=== PATIENT | female | born 1970 | race Caucasian/White ===

== ENCOUNTER 2020-08-08 07:13 | Outpatient (REF) | payer OTHER, SELFPAY ==
[2020-08-08 07:50] LABS: MANUAL DIFF FLAG NO
[2020-08-08 07:59] LABS: Basophils Absolute Auto 0.1 X10*3/uL (0.0-0.2); Basophils Percent Auto 0.7 % (0-2); Eosinophils Absolute Auto 0.2 X10*3/uL (0.0-0.4); Eosinophils Percent Auto 3.3 % (0-4); Hematocrit 45.4 % (37-47); Hemoglobin 14.9 g/dl (12.0-16.0); Imm Gran Abs Auto 0.03 X10*3/uL (0.00-0.03); Imm Gran Pct Auto 0.4 % (0.0-0.4); Lymphocytes Absolute Auto 2.4 X10*3/uL (1.2-4.9); Lymphocytes Percent Auto 35.4 % (20-40); Mean Corpuscular HGB Conc 32.8 g/dl (31.0-35.0); Mean Corpuscular Hemoglobin 28.9 pg (27.0-33.0); Mean Platelet Volume 9.2 fL (9.4-12.3); Monocytes Absolute Auto 0.6 X10*3/uL (0.1-1.2); Monocytes Percent Auto 8.3 % (2-11); Neutrophils Absolute Auto 3.6 X10*3/uL (2.0-8.3); Neutrophils Percent Auto 51.9 % (45-73); Platelet Count 314 X10*3/uL (160-400); Red Blood Count 5.16 X10*6/uL (4.20-5.50); Red Cell Distribution Width 17.2 % (11.0-16.0); White Blood Count 6.9 X10*3/uL (4.8-10.8)
[2020-08-08 08:26] LABS: Glucose Fasting 104 mg/dL (60-99); Iron 81 mcg/dL (30-160); Percent Iron Saturation 25 % (15-50); Total Iron Binding Capacity 322 mcg/dL (228-428); Unsaturated Iron Binding 241 ug/dL
[2020-08-08 08:41] LABS: Ferritin 42 ng/mL (10-250); Free T4 (Free Thyroxine) 1.03 ng/dL (0.71-1.85)
== END 2020-08-08 07:14 | disposition home or self-care (01) ==
LOC: HO.LAB 07:13
PROVIDERS: PCP Internal Medicine; Visit Provider Internal Medicine
DX: E03.9 Hypothyroidism, unspecified (principal); D50.9 Iron deficiency anemia, unspecified
CPT/HCPCS: 36415; 82728; 82947; 83540; 84439; 84443; 85025

== ENCOUNTER 2020-09-21 11:13 | Outpatient (REF) | payer OTHER, SELFPAY ==
--- NOTE | 2020-09-21 11:17 | MM_ITS ---
EXAMINATION: MM SCREENING DIGITAL BREAST TOMOSYNTHESIS, BILATERAL CLINICAL INFORMATION: Screening. Asymptomatic. The lifetime risk of breast cancer based on the Tyrer-Cuzick Model is 2%. COMPARISON: Mammography: 09/16/2019, 06/19/2018 TECHNIQUE: Digital breast tomosynthesis is performed in both the craniocaudal and mediolateral oblique views along with computer-aided detection (CAD). Synthesized 2D images are generated from the tomosynthesis. FINDINGS: There are scattered areas of fibroglandular density (ACR BI-RADS breast composition Category b). There are no significant masses, abnormal calcifications, or other abnormalities. No significant changes from prior exam. MM/MM tomosynthesis screening BI IMPRESSION: No mammographic evidence of malignancy. ASSESSMENT: BI-RADS 1: Negative RECOMMENDATION: Routine annual mammography screening. This patient's information was entered into a reminder system with a target due date for their next mammogram.
== END 2020-09-21 11:14 | disposition home or self-care (01) ==
LOC: HO.MAMMO 11:13
PROVIDERS: PCP Internal Medicine; Visit Provider Internal Medicine
DX: Z12.31 Encounter for screening mammogram for malignant neoplasm of breast (principal)
CPT/HCPCS: 77063; 77067

== ENCOUNTER 2020-10-21 08:49 | Outpatient (REF) | payer OTHER, SELFPAY | END 2020-10-21 08:50 | disposition home or self-care (01) | LOC: HO.LAB 08:49 | PROVIDERS: PCP Internal Medicine; Visit Provider Internal Medicine | DX: Z20.828 Contact with and (suspected) exposure to other viral communicable diseases (principal) | CPT/HCPCS: C9803; U0003 ==

== ENCOUNTER 2020-10-29 10:53 | Day surgery (SDC) | payer OTHER, SELFPAY ==
--- NOTE | 2020-10-27 13:57 | P.CONAN_ITS ---
Documented by User: Jael Henriquez 10/27/20 14:02 HPI - Anesthesia Eval Consult details Narrative: 50yo F for Colonoscopy PMFSH Past Medical History Medical History Acquired hypothyroidism ADHD Anemia Asthma Atypical ductal hyperplasia of right breast Bipolar 1 disorder, depressed GERD (gastroesophageal reflux disease) History of frequent headaches History of MRSA infection History of panic attacks Hypertension Hypothyroid Von Willebrand disease Family History Family History Father HTN (hypertension) Hyperlipidemia Mother HTN (hypertension) Maternal Aunt Breast cancer Surgical History Surgical History History of bilateral carpal tunnel release History of section History of eye surgery History of partial thyroidectomy History of total abdominal hysterectomy Hx of cystoscopy Hx of esophagogastroduodenoscopy Hx of rotator cuff surgery S/P laparoscopic surgery Vesicovaginal fistula Social History Social History Alcohol intake: never Smoking Status: Former smoker Smoking Quit Date: 2015 Use of substances other than those prescribed or required for medical reasons: No Advance Directives: No Advance Directives Information Provided: Yes Meds Allergies Allergy/AdvReac Type Severity Reaction Status Date / Time ziprasidone [From GEODON] Allergy Severe HIVES,SWELL Verified 10/29/20 11:17 ING alosetron [From LOTRONEX] Allergy Intermediate RASH Verified 10/29/20 11:17 Sulfa (Sulfonamide Allergy Intermediate RASH Verified 10/29/20 11:17 Antibiotics) [SULFA (SULFONAMIDE ANTIBIOTICS)] cephalexin [Keflex] Allergy Unknown rash Verified 10/29/20 11:17 oxycodone [OXYCODONE] AdvReac Severe HALLUCINATIONS, Verified 10/29/20 11:17 hallucination, hallucinations meperidine [Demerol] AdvReac Unknown nausea and Verified 10/29/20 11:17 vomiting morphine AdvReac Unknown nausea and Verified 10/29/20 11:17 vomiting Home Medications Medication Instructions Recorded Confirmed Type albuterol sulfate 90 mcg/actuation 2 puff PO Q4H PRN 08/13/20 10/22/20 History aerosol inhaler cariprazine 6 mg capsule 6 mg PO DAILY 08/13/20 10/22/20 History dextroamphetamine-amphetamine 15 1 tab PO BID 08/13/20 10/22/20 History mg tablet dicyclomine 10 mg capsule 0 mg PO 08/13/20 08/13/20 History ferrous fumarate 324 mg (106 mg 324 mg PO DAILY 08/13/20 10/22/20 History iron) tablet flu vac [id number] 36mos up(PF) ml IM 08/13/20 08/13/20 History fluticasone furoate 200 ea INHALATION 08/13/20 08/13/20 History mcg-vilanterol 25 mcg/dose inhalation powder levothyroxine 75 mcg tablet 75 mcg PO QAM 08/13/20 10/22/20 History lorazepam 2 mg tablet 2 mg PO BID PRN 08/13/20 10/22/20 History pantoprazole 40 mg tablet,delayed 40 mg PO BID 08/13/20 10/22/20 History release trazodone 100 mg tablet 100 mg PO BEDTIME 08/13/20 10/22/20 History Exam Exam Date and Time: October 27, 2020 1357 Pertinent Lab Results Pertinent Lab Results: Laboratory Tests 08/08/20 07:30 WBC 6.9 Hgb 14.9 Hct 45.4 Plt Count 314 Assessment and Plan Assessment Anesthesia Assessment: Chart Reviewed Documented by User: Robert Garcia 10/29/20 12:31 [facility] Past Medical History Medical History Acquired hypothyroidism ADHD Anemia Asthma Atypical ductal hyperplasia of right breast Bipolar 1 disorder, depressed GERD (gastroesophageal reflux disease) History of frequent headaches History of MRSA infection History of panic attacks Hypertension Hypothyroid Von Willebrand disease Family History Family History Father HTN (hypertension) Hyperlipidemia Mother HTN (hypertension) Maternal Aunt Breast cancer Surgical History Surgical History History of bilateral carpal tunnel release History of section History of eye surgery History of partial thyroidectomy History of total abdominal hysterectomy Hx of cystoscopy Hx of esophagogastroduodenoscopy Hx of rotator cuff surgery S/P laparoscopic surgery Vesicovaginal fistula Social History Social History Alcohol intake: never Smoking Status: Former smoker Smoking Quit Date: 2015 Use of substances other than those prescribed or required for medical reasons: No Advance Directives: No Advance Directives Information Provided: Yes Meds Allergies Allergy/AdvReac Type Severity Reaction Status Date / Time ziprasidone [From GEODON] Allergy Severe HIVES,SWELL Verified 10/29/20 11:17 ING alosetron [From LOTRONEX] Allergy Intermediate RASH Verified 10/29/20 11:17 Sulfa (Sulfonamide Allergy Intermediate RASH Verified 10/29/20 11:17 Antibiotics) [SULFA (SULFONAMIDE ANTIBIOTICS)] cephalexin [Keflex] Allergy Unknown rash Verified 10/29/20 11:17 oxycodone [OXYCODONE] AdvReac Severe HALLUCINATIONS, Verified 10/29/20 11:17 hallucination, hallucinations meperidine [Demerol] AdvReac Unknown nausea and Verified 10/29/20 11:17 vomiting morphine AdvReac Unknown nausea and Verified 10/29/20 11:17 vomiting Home Medications Medication Instructions Recorded Confirmed Type albuterol sulfate 90 mcg/actuation 2 puff PO Q4H PRN 08/13/20 10/22/20 History aerosol inhaler cariprazine 6 mg capsule 6 mg PO DAILY 08/13/20 10/22/20 History dextroamphetamine-amphetamine 15 1 tab PO BID 08/13/20 10/22/20 History mg tablet dicyclomine 10 mg capsule 0 mg PO 08/13/20 08/13/20 History ferrous fumarate 324 mg (106 mg 324 mg PO DAILY 08/13/20 10/22/20 History iron) tablet flu vac [id number] 36mos up(PF) ml IM 08/13/20 08/13/20 History fluticasone furoate 200 ea INHALATION 08/13/20 08/13/20 History mcg-vilanterol 25 mcg/dose inhalation powder levothyroxine 75 mcg tablet 75 mcg PO QAM 08/13/20 10/22/20 History lorazepam 2 mg tablet 2 mg PO BID PRN 08/13/20 10/22/20 History pantoprazole 40 mg tablet,delayed 40 mg PO BID 08/13/20 10/22/20 History release trazodone 100 mg tablet 100 mg PO BEDTIME 08/13/20 10/22/20 History Exam Airway Mallampati Class: III TM Dist: >3cm Neck ROM: Full Loose/Missing/Broken Teeth: No Heart: [id number] Lungs: cta b/l Assessment and Plan Assessment Anesthesia Assessment: Anesthesia Plan Discussed and Chart Reviewed Final Anesthetic Review NPO: Yes ASA Class: II Final Preanesthetic Review: No Changes in Pt Med Stat, Meds/Allgs Chart Reviewed, Consent Obtained/Reviewed and Anes Risks/Benef Reviewed Patient Risk: Low Procedure Risk: Low Assessment/Block/Sedation in SS: Assess/Block/Sedation-SS Anesthetic Plan Anesthetic Plan: MAC: Disposition: Standard PACU
[2020-10-29 11:25] VITALS: BP 156/91; PULSE 94; RESP 18; TEMP 35.9; O2SAT 99; BMI 53.1
[2020-10-29] MEDS: Lactated Ringers 1,000 ML 100 ML IVCONT (11:47)
--- NOTE | 2020-10-29 12:33 | P.HPSUR_ITS ---
Pre-Procedural Eval Section B Chief Complaint: Screening Relevant Family History (Specify if Yes): No Relevant Social History: None Present Medications: see Short Stay Collaborative assessment Medical History: Significant History (Acquired hypothyroidism ADHD Anemia Asthma Atypical ductal hyperplasia of right breast Bipolar 1 disorder, depressed GERD (gastroesophageal reflux disease) History of frequent headaches History of MRSA infection History of panic attacks Hypertension Hypothyroid Von Willebrand disease) History of Previous Operations: Relevant previous surgery/procedure and date(s) (History of bilateral carpal tunnel release History of section History of eye surgery History of partial thyroidectomy History of total abdominal hysterectomy Hx of cystoscopy Hx of esophagogastroduodenoscopy Hx of rotator c uff surgery S/P laparoscopic surgery Vesicovaginal fistula) Allergies: Allergies Allergy/AdvReac Type Severity Reaction Status Date / Time ziprasidone [From GEODON] Allergy Severe HIVES,SWELL Verified 10/29/20 11:17 ING alosetron [From LOTRONEX] Allergy Intermediate RASH Verified 10/29/20 11:17 Sulfa (Sulfonamide Allergy Intermediate RASH Verified 10/29/20 11:17 Antibiotics) [SULFA (SULFONAMIDE ANTIBIOTICS)] cephalexin [Keflex] Allergy Unknown rash Verified 10/29/20 11:17 oxycodone [OXYCODONE] AdvReac Severe HALLUCINATIONS, Verified 10/29/20 11:17 hallucination, hallucinations meperidine [Demerol] AdvReac Unknown nausea and Verified 10/29/20 11:17 vomiting morphine AdvReac Unknown nausea and Verified 10/29/20 11:17 vomiting Review of Systems Sugical H&P ROS: Negative: Constitution, Cardiovascular, Respiratory, Neurological, Psychiatric, Hem-Onc, Allergic/Immunologic, Gastrointestinal, Genitourinary, Musculoskeletal, Integumentary, Endocrine and Eyes/Ears/Nose/Throat Exam Surgical H&P Exam: Normal: HEENT, Normal: Heart, Normal: Lungs, Normal: Extremities, Normal: Abdomen, Normal: Skin and Normal: Neurological Plan Diagnosis/Plan: Unchanged I have reviewed the history and physical and performed a pertinent physical examination on my patient. No changes have occurred unless specified.
--- NOTE | 2020-10-29 12:34 | PM.OP ---
Brief Operative Note Date of Service: 10/29/20 Pre-op diagnosis: colon screen Post-op diagnosis: same Procedure: Operative Information Procedure Description: Colonoscopy COLONOSCOPY Instrument: Olympus variable stiffness adult scope 190L Colonoscopy Monitoring: Vital signs and clinical assessment, continuous EKG monitoring, Pulse oximetry, Carbon Dioxide monitoring and blood pressure monitoring were done throughout the procedure. Colon withdrawal time was 10 minutes. Procedure: The patient was placed in the left lateral decubitis position and pre-procedure medications were administered. After a digital rectal examination of the ano-rectum, the video colonoscope was inserted into the rectum and advanced through the colon to the cecum/TI. The colonoscope was slowly withdrawn in a retrograde panoramic fashion and the colon mucosa was carefully examined including a retroflexed view of the rectum. Findings and interventions are described below. Procedure Difficulty:easy Findings: Terminal Ileum-normal Cecum:normal Ascending Colon: normal Transverse Colon -normal Descending Colon:normal Sigmoid Colon: small scattered diverticula, 8-20 mm sessile polyp removed with cold snare Rectum: Retroflexion with small internal hemorrhoids, grade I Anorectum - normal Colon preparation: [place] Bowel Preparation Scale Right colon; 3 Transverse colon: 3 Left colon; 3 (0 = Unprepared colon segment with mucosa not seen due to solid stool that cannot be cleared. 1 = Portion of mucosa of the colon segment seen, but other areas of the colon segment not well seen due to staining, residual stool and/or opaque liquid. 2 = Minor amount of residual staining, small fragments of stool and/or opaque liquid, but mucosa of colon segment seen well. 3 = Entire mucosa of colon segment seen well with no residual staining, small fragments of stool or opaque liquid) Impression and Post Procedure Diagnosis: polyps internal hemorrhoids diverticular disease Plan: High fiber diet leaflet Avoid straining at stool, epsom salts and sitz bath, anusol supps or cream Repeat Colonoscopy in 5-7 years if adenomatous polyp, 10 years if hyperplastic or earlier if clinically indicated Above findings were reviewed with the patient and relevant handouts were provided if indicated. Surgeon: Radha Ramachandran MD Anesthesia: MAC Estimated blood loss (mL): 0 Condition: stable Disposition: PACU
[2020-10-29 13:20] VITALS: BP 144/85; PULSE 84; RESP 18; TEMP 36.7; O2SAT 99
[2020-10-29 13:35] VITALS: BP 146/80; PULSE 81; RESP 20; TEMP 36.6; O2SAT 98
--- NOTE | 2020-10-29 13:55 | HO.POSTANES ---
Post Anesthesia Evaluation Post Anesthesia Evaluation Vital Signs: Vital Signs Temp Pulse Resp BP Pulse Ox 10/29/20 13:35 97.8 F 81 20 146/80 H 98 10/29/20 13:20 98.1 F 84 18 144/85 H 99 10/29/20 11:25 96.6 F L 94 18 156/91 H 99 Anesthesia: Monitored Mental Status: Awake Pain Control: Satisfactory Nausea/Vomiting: None Hydration: Adequate Anesthesia-Related Issues: No Anes. Related Issues
== END 2020-10-29 14:00 | disposition home or self-care (01) ==
PROVIDERS: PCP Internal Medicine; Visit Provider Internal Medicine Gastroenterology
PROC: 0DJD8ZZ Inspection of Lower Intestinal Tract, Via Natural or Artificial Opening Endoscopic (ICD-10-PCS; CPT 45378; principal; 2020-10-29 12:40)
DX: Z12.11 Encounter for screening for malignant neoplasm of colon (principal); K63.5 Polyp of colon; K57.30 Diverticulosis of large intestine without perforation or abscess without bleeding; K64.0 First degree hemorrhoids; K58.0 Irritable bowel syndrome with diarrhea; K21.9 Gastro-esophageal reflux disease without esophagitis; I10 Essential (primary) hypertension; J45.909 Unspecified asthma, uncomplicated; D64.9 Anemia, unspecified; D68.0 Von Willebrand disease; F31.9 Bipolar disorder, unspecified; E89.0 Postprocedural hypothyroidism; Z86.14 Personal history of Methicillin resistant Staphylococcus aureus infection; Z79.899 Other long term (current) drug therapy; Z79.51 Long term (current) use of inhaled steroids; Z88.2 Allergy status to sulfonamides; Z88.8 Allergy status to other drugs, medicaments and biological substances
CPT/HCPCS: 45385; 88305

== ENCOUNTER 2020-11-17 12:26 | Outpatient (REF) | payer OTHER, SELFPAY ==
--- NOTE | 2020-11-17 12:29 | US_ITS ---
EXAMINATION: US SOFT TISSUE NONVASCULAR CLINICAL INFORMATION: Palpable lump superomedial thigh lateral to the left labia COMPARISON: None TECHNIQUE: Limited soft tissue imaging of left lower pelvis was performed FINDINGS: Imaging through the clinical palpable lump as per the patient. There is no visible mass, lymph node, or fluid collection. The soft tissues are normal. US/US extremity nonvascular IMPRESSION: Unremarkable ultrasound soft tissue imaging of lower pelvis.
== END 2020-11-17 12:27 | disposition home or self-care (01) ==
LOC: HO.HMGCX 12:26
PROVIDERS: PCP Internal Medicine; Visit Provider Nurse Practitioner Family
DX: M79.89 Other specified soft tissue disorders (principal)
CPT/HCPCS: 76882

== ENCOUNTER → 2020-11-26 11:23 | Outpatient (BNVA) | payer OTHER, SELFPAY | PROVIDERS: PCP Internal Medicine; Visit Provider Nurse Practitioner | DX: Z13.89 Encounter for screening for other disorder (principal) | CPT/HCPCS: Q3014 ==

== ENCOUNTER → 2020-12-04 14:19 | Outpatient (BNVA) | payer OTHER, SELFPAY | PROVIDERS: PCP Internal Medicine; Visit Provider Nurse Practitioner | DX: Z76.89 Persons encountering health services in other specified circumstances (principal) | CPT/HCPCS: Q3014 ==

== ENCOUNTER 2020-12-17 10:09 | Outpatient (REF) | payer OTHER, SELFPAY ==
--- NOTE | ~2020-12-17 | FL_ITS ---
EXAMINATION: FL BARIUM SWALLOW CLINICAL INFORMATION: Dysphagia. Irritable bowel syndrome with diarrhea. COMPARISON: None TECHNIQUE: Barium swallow examination is performed using fluoroscopic evaluation in addition to multiple fluoroscopic spot views. The patient is imaged both upright and prone and using both thick and thin sulfate along with effervescent granules. Fluoroscopy time: 1.4 minutes DAP: 28.3 Gycm2 Images: 48 FINDINGS: Normal esophageal motility and distention. There is a smooth impression on the posterior aspect of the cervical esophagus, probably related to a cricopharyngeal impression. No mass or mucosal lesions are seen. Patient swallowed a barium tablet with normal passage to the stomach. Small sliding hiatal hernia. No reflux is seen. FL/FL barium swallow IMPRESSION: 1. Small sliding hiatal hernia. 2. Smooth impression on the posterior aspect of the esophagus in the cervical region, probably related to a cricopharyngeal impression.
== END 2020-12-17 10:10 | disposition home or self-care (01) ==
LOC: HO.XRAY 10:09
PROVIDERS: PCP Internal Medicine; Visit Provider Nurse Practitioner
DX: K58.0 Irritable bowel syndrome with diarrhea (principal)
CPT/HCPCS: 74220

== ENCOUNTER → 2020-12-24 10:28 | Outpatient (BNVA) | payer OTHER, SELFPAY | PROVIDERS: PCP Internal Medicine; Visit Provider Nurse Practitioner | DX: Z13.89 Encounter for screening for other disorder (principal) | CPT/HCPCS: Q3014 ==

== ENCOUNTER 2020-12-28 14:17 | Outpatient (REF) | payer OTHER, SELFPAY ==
--- NOTE | ~2020-12-28 | FL_ITS ---
EXAMINATION: XR BARIUM SWALLOW CLINICAL INFORMATION: Dysphagia. COMPARISON: None TECHNIQUE: Routine modified barium swallow was performed in the presence of speech therapist with various consistencies of food. FINDINGS: On oral administration of thin, thick and solid food and in-between consistencies by the speech therapist, there is normal propagation of bolus from the oral cavity through the pharynx into esophagus without obstruction or narrowing. No laryngeal penetration or aspiration seen. FLUOROSCOPY TIME: 1.1 minute DOSE AREA PRODUCT: 1.916 uGy-m2 (microgray-meter squared) FL/FL barium swallow modified IMPRESSION: Unremarkable modified barium swallow exam. Please correlate with speech therapy report.
--- NOTE | 2020-12-28 16:00 | MHC.SL.IMP ---
Name: Arcelia Pickering Date of : 1970 Age: 50 Date of Registration: 12/28/20 Date of Plan of Treatment: 12/28/20 Onset of Symptoms/Illness: 10/30/20 Date Treatment Started: 12/28/20 Admitting Diagnosis: Modified Barium Swallow Study Fluoroscopic Evaluation of Swallowing Function CPT Code 27735 Evaluation Year: 2020 Reason for Study: Patient reports globus sensation. Referring Physician: Disha Jameson NP Evaluating Clinician: Fatmata Rhoades M.A. CCC-RECRUITING AND SELECTION CONSULTANT Study Number: 1 Patient Name: Arcelia Pickering Status: Outpatient, Ambulatory Age: 50 Gender: Female MEDICAL HISTORY: Year of Onset or Diagnosis: 2020 Comorbidities: Acquired hypothyroidism ADHD Anemia Asthma Atypical ductal hyperplasia right breast Bipolar 1 depressed GERD Frequent headaches MRSA infection Panic attacks Hypertension Perineal mass Van Willebrand disease Current Surgical History: Bilateral carpal tunnel release Eye surgery Partial thyroidectomy Total abdominal hysterectomy Colonoscopy Cystoscopy Esophagogastroduodenoscopy Rotator cuff surgery Laparosopic surgery Vesicovaginal fistula Current (pre-evaluation) Intake/Diet: Route: PO Diet Grade: Regular Liquid Consistencies: Thin Pre-Study Functional Oral Intake Scale (FOIS): 7- Total oral intake with no restrictions Pain: None reported at time of study Primary Speech & Language Diagnosis: R13.12 Oropharyngeal Phase Dysphagia Pre-evaluation Dietary Consistencies: Regular Pre-evaluation Liquid Consistency: Thin Pre-evaluation Medication Administration: Whole with Liquid SUBJECTIVE: Patient is a 50 year old woman who reports sudden onset of dysphagia a few months ago. She also reports changes in her voice, stating, ?my voice cuts out.? Patient reports a sensitive gag reflex which prevents her from swallowing at times. She even reports gagging when brushing her teeth. Patient reports that food ?feels stuck? and that she drinks water to get it down. Patient denies pain when swallowing. Patient had barium swallow study on 12/17/20 which showed, ?small sliding hiatal hernia; smooth impression on the posterior aspect of the esophagus in the cervical region, probably related to a cricopharyngeal impression.? Oral Motor Exam Facial Symmetry: Symmetrical Mouth Occlusion: Normal Oral-Facial Teeth Characteristics: Intact/Normal Oral-Facial Lip Pucker Description: Normal Oral-Facial Smile (Lips) Description: Normal Oral-Facial Puff Cheeks Description: Normal Tongue Size: Normal Tongue Excursion Description: Normal Tongue Range of Movement Description: Normal Tongue Speed of Movement Description: Normal Tongue Strength of Movement (against opposing pressure): Normal Tongue Movement Characteristics: Normal/Absent Is patient able to manage secretions?: Yes Is patient able to produce volitional cough?: Yes Food and Liquid Trials: Oral Impairment: Lip Closure: Did not test Oral Impairment: Tongue Control During Bolus Hold: 1=Escape to lateral buccal cavity/floor of mouth (FOM) Oral Impairment: Bolus Preparation/Mastication: 0=Timely and efficient chewing and mashing Oral Impairment: Bolus Transport/Lingual Motion: 2=Slowed tongue motion Oral Impairment: Oral Residue: 0=Complete oral clearance Oral Impairment:Initiation of Pharyngeal Swallow: 1=Bolus head in valleculae Pharyngeal Impairment: Soft Palate Elevation: 0=No bolus between soft palate (SP)/pharyngeal wall (PW) Pharyngeal Impairment: Larngeal Elevation: 1=Partial thyroid cartilage/arytenoids to epiglottic petiole movement Pharyngeal Impairment: Anterior Hyoid Excursion: 1=Partial anterior movement Pharyngeal Impairment: Epiglottic Movement: 0=Complete inversion Pharyngeal Impairment: Laryngeal Vestibular Closure:: 0=Complete: no air/contrast in laryngeal vestibule Pharyngeal Impairment: Pharyngeal Stripping Wave: 0=Present: complete Pharyngeal Impairment: Pharyngeal Contraction: Did not test Pharyngeal Impairment: Pharyngoesophageal Segment Openin=Complete distension and complete duration: no obstruction of flow Pharyngeal Impairment: Tongue Base (TB) Retraction: 1=Trace column of contrast/air between TB and posterior PW Pharyngeal Impairment: Pharyngeal Residue: 1=Trace residue within or on pharyngeal structures Pharyngeal Impairment: Espohogeal Clearance Upright Position: Did not test Impressions and Recommendations Clinicial Observations: OBJECTIVE: Time-out: performed at 02:45 Evaluation Start: 02:30; Stop: 02:40 Patient Positioning: Standing Viewing Planes: LATERAL ONLY Contrast: MBSImP? Standardized Protocol using commercially prepared, standardized Barium viscosities, including: Varibar? THIN LIQUID (40% w/v, <15 cps) , 1/2 Shortbread Cookie (1 x1 x.25 ) MBSImP ID: [id number] MBSImP Results: Lip closure for intraoral bolus containment could not be assessed due to logistical reasons not related to physiologic impairment. Tongue control during bolus hold allowed bolus escape to the lateral buccal cavity/floor of mouth. Bolus preparation and mastication resulted in timely and efficient chewing and mashing. Bolus transport/lingual motion was with slowed tongue motion. Oral residue was not observed. There was complete oral clearance. Initiation of the pharyngeal swallow occurred when the bolus head was in the valleculae. Soft palate elevation resulted in no bolus between the soft palate and the pharyngeal wall. Laryngeal elevation was decreased, with partial superior movement of the thyroid cartilage/partial approximation of the arytenoids to the epiglottic petiole. Anterior hyoid excursion demonstrated partial anterior movement. Epiglottic movement resulted in complete inversion. Laryngeal vestibular closure was complete, as indicated by no air or contrast within the laryngeal vestibule at the height of the swallow. Pharyngeal stripping wave was present and complete. Pharyngeal contraction could not be determined due to logistical reasons not related to physiologic impairment. Pharyngoesophageal segment opening was completely distended for complete duration with no obstruction of bolus flow. Tongue base retraction allowed a trace column of contrast or air between the retracted tongue base and the posterior pharyngeal wall. Pharyngeal residue was a trace within or on pharyngeal structures. Esophageal clearance in the upright position could not be assessed due to logistical reasons not related to physiologic impairment. Oral Impairment Score: 4 (absence of score, component 1) Pharyngeal Impairment Score: 2 (absence of score, component 13) Esophageal Impairment Score: --- (absence of score, component 17) Laryngeal Penetration and Aspiration: Neither penetration nor aspiration was observed in today's study with Cookie, Thin. ASSESSMENT: Clinician Assessment: This exam was conducted by speech-language pathologist and radiologist with patient standing for lateral view only. Patient trialed the following liquid and solid consistencies: -5 mL thin liquid barium -cup sip with bolus hold thin liquid barium -consecutive sip thin liquid barium -applesauce mixed with barium paste (pureed solid) -chicken salad mixed with barium paste (ground solid) -Carlota Doone cookie coated in barium paste No aspiration or penetration evident during this exam. Patient displayed piecemeal deglutition pattern, at times requiring 2 swallows to clear bolus from oral cavity when eating harder solids. Good oral and pharyngeal clearance. Complete distention with no evidence of obstruction through PES. Oral and pharyngeal phases deemed within functional limits. Liquid Intake Recommendation: Thin Liquid Intake Strategies: Unrestricted Dietary Recommendations: Regular Medication Administration: Whole with Liquid Compensatory Strategies Recommended: Sitting Upright (90 deg) Small Bites and Sips Alternate Liquids/Solids Rate of Ingestion Change Supervision during eating and or drinking: None Needed Recommendation for Speech Therapy: NA:Typical Evaluation PLAN: Intake Recommendations: Route: PO Diet Grade: Regular Liquid Consistencies: Thin Post-Study Functional Oral Intake Scale (FOIS): 7- Total oral intake with no restrictions Patient is recommended a referral to ENT due to reported issues gag reflex and changes in voice, consult with speech pathologist for voice evaluation, and ongoing care with line builder. Suggested Referrals: The patient might benefit from a referral to: -Gastroenterology Indication for Referral: ongoing care -Speech Pathology Indication for Referral: voice evaluation -ENT Indication for Referral: sensitive gag reflex and changes to voice Therapy Recommendations: Therapy will be discontinued Prognosis for Improvement: The prognosis for the patient to meet nutritional needs by mouth is excellent based on degree of impairment. Clinician - Supplemental, Miscellaneous Communication: It is important to note MBSS objective studies are snapshots in time and Patient function might vary with factors such as time of day or concomitant medical conditions. For this reason, the final treatment plan for this patient should rest with their medical care team. Additional recommendations should be considered with the totality of the Patient in mind. Thank for the opportunity to participate in the care of this patient. If you have any questions about the content of this report, please contact the [facility] at [facility]. Education: Education regarding findings from today's study and plans for therapy were provided to Patient only through Verbal Instruction. Understanding was expressed by the Patient only. Lumite Injector Clinican/Clinical Fellow: No Supervisory Statement: N/A Speech Language Pathologist: Fatmata Rhoades M.A., CCC-RECRUITING AND SELECTION CONSULTANT
== END 2020-12-28 14:18 | disposition home or self-care (01) ==
LOC: HO.XRAY 14:17
PROVIDERS: Visit Provider Nurse Practitioner
DX: R13.12 Dysphagia, oropharyngeal phase (principal)
CPT/HCPCS: 74230; 92611

== ENCOUNTER → 2021-01-12 08:57 | Outpatient (BNVA) | payer OTHER, SELFPAY | PROVIDERS: PCP Internal Medicine; Visit Provider Nurse Practitioner | DX: Z13.89 Encounter for screening for other disorder (principal) | CPT/HCPCS: Q3014 ==

== ENCOUNTER → 2021-01-28 08:35 | Outpatient (BNVA) | payer OTHER, SELFPAY | PROVIDERS: PCP Internal Medicine; Visit Provider Nurse Practitioner | DX: Z12.11 Encounter for screening for malignant neoplasm of colon (principal); K58.0 Irritable bowel syndrome with diarrhea; R13.12 Dysphagia, oropharyngeal phase; K21.9 Gastro-esophageal reflux disease without esophagitis; R10.13 Epigastric pain | CPT/HCPCS: Q3014 ==

== ENCOUNTER 2021-02-01 09:25 | Outpatient (REF) | payer OTHER, SELFPAY | END 2021-02-01 09:26 | disposition home or self-care (01) | LOC: HO.LNP 09:25 | PROVIDERS: Visit Provider Nurse Practitioner | DX: R10.13 Epigastric pain (principal); K21.9 Gastro-esophageal reflux disease without esophagitis | CPT/HCPCS: 87338 ==

== ENCOUNTER 2021-02-01 10:10 | Outpatient (REF) | payer OTHER, SELFPAY ==
[2021-02-01 11:29] LABS: Alanine Aminotransferase 29 U/L (0-31); Albumin Level 4.2 g/dL (3.5-5.0); Alkaline Phosphatase 70 U/L (39-117); Amylase 58 U/L (28-100); Aspartate Amino Transferase 21 U/L (5-31); Bilirubin Direct 0.2 mg/dL (0.0-0.5); Bilirubin Total 0.4 mg/dL (0.0-1.0); Lipase 20 U/L (8-78); Total Protein 7.2 g/dL (6.5-8.0)
[2021-02-02 13:12] LABS: Transglutaminase Ab IgG 1 U/mL; Transglutaminase IgA 1 U/mL
[2021-02-02 13:57] LABS: Gliadin Deamidated IgA Ab 4 Units; Gliadin Deamidated IgG Ab 1 Units
== END 2021-02-01 10:11 | disposition home or self-care (01) ==
LOC: HO.LAB 10:10
PROVIDERS: PCP Internal Medicine; Visit Provider Nurse Practitioner
DX: R10.13 Epigastric pain (principal); K21.9 Gastro-esophageal reflux disease without esophagitis
CPT/HCPCS: 36415; 80076; 82150; 83516; 83690

== ENCOUNTER → 2021-02-18 10:34 | Outpatient (BNVA) | payer OTHER, SELFPAY | PROVIDERS: PCP Internal Medicine; Visit Provider Nurse Practitioner | DX: Z13.89 Encounter for screening for other disorder (principal) | CPT/HCPCS: Q3014 ==

== ENCOUNTER → 2021-08-23 09:21 | Outpatient (BNVA) | payer OTHER, SELFPAY | PROVIDERS: PCP Internal Medicine; Visit Provider Nurse Practitioner | DX: Z13.89 Encounter for screening for other disorder (principal) | CPT/HCPCS: Q3014 ==

== ENCOUNTER 2021-09-04 09:10 | Outpatient (REF) | payer OTHER, SELFPAY ==
[2021-09-04 11:24] LABS: MANUAL DIFF FLAG NO
[2021-09-04 11:31] LABS: Basophils Absolute Auto 0.1 X10*3/uL (0.0-0.2); Basophils Percent Auto 1.1 % (0-2); Eosinophils Absolute Auto 0.3 X10*3/uL (0.0-0.4); Eosinophils Percent Auto 4.9 % (0-4); Hematocrit 43.5 % (37.0-47.0); Hemoglobin 14.3 g/dl (12.0-16.0); Imm Gran Abs Auto 0.02 X10*3/uL (0.00-0.03); Imm Gran Pct Auto 0.3 % (0.0-0.4); Lymphocytes Absolute Auto 2.5 X10*3/uL (1.2-4.9); Lymphocytes Percent Auto 39.2 % (20-40); Mean Corpuscular HGB Conc 32.9 g/dl (31.0-35.0); Mean Corpuscular Hemoglobin 29.7 pg (27.0-33.0); Mean Corpuscular Volume 90.4 fL (80.0-98.0); Mean Platelet Volume 9.7 fL (9.4-12.3); Monocytes Absolute Auto 0.5 X10*3/uL (0.1-1.2); Monocytes Percent Auto 7.7 % (2-11); Neutrophils Absolute Auto 2.9 x10*3/uL (2.0-8.3); Neutrophils Percent Auto 46.8 % (45-73); Platelet Count 329 X10*3/uL (160-400); Red Blood Count 4.81 X10*6/uL (4.20-5.50); Red Cell Distribution Width 13.2 % (11.0-16.0); White Blood Count 6.3 X10*3/uL (4.8-10.8)
[2021-09-04 11:44] LABS: Alanine Aminotransferase 38 U/L (0-31); Anion Gap 16 (12-20); Aspartate Amino Transferase 27 U/L (5-31); Blood Urea Nitrogen 17 mg/dL (9-16); Calcium 9.4 mg/dL (8.4-10.2); Carbon Dioxide 26 mmol/L (22-29); Chloride 106 mmol/L (96-108); Cholesterol 205 mg/dL; Estimated Glomerular Filt Rate 47; Glucose Fasting 101 mg/dL (60-99); HDL Cholesterol 40 mg/dL; LDL Cholesterol Calculated 120 mg/dl; Potassium 4.6 mmol/L (3.3-5.1); Sodium 143 mmol/L (135-145); Triglycerides 229 mg/dL
[2021-09-04 12:11] LABS: Free T4 (Free Thyroxine) 0.97 ng/dL (0.71-1.85); Thyroid Stimulating Hormone 2.62 uIU/mL (0.32-4.0)
== END 2021-09-04 09:11 | disposition home or self-care (01) ==
LOC: HO.HMGCLDS 09:10
PROVIDERS: PCP Internal Medicine; Visit Provider Internal Medicine
DX: Z00.01 Encounter for general adult medical examination with abnormal findings (principal); E03.9 Hypothyroidism, unspecified; I10 Essential (primary) hypertension; K21.9 Gastro-esophageal reflux disease without esophagitis; Z78.0 Asymptomatic menopausal state; Z86.2 Personal history of diseases of the blood and blood-forming organs and certain disorders involving the immune mechanism
CPT/HCPCS: 36415; 80048; 80061; 82306; 84439; 84443; 84450; 84460; 85025

== ENCOUNTER 2021-11-16 11:17 | Outpatient (REF) | payer OTHER, SELFPAY ==
--- NOTE | ~2021-11-16 | MM_ITS ---
EXAMINATION: MM SCREENING DIGITAL BREAST TOMOSYNTHESIS, BILATERAL CLINICAL INFORMATION: Screening. Asymptomatic. The lifetime risk of breast cancer based on the Tyrer-Cuzick Model is 8%. COMPARISON: Mammography: 09/21/2020, 09/16/2019, 06/19/2018 TECHNIQUE: Digital breast tomosynthesis is performed in both the craniocaudal and mediolateral oblique views along with computer-aided detection (CAD). Synthesized 2D images are generated from the tomosynthesis. FINDINGS: There are scattered areas of fibroglandular density (ACR BI-RADS breast composition Category b). There are no significant masses, abnormal calcifications, or other abnormalities. Parenchymal pattern is similar to prior studies. There is no developing density or architectural abnormality. The axilla and skin contours are unremarkable. No significant changes. MM/MM tomosynthesis screening BI IMPRESSION: No mammographic evidence of malignancy. ASSESSMENT: BI-RADS 1: Negative RECOMMENDATION: Routine annual mammography screening. This patient's information was entered into a reminder system with a target due date for their next mammogram.
== END 2021-11-16 11:18 | disposition home or self-care (01) ==
LOC: HO.MAMMO 11:17
PROVIDERS: Visit Provider Internal Medicine
DX: Z12.31 Encounter for screening mammogram for malignant neoplasm of breast (principal)
CPT/HCPCS: 77063; 77067

== ENCOUNTER 2021-11-22 13:02 | Outpatient (REF) | payer OTHER, SELFPAY ==
--- NOTE | ~2021-11-22 | XR_ITS ---
EXAMINATION: XR WRIST, RIGHT CLINICAL INFORMATION: Pain COMPARISON: None TECHNIQUE: PA, lateral, and oblique views of the right wrist. FINDINGS: The bones and soft tissues are normal. No fracture. Alignment is anatomic with normal joint spaces. No erosions or abnormal soft tissue calcifications. XR/XR wrist RT min 3V IMPRESSION: Normal right wrist.
== END 2021-11-22 13:03 | disposition home or self-care (01) ==
LOC: HO.HMGCX 13:02
PROVIDERS: Visit Provider Physician Assistant
DX: M25.531 Pain in right wrist (principal)
CPT/HCPCS: 73110

== ENCOUNTER 2021-11-30 10:50 | Outpatient (REF) | payer OTHER, SELFPAY ==
[2021-11-30 14:27] LABS: Alanine Aminotransferase 61 U/L (0-31); Anion Gap 14 (12-20); Aspartate Amino Transferase 64 U/L (5-31); Blood Urea Nitrogen 14 mg/dL (9-16); Calcium 9.9 mg/dL (8.4-10.2); Carbon Dioxide 28 mmol/L (22-29); Chloride 103 mmol/L (96-108); Cholesterol 236 mg/dL; Estimated Glomerular Filt Rate 39; Glucose Fasting 99 mg/dL (60-99); HDL Cholesterol 46 mg/dL; LDL Cholesterol Calculated 152 mg/dl; Potassium 4.2 mmol/L (3.3-5.1); Sodium 141 mmol/L (135-145); Triglycerides 192 mg/dL
[2021-11-30 14:41] LABS: Thyroid Stimulating Hormone 3.06 uIU/mL (0.32-4.0); Vitamin D 25-OH Total 50.6 ng/mL (>30)
== END 2021-11-30 10:51 | disposition home or self-care (01) ==
LOC: HO.HMGCLDS 10:50
PROVIDERS: Visit Provider Internal Medicine
DX: E03.9 Hypothyroidism, unspecified (principal); I10 Essential (primary) hypertension; R73.01 Impaired fasting glucose
CPT/HCPCS: 36415; 80048; 80061; 82306; 84439; 84443; 84450; 84460

== ENCOUNTER 2022-01-17 11:30 | Outpatient (RCR) | payer OTHER, SELFPAY ==
--- NOTE | 2021-12-20 12:08 | MHC.OT.OEV ---
[address] [phone] F: [phone] Occupational Therapy Evaluation Diagnosis: Right De Quervain's Tendinopathy Date of Onset: 11/23/21 Attending Provider: Michelle Espinoza PA-C Prescribed Treatment: Eval and Treat History of Current Condition: 51 yo right hand dominant female presents w/ persistent right radial wrist pain over the past few weeks. She was seen in urgent care, given resting wrist orthosis and referred to OT for further management. Significant Medical History: Hx of blood clotting disorder, cortisone shots for carpal tunnel. Precautions/Contraindications: Patient Goals: Relieve the pain Hand Dominance: Right QuickDASH Score: 53 Prior Level of Function and Occupation Self Care, Employment, Leisure: Unemployed, no specific hobbies, enjoys singing in the choir Spends majority of her day texting a friend Living Situation, Family and/or Social Support: Lives with fiance in a two-family home. Current Level of Function and Occupation Self Care, Employment, Leisure: Difficulty w/ cooking, cleaning, imani-care and dressing Sleep: Some difficulty w/ sleep Pain Assessment Pain Score: 9 Pain Scale Used: Pain Location and Description: At rest 8-9/10 pain Tingling over thumb Aggravating Factors: Gripping, pulling up pants, opening containers Alleviating Factors: Trialed heat/ice and voltarin, not specifically helpful Skin and Soft Tissue Assessment Skin and Soft Tissue: Swelling Nerve assessment Ulnar Nerve: WNL Median Nerve: WNL Radial Nerve: WNL Sensory Assessment Comments: Pt reports tingling over dorsal radial sensory nerve distribution Edema Assessment Upper Extremity: Right Impaired Comments: Edema in wrist and thenar eminence Dexterity Assessment Dexterity: WNL Special Tests Comments: (+) Finklestein's AROM(PROM) Strength Cervical Cervical Flexion: Cervical Extension: Cervical Lateral Flexion: Cervical Rotation: Comments: WFL Shoulder Flexion: Extension: Abduction: Internal Rotation: External Rotation: Comments: WFL Flexion: Extension: Abduction: Internal Rotation: External Rotation: Comments: Elbow Flexion: Extension: Pronation: Supination: Comments: WFL Flexion: Extension: Pronation: Supination: Comments: Wrist Flexion: Extension: Ulnar Deviation: Radial Deviation: Comments: WFL Flexion: Extension: Ulnar Deviation: Radial Deviation: Comments: Thumb Thumb CMC Flexion: Thumb MCP Flexion: Thumb IP Flexion: Radial Abduction: Palmar Abduction: Keiser (Kapandji 0-10): Comments: WFL, pain w/ end range thumb opp and add Digits Index MCP: PIP: DIP: Long MCP: PIP: DIP: Ring MCP: PIP: DIP: Small MCP: PIP: DIP: Comments: WFL Gross Grasp: R 45lb L 100lb Lateral Pinch: Two-Point Pinch: Three-Jaw Hosea: Comments: Submaximal w/ increase in pain in right Patient Education Primary Language: Maori Game Operator Required: No Current Knowledge: Understands information with skills for self-management Teaching Method: Demonstration Handouts Verbal Education Needs Identified on Evaluation: ADL's Disease Information Equipment Use Exercise Pain Safety How did patient/family demonstrate learning? Patient demonstrates Patient verbalizes Barriers to Learning: None Readiness for Learning: Accepting Who was educated? Patient Comments: Pt ed on joint protection for De Quervain's tendintitis Pt ed on dexamethasone use Plan of Care Assessment: 51 yo right hand dominant presents w/ right radial wrist pain, referred from urgent care. On assessment, s/s consistent w/ De Quervain's tendinitis with mild edema over first dorsal compartment, pain w/ radial deviation and decreased gross grasp. She will benefit from cont'd therapy services for continued management w/ splinting, joint protection, activity modification and progression of strengthening. STG Duration: 2 weeks Short Term Goals: Ind w/ use of ice/heat modalities appropriately Resting pain <3/10 in radial wrist Good follow through w/ joint protection and activity modification LTG Duration: 4 weeks Nursing Home Goals: Right gross grasp >65lb Pain free radial wrist at rest <3/10 right radial wrist pain w/ moderate home activities (cooking, laundry, etc) Frequency and Duration: The patient will be seen 2x/wk for 4 weeks Treatment Plan: Therapeutic Exercise Therapeutic Activity Home Exercise Program Splinting Patient Education Edema Control ADL Training Iontophoresis Paraffin Fluidotherapy MHP Joint Mobilization Soft Tissue Mobilization Kinesiotaping Thumb spica orthosis Electronically Signed By: Caridad Sanchez OT/s Reviewed/agree with student documentation: Yes Therapist: Dulce Maria Canada OTR/L CHT Please sign and return to therapist, Thank you for your referral.
--- NOTE | 2022-01-17 12:10 | MHC.OT.DC ---
[address] [phone] F: [phone] Occupational Therapy Discharge Note Provider: Michelle Espinoza PA-C Diagnosis: Right De Quervain's Tendinopathy Date of Evaluation: 12/20/21 Date of Discharge: 01/17/22 Treatments to Date: 8 Discharge Status: Achieved Goals Improved Function Independent with HEP Discharge Summary: Arcelia was referred to outpatient OT for pain in right wrist, s/s consistent with De Quervains tendinopathy. She is doing well with her HEP and has begun to progress to adding weight to exercises. She is well informed on adaptive techniques and self management, however, still tends to use maladaptive movements in her daily routine. She reports being pain free when able to rest, but 6-7/10 pain with light activity. Electronically Signed By: Caridad Sanchez, OT/s Reviewed/agree with student documentation: Yes Therapist: Dulce Maria Canada OTR/L CHT Please Sign and return to therapist, thank you for your referral.
== END 2022-01-17 12:11 | disposition home or self-care (01) ==
LOC: HO.OT 11:30
PROVIDERS: PCP Internal Medicine; Visit Provider Physician Assistant
DX: M25.531 Pain in right wrist (principal)
CPT/HCPCS: 29125; 97033; 97110; 97165; 97760

== ENCOUNTER → 2022-02-22 10:49 | Outpatient (BNVA) | payer OTHER, SELFPAY | PROVIDERS: PCP Internal Medicine; Referring Provider Internal Medicine; Visit Provider Nurse Practitioner | DX: K21.9 Gastro-esophageal reflux disease without esophagitis (principal); K58.0 Irritable bowel syndrome with diarrhea; K59.00 Constipation, unspecified | CPT/HCPCS: 99212 ==

== ENCOUNTER 2022-03-15 10:39 | Outpatient (REF) | payer OTHER, SELFPAY ==
[2022-03-15 11:40] LABS: Alanine Aminotransferase 43 U/L (0-31); Albumin Level 4.2 g/dL (3.5-5.0); Alkaline Phosphatase 66 U/L (39-117); Anion Gap 12 (12-20); Aspartate Amino Transferase 33 U/L (5-31); Bilirubin Total 0.3 mg/dL (0.0-1.0); Blood Urea Nitrogen 13 mg/dL (9-16); Calcium 9.9 mg/dL (8.4-10.2); Carbon Dioxide 28 mmol/L (22-29); Chloride 104 mmol/L (96-108); Cholesterol 240 mg/dL; Estimated Glomerular Filt Rate 45; Glucose Fasting 103 mg/dL (60-99); HDL Cholesterol 40 mg/dL; Potassium 4.4 mmol/L (3.3-5.1); Sodium 140 mmol/L (135-145); Total Protein 7.3 g/dL (6.5-8.0); Triglycerides 402 mg/dL
[2022-03-15 12:04] LABS: Free T4 (Free Thyroxine) 0.97 ng/dL (0.71-1.85); Thyroid Stimulating Hormone 2.88 uIU/mL (0.32-4.0)
== END 2022-03-15 10:40 | disposition home or self-care (01) ==
LOC: HO.HMGCLDS 10:39
PROVIDERS: Visit Provider Internal Medicine
DX: E03.9 Hypothyroidism, unspecified (principal); E66.01 Morbid (severe) obesity due to excess calories; F90.9 Attention-deficit hyperactivity disorder, unspecified type; R73.01 Impaired fasting glucose; R94.4 Abnormal results of kidney function studies
CPT/HCPCS: 36415; 80053; 80061; 84439; 84443

== ENCOUNTER 2022-03-28 08:35 | Outpatient (REF) | payer OTHER, SELFPAY ==
[2022-03-28 11:48] LABS: Cholesterol 238 mg/dL; HDL Cholesterol 40 mg/dL; LDL Cholesterol Calculated 131 mg/dl; Triglycerides 338 mg/dL
[2022-03-29 07:55] LABS: LDL Cholesterol Direct 157 mg/dL (<100)
== END 2022-03-28 08:36 | disposition home or self-care (01) ==
LOC: HO.HMGCLDS 08:35
PROVIDERS: Absent Provider Psychiatry & Neurology Psychiatry; PCP Internal Medicine; Visit Provider Internal Medicine
DX: E78.2 Mixed hyperlipidemia (principal)
CPT/HCPCS: 36415; 80061; 83721

== ENCOUNTER → 2022-08-31 09:41 | Outpatient (BNVA) | payer OTHER, SELFPAY | PROVIDERS: PCP Internal Medicine; Visit Provider Nurse Practitioner | DX: K58.0 Irritable bowel syndrome with diarrhea (principal); K21.9 Gastro-esophageal reflux disease without esophagitis; K59.04 Chronic idiopathic constipation | CPT/HCPCS: 99212 ==

== ENCOUNTER 2022-09-09 13:43 | Outpatient (REF) | payer OTHER, SELFPAY ==
[2022-09-09 17:07] LABS: Estimated Average Glucose 111 mg/dL; Hemoglobin A1c % 5.5 %
[2022-09-09 18:02] LABS: Alanine Aminotransferase 36 U/L (0-31); Albumin Level 4.5 g/dL (3.5-5.0); Alkaline Phosphatase 57 U/L (39-117); Anion Gap 15 (12-20); Aspartate Amino Transferase 32 U/L (5-31); Bilirubin Total 0.4 mg/dL (0.0-1.0); Blood Urea Nitrogen 10 mg/dL (9-16); Calcium 9.8 mg/dL (8.4-10.2); Carbon Dioxide 31 mmol/L (22-29); Chloride 100 mmol/L (96-108); Cholesterol 239 mg/dL; Estimated Glomerular Filt Rate 44; Free T4 (Free Thyroxine) 1.05 ng/dL (0.71-1.85); Glucose Fasting 96 mg/dL (60-99); HDL Cholesterol 45 mg/dL; LDL Cholesterol Calculated 134 mg/dl; Potassium 3.7 mmol/L (3.3-5.1); Sodium 142 mmol/L (135-145); Thyroid Stimulating Hormone 1.98 uIU/mL (0.32-4.0); Total Protein 7.5 g/dL (6.5-8.0); Triglycerides 302 mg/dL; Vitamin D 25-OH Total 59.2 ng/mL (>30)
== END 2022-09-09 13:44 | disposition home or self-care (01) ==
LOC: HO.HMGCLDS 13:43
PROVIDERS: PCP Internal Medicine; Visit Provider Internal Medicine
DX: E03.9 Hypothyroidism, unspecified (principal); E66.01 Morbid (severe) obesity due to excess calories; E78.2 Mixed hyperlipidemia; J45.20 Mild intermittent asthma, uncomplicated; R73.01 Impaired fasting glucose; R94.4 Abnormal results of kidney function studies
CPT/HCPCS: 36415; 80053; 80061; 82306; 83036; 84439; 84443

== ENCOUNTER 2022-09-29 16:16 | Outpatient (REF) | payer OTHER, SELFPAY ==
--- NOTE | ~2022-09-29 | MR_ITS ---
EXAMINATION: MR LUMBAR SPINE WITHOUT CONTRAST CLINICAL INFORMATION: Radiculopathy, lumbar region. COMPARISON: Lumbar spine MRI 03/12/2010. TECHNIQUE: MRI of the lumbar spine was obtained using routine sequences without contrast. FINDINGS: The lumbar vertebral bodies maintain normal heights and alignment. The disc heights are preserved. No bone marrow edema is seen. The distal spinal cord appears normal. The conus medullaris terminates normally at the L1 level. The extraspinal soft tissues are unremarkable. SPINAL LEVELS: L1-L2: No posterior disc abnormality. No spinal canal or neural foraminal stenosis. L2-L3: No posterior disc abnormality. No spinal canal or neural foraminal stenosis. L3-L4: No posterior disc abnormality. Mild facet arthropathy. No spinal canal or neural foraminal stenosis. L4-L5: Mild disc bulging with moderate facet arthropathy ligamentum flavum infolding. No spinal canal stenosis. Mild encroachment on the right neural foramen. L5-S1: No posterior disc abnormality. Moderate left facet arthropathy. No spinal canal or neural foraminal stenosis. MR/MR lumbar spine wo con IMPRESSION: No significant narrowing of the spinal canal or neural foramina. No definite nerve root compression is seen. No
== END 2022-09-29 16:17 | disposition home or self-care (01) ==
LOC: HO.MRI 16:16
PROVIDERS: Visit Provider Internal Medicine
DX: M54.16 Radiculopathy, lumbar region (principal)
CPT/HCPCS: 72148

== ENCOUNTER → 2022-11-02 14:44 | Outpatient (BNVA) | payer OTHER, SELFPAY | PROVIDERS: PCP Internal Medicine; Visit Provider Nurse Practitioner | DX: K58.0 Irritable bowel syndrome with diarrhea (principal); K21.9 Gastro-esophageal reflux disease without esophagitis | CPT/HCPCS: 99212 ==

== ENCOUNTER 2022-11-09 09:50 | Outpatient (REF) | payer OTHER, SELFPAY ==
--- NOTE | ~2022-11-09 | XR_ITS ---
EXAMINATION: XR KNEE, RIGHT CLINICAL INFORMATION: Right knee pain COMPARISON: Bilateral knees 07/02/2007 TECHNIQUE: Three views of the right knee. FINDINGS: Degenerative changes are seen with mild narrowing of the medial compartment no joint effusion is seen. On the lateral radiograph, there is a calcific 6 mm density seen which may have been present in 2006 overlying the femoral condyle but was significantly smaller at 3 mm in size. This could represent an intra-articular free osseous body. No fractures are seen. No chondrocalcinosis. XR/XR knee RT 3V IMPRESSION: Mild degenerative changes medial compartment with question of intra-articular free osseous body as described above. No acute finding.
== END 2022-11-09 09:51 | disposition home or self-care (01) ==
LOC: HO.HMGCX 09:50
PROVIDERS: PCP Internal Medicine; Visit Provider Internal Medicine
DX: M25.561 Pain in right knee (principal); M25.461 Effusion, right knee
CPT/HCPCS: 73562

== ENCOUNTER → 2022-11-14 09:48 | Outpatient (BNVA) | payer OTHER, SELFPAY | PROVIDERS: PCP Internal Medicine; Visit Provider Nurse Practitioner Family | DX: M17.11 Unilateral primary osteoarthritis, right knee (principal); M47.816 Spondylosis without myelopathy or radiculopathy, lumbar region; M51.36 Other intervertebral disc degeneration, lumbar region; M62.830 Muscle spasm of back | CPT/HCPCS: 99202 ==

== ENCOUNTER 2022-12-19 09:59 | Outpatient (REF) | payer OTHER, SELFPAY ==
--- NOTE | ~2022-12-19 | MM_ITS ---
EXAMINATION: MM SCREENING DIGITAL BREAST TOMOSYNTHESIS, BILATERAL CLINICAL INFORMATION: Screening. Asymptomatic. The lifetime risk of breast cancer based on the Tyrer-Cuzick Model is 10.5%. COMPARISON: Mammography: November 16, 2021 and studies dating back to February 10, 2016 TECHNIQUE: Digital breast tomosynthesis is performed in both the craniocaudal and mediolateral oblique views along with computer-aided detection (CAD). Synthesized 2D images are generated from the tomosynthesis. FINDINGS: The breasts are almost entirely fatty (ACR BI-RADS breast composition Category a). There are no significant masses, abnormal calcifications, or other abnormalities. MM/MM tomosynthesis screening BI IMPRESSION: No significant changes ASSESSMENT: BI-RADS 1: Negative RECOMMENDATION: Routine annual mammography screening. This patient's information was entered into a reminder system with a target due date for their next mammogram.
== END 2022-12-19 10:00 | disposition home or self-care (01) ==
LOC: HO.MAMMO 09:59
PROVIDERS: PCP Internal Medicine; Visit Provider Internal Medicine
DX: Z12.31 Encounter for screening mammogram for malignant neoplasm of breast (principal)
CPT/HCPCS: 77063; 77067

== ENCOUNTER 2023-02-03 07:44 | Outpatient (REF) | payer OTHER, SELFPAY ==
[2023-02-03 11:54] LABS: Alanine Aminotransferase 50 U/L (0-31); Albumin Level 4.3 g/dL (3.5-5.0); Alkaline Phosphatase 55 U/L (39-117); Anion Gap 13 (12-20); Aspartate Amino Transferase 40 U/L (5-31); Bilirubin Total 0.7 mg/dL (0.0-1.0); Blood Urea Nitrogen 12 mg/dL (9-16); Calcium 9.5 mg/dL (8.4-10.2); Carbon Dioxide 30 mmol/L (22-29); Chloride 103 mmol/L (96-108); Cholesterol 224 mg/dL; Estimated Glomerular Filt Rate 35; Ferritin 84 ng/mL (10-250); Free T4 (Free Thyroxine) 1.14 ng/dL (0.71-1.85); Glucose Fasting 101 mg/dL (60-99); HDL Cholesterol 49 mg/dL; LDL Cholesterol Calculated 136 mg/dl; Potassium 3.9 mmol/L (3.3-5.1); Sodium 142 mmol/L (135-145); Thyroid Stimulating Hormone 1.41 uIU/mL (0.32-4.0); Total Protein 6.9 g/dL (6.5-8.0); Triglycerides 198 mg/dL; Vitamin D 25-OH Total 73.8 ng/mL (>30)
== END 2023-02-03 07:45 | disposition home or self-care (01) ==
LOC: HO.10HDL 07:44
PROVIDERS: Visit Provider Internal Medicine
DX: E78.2 Mixed hyperlipidemia (principal); R94.4 Abnormal results of kidney function studies; R73.01 Impaired fasting glucose; I10 Essential (primary) hypertension; J45.20 Mild intermittent asthma, uncomplicated; F90.9 Attention-deficit hyperactivity disorder, unspecified type; D68.09 Other von Willebrand disease; E66.01 Morbid (severe) obesity due to excess calories; K21.9 Gastro-esophageal reflux disease without esophagitis; E03.9 Hypothyroidism, unspecified
CPT/HCPCS: 36415; 80053; 80061; 82306; 82728; 84439; 84443

== ENCOUNTER 2023-02-14 10:00 | Outpatient (RCR) | payer OTHER, SELFPAY ==
--- NOTE | 2022-11-28 12:51 | MHC.PT.EP ---
[facility] [place] Office [place] Office [place] Office [address] Briseyda Ngo [address] [phone] F: [phone] F: [phone] F: [phone] F: [phone] Physical Therapy Plan of Care Date of Evaluation: Date of Surgery: Diagnosis: spondylosis without myelopathy or radiculopathy Assessment: Patient is a 52 y.o. female who is referred to PT by ELDON Coyle, with Dx of spondylosis without myelopathy or radiculopathy. PT diagnosis is consistent with chronic LBP from L4-L5 Mild disc bulge with mod facet arthropathy ligamentum flavum infolding and mild encroachment on the right neural foramen. L5-S1 with mod left facet arthropathy as seen on MRI. Unsure if ligamentum flavum is likely source for significant sensitivity centrally at L4/L5 area. Patient impairments include pain, localized hypersensitvity, limited AROM, weakness, antalgic gait. Patient current functional limitations are lying down, walking (more than 5 mins), standing (more than 10 mins to cook), sitting, using stairs. Patient will benefit from skilled PT to address aforementioned impairments and functional limitations to meet established goals. With focus on strategies for pain management. Fair prognosis due to chronicity of symptoms and severity of sensitivity in low back. Frequency and Duration: The patient will be seen 2x/week for 4 weeks Short Term Goals: 2 weeks Patient demonstrates consistency and independence with HEP to self manage symptoms. Patient demonstrates ability to utilize home TENS unit (she has one) independently for pain control and desensitization. Snf Goals: 4 weeks Patient presents with increased bilateral hip flexion strength 5/5 to perform reciprocal stair use with railing. Patient presents with increased lumbar spine side bending to 20 degrees bilaterally to improve standing endurance to 20 mins for cooking. Treatment Plan: Modalities to reduce pain, spasms and effusion. Manual therapy to restore motion and function. Therapeutic exercise to improve strength and flexibility. Neuromuscular re-education for posture and balance. Therapeutic activities to return to functional activities of daily living. Electronically signed by: Jaciel Whiting, PT, DPT Please sign and return to therapist. Thank you for your referral.
--- NOTE | 2023-02-14 11:44 | MHC.PT.DC ---
[facility] [place] Office [place] Office [place] Office [address] Briseyda Ngo [address] [facility] [phone] F: [phone] F: [phone] F: [phone] F: [phone] Physical Therapy Discharge Report Diagnosis: spondylosis without myelopathy or radiculopathy Date of Surgery: Date of Evaluation: 11/28/22 Date of Discharge: 02/14/23 Treatments to Date: 15 Cancellations to Date: No Shows to Date: Discharge Status: Improved Function Independent with HEP Discharge Summary: She presents with overall reduction in pain level compared to initial evaluation with increased AROM, increased hip strength and tolerates more positions. She does still present with glute and core strength, encouraged her to continue with HEP for penitentiary symptom management and to help reduce strain to her low back. Electronically signed by: Jaciel Whiting PT, DPT Please sign and return to therapist. Thank you for your referral.
== END 2023-02-14 11:44 | disposition home or self-care (01) ==
LOC: HO.PT 10:00
PROVIDERS: PCP Internal Medicine; Visit Provider Nurse Practitioner Family
DX: M51.36 Other intervertebral disc degeneration, lumbar region (principal); M47.816 Spondylosis without myelopathy or radiculopathy, lumbar region; M62.830 Muscle spasm of back
CPT/HCPCS: 97110; 97116; 97140; 97162; 97530

== ENCOUNTER → 2023-02-20 14:33 | Outpatient (BNVA) | payer OTHER, SELFPAY | PROVIDERS: PCP Internal Medicine; Visit Provider Nurse Practitioner Family | DX: M47.816 Spondylosis without myelopathy or radiculopathy, lumbar region (principal); M51.36 Other intervertebral disc degeneration, lumbar region; M53.3 Sacrococcygeal disorders, not elsewhere classified; M62.830 Muscle spasm of back; M54.16 Radiculopathy, lumbar region | CPT/HCPCS: 99212 ==

== ENCOUNTER 2023-02-21 08:16 | Outpatient (REF) | payer OTHER, SELFPAY ==
--- NOTE | ~2023-02-21 | XR_ITS ---
EXAMINATION: XR LUMBAR SPINE XR SI JOINT CLINICAL INDICATIONS: Sacrococcygeal disorders. TECHNIQUE: MR spine 3 views. SI joints 3 views. FINDINGS: Lumbar spine: There is normal lumbar lordosis. The vertebral heights, alignment and disc heights are normal. There is mild ventral spondylosis. No visible acute fracture, dislocation or subluxation. There is minimal ventral spondylosis. No lytic or sclerotic process seen. The paravertebral soft tissues are normal. SI joints: There is normal symmetry of bilateral SI joints without any bony erosive changes, sclerosis or lytic process. The pubic symphysis is normal. There are phleboliths throughout the lower pelvis. XR/XR sacroiliac joint min 3V IMPRESSION: 1. Mild ventral spondylosis lumbar spine. No visible acute fracture, dislocation or lytic process seen. 2. Unremarkable SI joints.
--- NOTE | ~2023-02-21 | XR_ITS ---
EXAMINATION: XR LUMBAR SPINE XR SI JOINT CLINICAL INDICATIONS: Sacrococcygeal disorders. TECHNIQUE: MR spine 3 views. SI joints 3 views. FINDINGS: Lumbar spine: There is normal lumbar lordosis. The vertebral heights, alignment and disc heights are normal. There is mild ventral spondylosis. No visible acute fracture, dislocation or subluxation. There is minimal ventral spondylosis. No lytic or sclerotic process seen. The paravertebral soft tissues are normal. SI joints: There is normal symmetry of bilateral SI joints without any bony erosive changes, sclerosis or lytic process. The pubic symphysis is normal. There are phleboliths throughout the lower pelvis. XR/XR lumbar spine 2-3V IMPRESSION: 1. Mild ventral spondylosis lumbar spine. No visible acute fracture, dislocation or lytic process seen. 2. Unremarkable SI joints.
== END 2023-02-21 08:17 | disposition home or self-care (01) ==
LOC: HO.HMGCX 08:16
PROVIDERS: PCP Internal Medicine; Visit Provider Nurse Practitioner Family
DX: M53.3 Sacrococcygeal disorders, not elsewhere classified (principal); M47.816 Spondylosis without myelopathy or radiculopathy, lumbar region; M51.36 Other intervertebral disc degeneration, lumbar region
CPT/HCPCS: 72100; 72202

== ENCOUNTER 2023-03-09 08:31 | Outpatient (REF) | payer OTHER, SELFPAY ==
[2023-03-09 10:51] LABS: Alanine Aminotransferase 51 U/L (0-31); Aspartate Amino Transferase 43 U/L (5-31)
== END 2023-03-09 08:32 | disposition home or self-care (01) ==
LOC: HO.10HDL 08:31
PROVIDERS: Visit Provider Internal Medicine
DX: E03.9 Hypothyroidism, unspecified (principal); E66.01 Morbid (severe) obesity due to excess calories; E78.2 Mixed hyperlipidemia; F90.9 Attention-deficit hyperactivity disorder, unspecified type; I10 Essential (primary) hypertension; J45.20 Mild intermittent asthma, uncomplicated; K21.9 Gastro-esophageal reflux disease without esophagitis; R73.01 Impaired fasting glucose; R94.4 Abnormal results of kidney function studies
CPT/HCPCS: 36415; 84450; 84460

== ENCOUNTER 2023-03-17 06:23 | Day surgery (SDC) | payer OTHER, SELFPAY ==
[2023-03-15 16:14] VITALS: BMI 43.3
--- NOTE | 2023-03-16 10:54 | HO.ANESPROP2 ---
Documented by User: Jael Henriquez NP 03/16/23 10:56 HPI - Anesthesia Eval Consult details Narrative: 52yo F for Right Diagnostic Sacroiliac Joint Steroid Injection PMFSH Active Problems Active Problems: All Active Problems (Updated 03/15/23 @ 10:48 by [place] Allison MD) Elevated liver enzymes (Acute) Sacroiliac joint pain (Acute) Muscle spasm of back (Acute) Lumbar spondylosis (Acute) Lumbar degenerative disc disease (Acute) Osteoarthritis of right knee (Acute) Right knee pain (Acute) Pain and swelling of right knee (Acute) Lumbar radiculopathy, chronic (Acute) Mixed dyslipidemia (Acute) Constipation (Acute) Decreased glomerular filtration rate (GFR) (Acute) Impaired fasting glucose (Acute) Hypertension (Acute) Mild intermittent asthma (Acute) ADHD (Acute) Von Willebrand disease (Acute) Morbid obesity (Acute) History of anemia (Acute) Irritable bowel syndrome with diarrhea (Acute) GERD (gastroesophageal reflux disease) (Acute) Atypical ductal hyperplasia of right breast (Acute) Acquired hypothyroidism (Acute) Past Medical History Medical History Acquired hypothyroidism ADHD Atypical ductal hyperplasia of right breast Bipolar 1 disorder, depressed Decreased glomerular filtration rate (GFR) Elevated liver enzymes GERD (gastroesophageal reflux disease) History of anemia History of MRSA infection Hypertension Hypothyroid Impaired fasting glucose Lumbar radiculopathy, chronic Mild intermittent asthma Mixed dyslipidemia Morbid obesity Pain and swelling of right knee Von Willebrand disease Family History Family History Father HTN (hypertension) Hyperlipidemia Mother HTN (hypertension) Alzheimers disease Mental health disorder Maternal Aunt Breast cancer Brother Substance use disorder Surgical History Surgical History History of bilateral carpal tunnel release History of section History of eye surgery History of partial thyroidectomy History of total abdominal hysterectomy Hx of colonoscopy Hx of cystoscopy Hx of esophagogastroduodenoscopy S/P laparoscopic surgery Vesicovaginal fistula Social History Social History (Updated 03/17/23 @ 07:46 by Lizzette Yeager MD) Housing: House Alcohol intake: current Alcohol intake frequency: 0-2 drinks per day Alcohol type: hard liquor Patient Tobacco Use Status: Former Tobacco user Quit Date: 6 yr ago Tobacco use type: Cigarette Years Smoked: 20 years e-Cigarette/Vaping Use: Never Used Current occupational status: unemployed Cognitive needs: No Hearing needs: No Vision needs: Yes Meds Allergies Allergy/AdvReac Type Severity Reaction Status Date / Time ziprasidone [From GEODON] Allergy Severe HIVES,SWELL Verified 03/17/23 06:32 ING alosetron [From LOTRONEX] Allergy Intermediate RASH Verified 03/17/23 06:32 Sulfa (Sulfonamide Allergy Intermediate RASH Verified 03/17/23 06:32 Antibiotics) [SULFA (SULFONAMIDE ANTIBIOTICS)] cephalexin [Keflex] Allergy Unknown rash Verified 03/17/23 06:32 oxycodone [OXYCODONE] AdvReac Severe HALLUCINATIONS, Verified 03/17/23 06:32 hallucination, hallucinations meperidine [Demerol] AdvReac Unknown nausea and Verified 03/17/23 06:32 vomiting morphine AdvReac Unknown nausea and Verified 03/17/23 06:32 vomiting Home Medications Medication Instructions Recorded Confirmed Last Taken Type cariprazine 6 mg capsule (Vraylar) 6 mg PO DAILY 08/13/20 03/17/23 Unknown History lorazepam 2 mg tablet (Ativan) 2 mg PO BID PRN Anxiety 08/13/20 03/17/23 Unknown History multivitamin (Multiple Vitamins 1 tab PO DAILY 12/24/20 03/17/23 Unknown History tablet) dextroamphetamine-amphetamine 15 30 mg PO .qafternoon 01/12/21 03/17/23 Unknown History mg tablet (Adderall) trazodone 50 mg tablet 50 mg PO BEDTIME PRN Insomnia 01/12/21 03/17/23 Unknown History glucosamine sulfate 500 mg tablet 500 mg PO DAILY 11/30/21 03/17/23 Unknown History (Glucosamine) chlorthalidone 25 mg tablet 12.5 mg PO DAILY 08/31/22 03/17/23 03/17/23 06:00 History cholecalciferol (vitamin D3) 25 25 mcg PO DAILY 08/31/22 03/17/23 Unknown History mcg (1,000 unit) capsule (Vitamin D3) dextroamphetamine-amphetamine ER 1 cap PO DAILY PRN focusing 08/31/22 03/17/23 03/17/23 06:00 History 30 mg 24hr capsule,extend release (Adderall XR) omega 0-uri-leb-fish oil 1,200 mg 1 cap PO DAILY 08/31/22 03/17/23 Unknown History (144 mg-216 mg) capsule (Fish Oil) albuterol sulfate 90 mcg/actuation 2 puff PO Q6H PRN wheezing 03/17/23 03/17/23 Unknown History aerosol inhaler (ProAir HFA) levothyroxine 75 mcg tablet 75 mcg PO QAM 03/17/23 03/17/23 Unknown History (Synthroid) lisinopril 10 mg tablet (Zestril) 10 mg PO DAILY 03/17/23 03/17/23 03/17/23 06:00 History pantoprazole 40 mg tablet,delayed 40 mg PO BID 03/17/23 03/17/23 Unknown History release (Protonix) Exam Exam Date and Time: March 16, 2023 1054 Height,Weight and Vital Signs: Height 5 ft 8 in Weight 129.274 kg Pertinent Lab Results Pertinent Lab Results: Laboratory Tests 09/04/21 02/03/23 09:33 07:49 WBC 6.3 Hgb 14.3 Hct 43.5 Plt Count 329 Sodium 142 Potassium 3.9 Chloride 103 Carbon Dioxide 30 H BUN 12 Creatinine 1.56 H Assessment and Plan Assessment Anesthesia Assessment: Chart Reviewed Documented by User: Lizzette Yeager MD 03/17/23 07:50 [facility] Active Problems Active Problems: All Active Problems (Updated 03/17/23 @ 07:15 by Lizzette Yeager MD) Elevated liver enzymes (Acute) Sacroiliac joint pain (Acute) Muscle spasm of back (Acute) Lumbar spondylosis (Acute) Lumbar degenerative disc disease (Acute) Osteoarthritis of right knee (Acute) Right knee pain (Acute) Pain and swelling of right knee (Acute) Lumbar radiculopathy, chronic (Acute) Mixed dyslipidemia (Acute) Constipation (Acute) Decreased glomerular filtration rate (GFR) (Acute) Impaired fasting glucose (Acute) Hypertension (Acute) Mild intermittent asthma (Acute) ADHD (Acute) Von Willebrand disease (Acute) Morbid obesity (Acute) History of anemia (Acute) Irritable bowel syndrome with diarrhea (Acute) GERD (gastroesophageal reflux disease) (Acute) Atypical ductal hyperplasia of right breast (Acute) Acquired hypothyroidism (Acute) Increased BMI 42.1 Denies CINDA Anxiety/Depression Past Medical History Medical History Acquired hypothyroidism ADHD Atypical ductal hyperplasia of right breast Bipolar 1 disorder, depressed Decreased glomerular filtration rate (GFR) Elevated liver enzymes GERD (gastroesophageal reflux disease) History of anemia History of MRSA infection Hypertension Hypothyroid Impaired fasting glucose Lumbar radiculopathy, chronic Mild intermittent asthma Mixed dyslipidemia Morbid obesity Pain and swelling of right knee Von Willebrand disease Family History Family History Father HTN (hypertension) Hyperlipidemia Mother HTN (hypertension) Alzheimers disease Mental health disorder Maternal Aunt Breast cancer Brother Substance use disorder Family history of problems with anesthesia: No Surgical History Surgical History History of bilateral carpal tunnel release History of section History of eye surgery History of partial thyroidectomy History of total abdominal hysterectomy Hx of colonoscopy Hx of cystoscopy Hx of esophagogastroduodenoscopy S/P laparoscopic surgery Vesicovaginal fistula History of Problems with Anesthesia: No Social History Social History (Updated 03/17/23 @ 07:46 by Lizzette Yeager MD) Housing: House Alcohol intake: current Alcohol intake frequency: 0-2 drinks per day Alcohol type: hard liquor Patient Tobacco Use Status: Former Tobacco user Quit Date: 6 yr ago Tobacco use type: Cigarette Years Smoked: 20 years e-Cigarette/Vaping Use: Never Used Current occupational status: unemployed Cognitive needs: No Hearing needs: No Vision needs: Yes Meds Allergies Allergy/AdvReac Type Severity Reaction Status Date / Time ziprasidone [From GEODON] Allergy Severe HIVES,SWELL Verified 03/17/23 06:32 ING alosetron [From LOTRONEX] Allergy Intermediate RASH Verified 03/17/23 06:32 Sulfa (Sulfonamide Allergy Intermediate RASH Verified 03/17/23 06:32 Antibiotics) [SULFA (SULFONAMIDE ANTIBIOTICS)] cephalexin [Keflex] Allergy Unknown rash Verified 03/17/23 06:32 oxycodone [OXYCODONE] AdvReac Severe HALLUCINATIONS, Verified 03/17/23 06:32 hallucination, hallucinations meperidine [Demerol] AdvReac Unknown nausea and Verified 03/17/23 06:32 vomiting morphine AdvReac Unknown nausea and Verified 03/17/23 06:32 vomiting Home Medications Medication Instructions Recorded Confirmed Last Taken Type cariprazine 6 mg capsule (Vraylar) 6 mg PO DAILY 08/13/20 03/17/23 Unknown History lorazepam 2 mg tablet (Ativan) 2 mg PO BID PRN Anxiety 08/13/20 03/17/23 Unknown History multivitamin (Multiple Vitamins 1 tab PO DAILY 12/24/20 03/17/23 Unknown History tablet) dextroamphetamine-amphetamine 15 30 mg PO .qafternoon 01/12/21 03/17/23 Unknown History mg tablet (Adderall) trazodone 50 mg tablet 50 mg PO BEDTIME PRN Insomnia 01/12/21 03/17/23 Unknown History glucosamine sulfate 500 mg tablet 500 mg PO DAILY 11/30/21 03/17/23 Unknown History (Glucosamine) chlorthalidone 25 mg tablet 12.5 mg PO DAILY 08/31/22 03/17/23 03/17/23 06:00 History cholecalciferol (vitamin D3) 25 25 mcg PO DAILY 08/31/22 03/17/23 Unknown History mcg (1,000 unit) capsule (Vitamin D3) dextroamphetamine-amphetamine ER 1 cap PO DAILY PRN focusing 08/31/22 03/17/23 03/17/23 06:00 History 30 mg 24hr capsule,extend release (Adderall XR) omega 1-hts-joq-fish oil 1,200 mg 1 cap PO DAILY 08/31/22 03/17/23 Unknown History (144 mg-216 mg) capsule (Fish Oil) albuterol sulfate 90 mcg/actuation 2 puff PO Q6H PRN wheezing 03/17/23 03/17/23 Unknown History aerosol inhaler (ProAir HFA) levothyroxine 75 mcg tablet 75 mcg PO QAM 03/17/23 03/17/23 Unknown History (Synthroid) lisinopril 10 mg tablet (Zestril) 10 mg PO DAILY 03/17/23 03/17/23 03/17/23 06:00 History pantoprazole 40 mg tablet,delayed 40 mg PO BID 03/17/23 03/17/23 Unknown History release (Protonix) Exam Height,Weight and Vital Signs: Height 5 ft 8 in Weight 129.274 kg Vital Signs Temp Pulse Resp BP Pulse Ox O2 Del Method 03/17/23 06:58 97.7 F 83 16 152/94 H 98 Room Air Airway Mallampati Class: III (Small mouth) TM Dist: >3cm Neck ROM: Full Loose/Missing/Broken Teeth: Yes (Missing tooth bottom right back. 4 capped teeth sides. Denies broken,loose teeth) Heart: RRR Lungs: CTAB Other: Stud right nostril. Patient states unable to remove. Aware possible dislodgement Assessment and Plan Assessment Anesthesia Assessment: Anesthesia Plan Discussed Final Anesthetic Review Family History of Problems with Anesthesia: No History of Problems with Anesthesia: No NPO: Yes ASA Class: III Final Preanesthetic Review: No Changes in Pt Med Stat, Meds/Allgs Chart Reviewed, Consent Obtained/Reviewed and Anes Risks/Benef Reviewed Patient Risk: Intermediate Procedure Risk: Low Assessment/Block/Sedation in SS: Assess/Block/Sedation-SS Anesthetic Plan Anesthetic Plan: MAC: Disposition: Standard PACU
--- NOTE | 2023-03-16 15:15 | MHC.SHP ---
Pre-Procedural Eval Section A Date of Service: 03/16/23 The patient is an INPATIENT: No Changes since office visit: Yes Patient answered all questions The History & Physical has been completed within 30 days and I have reviewed it.: No Section B Chief Complaint: Sacrococcygeal disorders, not elsewhere classified Details of Present Illness: as above Relevant Family History (Specify if Yes): No Relevant Social History: None Present Medications: None Medical History: No relevant PMH History of Previous Operations: No relevant previous surgery Allergies: Allergies Allergy/AdvReac Type Severity Reaction Status Date / Time ziprasidone [From GEODON] Allergy Severe HIVES,SWELL Verified 03/15/23 10:16 ING alosetron [From LOTRONEX] Allergy Intermediate RASH Verified 03/15/23 10:16 Sulfa (Sulfonamide Allergy Intermediate RASH Verified 03/15/23 10:16 Antibiotics) [SULFA (SULFONAMIDE ANTIBIOTICS)] cephalexin [Keflex] Allergy Unknown rash Verified 03/15/23 10:16 oxycodone [OXYCODONE] AdvReac Severe HALLUCINATIONS, Verified 03/15/23 10:16 hallucination, hallucinations meperidine [Demerol] AdvReac Unknown nausea and Verified 03/15/23 10:16 vomiting morphine AdvReac Unknown nausea and Verified 03/15/23 10:16 vomiting Review of Systems Sugical H&P ROS: Negative: Cardiovascular, Respiratory, Neurological, Psychiatric, Hem-Onc, Allergic/Immunologic, Gastrointestinal, Genitourinary, Integumentary, Endocrine and Eyes/Ears/Nose/Throat and Yes, Specify: Constitution (morbid obesity) and Musculoskeletal (lumbar spondylosis, sacroiliitis) Exam Surgical H&P Exam: Normal: HEENT, Normal: Heart, Normal: Lungs, Normal: Extremities, Normal: Skin and Normal: Neurological and Significant Findings: Abdomen (enlarged due to I/a and s/q fat) Plan Diagnosis/Plan: Unchanged I have reviewed the history and physical and performed a pertinent physical examination on my patient. No changes have occurred unless specified. Time Spent With Patient Time: Total time managing care of this patient today ____ minutes.
--- NOTE | ~2023-03-17 | FL_ITS ---
EXAMINATION: XR FLUOROSCOPY WITH IMAGES CLINICAL INFORMATION: SI joint injection COMPARISON: SI joints 02/21/2023 TECHNIQUE: Fluoroscopy Supervised By: Dr. Janes Choe. Fluoroscopy Time: 0.1 minutes. Cumulative Dose: 8.84 mGy. DAP: 2.41 Gycm2. Images: 1. FINDINGS: Spinal needle overlies the mid right SI joint. There is contrast in the periarticular soft tissues with probable early intra-articular contrast. FL/FL guidance in OR IMPRESSION: Fluoroscopy for pain management procedure.
[2023-03-17 06:37] VITALS: BMI 42.1
[2023-03-17 06:58] VITALS: BP 152/94; PULSE 83; RESP 16; TEMP 36.5; O2SAT 98
[2023-03-17] MEDS: 0.9 % Sodium Chloride 1,000 ML 100 ML IVCONT (07:02)
[2023-03-17 07:57] VITALS: BP 124/78; PULSE 82; RESP 16; TEMP 36.5; O2SAT 99
--- NOTE | 2023-03-17 07:57 | W.PM.OPN ---
Operative Note Operative Note Date of Service: 03/17/23 Narrative: Right diagnostic sacroiliac joint injection Informed consent was explained thoroughly to the patient. All questions about benefits and risks for the procedure were answered. Patient came to the operating room and was positioned prone on the operating table with the pillow under her pelvis. Time out was performed delineating name and of the patient, site and side of the procedure, nature of the procedure and potential patient?s risks. The lower back of the patient and upper buttocks was prepped with ChloraPrep prepped and draped with sterile utility drapes. C-arm was brought over the operating field and square picture of patient's pelvis was demonstrated on the screen. For the right joint tilting C-arm contralateral to the site of the joint the posterior joint silhouette was delineated on the screen. Skin projection of the joint was chosen as a target of the injection and it was injected slightly medial to the location of the joint with 25 gauge needle using local lidocaine 1% without epinephrine. After that 22 gauge 3 and 1/2 inch needle was driven to the joint silhouette in tunnel vision fashion. When needle entered the joint capsule injection of the contrast was performed demonstrating intra-articular spread of the contrast. After that 5 cc. of ropivacaine 0.5% was injected into the joint. Upon completion of the injections the needle was removed and sterile dressing was applied. Upon completion of the injection patient was taken outside of the operating room to the recovery room where recovered uneventfully.
--- NOTE | 2023-03-17 07:58 | PM.OP ---
Brief Operative Note Date of Service: 03/17/23 Pre-op diagnosis: sacroiliitis Post-op diagnosis: same Procedure: diagnostic SI joint injection Surgeon: Janes Choe MD Anesthesia: MAC Was an Internal Sales Engineer used for this Procedure?: No Estimated blood loss (mL): 0 Condition: stable Disposition: PACU
[2023-03-17 08:12] VITALS: BP 114/71; PULSE 78; RESP 20; TEMP 36.2; O2SAT 97
[2023-03-17 08:24] VITALS: BP 130/78; PULSE 75; RESP 20; TEMP 36.1; O2SAT 96
== END 2023-03-17 10:25 | disposition home or self-care (01) ==
PROVIDERS: PCP Internal Medicine; Visit Provider Anesthesiology
PROC: 3E0U33Z Introduction of Anti-inflammatory into Joints, Percutaneous Approach (ICD-10-PCS; CPT 27096; principal; 2023-03-17 07:30)
DX: M53.3 Sacrococcygeal disorders, not elsewhere classified (principal); M46.1 Sacroiliitis, not elsewhere classified; G89.29 Other chronic pain; M54.50 Low back pain, unspecified; E66.01 Morbid (severe) obesity due to excess calories; Z68.41 Body mass index [BMI] 40.0-44.9, adult; I10 Essential (primary) hypertension; D68.00 Von Willebrand disease, unspecified; E03.9 Hypothyroidism, unspecified; Z88.2 Allergy status to sulfonamides; Z88.8 Allergy status to other drugs, medicaments and biological substances
CPT/HCPCS: G0260; J2250; J2795; J3010; Q9967

== ENCOUNTER → 2023-03-23 09:03 | Outpatient (BNVA) | payer OTHER, SELFPAY | PROVIDERS: PCP Internal Medicine; Visit Provider Nurse Practitioner Family | DX: M47.816 Spondylosis without myelopathy or radiculopathy, lumbar region (principal); M51.36 Other intervertebral disc degeneration, lumbar region; M53.3 Sacrococcygeal disorders, not elsewhere classified; M62.830 Muscle spasm of back; M54.16 Radiculopathy, lumbar region | CPT/HCPCS: 99212 ==

== ENCOUNTER 2023-04-27 11:04 | Day surgery (SDC) | payer OTHER, SELFPAY ==
--- NOTE | ~2023-04-27 | FL_ITS ---
EXAMINATION: XR FLUOROSCOPY WITH IMAGES CLINICAL INFORMATION: Pain, nerve blocks COMPARISON: None available. TECHNIQUE: Fluoroscopy Supervised By: Dr. Janes Choe. Fluoroscopy Time: 0.6 minutes. Cumulative Dose: 12.5 mGy. DAP: 0.217 Gycm2. Images: 7. FINDINGS: Serial radiographs demonstrates needle placement contrast desiccation of facet joints at L3 to L5. FL/FL guidance in OR IMPRESSION: Fluoroscopy for pain management procedure.
--- NOTE | 2023-04-27 11:22 | MHC.SHP ---
Pre-Procedural Eval Section A Date of Service: 04/27/23 The patient is an INPATIENT: No Changes since office visit: Yes Patient answered all questions The History & Physical has been completed within 30 days and I have reviewed it.: No Section B Chief Complaint: Spondylosis without myelopathy or radiculopathy Details of Present Illness: as above Relevant Family History (Specify if Yes): No Relevant Social History: None Present Medications: see Short Stay Collaborative assessment Medical History: No relevant PMH History of Previous Operations: No relevant previous surgery Allergies: Allergies Allergy/AdvReac Type Severity Reaction Status Date / Time ziprasidone [From GEODON] Allergy Severe HIVES,SWELL Verified 03/17/23 06:32 ING alosetron [From LOTRONEX] Allergy Intermediate RASH Verified 03/17/23 06:32 Sulfa (Sulfonamide Allergy Intermediate RASH Verified 03/17/23 06:32 Antibiotics) [SULFA (SULFONAMIDE ANTIBIOTICS)] cephalexin [Keflex] Allergy Unknown rash Verified 03/17/23 06:32 oxycodone [OXYCODONE] AdvReac Severe HALLUCINATIONS, Verified 03/17/23 06:32 hallucination, hallucinations meperidine [Demerol] AdvReac Unknown nausea and Verified 03/17/23 06:32 vomiting morphine AdvReac Unknown nausea and Verified 03/17/23 06:32 vomiting Review of Systems Sugical H&P ROS: Negative: Cardiovascular, Respiratory, Neurological, Psychiatric, Hem-Onc, Allergic/Immunologic, Gastrointestinal, Genitourinary, Musculoskeletal, Integumentary, Endocrine and Eyes/Ears/Nose/Throat and Yes, Specify: Constitution (morbid obesity) Exam Surgical H&P Exam: Normal: HEENT, Normal: Heart, Normal: Lungs, Normal: Extremities, Normal: Skin and Normal: Neurological and Significant Findings: Abdomen (enlarged due to i/a & s/q fat) Plan Diagnosis/Plan: Unchanged I have reviewed the history and physical and performed a pertinent physical examination on my patient. No changes have occurred unless specified. Time Spent With Patient Time: Total time managing care of this patient today __5__ minutes.
[2023-04-27 11:31] VITALS: BMI 42.1
[2023-04-27 11:43] VITALS: BP 159/95; PULSE 90; RESP 18; TEMP 36.8; O2SAT 97
--- NOTE | 2023-04-27 12:02 | W.PM.OPN ---
Operative Note Operative Note Date of Service: 04/27/23 Narrative: Diagnostic medial branch block L3,L4 dorsal ramus L5 bilateral.? ? Informed consent was explained to the patient. All questions were explained and? answered.? The patient was taken inside the operating room where she was positioned prone on the operating table. Time-out was performed delineating correct site, side, the nature of the procedure, patient's allergy, . All operating room staff was participating in OR time-out procedure. ASA M-r were allied and the patient was sedated. ? ? The lower back was prepped with ChloraPrep and draped with sterile towels.? C-arm was brought over the operating field and sq picture of L4-, L5 vertebra and S1 AREA were delineated on the screen.? Point of interest were delineated as confluence of superior articular process of L4 and L5 vertebra bilaterally with corresponding transverse processes as well as confluence of the sacral alae bilaterally with superior articular process of S1.? The projection of the point of interest to the skin were injected with the small amount of local anesthetic lidocaine 2% 1-1.5 cc.? After that 22 gauge 5 inch spinal needle was driven sequentially to the points of interest in tunnel vision fashion. After needles gently contacted the bone at the point of interests the needle was injected with small amount of the contrast.? The injection of the contrast did not demonstrate any intravascular or intrathecal spread of the contrast.? After that injection of the? ropivacaine 0.5%-1cc was performed at each needle location.??after that the needles were removed and Bandaids were applied. ? Upon completion of the injections? needle was? removed and sterile Band-Aids were applied.? The patient tolerated procedure very well.
--- NOTE | 2023-04-27 12:07 | HO.ANESPROP2 ---
[facility] Active Problems Active Problems: All Active Problems (Updated 03/17/23 @ 06:33 by Cindy Campbell RN) GERD (gastroesophageal reflux disease) (Acute) Irritable bowel syndrome with diarrhea (Acute) Constipation (Acute) Right knee pain (Acute) Osteoarthritis of right knee (Acute) Lumbar degenerative disc disease (Acute) Lumbar spondylosis (Acute) Muscle spasm of back (Acute) Sacroiliac joint pain (Acute) Elevated liver enzymes (Acute) Pain and swelling of right knee (Acute) Lumbar radiculopathy, chronic (Acute) Mixed dyslipidemia (Acute) Decreased glomerular filtration rate (GFR) (Acute) Impaired fasting glucose (Acute) Hypertension (Acute) Mild intermittent asthma (Acute) ADHD (Acute) Von Willebrand disease (Acute) Morbid obesity (Acute) History of anemia (Acute) Atypical ductal hyperplasia of right breast (Acute) Acquired hypothyroidism (Acute) Past Medical History Medical History Acquired hypothyroidism ADHD Atypical ductal hyperplasia of right breast Bipolar 1 disorder, depressed Decreased glomerular filtration rate (GFR) Elevated liver enzymes GERD (gastroesophageal reflux disease) History of anemia History of MRSA infection Hypertension Hypothyroid Impaired fasting glucose Lumbar radiculopathy, chronic Mild intermittent asthma Mixed dyslipidemia Morbid obesity Pain and swelling of right knee Von Willebrand disease Family History Family History Father HTN (hypertension) Hyperlipidemia Mother HTN (hypertension) Alzheimers disease Mental health disorder Maternal Aunt Breast cancer Brother Substance use disorder Family history of problems with anesthesia: No Surgical History Surgical History History of bilateral carpal tunnel release History of section History of eye surgery History of partial thyroidectomy History of total abdominal hysterectomy Hx of colonoscopy Hx of cystoscopy Hx of esophagogastroduodenoscopy S/P laparoscopic surgery Vesicovaginal fistula History of Problems with Anesthesia: No Social History Social History Housing: House Alcohol intake: current Alcohol intake frequency: 0-2 drinks per day Alcohol type: hard liquor Patient Tobacco Use Status: Former Tobacco user Quit Date: 6 yr ago Tobacco use type: Cigarette Years Smoked: 20 years e-Cigarette/Vaping Use: Never Used Substance Use Frequency: Occasionally Are you DNR?: No Advance Directives: No Advance Directives Information Provided: Yes Nutrition Risks: No Nutritional Risk Current occupational status: unemployed Cognitive needs: No Hearing needs: No Vision needs: Yes Meds Allergies Allergy/AdvReac Type Severity Reaction Status Date / Time ziprasidone [From GEODON] Allergy Severe HIVES,SWELL Verified 04/27/23 11:45 ING alosetron [From LOTRONEX] Allergy Intermediate RASH Verified 04/27/23 11:45 Sulfa (Sulfonamide Allergy Intermediate RASH Verified 04/27/23 11:45 Antibiotics) [SULFA (SULFONAMIDE ANTIBIOTICS)] cephalexin [Keflex] Allergy Unknown rash Verified 04/27/23 11:45 oxycodone [OXYCODONE] AdvReac Severe HALLUCINATIONS, Verified 04/27/23 11:45 hallucination, hallucinations meperidine [Demerol] AdvReac Unknown nausea and Verified 04/27/23 11:45 vomiting morphine AdvReac Unknown nausea and Verified 04/27/23 11:45 vomiting Active Medications: Current Medications Lactated Ringer's (Lr) 1,000 mls @ 50 mls/hr IVCONT .Q20H DOMINIQUE Last Admin: 04/27/23 11:36 Dose: 50 mls/hr Home Medications Medication Instructions Recorded Confirmed Last Taken Type cariprazine 6 mg capsule (Vraylar) 6 mg PO DAILY 08/13/20 04/24/23 Unknown History lorazepam 2 mg tablet (Ativan) 2 mg PO BID PRN Anxiety 08/13/20 04/24/23 Unknown History multivitamin (Multiple Vitamins 1 tab PO DAILY 12/24/20 04/24/23 Unknown History tablet) dextroamphetamine-amphetamine 15 30 mg PO .qafternoon 01/12/21 04/24/23 Unknown History mg tablet (Adderall) trazodone 50 mg tablet 50 mg PO BEDTIME PRN Insomnia 01/12/21 04/24/23 Unknown History glucosamine sulfate 500 mg tablet 500 mg PO DAILY 11/30/21 04/24/23 Unknown History (Glucosamine) chlorthalidone 25 mg tablet 12.5 mg PO DAILY 08/31/22 04/24/23 03/17/23 06:00 History cholecalciferol (vitamin D3) 25 25 mcg PO DAILY 08/31/22 04/24/23 Unknown History mcg (1,000 unit) capsule (Vitamin D3) dextroamphetamine-amphetamine ER 1 cap PO DAILY PRN focusing 08/31/22 04/24/23 03/17/23 06:00 History 30 mg 24hr capsule,extend release (Adderall XR) omega 8-vei-ukm-fish oil 1,200 mg 1 cap PO DAILY 08/31/22 04/24/23 Unknown History (144 mg-216 mg) capsule (Fish Oil) albuterol sulfate 90 mcg/actuation 2 puff PO Q6H PRN wheezing 03/17/23 03/17/23 Unknown History aerosol inhaler (ProAir HFA) lisinopril 10 mg tablet (Zestril) 10 mg PO DAILY 03/17/23 04/24/23 03/17/23 06:00 History Exam Exam Date and Time: April 27, 2023 1207 Height,Weight and Vital Signs: Height 5 ft 8.75 in Weight 128.367 kg Last Vital Signs Temp 98.3 F 04/27/23 11:43 Pulse 90 04/27/23 11:43 Resp 18 04/27/23 11:43 BP 159/95 H 04/27/23 11:43 Pulse Ox 97 04/27/23 11:43 O2 Del Method Room Air 04/27/23 11:43 Airway Mallampati Class: II TM Dist: >3cm Neck ROM: Full Loose/Missing/Broken Teeth: No (rrr) Lungs: clear Assessment and Plan Final Anesthetic Review Family History of Problems with Anesthesia: No History of Problems with Anesthesia: No NPO: Yes ASA Class: III Final Preanesthetic Review: No Changes in Pt Med Stat, Meds/Allgs Chart Reviewed, Consent Obtained/Reviewed and Anes Risks/Benef Reviewed Patient Risk: Intermediate Procedure Risk: Low Anesthetic Plan Anesthetic Plan: MAC: Disposition: Standard PACU
[2023-04-27 12:50] VITALS: BP 103/80; PULSE 83; RESP 16; TEMP 36.6; O2SAT 96
--- NOTE | 2023-04-27 12:56 | PM.OP ---
Brief Operative Note Date of Service: 04/27/23 Pre-op diagnosis: spondylosis lumbar Post-op diagnosis: same Procedure: diagnostic MBB b/l L3- L4- DRL5 Surgeon: Janes Choe MD Anesthesia: MAC Was an Car Worker used for this Procedure?: No Estimated blood loss (mL): 0 Condition: stable Disposition: PACU
[2023-04-27 13:05] VITALS: BP 117/79; PULSE 87; RESP 16; TEMP 36.6; O2SAT 98
== END 2023-04-27 13:37 | disposition home or self-care (01) ==
PROVIDERS: PCP Internal Medicine; Visit Provider Anesthesiology
PROC: (CPT 64493; principal; 2023-04-27 12:20)
DX: M47.26 Other spondylosis with radiculopathy, lumbar region (principal); M51.36 Other intervertebral disc degeneration, lumbar region; M53.3 Sacrococcygeal disorders, not elsewhere classified; M62.830 Muscle spasm of back; I10 Essential (primary) hypertension; Z88.2 Allergy status to sulfonamides; Z88.8 Allergy status to other drugs, medicaments and biological substances; Z88.5 Allergy status to narcotic agent
CPT/HCPCS: 64493; 64494; J2795

== ENCOUNTER 2023-05-03 14:49 | Outpatient (AMB) | payer OTHER, SELFPAY ==
--- NOTE | 2023-05-03 14:59 | MHC.OFFVIS ---
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 Accompanied by: Self / Same As Patient Allergies ziprasidone [From GEODON] Allergy (Severe, Verified 05/03/23 15:02) HIVES,SWELLING alosetron [From LOTRONEX] Allergy (Intermediate, Verified 05/03/23 15:02) RASH Sulfa (Sulfonamide Antibiotics) [SULFA (SULFONAMIDE ANTIBIOTICS)] Allergy (Intermediate, Verified 05/03/23 15:02) RASH cephalexin [Keflex] Allergy (Unknown, Verified 05/03/23 15:02) rash oxycodone [OXYCODONE] Adverse Reaction (Severe, Verified 05/03/23 15:02) HALLUCINATIONS, hallucination, hallucinations meperidine [Demerol] Adverse Reaction (Unknown, Verified 05/03/23 15:02) nausea and vomiting morphine Adverse Reaction (Unknown, Verified 05/03/23 15:02) nausea and vomiting HPI 6 month follow up HPI Details Assessment & Plan (1) Irritable bowel syndrome with diarrhea: ?Code(s): K58.0 - Irritable bowel syndrome with diarrhea ?Plan: She now is doing well since stopping the imipramine and has no more tenesmus. She continues the dicyclomine and protonix and is happy. RETURN OFFICE VISIT IN 6 MONTHS (2) GERD (gastroesophageal reflux disease): ?Code(s): K21.9 - Gastro-esophageal reflux disease without esophagitis TODAY'S VISIT She continues to do well with her GI regimen, she still will have some GERD breakthrough, rosalba when bending but she know this is weight related. Overall however she is satisfied with her current GI regimen of imipramine, dicyclomine and pantoprazole. She is now having back injections and she hopes this will help her to exercise better and lose weight. This is still a work in progress. ROV 6 mos. [facility] Medical History Acquired hypothyroidism ADHD Atypical ductal hyperplasia of right breast Bipolar 1 disorder, depressed Decreased glomerular filtration rate (GFR) Elevated liver enzymes GERD (gastroesophageal reflux disease) History of anemia History of MRSA infection Hypertension Hypothyroid Impaired fasting glucose Lumbar radiculopathy, chronic Mild intermittent asthma Mixed dyslipidemia Morbid obesity Pain and swelling of right knee Von Willebrand disease Surgical History History of bilateral carpal tunnel release History of section History of eye surgery History of partial thyroidectomy History of total abdominal hysterectomy Hx of colonoscopy Hx of cystoscopy Hx of esophagogastroduodenoscopy S/P laparoscopic surgery Vesicovaginal fistula Family History Father HTN (hypertension) Hyperlipidemia Mother HTN (hypertension) Alzheimers disease Mental health disorder Maternal Aunt Breast cancer Brother Substance use disorder Social History Housing: House Alcohol intake: current Alcohol intake frequency: 0-2 drinks per day Alcohol type: hard liquor Patient Tobacco Use Status: Former Tobacco user Quit Date: 6 yr ago Tobacco use type: Cigarette Years Smoked: 20 years e-Cigarette/Vaping Use: Never Used Current occupational status: unemployed Cognitive needs: No Hearing needs: No Vision needs: Yes Review of Systems Const Denies fatigue, Denies fever(s), Denies night sweats, Denies poor appetite and Denies weight loss ENT Reports Normal hearing present, Denies dental pain, Denies dysphagia, Denies hearing loss, Denies mouth pain, Denies odynophagia, Denies throat swelling, Denies tongue swelling and Reports other (Dentition adequate) Card Reports no additional complaints Resp Reports no additional complaints GI Denies abdominal pain, Denies melena, Denies bloating, Denies hematochezia, Denies constipation, Reports GI cramping, Denies dysphagia, Denies excessive flatus, Denies early satiety, Reports heartburn, Denies diarrhea, Denies nausea, Denies odynophagia, Denies vomiting and Denies hematemesis Musc Reports back pain and Reports radiating pain into limb Skin/Breast Denies pruritus, Denies lesions, Denies rash and Denies jaundice Neuro Reports Normal hearing present and Denies Abnormal speech present Endo Denies fatigue Aller/Immun Denies throat swelling and Denies tongue swelling Physical Exam Vital Signs: Last Vital Signs Pulse 115 H 05/03/23 15:01 BP 150/92 H 05/03/23 15:01 BMI result Body Mass Index 42.1 Const General: cooperative, no acute distress, well developed and well groomed Nutritional Appearance: well nourished and obese Orientation/consciousness: oriented to person, oriented to place and oriented to time Limitations: No language barrier HEENT Head: Yes normocephalic and Yes atraumatic Eyes Alignment and Position: alignment abnormal bilateral esotropia Pupils: Equal, round and reactive pupils present Neck Neck: Yes normal visual inspection and Yes no lymphadenopathy Thyroid: Thyroid normal Resp Effort & Inspection: normal respiratory effort and able to speak in complete sentences Auscultation: clear to auscultation bilaterally Cardio Rate: regular rate Rhythm: regular rhythm Heart sounds: Normal, physiologic split S2 sound present Peripheral pulses: radial pulses present and posterior tibial pulses present GI Inspection: No distended, Yes Abdominal panniculus present and Yes obesity Palpation (GI): Soft to palpation, nontender, no guarding, not rigid and No hepatosplenomegaly present Percussion: Yes normal to percussion Auscultation: normal bowel sounds Rectal Exam - Female: deferred Skin General skin exam: no rashes or lesions noted, turgor normal, skin not dry, no jaundice, No spider nevi and no striae Rashes: no rashes Nails: normal Neuro General: oriented to person, oriented to place and oriented to time Cranial nerves: Yes Equal, round and reactive pupils present and Yes Normal hearing present Speech: No Abnormal speech present Extrem General: Yes normal to inspection, No clubbing, No cyanosis and No edema Psych Appearance: grossly normal and well kempt Mental Status: mental status grossly normal Speech and movement: Normal speech and movement present Affect: normal affect Attitude: cooperative Thought process: Normal thought process present and not confabulating Thought content: Normal thought content present Insight: Good insight present (Psych) Judgement: Good judgement present (Psych) Assessment & Plan Assessment & Plan (1) GERD (gastroesophageal reflux disease): Code(s): K21.9 - Gastro-esophageal reflux disease without esophagitis Plan: She continues to do well with her GI regimen, she still will have some GERD breakthrough, rosalba when bending but she know this is weight related. Overall however she is satisfied with her current GI regimen of imipramine, dicyclomine and pantoprazole. She is now having back injections and she hopes this will help her to exercise better and lose weight. This is still a work in progress. ROV 6 mos. (2) Irritable bowel syndrome with diarrhea: Code(s): K58.0 - Irritable bowel syndrome with diarrhea Medications: Refilled dicyclomine 40 mg (2 x 20 mg) PO QID 720 tabs 1RF K21.9 - Gastro-esophageal reflux disease without esophagitis, K58.0 - Irritable bowel syndrome with diarrhea, Z12.11 - Encounter for screening for malignant neoplasm of colon pantoprazole 40 mg PO BID 180 tabs 3RF Discontinued levothyroxine 75 mcg PO QAM 90 tabs 1RF lisinopril 10 mg PO DAILY 90 tabs 1RF albuterol sulfate 90 mcg/actuation 2 puffs PO Q6H PRN 8.5 grams 4RF wheezing pantoprazole 40 mg PO BID 180 tabs 2RF Coding Level of Care Code Est Pt Level 3 (03176) Diagnoses GERD (gastroesophageal reflux disease) K21.9 Irritable bowel syndrome with diarrhea K58.0
[2023-05-03 15:01] VITALS: BP 150/92; PULSE 115; BMI 42.1
== END 2023-05-03 15:24 | disposition home or self-care (01) ==
PROVIDERS: Visit Provider Nurse Practitioner
DX: K21.9 Gastro-esophageal reflux disease without esophagitis (principal); K58.0 Irritable bowel syndrome with diarrhea
CPT/HCPCS: 99213

== ENCOUNTER → 2023-05-03 14:49 | Outpatient (BNVA) | payer OTHER, SELFPAY | PROVIDERS: Visit Provider Nurse Practitioner | DX: K21.9 Gastro-esophageal reflux disease without esophagitis (principal); K58.0 Irritable bowel syndrome with diarrhea | CPT/HCPCS: 99212 ==

== ENCOUNTER 2023-05-05 10:17 | Outpatient (AMB) | payer OTHER, SELFPAY ==
--- NOTE | 2023-05-05 10:22 | A.OFFVIS_ITS ---
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 Accompanied by: Self / Same As Patient Allergies ziprasidone [From GEODON] Allergy (Severe, Verified 05/05/23 10:26) HIVES,SWELLING alosetron [From LOTRONEX] Allergy (Intermediate, Verified 05/05/23 10:26) RASH Sulfa (Sulfonamide Antibiotics) [SULFA (SULFONAMIDE ANTIBIOTICS)] Allergy (Intermediate, Verified 05/05/23 10:26) RASH cephalexin [Keflex] Allergy (Unknown, Verified 05/05/23 10:26) rash oxycodone [OXYCODONE] Adverse Reaction (Severe, Verified 05/05/23 10:26) HALLUCINATIONS, hallucination, hallucinations meperidine [Demerol] Adverse Reaction (Unknown, Verified 05/05/23 10:26) nausea and vomiting morphine Adverse Reaction (Unknown, Verified 05/05/23 10:26) nausea and vomiting HPI HPI Comments History of Present Illness Details Patient presents today to assess response to Diagnostic Bilateral L3-L4-DR L5 MBBs 04/27/[address] Choe. Patient reports 80% pain relief following the injection for 12 hours with significant improvement in her mobility, range of motion, functionality and sleep. She would like to proceed with therapeutic lumbar medial branch blocks as next steps to alleviate her pain generator coming from facet joints and have Sprint PNS trial or RFA as back up options. Denies any recent cough, cold, infection, fever or other significant changes in medical history since last office visit. Patient denies any bladder or bowel incontinence or saddle anesthesia. Past Procedures: 04/27/23: Diagnostic Bilateral L3-L4-DR L5 MBBs-80% pain relief for 12 hours 03/17/23: Right diagnostic sacroiliac joint injection-10% for 3-4 hours PRIOR: Patient presents today for follow-up regarding low back pain and response to physical therapy. Patient reports she did not make any gains regarding pain or function with physical therapy for total of 16 visits. She presents with localized tenderness in the projection of the right sacroiliac joint and increased pain with lumbar extension. Denies radiating pain to her lower extremities. We will proceed with obtaining x-ray imaging of those areas for consideration of diagnostic injections. Denies any recent cough, cold, infection, fever or other significant changes, abdominal or groin pain, weakness, numbness or tingling, bowel or bladder incontinence, saddle anesthesia. in medical history since last office visit. Patient rates her pain at 2/10 and states that's because I have not really done much today yet. Reports increasing low back pain with prolonged walking, standing or changing positions. PRIOR: Patient is a pleasant 52 years old female who presents today for an initial evaluation of chronic low back pain that has been getting progressively worse. Patient attributes her pain due to mechanical fall over 30 years ago. Denies previous back surgery or injections. Denies any recent trauma, injury or falls. Her back pain is axial with significant tenderness in the right lower back. Patient denies radiation of back pain into her lower extremities but reports right knee pain with localized tenderness in the medial aspect of the right knee. Pain is described as constant stabbing, lancinating, dull, sore, hurting, aching, heavy, spreading, radiating and piercing. Patient reports pain interferes with her daily activities, functioning, sleep, mood, and social interactions. Pain is increased in supine position, prolonged walking, bending or extending backwards. Previously tried heating pad, ice therapy, Tylenol and lidocaine which were ineffective. Cannot take NSAIDs due to Von Willebrand disease. Patient denies previous physical therapy, massage, TENS unit, chiropractic, acupuncture, or aqua therapy. Lumbar spine MRI on 09/29/22 showed mild disc bulging with moderate facet arthropathy ligamentum flavum infolding at L4-L5. Mild encroachment on the right neural foramen. Moderate left facet arthropathy at L5-S1. No significant spinal canal or neural foraminal stenosis. Patient denies any fever, weight loss, abdominal or groin pain, weakness, numbness or tingling, bowel or bladder incontinence or saddle anesthesia. [facility] Medical History Acquired hypothyroidism ADHD Atypical ductal hyperplasia of right breast Bipolar 1 disorder, depressed Decreased glomerular filtration rate (GFR) Elevated liver enzymes GERD (gastroesophageal reflux disease) History of anemia History of MRSA infection Hypertension Hypothyroid Impaired fasting glucose Lumbar radiculopathy, chronic Mild intermittent asthma Mixed dyslipidemia Morbid obesity Pain and swelling of right knee Von Willebrand disease Surgical History History of bilateral carpal tunnel release History of section History of eye surgery History of partial thyroidectomy History of total abdominal hysterectomy Hx of colonoscopy Hx of cystoscopy Hx of esophagogastroduodenoscopy S/P laparoscopic surgery Vesicovaginal fistula Family History Father HTN (hypertension) Hyperlipidemia Mother HTN (hypertension) Alzheimers disease Mental health disorder Maternal Aunt Breast cancer Brother Substance use disorder Social History Housing: House Alcohol intake: current Alcohol intake frequency: 0-2 drinks per day Alcohol type: hard liquor Patient Tobacco Use Status: Former Tobacco user Quit Date: 6 yr ago Tobacco use type: Cigarette Years Smoked: 20 years e-Cigarette/Vaping Use: Never Used Current occupational status: unemployed Cognitive needs: No Hearing needs: No Vision needs: Yes Review of Systems Const All systems reviewed & are unremarkable except as noted in HPI and below Physical Exam Vital Signs: Last Vital Signs Pulse 94 05/05/23 10:25 BP 168/94 H 05/05/23 10:25 Pulse Ox 98 05/05/23 10:25 Oxygen Delivery Method Room Air 05/05/23 10:25 BMI result Body Mass Index 42.0 On exam today: Appears afebrile. Alert and oriented. Mood and affect appropriate. Follows and participates in conversation appropriately. Respiratory effort is unlabored. No cough. Able to transition from sit to stand unassisted. Ambulates with bilaterally normal heel strike and toe off. Able to stand and walk on toes and heels. Back/Spine/Pelvis Other: Lumbar extension reproduces significant pain, mild pain with flexion forward and bending. Cervical Spine: cervical ROM normal and No Cervical spine tenderness Thoracic/Lumbar Spine: thoracic and lumbar spine normal to inspection, No Thoracic/lumbar spine scar(s), pain with thoraco-lumbar ROM, paraspinal muscle tenderness on the right greater than left, No thoracic spinal tenderness and lumbar spinal tenderness at L5 Pelvis: buttock tenderness on the right Sacroiliac joints: bilaterally tender to palpation Results Reviewed Results Reviewed: MR LUMBAR SPINE WITHOUT CONTRAST 09/29/22 CLINICAL INFORMATION: Radiculopathy, lumbar region. COMPARISON: Lumbar spine MRI 03/12/2010. FINDINGS: The lumbar vertebral bodies maintain normal heights and alignment. The disc heights are preserved. No bone marrow edema is seen. The distal spinal cord appears normal. The conus medullaris terminates normally at the L1 level. The extraspinal soft tissues are unremarkable. SPINAL LEVELS: L1-L2: No posterior disc abnormality. No spinal canal or neural foraminal stenosis. L2-L3: No posterior disc abnormality. No spinal canal or neural foraminal stenosis. L3-L4: No posterior disc abnormality. Mild facet arthropathy. No spinal canal or neural foraminal stenosis. L4-L5: Mild disc bulging with moderate facet arthropathy ligamentum flavum infolding. No spinal canal stenosis. Mild encroachment on the right neural foramen. L5-S1: No posterior disc abnormality. Moderate left facet arthropathy. No spinal canal or neural foraminal stenosis. IMPRESSION: No significant narrowing of the spinal canal or neural foramina. No definite nerve root compression is seen. XR LUMBAR SPINE XR SI JOINT 02/21/23 FINDINGS: Lumbar spine: There is normal lumbar lordosis. The vertebral heights, alignment and disc heights are normal. There is mild ventral spondylosis. No visible acute fracture, dislocation or subluxation. There is minimal ventral spondylosis. No lytic or sclerotic process seen. The paravertebral soft tissues are normal. SI joints: There is normal symmetry of bilateral SI joints without any bony erosive changes, sclerosis or lytic process. The pubic symphysis is normal. There are phleboliths throughout the lower pelvis. IMPRESSION: 1. Mild ventral spondylosis lumbar spine. No visible acute fracture, dislocation or lytic process seen. 2. Unremarkable SI joints. Assessment & Plan Assessment & Plan (1) Lumbar spondylosis: Code(s): M47.816 - Spondylosis without myelopathy or radiculopathy, lumbar region (2) Lumbar degenerative disc disease: Code(s): M51.36 - Other intervertebral disc degeneration, lumbar region (3) Sacroiliac joint pain: Code(s): M53.3 - Sacrococcygeal disorders, not elsewhere classified (4) Muscle spasm of back: Code(s): M62.830 - Muscle spasm of back (5) Lumbar radiculopathy, chronic: Code(s): M54.16 - Radiculopathy, lumbar region Plan Schedule Therapeutic Bilateral L3-L4-DR L5 MBBs with sedation and fluoroscopy. We also reviewed neuromodulation with Sprint PNS trial and lumbar medial branch RFA procedures. Informational pamphlet provided. All questions were answered and patient agreed with the treatment plan. Follow-up after injections and sooner as needed. Anticoagulation: Patient not on anticoagulant Justification for interventional therapy: ? Patient with average pain > 6/10 ? Patient has exhausted conservative therapy, NSAIDs, physical therapy ? Patient is continuing home exercise program and weight loss The risks, consequences, alternatives, and benefits of various treatment options were discussed with the patient in great detail, including conservative management, injections and procedures. Patient is informed of hyperglycemic effects of steroids. Medications: Discontinued levothyroxine 75 mcg PO QAM 90 tabs 1RF lisinopril 10 mg PO DAILY 90 tabs 1RF albuterol sulfate 90 mcg/actuation 2 puffs PO Q6H PRN 8.5 grams 4RF wheezing pantoprazole 40 mg PO BID 180 tabs 2RF Coding Level of Care Code Est Pt Level 4 (10572) Diagnoses Lumbar spondylosis M47.816 Lumbar degenerative disc disease M51.36 Sacroiliac joint pain M53.3 Muscle spasm of back M62.830 Lumbar radiculopathy, chronic M54.16
[2023-05-05 10:25] VITALS: BP 168/94; PULSE 94; O2SAT 98; BMI 42.0
== END 2023-05-05 10:47 | disposition home or self-care (01) ==
PROVIDERS: PCP Internal Medicine; Visit Provider Nurse Practitioner Family
DX: M47.816 Spondylosis without myelopathy or radiculopathy, lumbar region (principal); M51.36 Other intervertebral disc degeneration, lumbar region; M53.3 Sacrococcygeal disorders, not elsewhere classified; M62.830 Muscle spasm of back; M54.16 Radiculopathy, lumbar region
CPT/HCPCS: 99214

== ENCOUNTER → 2023-05-05 10:17 | Outpatient (BNVA) | payer OTHER, SELFPAY | PROVIDERS: PCP Internal Medicine; Visit Provider Nurse Practitioner Family | DX: M47.816 Spondylosis without myelopathy or radiculopathy, lumbar region (principal); M51.36 Other intervertebral disc degeneration, lumbar region; M53.3 Sacrococcygeal disorders, not elsewhere classified; M62.830 Muscle spasm of back; M54.16 Radiculopathy, lumbar region | CPT/HCPCS: 99212 ==

== ENCOUNTER 2023-05-24 07:58 | Outpatient (AMB) | payer OTHER, SELFPAY ==
[2023-05-24 08:09] VITALS: BP 112/72; PULSE 90; O2SAT 99; BMI 42.4
--- NOTE | 2023-05-24 08:09 | MHC.PC.OV ---
Vital Signs 05/24/23 08:09 Height 5 ft 8.75 in Weight 285 lb BMI 42.4 BP 112/72 Blood Pressure Location Rt brachial Position Sitting Pulse 90 Pulse Source Pulse Oximeter Pulse Oximetry (%) 99 Oxygen Delivery Method Room Air Intake Visit Reasons: Followup breast tenderness Intake Note: Pt is here today for her f/u Lt breast no improvement Allergies ziprasidone [From GEODON] Allergy (Severe, Verified 05/24/23 08:22) HIVES,SWELLING alosetron [From LOTRONEX] Allergy (Intermediate, Verified 05/24/23 08:22) RASH Sulfa (Sulfonamide Antibiotics) [SULFA (SULFONAMIDE ANTIBIOTICS)] Allergy (Intermediate, Verified 05/24/23 08:22) RASH cephalexin [Keflex] Allergy (Unknown, Verified 05/24/23 08:22) rash oxycodone [OXYCODONE] Adverse Reaction (Severe, Verified 05/24/23 08:22) HALLUCINATIONS, hallucination, hallucinations meperidine [Demerol] Adverse Reaction (Unknown, Verified 05/24/23 08:22) nausea and vomiting morphine Adverse Reaction (Unknown, Verified 05/24/23 08:22) nausea and vomiting Medication List - Last Reconciled 05/24/23 by [place] Allison MD albuterol sulfate 90 mcg/actuation (ProAir HFA) 2 puffs PO Q6H PRN blood pressure monitor As directed cariprazine (Vraylar) 6 mg PO DAILY chlorthalidone 12.5 mg PO DAILY cholecalciferol (vitamin D3) (Vitamin D3) 25 mcg PO DAILY dextroamphetamine-amphetamine 15 mg (Adderall) 30 mg PO .qafternoon dextroamphetamine-amphetamine 30 mg ER (Adderall XR) 1 cap PO DAILY PRN dicyclomine 40 mg (2 x 20 mg) PO QID fluticasone furoate-vilanterol 200-25 mcg/dose (Breo Ellipta) 1 inh inhalation DAILY glucosamine sulfate (Glucosamine) 500 mg PO DAILY hydrocortisone 2.5% (Proctozone-HC) 1 appl [place] BID PRN levothyroxine (Synthroid) 75 mcg PO QAM lisinopril (Zestril) 10 mg PO DAILY lorazepam (Ativan) 2 mg PO BID PRN methocarbamol 750 mg PO BID PRN 30 days multivitamin (Multiple Vitamins tablet) 1 tab PO DAILY omega 2-euj-usx-fish oil 1,200 (144-216) mg (Fish Oil) 1 cap PO DAILY pantoprazole 40 mg PO BID scopolamine base (Transderm-Scop) 1 patch transdermal Q3D PRN tramadol 50 mg PO DAILY PRN trazodone 50 mg PO BEDTIME PRN Tobacco use date assessed: 05/24/23 Dental Screening Dental Screen Date: 05/24/23 Did you have a dental visit in the last 12 months?: Yes Did you have a dental problem in the last 6 months where you did not have access to dental care?: Yes Was dental information given to patient?: Patient has dentist HPI Followup breast tenderness HPI Details 52-year-old lady here today complaining of sharp, pulling pains in left breast, mainly in the left axillary area radiating down lateral aspect of breast, has similar pains in the right side, and symptoms are worse when upright. She has also been complaining of upper back pain and stiffness and has been having recurrent itchy rash under both breasts, worse with the warm weather which has been temporarily treated with antifungal cream and powder. She has tried NSAIDs, wear a good supportive bra, and has been trying to lose weight. She had a screening mammogram done November 2022 which showed benign findings. [facility] Medical History (Updated 05/24/23 @ 08:32 by Albania Allison MD) Acquired hypothyroidism ADHD Atypical ductal hyperplasia of right breast Bipolar 1 disorder, depressed Breast pain in female Decreased glomerular filtration rate (GFR) Elevated liver enzymes GERD (gastroesophageal reflux disease) History of anemia History of MRSA infection Hypertension Hypothyroid Impaired fasting glucose Lumbar radiculopathy, chronic Mild intermittent asthma Mixed dyslipidemia Morbid obesity Pain and swelling of right knee Upper back strain Von Willebrand disease Surgical History History of bilateral carpal tunnel release History of section History of eye surgery History of partial thyroidectomy History of total abdominal hysterectomy Hx of colonoscopy Hx of cystoscopy Hx of esophagogastroduodenoscopy S/P laparoscopic surgery Vesicovaginal fistula Family History Father HTN (hypertension) Hyperlipidemia Mother HTN (hypertension) Alzheimers disease Mental health disorder Maternal Aunt Breast cancer Brother Substance use disorder Social History Housing: House Alcohol intake: current Alcohol intake frequency: 0-2 drinks per day Alcohol type: hard liquor Patient Tobacco Use Status: Former Tobacco user Quit Date: 6 yr ago Tobacco use type: Cigarette Years Smoked: 20 years e-Cigarette/Vaping Use: Never Used Current occupational status: unemployed Cognitive needs: No Hearing needs: No Vision needs: Yes Questionnaire Thrive Questionnaire Date Thrive assessed: 03/15/23 MINGO-7 AMB Questionnaire MINGO-7 Date MINGO - 7 assessed: 03/15/23 Source: Developed by Drs. Henri Oliver, Yanelis Liu, Everton Cevallos and colleagues, with an educational oscar from [email or web address]. Review of Systems Const All systems reviewed & are unremarkable except as noted in HPI and below Denies weight loss Denies nipple discharge Musc Reports as per HPI Skin/Breast Reports as per HPI, Denies breast swelling, Denies breast skin changes, Denies breast mass and Denies nipple discharge Physical exam (Primary Care) Vital Signs: Last Vital Signs Pulse 90 05/24/23 08:09 BP 112/72 05/24/23 08:09 Pulse Ox 99 05/24/23 08:09 Oxygen Delivery Method Room Air 05/24/23 08:09 BMI result Body Mass Index 42.4 BMI Assessment/Plan discussion: High BMI High, discussed plan: lifestyle, weight reduction, dietary and physical activity Tobacco/Smoking Status: Tobacco use Status Tobacco use date assessed 05/24/23 05/24/23 08:13 Patient Tobacco Use Status Former Tobacco user 05/24/23 08:13 Tobacco use type Cigarette 05/24/23 08:13 e-Cigarette/Vaping Use Never Used 05/24/23 08:13 Thrive Assessment: Date of Thrive Assessment Date Thrive assessed 03/15/23 05/24/23 08:13 Const Orientation/consciousness: patient oriented x3 HENMT Head: Yes normocephalic Mouth: Normal oral and palatal mucosa present, tongue normal, oropharynx normal and moist mucous membranes Neck Neck: Yes full ROM, Yes no lymphadenopathy and Yes supple Back/Spine/Pelvis Other: Tightness and slight tenderness on palpation over interscapular area and over trapezius muscles bilaterally Skin Other: Erythematous patch underneath both breasts Neuro General: patient oriented x3, gait normal, tone normal, moves all extremities, Normal light touch and pain sensation, no focal motor deficits and normal sensation to monofilament Assessment and Plan Assessment & Plan (1) Breast pain in female: Code(s): N64.4 - Mastodynia Plan: Mammogram done earlier this year showed normal findings, ultrasound of bilateral breasts ordered. Has large breasts, referred to Dr. Nikki Jack for evaluation for possible breast reduction surgery. Letter written (2) Upper back strain: Code(s): S29.012A - Strain of muscle and tendon of back wall of thorax, initial encounter Plan: Has tried NSAIDs, heat, alternating with ice which affords only temporary relief (3) Erythema intertrigo: Code(s): L30.4 - Erythema intertrigo Plan: Keep areas under both breasts clean and dry , may apply nystatin cream for prevention. Orders: Orders US breast LT complete Today N64.4 - Mastodynia US breast RT complete Today N64.4 - Mastodynia Referrals Breast Surgery Referral N64.4 - Mastodynia Medications: Discontinued levothyroxine 75 mcg PO QAM 90 tabs 1RF lisinopril 10 mg PO DAILY 90 tabs 1RF albuterol sulfate 90 mcg/actuation 2 puffs PO Q6H PRN 8.5 grams 4RF wheezing pantoprazole 40 mg PO BID 180 tabs 2RF Coding Level of Care Code Est Pt Level 3 (50645) Diagnoses Breast pain in female N64.4 Upper back strain S29.012A Erythema intertrigo L30.4
== END 2023-05-24 10:19 | disposition home or self-care (01) ==
PROVIDERS: PCP Internal Medicine; Visit Provider Internal Medicine
DX: N64.4 Mastodynia (principal); S29.012A Strain of muscle and tendon of back wall of thorax, initial encounter; L30.4 Erythema intertrigo
CPT/HCPCS: 99213

== ENCOUNTER 2023-06-09 09:55 | Day surgery (SDC) | payer OTHER, SELFPAY ==
[2023-06-07 09:50] VITALS: BMI 42.4
--- NOTE | 2023-06-08 09:20 | HO.ANESPROP2 ---
HPI - Anesthesia Eval Consult details Narrative: 53yo F for Bilateral Therapeutic L3-L4-Drl5 Medial Branch Blocks s/p MBB 04/2023 with MAC PMFSH Active Problems Active Problems: All Active Problems (Updated 05/24/23 @ 08:32 by Albania Allison MD) Upper back strain (Acute) Breast pain in female (Acute) GERD (gastroesophageal reflux disease) (Acute) Irritable bowel syndrome with diarrhea (Acute) Constipation (Acute) Right knee pain (Acute) Osteoarthritis of right knee (Acute) Lumbar degenerative disc disease (Acute) Lumbar spondylosis (Acute) Muscle spasm of back (Acute) Sacroiliac joint pain (Acute) Elevated liver enzymes (Acute) Pain and swelling of right knee (Acute) Lumbar radiculopathy, chronic (Acute) Mixed dyslipidemia (Acute) Decreased glomerular filtration rate (GFR) (Acute) Impaired fasting glucose (Acute) Hypertension (Acute) Mild intermittent asthma (Acute) ADHD (Acute) Von Willebrand disease (Acute) Morbid obesity (Acute) History of anemia (Acute) Atypical ductal hyperplasia of right breast (Acute) Acquired hypothyroidism (Acute) Past Medical History Medical History (Updated 05/24/23 @ 08:32 by Albania Allison MD) Acquired hypothyroidism ADHD Atypical ductal hyperplasia of right breast Bipolar 1 disorder, depressed Breast pain in female Decreased glomerular filtration rate (GFR) Elevated liver enzymes GERD (gastroesophageal reflux disease) History of anemia History of MRSA infection Hypertension Hypothyroid Impaired fasting glucose Lumbar radiculopathy, chronic Mild intermittent asthma Mixed dyslipidemia Morbid obesity Pain and swelling of right knee Upper back strain Von Willebrand disease Family History Family History Father HTN (hypertension) Hyperlipidemia Mother HTN (hypertension) Alzheimers disease Mental health disorder Maternal Aunt Breast cancer Brother Substance use disorder Family history of problems with anesthesia: No Surgical History Surgical History History of bilateral carpal tunnel release History of section History of eye surgery History of partial thyroidectomy History of total abdominal hysterectomy Hx of colonoscopy Hx of cystoscopy Hx of esophagogastroduodenoscopy S/P laparoscopic surgery Vesicovaginal fistula History of Problems with Anesthesia: No Social History Social History Housing: House Alcohol intake: current Alcohol intake frequency: 0-2 drinks per day Alcohol type: hard liquor Patient Tobacco Use Status: Former Tobacco user Quit Date: 6 yr ago Tobacco use type: Cigarette Years Smoked: 20 years e-Cigarette/Vaping Use: Never Used Current occupational status: unemployed Cognitive needs: No Hearing needs: No Vision needs: Yes Meds Allergies Allergy/AdvReac Type Severity Reaction Status Date / Time ziprasidone [From GEODON] Allergy Severe HIVES,SWELL Verified 05/24/23 08:22 ING alosetron [From LOTRONEX] Allergy Intermediate RASH Verified 05/24/23 08:22 Sulfa (Sulfonamide Allergy Intermediate RASH Verified 05/24/23 08:22 Antibiotics) [SULFA (SULFONAMIDE ANTIBIOTICS)] cephalexin [Keflex] Allergy Unknown rash Verified 05/24/23 08:22 oxycodone [OXYCODONE] AdvReac Severe HALLUCINATIONS, Verified 05/24/23 08:22 hallucination, hallucinations meperidine [Demerol] AdvReac Unknown nausea and Verified 05/24/23 08:22 vomiting morphine AdvReac Unknown nausea and Verified 05/24/23 08:22 vomiting Home Medications Medication Instructions Recorded Confirmed Last Taken Type cariprazine 6 mg capsule (Vraylar) 6 mg PO DAILY 08/13/20 05/24/23 Unknown History lorazepam 2 mg tablet (Ativan) 2 mg PO BID PRN Anxiety 08/13/20 05/24/23 Unknown History multivitamin (Multiple Vitamins 1 tab PO DAILY 12/24/20 05/24/23 Unknown History tablet) dextroamphetamine-amphetamine 15 30 mg PO .qafternoon 01/12/21 05/24/23 Unknown History mg tablet (Adderall) trazodone 50 mg tablet 50 mg PO BEDTIME PRN Insomnia 01/12/21 05/24/23 Unknown History glucosamine sulfate 500 mg tablet 500 mg PO DAILY 11/30/21 05/24/23 Unknown History (Glucosamine) chlorthalidone 25 mg tablet 12.5 mg PO DAILY 08/31/22 05/24/23 03/17/23 06:00 History cholecalciferol (vitamin D3) 25 25 mcg PO DAILY 08/31/22 05/24/23 Unknown History mcg (1,000 unit) capsule (Vitamin D3) dextroamphetamine-amphetamine ER 1 cap PO DAILY PRN focusing 08/31/22 05/24/23 03/17/23 06:00 History 30 mg 24hr capsule,extend release (Adderall XR) omega 1-dvj-emu-fish oil 1,200 mg 1 cap PO DAILY 08/31/22 05/24/23 Unknown History (144 mg-216 mg) capsule (Fish Oil) lisinopril 10 mg tablet (Zestril) 10 mg PO DAILY 03/17/23 05/24/23 03/17/23 06:00 History Exam Exam Date and Time: June 08, 2023 09 Height,Weight and Vital Signs: Height 5 ft 8.75 in Weight 129.274 kg Pertinent Lab Results Pertinent Lab Results: Laboratory Tests 02/03/23 07:49 Sodium 142 Potassium 3.9 Chloride 103 Carbon Dioxide 30 H BUN 12 Creatinine 1.56 H Assessment and Plan Assessment Anesthesia Assessment: Chart Reviewed Final Anesthetic Review Family History of Problems with Anesthesia: No History of Problems with Anesthesia: No
--- NOTE | ~2023-06-09 | FL_ITS ---
EXAMINATION: XR FLUOROSCOPY WITH IMAGES CLINICAL INFORMATION: Bilateral L3, L4, L5. COMPARISON: None available. TECHNIQUE: Fluoroscopy Supervised By: Dr. Janes Choe. Fluoroscopy Time: 0.5 minutes. Cumulative Dose: 35.1 mGy. DAP: 9.56 Gycm2. Images: 6. FINDINGS: Images demonstrate needle placement and contrast injection adjacent to the bilateral lateral L3-L4 and L5 vertebrae FL/FL guidance in OR IMPRESSION: Fluoroscopy guidance for pain management procedure
[2023-06-09 10:22] VITALS: BP 133/86; PULSE 76; RESP 16; TEMP 36.6; O2SAT 98
[2023-06-09] MEDS: Lactated Ringers 1,000 ML 100 ML IVCONT (10:22)
--- NOTE | 2023-06-09 11:18 | MHC.SHP ---
Pre-Procedural Eval Section A Date of Service: 06/09/23 Changes since office visit: Yes Patient answered all questions The History & Physical has been completed within 30 days and I have reviewed it.: No Section B Chief Complaint: Spondylosis without myelopathy or radiculopathy, l Details of Present Illness: as above Relevant Family History (Specify if Yes): No Relevant Social History: None Present Medications: None Medical History: No relevant PMH History of Previous Operations: No relevant previous surgery Allergies: Allergies Allergy/AdvReac Type Severity Reaction Status Date / Time ziprasidone [From GEODON] Allergy Severe HIVES,SWELL Verified 05/24/23 08:22 ING alosetron [From LOTRONEX] Allergy Intermediate RASH Verified 05/24/23 08:22 Sulfa (Sulfonamide Allergy Intermediate RASH Verified 05/24/23 08:22 Antibiotics) [SULFA (SULFONAMIDE ANTIBIOTICS)] cephalexin [Keflex] Allergy Unknown rash Verified 05/24/23 08:22 oxycodone [OXYCODONE] AdvReac Severe HALLUCINATIONS, Verified 05/24/23 08:22 hallucination, hallucinations meperidine [Demerol] AdvReac Unknown nausea and Verified 05/24/23 08:22 vomiting morphine AdvReac Unknown nausea and Verified 05/24/23 08:22 vomiting Review of Systems Sugical H&P ROS: Negative: Cardiovascular, Respiratory, Neurological, Psychiatric, Hem-Onc, Allergic/Immunologic, Gastrointestinal, Genitourinary, Musculoskeletal, Integumentary, Endocrine and Eyes/Ears/Nose/Throat and Yes, Specify: Constitution (morbid obesity) Exam Surgical H&P Exam: Normal: HEENT, Normal: Heart, Normal: Lungs, Normal: Extremities, Normal: Abdomen, Normal: Skin and Normal: Neurological Plan Diagnosis/Plan: Unchanged I have reviewed the history and physical and performed a pertinent physical examination on my patient. No changes have occurred unless specified. Time Spent With Patient Time: Total time managing care of this patient today ____ minutes.
--- NOTE | 2023-06-09 11:38 | HO.ANESPROP2 ---
[facility] [place] Active Problems Active Problems: All Active Problems (Updated 05/24/23 @ 08:32 by [place] Allison MD) Upper back strain (Acute) Breast pain in female (Acute) GERD (gastroesophageal reflux disease) (Acute) Irritable bowel syndrome with diarrhea (Acute) Constipation (Acute) Right knee pain (Acute) Osteoarthritis of right knee (Acute) Lumbar degenerative disc disease (Acute) Lumbar spondylosis (Acute) Muscle spasm of back (Acute) Sacroiliac joint pain (Acute) Elevated liver enzymes (Acute) Pain and swelling of right knee (Acute) Lumbar radiculopathy, chronic (Acute) Mixed dyslipidemia (Acute) Decreased glomerular filtration rate (GFR) (Acute) Impaired fasting glucose (Acute) Hypertension (Acute) Mild intermittent asthma (Acute) ADHD (Acute) Von Willebrand disease (Acute) Morbid obesity (Acute) History of anemia (Acute) Atypical ductal hyperplasia of right breast (Acute) Acquired hypothyroidism (Acute) Past Medical History Medical History Acquired hypothyroidism ADHD Atypical ductal hyperplasia of right breast Bipolar 1 disorder, depressed Breast pain in female Decreased glomerular filtration rate (GFR) Elevated liver enzymes GERD (gastroesophageal reflux disease) History of anemia History of MRSA infection Hypertension Hypothyroid Impaired fasting glucose Lumbar radiculopathy, chronic Mild intermittent asthma Mixed dyslipidemia Morbid obesity Pain and swelling of right knee Upper back strain Von Willebrand disease Family History Family History Father HTN (hypertension) Hyperlipidemia Mother HTN (hypertension) Alzheimers disease Mental health disorder Maternal Aunt Breast cancer Brother Substance use disorder Family history of problems with anesthesia: No Surgical History Surgical History History of bilateral carpal tunnel release History of section History of eye surgery History of partial thyroidectomy History of total abdominal hysterectomy Hx of colonoscopy Hx of cystoscopy Hx of esophagogastroduodenoscopy S/P laparoscopic surgery Vesicovaginal fistula History of Problems with Anesthesia: No Social History Social History Housing: House Alcohol intake: current Alcohol intake frequency: 0-2 drinks per day Alcohol type: hard liquor Patient Tobacco Use Status: Former Tobacco user Quit Date: 6 yr ago Tobacco use type: Cigarette Years Smoked: 20 years e-Cigarette/Vaping Use: Never Used Use of substances other than those prescribed or required for medical reasons: No Are you DNR?: No Advance Directives: No Advance Directives Information Provided: Yes Current occupational status: unemployed Cognitive needs: No Hearing needs: No Vision needs: Yes Meds Allergies Allergy/AdvReac Type Severity Reaction Status Date / Time ziprasidone [From GEODON] Allergy Severe HIVES,SWELL Verified 05/24/23 08:22 ING alosetron [From LOTRONEX] Allergy Intermediate RASH Verified 05/24/23 08:22 Sulfa (Sulfonamide Allergy Intermediate RASH Verified 05/24/23 08:22 Antibiotics) [SULFA (SULFONAMIDE ANTIBIOTICS)] cephalexin [Keflex] Allergy Unknown rash Verified 05/24/23 08:22 oxycodone [OXYCODONE] AdvReac Severe HALLUCINATIONS, Verified 05/24/23 08:22 hallucination, hallucinations meperidine [Demerol] AdvReac Unknown nausea and Verified 05/24/23 08:22 vomiting morphine AdvReac Unknown nausea and Verified 05/24/23 08:22 vomiting Active Medications: Current Medications Albuterol Sulfate (Albuterol Sulfate (0.083%) 2.5 Mg/3 Ml Vial.Neb) 2.5 mg INHALE ONCE PRN PRN Reason: Shortness of Breath/Wheezing Lactated Ringer's (Lr) 1,000 mls @ 100 mls/hr IVCONT .Q10H DOMINIQUE Last Admin: 06/09/23 10:22 Dose: 100 mls/hr Home Medications Medication Instructions Recorded Confirmed Last Taken Type cariprazine 6 mg capsule (Vraylar) 6 mg PO DAILY 08/13/20 05/24/23 Unknown History lorazepam 2 mg tablet (Ativan) 2 mg PO BID PRN Anxiety 08/13/20 05/24/23 Unknown History multivitamin (Multiple Vitamins 1 tab PO DAILY 12/24/20 05/24/23 Unknown History tablet) dextroamphetamine-amphetamine 15 30 mg PO .qafternoon 01/12/21 05/24/23 Unknown History mg tablet (Adderall) trazodone 50 mg tablet 50 mg PO BEDTIME PRN Insomnia 01/12/21 05/24/23 Unknown History glucosamine sulfate 500 mg tablet 500 mg PO DAILY 11/30/21 05/24/23 Unknown History (Glucosamine) chlorthalidone 25 mg tablet 12.5 mg PO DAILY 08/31/22 05/24/23 03/17/23 06:00 History cholecalciferol (vitamin D3) 25 25 mcg PO DAILY 08/31/22 05/24/23 Unknown History mcg (1,000 unit) capsule (Vitamin D3) dextroamphetamine-amphetamine ER 1 cap PO DAILY PRN focusing 08/31/22 05/24/23 03/17/23 06:00 History 30 mg 24hr capsule,extend release (Adderall XR) omega 2-kog-uxc-fish oil 1,200 mg 1 cap PO DAILY 08/31/22 05/24/23 Unknown History (144 mg-216 mg) capsule (Fish Oil) lisinopril 10 mg tablet (Zestril) 10 mg PO DAILY 03/17/23 05/24/23 03/17/23 06:00 History Exam Exam Date and Time: June 09, 2023 113 Height,Weight and Vital Signs: Height 5 ft 8.75 in Weight 129.274 kg Last Vital Signs Temp 97.8 F 06/09/23 10:22 Pulse 76 06/09/23 10:22 Resp 16 06/09/23 10:22 BP 133/86 06/09/23 10:22 Pulse Ox 98 06/09/23 10:22 O2 Del Method Room Air 06/09/23 10:22 Airway Mallampati Class: I TM Dist: >3cm Neck ROM: Full Heart: RRR Lungs: CTA Assessment and Plan Assessment Anesthesia Assessment: Anesthesia Plan Discussed Final Anesthetic Review Family History of Problems with Anesthesia: No History of Problems with Anesthesia: No ASA Class: III Final Preanesthetic Review: Meds/Allgs Chart Reviewed, Consent Obtained/Reviewed and Anes Risks/Benef Reviewed Patient Risk: Low Procedure Risk: Low Anesthetic Plan Disposition: Standard PACU
[2023-06-09 11:48] VITALS: BP 125/87; PULSE 81; RESP 16; TEMP 36.7; O2SAT 95
--- NOTE | 2023-06-09 11:50 | P.BOP_ITS ---
Brief Operative Note Date of Service: 06/09/23 Pre-op diagnosis: Spondylosis lumbar Post-op diagnosis: same Procedure: Bilateral therapeutic medial branch block L3-L4 dorsal ramus L5 Surgeon: Janes Choe MD Anesthesia: MAC Was an Land Acquisition Specialist used for this Procedure?: No Estimated blood loss (mL): 1 Condition: stable Disposition: PACU
--- NOTE | 2023-06-09 11:51 | P.OP_ITS ---
Operative Note Operative Note Date of Service: 06/09/23 Narrative: Therapeutic medial branch block L3,L4 dorsal ramus L5 bilateral.? ? Informed consent was explained to the patient. All questions were explained and? answered.? The patient was taken inside the operating room where she was positioned prone on the operating table. Time-out was performed delineating correct site, side, the nature of the procedure, patient's allergy, . All operating room staff was participating in OR time-out procedure. ASA M-r were allied and the patient was sedated. ? ? The lower back was prepped with ChloraPrep and draped with sterile towels.? C- arm was brought over the operating field and sq picture of L4-, L5 vertebra and S1 AREA were delineated on the screen.? Point of interest were delineated as confluence of superior articular process of L4 and L5 vertebra bilaterally with corresponding transverse processes as well as confluence of the sacral alae bilaterally with superior articular process of S1.? The projection of the point of interest to the skin were injected with the small amount of local anesthetic lidocaine 2% 1-1.5 cc.? After that 22 gauge 5 inch spinal needle was driven sequentially to the points of interest in tunnel vision fashion. After needles gently contacted the bone at the point of interests the needle was injected with small amount of the contrast.? The injection of the contrast did not demonstrate any intravascular or intrathecal spread of the contrast.? After that injection of the? ropivacaine 0.5%-1cc mixed with Kenalog was performed at each needle location. Total dose of Kenalog was 80 mg.??after that the needles were removed and Bandaids were applied. ? Upon completion of the injections? needle was? removed and sterile Band-Aids were applied.? The patient tolerated procedure very well.
[2023-06-09 12:03] VITALS: BP 125/65; PULSE 74; RESP 16; TEMP 36.7; O2SAT 95
--- NOTE | 2023-06-09 12:21 | HO.POSTANES ---
Post Anesthesia Evaluation Post Anesthesia Evaluation Date of Service: 06/09/23 Vital Signs: Vital Signs Temp Pulse Resp BP Pulse Ox O2 Del Method 06/09/23 12:03 98.1 F 74 16 125/65 95 Room Air 06/09/23 11:48 98.1 F 81 16 125/87 95 Room Air 06/09/23 10:22 97.8 F 76 16 133/86 98 Room Air Anesthesia: Monitored Mental Status: Awake Pain Control: Satisfactory Nausea/Vomiting: None Hydration: Adequate Anesthesia-Related Issues: No Anes. Related Issues
== END 2023-06-09 12:30 | disposition home or self-care (01) ==
PROVIDERS: PCP Internal Medicine; Visit Provider Anesthesiology
PROC: (CPT 64493; principal; 2023-06-09 11:30)
DX: M47.816 Spondylosis without myelopathy or radiculopathy, lumbar region (principal); G89.29 Other chronic pain; M51.36 Other intervertebral disc degeneration, lumbar region; M53.3 Sacrococcygeal disorders, not elsewhere classified; M62.830 Muscle spasm of back; M54.16 Radiculopathy, lumbar region; M25.561 Pain in right knee; Z91.81 History of falling; D68.00 Von Willebrand disease, unspecified; I10 Essential (primary) hypertension; J45.20 Mild intermittent asthma, uncomplicated; Z79.899 Other long term (current) drug therapy; Z88.2 Allergy status to sulfonamides; Z88.8 Allergy status to other drugs, medicaments and biological substances; Z88.5 Allergy status to narcotic agent; Z87.891 Personal history of nicotine dependence
CPT/HCPCS: 64493; 64494; J1100; J2250; J2795; J3010; J3301

== ENCOUNTER → 2023-06-09 09:55 | Outpatient (BNV) | payer OTHER, SELFPAY | PROVIDERS: PCP Internal Medicine; Visit Provider Anesthesiology | DX: M47.816 Spondylosis without myelopathy or radiculopathy, lumbar region (principal) | CPT/HCPCS: 64493; 64494 ==

== ENCOUNTER 2023-06-23 09:50 | Outpatient (REF) | payer OTHER, SELFPAY ==
--- NOTE | ~2023-06-23 | US_ITS ---
EXAMINATION: MM DIAGNOSTIC DIGITAL BREAST TOMOSYNTHESIS, BILATERAL US BREAST LIMITED, BILATERAL MAMMOGRAPHY: CLINICAL INFORMATION: 53-year-old female complaining of bilateral breast pain radiating from axilla to anterior and lateral breasts spanning approximately 10:00 to 2:00 axis on both sides. COMPARISON: Mammography: 12/19/2022, 11/16/2021, 09/21/2020, and dating back to 2017. TECHNIQUE: Digital breast tomosynthesis is performed in both the craniocaudal and mediolateral oblique views along with computer-aided detection (CAD). Synthesized 2D images are generated from the tomosynthesis. FINDINGS: There are scattered areas of fibroglandular density (ACR BI-RADS breast composition Category b). There are no suspicious masses, suspicious grouped calcifications, or areas of architectural distortion. The parenchymal pattern is stable from prior exams. No mammographic abnormalities bilaterally in the purported regions of breast pain. ULTRASOUND: CLINICAL INFORMATION: As above. COMPARISON: None relevant. TECHNIQUE: Targeted sonographic evaluation was performed using a high frequency linear transducer, specifically targeting the areas of breast pain as indicated by the patient on both sides.. Selected archived documentation. FINDINGS: RIGHT BREAST: There is a mixture of fatty and fibroglandular tissue. No suspicious mass is seen. There is no pathologic acoustic shadowing. There is no cystic abnormality. There is no axillary adenopathy or other abnormality.. LEFT BREAST: There is a mixture of fatty and fibroglandular tissue. No suspicious mass is seen. There is no pathologic acoustic shadowing. There is no cystic abnormality. There is no axillary adenopathy or other abnormality. US/US breast BI limited mamm only IMPRESSION: No mammographic or sonographic evidence of malignancy. No significant change from prior studies. No mammographic or sonographic correlate to the patient's complaint of breast pain within the bilateral axilla, and spanning the 10:00 to 2:00 axis on both sides. Recommend clinical management of the patient's complaints. Otherwise, unless indicated sooner, recommend resuming routine annual screening mammography. OVERALL ASSESSMENT: Mammography: BI-RADS 1 - Negative Ultrasound: BI-RADS 1 - Negative RECOMMENDATION: 1 year F/U This patient's information was entered into a reminder system with a target due date for their next mammogram.
== END 2023-06-23 09:51 | disposition home or self-care (01) ==
LOC: HO.MAMMO 09:50
PROVIDERS: PCP Internal Medicine; Visit Provider Internal Medicine
DX: N64.4 Mastodynia (principal)
CPT/HCPCS: 76642; 77062; 77066

== ENCOUNTER → 2023-06-23 10:30 | Outpatient (BNV) | payer OTHER, SELFPAY | PROVIDERS: PCP Internal Medicine; Visit Provider Radiology Diagnostic Radiology | DX: N64.4 Mastodynia (principal) | CPT/HCPCS: 76642; 77062; 77066 ==

== ENCOUNTER 2023-07-13 08:47 | Outpatient (AMB) | payer OTHER, SELFPAY ==
--- NOTE | 2023-07-13 08:50 | MHC.OFFVIS ---
Intake Vital Signs 07/13/23 08:56 Height 5 ft 8.75 in Weight 278 lb 2 oz BMI 41.4 BP 147/101 H Blood Pressure Location Rt brachial Position Sitting Pulse 70 Pulse Source Pulse Oximeter Pulse Oximetry (%) 98 Oxygen Delivery Method Room Air Intake Visit Reasons: s/p B/L Therapeutic L3-L4-DRL5 MBB 06/09/23/Lvm Intake Note: Pain today 12/02 Digital Product Specialist Required: No Allergies ziprasidone [From GEODON] Allergy (Severe, Verified 05/24/23 08:22) HIVES,SWELLING alosetron [From LOTRONEX] Allergy (Intermediate, Verified 05/24/23 08:22) RASH Sulfa (Sulfonamide Antibiotics) [SULFA (SULFONAMIDE ANTIBIOTICS)] Allergy (Intermediate, Verified 05/24/23 08:22) RASH cephalexin [Keflex] Allergy (Unknown, Verified 05/24/23 08:22) rash oxycodone [OXYCODONE] Adverse Reaction (Severe, Verified 05/24/23 08:22) HALLUCINATIONS, hallucination, hallucinations meperidine [Demerol] Adverse Reaction (Unknown, Verified 05/24/23 08:22) nausea and vomiting morphine Adverse Reaction (Unknown, Verified 05/24/23 08:22) nausea and vomiting HPI HPI Comments History of Present Illness Details Patient presents today to assess response to Therapeutic Bilateral L3-L4-DR L5 MBBs 06/09/[address] Choe. Patient reports 100% pain relief for first week after procedure and ongoing 80% pain relief with significant improvement in her mobility, range of motion, functionality and ADLs. Patient reports she continues to experience lower back pain during sleep with repositioning. She does have mild sacroiliac joint tenderness with Lev test reproducing low back pain bilaterally, but no hip or groin pain. Patient states recent therapeutic injections allowed her to spend quality time during recent vacation and tolerate long distances and climbing hills. She also notices improved standing without significant back pain during cooking her meals. Patient will consider Sprint PNS trial or RFA as next treatment options vs consider repeat bilateral SIJ injections when her pain returns. She had minimal response to right diagnostic SIJ injection in February. Denies any recent cough, cold, infection, fever or other significant changes in medical history since last office visit. Patient denies any bladder or bowel incontinence or saddle anesthesia. Past Procedures: 06/09/23: Therapeutic Bilateral L3-L4 DR L5 MBBs-80% ongoing pain relief 04/27/23: Diagnostic Bilateral L3-L4-DR L5 MBBs-80% pain relief for 12 hours 03/17/23: Right diagnostic sacroiliac joint injection-10% for 3-4 hours [facility] Medical History Upper back strain Breast pain in female Elevated liver enzymes Pain and swelling of right knee Lumbar radiculopathy, chronic Mixed dyslipidemia Decreased glomerular filtration rate (GFR) Impaired fasting glucose Mild intermittent asthma Morbid obesity History of anemia Von Willebrand disease History of MRSA infection Bipolar 1 disorder, depressed ADHD Hypothyroid Hypertension GERD (gastroesophageal reflux disease) Atypical ductal hyperplasia of right breast Acquired hypothyroidism Surgical History Hx of colonoscopy History of bilateral carpal tunnel release Hx of cystoscopy Hx of esophagogastroduodenoscopy Vesicovaginal fistula S/P laparoscopic surgery History of total abdominal hysterectomy History of section History of eye surgery History of partial thyroidectomy Family History Father HTN (hypertension) Hyperlipidemia Mother HTN (hypertension) Alzheimers disease Mental health disorder Maternal Aunt Breast cancer Brother Substance use disorder Social History Housing: House Alcohol intake: current Alcohol intake frequency: 0-2 drinks per day Alcohol type: hard liquor Patient Tobacco Use Status: Former Tobacco user Quit Date: 6 yr ago Tobacco use type: Cigarette Years Smoked: 20 years e-Cigarette/Vaping Use: Never Used Current occupational status: unemployed Cognitive needs: No Hearing needs: No Vision needs: Yes Review of Systems Const All systems reviewed & are unremarkable except as noted in HPI and below Physical Exam Vital Signs: Last Vital Signs Pulse 70 07/13/23 08:56 BP 147/101 H 07/13/23 08:56 Pulse Ox 98 07/13/23 08:56 Oxygen Delivery Method Room Air 07/13/23 08:56 BMI result Body Mass Index 41.4 On exam today: Appears afebrile. Alert and oriented. Mood and affect appropriate. Follows and participates in conversation appropriately. Respiratory effort is unlabored. No cough. Able to transition from sit to stand unassisted. Ambulates with bilaterally normal heel strike and toe off. Able to stand and walk on toes and heels. Back/Spine/Pelvis Cervical Spine: cervical ROM normal and No Cervical spine tenderness Thoracic/Lumbar Spine: thoracic and lumbar spine normal to inspection, No Thoracic/lumbar spine scar(s), Lasegue's sign negative, straight leg raise negative bilaterally, No thoracic spinal tenderness and lumbar spinal tenderness at L4 and at L5 Pelvis: buttock tenderness (upper buttocks) bilaterally Sacroiliac joints: bilaterally (+Lev test reproduces bilateral low back pain) tender to palpation Assessment & Plan Assessment & Plan (1) Lumbar degenerative disc disease: Code(s): M51.36 - Other intervertebral disc degeneration, lumbar region (2) Lumbar spondylosis: Code(s): M47.816 - Spondylosis without myelopathy or radiculopathy, lumbar region (3) Sacroiliac joint pain: Code(s): M53.3 - Sacrococcygeal disorders, not elsewhere classified Plan Patient is status post bilateral therapeutic lumbar medial branch blocks with ongoing 80% pain relief with improved function and ADLs. She does have mild SIJ related pain. Patient will consider Sprint PNS trial or RFA as next treatment options vs consider repeat bilateral SIJ injections when her pain returns. All questions and concerns have been answered and patient agreed with the plan. Follow up as needed. Coding Level of Care Code Est Pt Level 3 (84916) Diagnoses Lumbar degenerative disc disease M51.36 Lumbar spondylosis M47.816 Sacroiliac joint pain M53.3
[2023-07-13 08:56] VITALS: BP 147/101; PULSE 70; O2SAT 98; BMI 41.4
== END 2023-07-13 09:11 | disposition home or self-care (01) ==
PROVIDERS: PCP Internal Medicine; Visit Provider Nurse Practitioner Family
DX: M51.36 Other intervertebral disc degeneration, lumbar region (principal); M47.816 Spondylosis without myelopathy or radiculopathy, lumbar region; M53.3 Sacrococcygeal disorders, not elsewhere classified
CPT/HCPCS: 99213

== ENCOUNTER → 2023-07-13 08:47 | Outpatient (BNVA) | payer OTHER, SELFPAY | PROVIDERS: PCP Internal Medicine; Visit Provider Nurse Practitioner Family | DX: M51.36 Other intervertebral disc degeneration, lumbar region (principal); M47.816 Spondylosis without myelopathy or radiculopathy, lumbar region; M53.3 Sacrococcygeal disorders, not elsewhere classified; Z98.890 Other specified postprocedural states | CPT/HCPCS: 99212 ==

== ENCOUNTER 2023-08-21 09:59 | Outpatient (REF) | payer OTHER, SELFPAY ==
--- NOTE | ~2023-08-21 | XR_ITS ---
EXAMINATION: XR BILATERAL HIPS WITH AP PELVIS CLINICAL INFORMATION: Sacrococcygeal disorders COMPARISON: CT abdomen pelvis 03/18/2016 TECHNIQUE: AP view of the pelvis and single views of each hip were obtained. FINDINGS: No fracture. Some minor degenerative changes are seen with some supra-acetabular lateral sclerosis, unchanged from prior. Hip joint spaces are maintained. Alignment is anatomic. Sacroiliac joints and pubic symphysis are normal. No abnormal soft tissue calcifications. Phleboliths are noted in the pelvis. XR/XR hip BI w [id number] IMPRESSION: Minimal degenerative changes in the hips. No acute finding.
== END 2023-08-21 10:00 | disposition home or self-care (01) ==
LOC: HO.HMGCX 09:59
PROVIDERS: PCP Internal Medicine; Visit Provider Nurse Practitioner Family
DX: M53.3 Sacrococcygeal disorders, not elsewhere classified (principal); M25.551 Pain in right hip; M25.552 Pain in left hip
CPT/HCPCS: 73521

== ENCOUNTER 2023-09-06 08:17 | Outpatient (REF) | payer OTHER, SELFPAY ==
[2023-09-06 11:20] LABS: MANUAL DIFF FLAG NO
[2023-09-06 11:26] LABS: Appearance Urine Clear; Color Urine Yellow; Glucose Urine UA Negative (Negative); Leukocyte Esterase Urine Large (3+) (Negative); Nitrite Urine Negative (Negative); PH 6.5 (5.0-9.0); Specific Gravity - Urine 1.015 (1.005-1.025); UMIC TRIGGER UA YES; Urine Blood Negative (Negative); Urine Ketones Negative (Negative); Urine Protein Negative (Neg-Trace)
[2023-09-06 11:31] LABS: Bacteria Urine 2+ (None Seen); Hyaline Casts Urine 0-2 /LPF (0-2); RBC Urine 0-2 /HPF (0-2); WBC Urine 21-50 /HPF (0-5)
[2023-09-06 11:48] LABS: Alanine Aminotransferase 23 U/L (0-31); Albumin Level 4.1 g/dL (3.5-5.0); Alkaline Phosphatase 55 U/L (39-117); Aspartate Amino Transferase 24 U/L (5-31); Bilirubin Direct 0.2 mg/dL (0.0-0.5); Bilirubin Total 0.5 mg/dL (0.0-1.0); Cholesterol 227 mg/dL (<200); Glucose Fasting 106 mg/dL (60-99); HDL Cholesterol 48 mg/dL (>40); LDL Cholesterol Calculated 137 mg/dL (<100); Total Protein 7.3 g/dL (6.5-8.0); Triglycerides 211 mg/dL (<150)
[2023-09-06 11:55] LABS: Estimated Average Glucose 105 mg/dL; Hemoglobin A1c % 5.3 % (<6.0)
[2023-09-06 12:02] LABS: Free T4 (Free Thyroxine) 1.04 ng/dL (0.71-1.85); Thyroid Stimulating Hormone 1.88 uIU/mL (0.32-4.0)
[2023-09-06 12:06] LABS: Basophils Absolute Auto 0.1 X10*3/uL (0.0-0.2); Basophils Percent Auto 1.2 % (0-2); Eosinophils Absolute Auto 0.3 X10*3/uL (0.0-0.4); Eosinophils Percent Auto 4.4 % (0-4); Hematocrit 44.3 % (37.0-47.0); Hemoglobin 14.8 g/dl (12.0-16.0); Imm Gran Abs Auto 0.03 X10*3/uL (0.00-0.03); Imm Gran Pct Auto 0.5 % (0.0-0.4); Lymphocytes Absolute Auto 2.2 X10*3/uL (1.2-4.9); Lymphocytes Percent Auto 33.1 % (20-40); Mean Corpuscular HGB Conc 33.4 g/dl (31.0-35.0); Mean Corpuscular Hemoglobin 30.2 pg (27.0-33.0); Mean Corpuscular Volume 90.4 fL (80.0-98.0); Mean Platelet Volume 9.6 fL (9.4-12.3); Monocytes Absolute Auto 0.5 X10*3/uL (0.1-1.2); Neutrophils Absolute Auto 3.5 x10*3/uL (2.0-8.3); Neutrophils Percent Auto 53.8 % (45-73); Platelet Count 352 X10*3/uL (160-400); Red Cell Distribution Width 13.6 % (11.0-16.0); White Blood Count 6.6 X10*3/uL (4.8-10.8)
[2023-09-06 12:20] LABS: Anion Gap 13 (12-20); Blood Urea Nitrogen 12 mg/dL (9-16); Calcium 9.7 mg/dL (8.4-10.2); Carbon Dioxide 30 mmol/L (22-29); Chloride 103 mmol/L (96-108); Estimated Glomerular Filt Rate 45; Glucose Fasting 103 mg/dL (60-99); Magnesium 1.8 mg/dL (1.6-2.6); Phosphorus 2.1 mg/dL (2.7-4.5); Potassium 3.8 mmol/L (3.3-5.1); Sodium 142 mmol/L (135-145)
[2023-09-06 12:24] LABS: Creatinine Urine 153.12 mg/dL; Microalbum/Creatinine Ratio Ur 3.9 ug/mg cr (<30); Total Protein Urine Random < 7 mg/dL (<12)
[2023-09-06 12:37] LABS: Vitamin D 25-OH Total 68.7 ng/mL (>30)
[2023-09-08 15:13] LABS: Calcium (PTHI) 9.6 mg/dL (8.6-10.4); PTHI 32 pg/mL (16-77)
== END 2023-09-06 08:18 | disposition home or self-care (01) ==
LOC: HO.HMGCLDS 08:17
PROVIDERS: Absent Provider Internal Medicine; PCP Internal Medicine; Visit Provider Internal Medicine Nephrology
DX: E66.01 Morbid (severe) obesity due to excess calories (principal); J45.20 Mild intermittent asthma, uncomplicated; E78.2 Mixed hyperlipidemia; E03.9 Hypothyroidism, unspecified; R73.01 Impaired fasting glucose; N18.31 Chronic kidney disease, stage 3a; N25.0 Renal osteodystrophy; I12.9 Hypertensive chronic kidney disease with stage 1 through stage 4 chronic kidney disease, or unspecified chronic kidney disease; N18.9 Chronic kidney disease, unspecified; N18.30 Chronic kidney disease, stage 3 unspecified; D68.00 Von Willebrand disease, unspecified; F90.9 Attention-deficit hyperactivity disorder, unspecified type; R82.90 Unspecified abnormal findings in urine
CPT/HCPCS: 36415; 80048; 80061; 80076; 81001; 82043; 82306; 82570; 82947; 83036; 83735; 83970; 84100; 84156; 84439; 84443; 85025; 87086

== ENCOUNTER 2023-09-11 09:18 | Outpatient (AMB) | payer OTHER, SELFPAY ==
--- NOTE | 2023-09-11 10:10 | MHC.PC.OV ---
Vital Signs 09/11/23 10:11 Height 5 ft 8.75 in Weight 285 lb 6 oz BMI 42.4 BP 120/82 Blood Pressure Location Rt brachial Position Sitting Pulse 94 Pulse Source Pulse Oximeter Pulse Oximetry (%) 97 Oxygen Delivery Method Room Air Intake Visit Reasons: Annual PE~lipids, HTN, impaired fasting glucose Intake Note: pt is here for her Annual PE and lab results pt had covid booster 07/15 or 08/14 Allergies ziprasidone [From GEODON] Allergy (Severe, Verified 08/05/24 23:48) HIVES,SWELLING alosetron [From LOTRONEX] Allergy (Intermediate, Verified 08/05/24 23:48) RASH Sulfa (Sulfonamide Antibiotics) [SULFA (SULFONAMIDE ANTIBIOTICS)] Allergy (Intermediate, Verified 08/05/24 23:48) RASH cephalexin [Keflex] Allergy (Unknown, Verified 08/05/24 23:48) rash oxycodone [OXYCODONE] Adverse Reaction (Severe, Verified 08/05/24 23:48) HALLUCINATIONS, hallucination, hallucinations meperidine [Demerol] Adverse Reaction (Unknown, Verified 08/05/24 23:48) nausea and vomiting morphine Adverse Reaction (Unknown, Verified 08/05/24 23:48) nausea and vomiting Medication List - Last Reconciled 09/11/23 by [place]ia Allison MD albuterol sulfate 90 mcg/actuation (ProAir HFA) 2 puffs PO Q6H PRN blood pressure monitor As directed cariprazine (Vraylar) 6 mg PO DAILY chlorthalidone 12.5 mg PO DAILY cholecalciferol (vitamin D3) (Vitamin D3) 25 mcg PO DAILY dextroamphetamine-amphetamine 10 mg (Adderall) 30 mg PO .q pm dextroamphetamine-amphetamine 30 mg ER (Adderall XR) 1 cap PO DAILY PRN dicyclomine 40 mg (2 x 20 mg) PO QID fluticasone furoate-vilanterol 200-25 mcg/dose (Breo Ellipta) 1 inh inhalation DAILY heating pads As directed hydrocortisone 2.5% (Proctozone-HC) 1 appl [place] BID PRN levothyroxine (Synthroid) 75 mcg PO QAM lisinopril 10 mg PO DAILY lorazepam (Ativan) 2 mg PO BID PRN multivitamin (Multiple Vitamins tablet) 1 tab PO DAILY pantoprazole 40 mg PO BID [Pill cutter As directed] Shower Chair With backrest trazodone 50 mg PO BEDTIME PRN Tobacco use date assessed: 09/11/23 Dental Screening Dental Screen Date: 09/11/23 Did you have a dental visit in the last 12 months?: Yes Did you have a dental problem in the last 6 months where you did not have access to dental care?: No Was dental information given to patient?: Patient has dentist HPI Annual PE~lipids, HTN, impaired fasting glucose HPI Details 53-year-old lady with past medical history of hypertension, hyperlipidemia, bipolar 1 disorder, morbid obesity, IBS, osteoarthritis, mild intermittent asthma, ADHD, von Willebrand's disease, acquired hypothyroidism and prediabetes , here today for her physical exam. She is up-to-date with her screening mammogram done June 2023 with benign findings, and had her screening colonoscopy in [address] Ramachandran with removal of hyperplastic polyp. She sees [facility] for her routine pelvic exam. Had a total abdominal hysterectomy for abnormal uterine bleeding and developed postoperative complication of persistent cysto/vaginal fistula that required multiple surgical repairs. [facility] Medical History Sacroiliac joint pain Bilateral shoulder pain Lumbar radiculopathy, chronic Mixed dyslipidemia Decreased glomerular filtration rate (GFR) Impaired fasting glucose Mild intermittent asthma Morbid obesity Von Willebrand disease History of MRSA infection Bipolar 1 disorder, depressed ADHD Hypothyroid Hypertension GERD (gastroesophageal reflux disease) Atypical ductal hyperplasia of right breast Acquired hypothyroidism Surgical History Hx of colonoscopy History of bilateral carpal tunnel release Hx of cystoscopy Hx of esophagogastroduodenoscopy Vesicovaginal fistula S/P laparoscopic surgery History of total abdominal hysterectomy History of section History of eye surgery History of partial thyroidectomy Family History Father HTN (hypertension) Hyperlipidemia Mother HTN (hypertension) Alzheimers disease Mental health disorder Maternal Aunt Breast cancer Brother Substance use disorder Social History Housing: House Alcohol intake: current Alcohol intake frequency: 0-2 drinks per day Alcohol type: hard liquor Patient Tobacco Use Status: Former Tobacco user Tobacco use type: Cigarette Years Smoked: 20 years e-Cigarette/Vaping Use: Never Used service: No Current occupational status: unemployed Cognitive needs: No Hearing needs: No Vision needs: Yes Questionnaire PHQ-9 Over the last 2 weeks, how often have you been bothered by any of the following problems? 1. Little interest or pleasure in doing things: several days 2. Feeling down, depressed, or hopeless: nearly every day 3. Trouble falling or staying asleep, or sleeping too much: several days 4. Feeling tired or having little energy: several days 5. Poor appetite or overeating: several days 6. Feeling bad about yourself - or that you are a failure or have let yourself or your family down: several days 7. Trouble concentrating on things, such as reading the newspaper or watching television: several days 8. Moving or speaking so slowly that other people could have noticed. Or the opposite - being so fidgety or restless that you have been moving around a lot more than usual: several days 9. Thoughts that you would be better off or of hurting yourself in some way: not at all Total score: 10 Depression Screening Interpretation: Positive Depression Screening Follow-up: Existing condition and In treatment (Currently being followed at [facility]) Depression Screening Done: Yes 35503 - PHQ-9 Billing: Yes Source: Developed by Drs. Henri Oliver, Yanelis Liu, Everton Cevallos and colleagues, with an educational oscar from [employer]. Thrive Questionnaire Date Thrive assessed: 09/11/23 I am a: Patient What is your living situation today?: I have a steady place to live Within the past 12 months, did the food you bought not last and you didn't have the money to get more?: Never true Within the past 12 months, did you worry whether your food would run out before you got money to buy more?: Sometimes True Do you have trouble paying for medicines?: No Do you have trouble getting transportation to medical appointments?: No Do you have trouble paying your heating and electricity bill?: No Do you have trouble taking care of your child, family member or friend?: No Do you have trouble with day-to-day activities such as bathing, preparing meals, shopping, managing finances, etc.?: Yes Are you currently unemployed and looking for a job?: No Are you interested in more education?: No Please select the resources that you would like help with: None Currently or been in a relationship where the following occur: no concerns reported AUDIT C Alcohol Use Questionnaire (AUDIT-C) 1. How often do you have a drink containing alcohol?: 4 or more times a week 2. How many drinks containing alcohol do you have on a typical day when you are drinking?: 3 or 4 3. How often do you have six or more drinks on one occasion?: Less than monthly Total Score: 6 MINGO-7 AMB Questionnaire MINGO-7 Date MINGO - 7 assessed: 09/11/23 Feeling nervous, anxious, or on edge: 0 = Not at all Not being able to stop or control worryin = Several days Worrying too much about different things: 1 = Several days Trouble relaxin = Not at all Being so restless that it is hard to sit still: 1 = Several days Becoming easily annoyed or irritable: 1 = Several days Feeling afraid as if something awful might happen: 0 = Not at all Total MINGO-7 score (0-4 normal; 5-9 mild; 10-14 moderate; 15-21 severe): 4 Source: Developed by Drs. Henri Oliver, Yanelis Liu, Everton Cevallos and colleagues, with an educational oscar from [employer]. MINGO-7 Assessment Billing MINGO-7 Assessment Tool: MINGO-7 Assessment 38200 Review of Systems Const Reports no additional complaints Eyes Reports requires corrective lenses ENT Reports no additional complaints Card Denies chest pain, Denies irregular heart rhythm, Denies lightheadedness and Denies dyspnea Resp Denies chest congestion, Denies cough and Denies dyspnea GI Reports no additional complaints Reports no additional complaints Musc Reports no additional complaints Skin/Breast Reports system reviewed and no additional complaints, except as documented Neuro Reports no additional complaints Psych Reports no additional complaints Endo Reports no additional complaints Iraj/Lymph Reports no additional complaints and Reports easy bruising Aller/Immun Reports no additional complaints Physical exam (Primary Care) Vital Signs: Last Vital Signs Pulse 94 09/11/23 10:11 BP 120/82 09/11/23 10:11 Pulse Ox 97 09/11/23 10:11 Oxygen Delivery Method Room Air 09/11/23 10:11 BMI result Body Mass Index 42.4 Tobacco/Smoking Status: Tobacco use Status Tobacco use date assessed 09/11/23 09/11/23 10:17 Patient Tobacco Use Status Former Tobacco user 09/11/23 10:10 Tobacco use type Cigarette 09/11/23 10:10 e-Cigarette/Vaping Use Never Used 09/11/23 10:10 PHQ-9: PHQ-9 Score PHQ-9: Total score 10 09/11/23 10:55 Depression Screening Interpretation: Positive Depression Screening Follow-up: Existing condition and In treatment (Currently being followed at [facility]) Thrive Assessment: Date of Thrive Assessment Date Thrive assessed 09/11/23 09/11/23 10:24 Currently or been in a relationship where the following occur: no concerns reported Const General: comfortable, no acute distress and alert Nutritional Appearance: obese Orientation/consciousness: patient oriented x3 HENMT Head: Yes normocephalic Ears: external ears normal, TM's normal bilaterally and EAC's normal General nose exam: Normal external nose present Face and sinus: Yes face symmetric Mouth: Normal oral and palatal mucosa present, oropharynx normal and moist mucous membranes Eyes General: appearance normal, both eyes and all related structures Neck Other: Supple with no lymphadenopathy, full range of motion, thyroid gland nonpalpable Chest Breast/axilla palpation: normal palpation of the breasts Resp Auscultation: clear to auscultation bilaterally Cardio Rate: regular rate Rhythm: regular rhythm Heart sounds: S1 normal heart sound present and S2 normal heart sound present GI Palpation (GI): Soft to palpation, nontender, no guarding and no masses Auscultation: normal bowel sounds General: Yes no CVA tenderness and Yes deferred (Goes to [facility] for her pelvic exam) Back/Spine/Pelvis Back: no CVA tenderness and No back tenderness Skin General skin exam: no rashes or lesions noted Neuro General: patient oriented x3 Extrem General: Yes no joint enlargement, Yes no clubbing, cyanosis or edema and Yes no pedal edema Psych Appearance: grossly normal and well kempt Mental Status: mental status grossly normal Speech and movement: Normal speech and movement present Affect: normal affect Thought process: Normal thought process present Results Reviewed Results Reviewed: ENTERED: 09/06/[address] [facility] [address]: Albania Allison MD ORDERED: CBC Auto Diff Test Result Flag Reference Site WBC 6.6 4.8-10.8 X10*3/uL RBC 4.90 4.20-5.50 X10*6/uL HGB 14.8 12.0-16.0 g/dl HCT 44.3 37.0-47.0 % MCV 90.4 80.0-98.0 fL MCH 30.2 27.0-33.0 pg MCHC 33.4 31.0-35.0 g/dl RDW 13.6 11.0-16.0 % PLT 352 160-400 X10*3/uL M NTERED: 09/06/[address] [facility] [address]: Albania Allison MD ORDERED: Met Prof Fast, Phos, MG, Vitamin D 25-OH Test Result Flag Reference Site Sodium 142 135-145 mmol/L Potassium 3.8 3.3-5.1 mmol/L CL 103 96-108 mmol/L CO2 30 H 22-29 mmol/L Gap 13 12-20 BUN 12 9-16 mg/dL Creat 1.25 0.5-1.4 mg/dL EGFR 45 NOTE: For -[place] individuals, multiply the result by 1.210. Chronic Kidney Disease: Estimated GFR < 60 mL/min/1.73m2 Severe Kidney Disease: Estimated GFR < 15 mL/min/1.73m2 FBS 103 H 60-99 mg/dL A fasting glucose from 100-125 mg/dl is considered impaired (pre-diabetes). CA 9.7 8.4-10.2 mg/dL Phosphorus 2.1 L 2.7-4.5 mg/dL Magnesium 1.8 1.6-2.6 mg/dL Vit D 25-OH Tot 68.7 >30 ng/mL Health Based Reference Values* < 20 ng/mL Deficient 20-30 ng/mL Insufficient > 30 ng/mL Sufficient Laboratory Tests 03/09/23 09/06/23 08:34 08:32 Estimat Average Glucose 105 Hemoglobin A1c % 5.3 AST 43 H ALT 51 H Urine Creatinine 153.12 Urine Microalbumin 6.0 Microalb/Creat Ratio 3.9 Laboratory Tests 09/06/23 08:32 Calcium 9.7 Phosphorus 2.1 L Magnesium 1.8 Total Bilirubin 0.5 Direct Bilirubin 0.2 AST 24 ALT 23 Alkaline Phosphatase 55 Total Protein 7.3 Albumin 4.1 Triglycerides 211 H Cholesterol 227 H LDL Cholesterol, Calc 137 H HDL Cholesterol 48 25-OH Vitamin D Total 68.7 TSH 1.88 Free T4 1.04 PTH Intact 32 Calcium (PTH Intact) 9.6 Coding Level of Care Code Est Pt Prev Care 40-64y(01960) Diagnoses Annual visit for general adult medical examination with abnormal findings Z00.01 Acquired hypothyroidism E03.9 Morbid obesity E66.01 Von Willebrand disease D68.0 Attention deficit hyperactivity disorder (ADHD), predominantly inattentive type F90.0 Attention deficit-hyperactivity disorder type: predominantly inattentive Mild intermittent asthma without complication J45.20 Asthma complication type: uncomplicated Primary hypertension I10 Hypertension type: primary hypertension Impaired fasting glucose R73.01 Mixed dyslipidemia E78.2 Lumbar radiculopathy, chronic M54.16 Irritable bowel syndrome with diarrhea K58.0 GERD (gastroesophageal reflux disease) K21.9 Bipolar 1 disorder, depressed F31.9 Additional Codes MINGO-7 Assessment Billing - MINGO-7 Assessment Tool: MINGO-7 Assessment 42966 ([id number])
[2023-09-11 10:11] VITALS: BP 120/82; PULSE 94; O2SAT 97; BMI 42.4
== END 2023-09-11 10:51 | disposition home or self-care (01) ==
PROVIDERS: Visit Provider Internal Medicine
DX: Z00.00 Encounter for general adult medical examination without abnormal findings (principal); E66.01 Morbid (severe) obesity due to excess calories; D68.00 Von Willebrand disease, unspecified; Z68.41 Body mass index [BMI] 40.0-44.9, adult; F31.9 Bipolar disorder, unspecified; E03.9 Hypothyroidism, unspecified; F90.0 Attention-deficit hyperactivity disorder, predominantly inattentive type; J45.20 Mild intermittent asthma, uncomplicated; I10 Essential (primary) hypertension; R73.01 Impaired fasting glucose; E78.2 Mixed hyperlipidemia; M54.16 Radiculopathy, lumbar region; K58.0 Irritable bowel syndrome with diarrhea
CPT/HCPCS: 99499

== ENCOUNTER 2023-09-12 09:30 | Outpatient (AMB) | payer OTHER, SELFPAY ==
[2023-09-12 09:31] VITALS: BMI 42.4
--- NOTE | 2023-09-12 09:31 | MHC.OFFVIS ---
Intake Vital Signs 09/12/23 09:31 Height 5 ft 8.75 in Weight 285 lb BMI 42.4 Intake Visit Reasons: Xray Results / Injection Discussion Allergies ziprasidone [From GEODON] Allergy (Severe, Verified 09/12/23 09:31) HIVES,SWELLING alosetron [From LOTRONEX] Allergy (Intermediate, Verified 09/12/23 09:31) RASH Sulfa (Sulfonamide Antibiotics) [SULFA (SULFONAMIDE ANTIBIOTICS)] Allergy (Intermediate, Verified 09/12/23 09:31) RASH cephalexin [Keflex] Allergy (Unknown, Verified 09/12/23 09:31) rash oxycodone [OXYCODONE] Adverse Reaction (Severe, Verified 09/12/23 09:31) HALLUCINATIONS, hallucination, hallucinations meperidine [Demerol] Adverse Reaction (Unknown, Verified 09/12/23 09:31) nausea and vomiting morphine Adverse Reaction (Unknown, Verified 09/12/23 09:31) nausea and vomiting HPI HPI Comments History of Present Illness Details Patient presents today via telehealth encounter to review recent hip results and follow up for chronic low back pain. Hip xray showed minimal degenerative changes. Patient reports low back pain worse with movements, flexion backwards, prolonged activities or positions with increase muscle spasms and stiffness. She is interested to proceed with peripheral nerve stimulation with Sprint PNS device as next steps for sustained relief, starting with the right side and followed by left side. She had good response to diagnostic lumbar medial branch blocks providing her 80% pain relief for 12 hours and had less than 3 months of therapeutic effect with lumbar MBBs with steroids. Patient denies any fever, weight changes, abdominal or groin pain, bladder or bowel dysfunction or saddle anesthesia. PRIOR: Patient presents today to assess response to Therapeutic Bilateral L3-L4-DR L5 MBBs 06/09/[address] Choe. Patient reports 100% pain relief for first week after procedure and ongoing 80% pain relief with significant improvement in her mobility, range of motion, functionality and ADLs. Patient reports she continues to experience lower back pain during sleep with repositioning. She does have mild sacroiliac joint tenderness with Lev test reproducing low back pain bilaterally, but no hip or groin pain. Patient states recent therapeutic injections allowed her to spend quality time during recent vacation and tolerate long distances and climbing hills. She also notices improved standing without significant back pain during cooking her meals. Patient will consider Sprint PNS trial or RFA as next treatment options vs consider repeat bilateral SIJ injections when her pain returns. She had minimal response to right diagnostic SIJ injection in February. Denies any recent cough, cold, infection, fever or other significant changes in medical history since last office visit. Patient denies any bladder or bowel incontinence or saddle anesthesia. Past Procedures: 06/09/23: Therapeutic Bilateral L3-L4 DR L5 MBBs-80% ongoing pain relief 04/27/23: Diagnostic Bilateral L3-L4-DR L5 MBBs-80% pain relief for 12 hours 03/17/23: Right diagnostic sacroiliac joint injection-10% for 3-4 hours [facility] Medical History (Updated 09/11/23 @ 10:54 by Albania Allison MD) Lumbar radiculopathy, chronic Mixed dyslipidemia Decreased glomerular filtration rate (GFR) Impaired fasting glucose Mild intermittent asthma Morbid obesity Von Willebrand disease History of MRSA infection Bipolar 1 disorder, depressed ADHD Hypothyroid Hypertension GERD (gastroesophageal reflux disease) Atypical ductal hyperplasia of right breast Acquired hypothyroidism Surgical History Hx of colonoscopy History of bilateral carpal tunnel release Hx of cystoscopy Hx of esophagogastroduodenoscopy Vesicovaginal fistula S/P laparoscopic surgery History of total abdominal hysterectomy History of section History of eye surgery History of partial thyroidectomy Family History Father HTN (hypertension) Hyperlipidemia Mother HTN (hypertension) Alzheimers disease Mental health disorder Maternal Aunt Breast cancer Brother Substance use disorder Housing: House Alcohol intake: current Alcohol intake frequency: 0-2 drinks per day Alcohol type: hard liquor Patient Tobacco Use Status: Former Tobacco user Quit Date: 6 yr ago Tobacco use type: Cigarette Years Smoked: 20 years e-Cigarette/Vaping Use: Never Used Current occupational status: unemployed Cognitive needs: No Hearing needs: No Vision needs: Yes Review of Systems Const All systems reviewed & are unremarkable except as noted in HPI and below ENT Reports Normal hearing present Neuro Reports Normal hearing present and Denies confusion Psych Denies confusion Physical Exam Vital Signs: BMI result Body Mass Index 42.4 Const General: cooperative, alert and awake; No confusion Orientation/consciousness: patient oriented x3 and No confusion Resp Effort & Inspection: able to speak in complete sentences, no audible wheezes and no cough Neuro General: patient oriented x3 and No confusion Cranial nerves: Yes Normal hearing present Cognition (Neuro): normal cognition Psych Mental Status: mental status grossly normal Speech and movement: Clear speech present Affect: normal affect Attitude: cooperative Thought process: Normal thought process present Thought content: Normal thought content present and No Depressive thoughts present Insight: Good insight present (Psych) Judgement: Good judgement present (Psych) Results Reviewed Results Reviewed: MR LUMBAR SPINE WITHOUT CONTRAST 09/29/22 CLINICAL INFORMATION: Radiculopathy, lumbar region. COMPARISON: Lumbar spine MRI 03/12/2010. FINDINGS: The lumbar vertebral bodies maintain normal heights and alignment. The disc heights are preserved. No bone marrow edema is seen. The distal spinal cord appears normal. The conus medullaris terminates normally at the L1 level. The extraspinal soft tissues are unremarkable. SPINAL LEVELS: L1-L2: No posterior disc abnormality. No spinal canal or neural foraminal stenosis. L2-L3: No posterior disc abnormality. No spinal canal or neural foraminal stenosis. L3-L4: No posterior disc abnormality. Mild facet arthropathy. No spinal canal or neural foraminal stenosis. L4-L5: Mild disc bulging with moderate facet arthropathy ligamentum flavum infolding. No spinal canal stenosis. Mild encroachment on the right neural foramen. L5-S1: No posterior disc abnormality. Moderate left facet arthropathy. No spinal canal or neural foraminal stenosis. IMPRESSION: No significant narrowing of the spinal canal or neural foramina. No definite nerve root compression is seen. XR LUMBAR SPINE XR SI JOINT 02/21/23 FINDINGS: Lumbar spine: There is normal lumbar lordosis. The vertebral heights, alignment and disc heights are normal. There is mild ventral spondylosis. No visible acute fracture, dislocation or subluxation. There is minimal ventral spondylosis. No lytic or sclerotic process seen. The paravertebral soft tissues are normal. SI joints: There is normal symmetry of bilateral SI joints without any bony erosive changes, sclerosis or lytic process. The pubic symphysis is normal. There are phleboliths throughout the lower pelvis. IMPRESSION: 1. Mild ventral spondylosis lumbar spine. No visible acute fracture, dislocation or lytic process seen. 2. Unremarkable SI joints. XR BILATERAL HIPS WITH AP PELVIS 08/21/23 CLINICAL INFORMATION: Sacrococcygeal disorders COMPARISON: CT abdomen pelvis 03/18/2016 FINDINGS: No fracture. Some minor degenerative changes are seen with some supra-acetabular lateral sclerosis, unchanged from prior. Hip joint spaces are maintained. Alignment is anatomic. Sacroiliac joints and pubic symphysis are normal. No abnormal soft tissue calcifications. Phleboliths are noted in the pelvis. IMPRESSION: Minimal degenerative changes in the hips. No acute finding. Assessment & Plan Assessment & Plan (1) Lumbar spondylosis: Code(s): M47.816 - Spondylosis without myelopathy or radiculopathy, lumbar region (2) Lumbar degenerative disc disease: Code(s): M51.36 - Other intervertebral disc degeneration, lumbar region (3) Sacroiliac joint pain: Code(s): M53.3 - Sacrococcygeal disorders, not elsewhere classified Plan Schedule Bilateral L3 peripheral nerve stimulator trial with local OR and fluoroscopy, start with right side first, followed by the left. We also reviewed lumbar medial branch RFA procedures. All questions were answered and patient agreed with the treatment plan. Follow-up after procedure and sooner as needed. Anticoagulation: Patient not on anticoagulant Justification for interventional therapy: ? Patient with average pain > 6/10 ? Patient has exhausted conservative therapy, NSAIDs, physical therapy The risks, consequences, alternatives, and benefits of various treatment options were discussed with the patient in great detail, including conservative management, injections and procedures. I hereby testify that I spent 14 minutes in conversation with this patient as well as with planning and coordinating care for this patient and organizing this note. Telehealth Telehealth Location of provider rendering services: practice address Location of patient: address on file Patient Identification confirmed using: Name, : Yes Telehealth method: voice only Patient verbally consented to treatment: Yes Patient verbally consented to billing insurance company: Yes Patient informed of any privacy concerns related to visit: Yes Minutes spent on Phone/Video with Pt.: 14 Coding Level of Care Code Tele Est Pt Level 3 (57241) Diagnoses Lumbar spondylosis M47.816 Lumbar degenerative disc disease M51.36 Sacroiliac joint pain M53.3
== END 2023-09-12 09:42 | disposition home or self-care (01) ==
LOC: HO.PMC 09:30
PROVIDERS: PCP Internal Medicine; Visit Provider Nurse Practitioner Family
DX: M47.816 Spondylosis without myelopathy or radiculopathy, lumbar region (principal); M51.36 Other intervertebral disc degeneration, lumbar region; M53.3 Sacrococcygeal disorders, not elsewhere classified
CPT/HCPCS: 99442

== ENCOUNTER → 2023-09-12 09:30 | Outpatient (BNVA) | payer OTHER, SELFPAY | PROVIDERS: PCP Internal Medicine; Visit Provider Nurse Practitioner Family ==

== ENCOUNTER 2023-09-22 14:19 | Outpatient (AMB) | payer OTHER, SELFPAY ==
[2023-09-22 14:20] VITALS: BMI 42.2
--- NOTE | 2023-09-22 14:20 | A.OFFVIS_ITS ---
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 Accompanied by: Significant Other Allergies ziprasidone [From GEODON] Allergy (Severe, Verified 09/22/23 14:21) HIVES,SWELLING alosetron [From LOTRONEX] Allergy (Intermediate, Verified 09/22/23 14:21) RASH Sulfa (Sulfonamide Antibiotics) [SULFA (SULFONAMIDE ANTIBIOTICS)] Allergy (Intermediate, Verified 09/22/23 14:21) RASH cephalexin [Keflex] Allergy (Unknown, Verified 09/22/23 14:21) rash oxycodone [OXYCODONE] Adverse Reaction (Severe, Verified 09/22/23 14:21) HALLUCINATIONS, hallucination, hallucinations meperidine [Demerol] Adverse Reaction (Unknown, Verified 09/22/23 14:21) nausea and vomiting morphine Adverse Reaction (Unknown, Verified 09/22/23 14:21) nausea and vomiting HPI HPI Comments History of Present Illness Details Patient presents today via telehealth encounter to discuss lumbar medial branch Sprint PNS lead placement. Patient states she would like to review procedure once again. Her significant other is present during today's encounter to review procedure before it gets scheduled. Denies any recent cough, cold, infection, fever or other significant changes in medical history since last office visit. PRIOR: Patient presents today via telehealth encounter to review recent hip results and follow up for chronic low back pain. Hip xray showed minimal degenerative changes. Patient reports low back pain worse with movements, flexion backwards, prolonged activities or positions with increase muscle spasms and stiffness. She is interested to proceed with peripheral nerve stimulation with Sprint PNS device as next steps for sustained relief, starting with the right side and followed by left side. She had good response to diagnostic lumbar medial branch blocks providing her 80% pain relief for 12 hours and had less than 3 months of therapeutic effect with lumbar MBBs with steroids. Patient denies any fever, weight changes, abdominal or groin pain, bladder or bowel dysfunction or saddle anesthesia. PRIOR: Patient presents today to assess response to Therapeutic Bilateral L3-L4-DR L5 MBBs 06/09/[address] Choe. Patient reports 100% pain relief for first week after procedure and ongoing 80% pain relief with significant improvement in her mobility, range of motion, funct ionality and ADLs. Patient reports she continues to experience lower back pain during sleep with repositioning. She does have mild sacroiliac joint tenderness with Lev test reproducing low back pain bilaterally, but no hip or groin pain. Patient states recent therapeutic injections allowed her to spend quality time during recent vacation and tolerate long distances and climbing hills. She also notices improved standing without significant back pain during cooking her meals. Patient will consider Sprint PNS trial or RFA as next treatment options vs consider repeat bilateral SIJ injections when her pain returns. She had minimal response to right diagnostic SIJ injection in February. Denies any recent cough, cold, infection, fever or other significant changes in medical history since last office visit. Patient denies any bladder or bowel incontinence or saddle anesthesia. Past Procedures: 06/09/23: Therapeutic Bilateral L3-L4 DR L5 MBBs-80% ongoing pain relief 04/27/23: Diagnostic Bilateral L3-L4-DR L5 MBBs-80% pain relief for 12 hours 03/17/23: Right diagnostic sacroiliac joe int injection-10% for 3-4 hours [facility] Medical History Lumbar radiculopathy, chronic Mixed dyslipidemia Decreased glomerular filtration rate (GFR) Impaired fasting glucose Mild intermittent asthma Morbid obesity Von Willebrand disease History of MRSA infection Bipolar 1 disorder, depressed ADHD Hypothyroid Hypertension GERD (gastroesophageal reflux disease) Atypical ductal hyperplasia of right breast Acquired hypothyroidism Surgical History Hx of colonoscopy History of bilateral carpal tunnel release Hx of cystoscopy Hx of esophagogastroduodenoscopy Vesicovaginal fistula S/P laparoscopic surgery History of total abdominal hysterectomy History of section History of eye surgery History of partial thyroidectomy Family History Father HTN (hypertension) Hyperlipidemia Mother HTN (hypertension) Alzheimers disease Mental health disorder Maternal Aunt Breast cancer Brother Substance use disorder Social History Housing: House Alcohol intake: current Alcohol intake frequency: 0-2 drinks per day Alcohol type: hard liquor Patient Tobacco Use Status: Former Tobacco user Quit Date: 6 yr ago Tobacco use type: Cigarette Years Smoked: 20 years e-Cigarette/Vaping Use: Never Used Current occupational status: unemployed Cognitive needs: No Hearing needs: No Vision needs: Yes Review of Systems Const All systems reviewed & are unremarkable except as noted in HPI and below ENT Reports Normal hearing present Neuro Reports Normal hearing present and Denies confusion Psych Denies confusion Physical Exam Vital Signs: BMI result Body Mass Index 42.2 Const General: cooperative, alert and awake; No confusion Orientation/consciousness: patient oriented x3 and No confusion Resp Effort & Inspection: able to speak in complete sentences, no audible wheezes and no cough Neuro General: patient oriented x3 and No confusion Cranial nerves: Yes Normal hearing present Cognition (Neuro): normal cognition Psych Mental Status: mental status grossly normal Speech and movement: Clear speech present Affect: normal affect Attitude: cooperative Thought process: Normal thought process present Thought content: Normal thought content present and No Depressive thoughts present Insight: Good insight present (Psych) Judgement: Good judgement present (Psych) Results Reviewed Results Reviewed: MR LUMBAR SPINE WITHOUT CONTRAST 09/29/22 CLINICAL INFORMATION: Radiculopathy, lumbar region. COMPARISON: Lumbar spine MRI 03/12/2010. FINDINGS: The lumbar vertebral bodies maintain normal heights and alignment. The disc heights are preserved. No bone marrow edema is seen. The distal spinal cord appears normal. The conus medullaris terminates normally at the L1 level. The extraspinal soft tissues are unremarkable. SPINAL LEVELS: L1-L2: No posterior disc abnormality. No spinal canal or neural foraminal stenosis. L2-L3: No posterior disc abnormality. No spinal canal or neural foraminal stenosis. L3-L4: No posterior disc abnormality. Mild facet arthropathy. No spinal canal or neural foraminal stenosis. L4-L5: Mild disc bulging with moderate facet arthropathy ligamentum flavum infolding. No spinal canal stenosis. Mild encroachment on the right neural foramen. L5-S1: No posterior disc abnormality. Moderate left facet arthropathy. No spinal canal or neural foraminal stenosis. IMPRESSION: No significant narrowing of the spinal canal or neural foramina. No definite nerve root compression is seen. XR LUMBAR SPINE XR SI JOINT 02/21/23 FINDINGS: Lumbar spine: There is normal lumbar lordosis. The vertebral heights, alignment and disc heights are normal. There is mild ventral spondylosis. No visible acute fracture, dislocation or subluxation. There is minimal ventral spondylosis. No lytic or sclerotic process seen. The paravertebral soft tissues are normal. SI joints: There is normal symmetry of bilateral SI joints without any bony erosive changes, sclerosis or lytic process. The pubic symphysis is normal. There are phleboliths throughout the lower pelvis. IMPRESSION: 1. Mild ventral spondylosis lumbar spine. No visible acute fracture, dislocation or lytic process seen. 2. Unremarkable SI joints. XR BILATERAL HIPS WITH AP PELVIS 08/21/23 CLINICAL INFORMATION: Sacrococcygeal disorders COMPARISON: CT abdomen pelvis 03/18/2016 FINDINGS: No fracture. Some minor degenerative changes are seen with some supra-acetabular lateral sclerosis, unchanged from prior. Hip joint spaces are maintained. Alignment is anatomic. Sacroiliac joints and pubic symphysis are normal. No abnormal soft tissue calcifications. Phleboliths are noted in the pelvis. IMPRESSION: Minimal degenerative changes in the hips. No acute finding. Assessment & Plan Assessment & Plan (1) Lumbar spondylosis: Code(s): M47.816 - Spondylosis without myelopathy or radiculopathy, lumbar region (2) Lumbar degenerative disc disease: Code(s): M51.36 - Other intervertebral disc degeneration, lumbar region (3) Sacroiliac joint pain: Code(s): M53.3 - Sacrococcygeal disorders, not elsewhere classified (4) Lumbar radiculopathy, chronic: Code(s): M54.16 - Radiculopathy, lumbar region Plan Proceed with Bilateral L3 peripheral nerve stimulator trial with local OR and fluoroscopy, start with right side first, followed by the left. We also reviewed lumbar medial branch RFA procedures and reviewed previous hip xray with patient and her significant other. All questions were answered and patient agreed with the treatment plan. Follow-up after procedure and sooner as needed. Patient was also directed to Sprint PNS website [email or web address] for additional e ducation for Sprint device care and dressing changes. I hereby testify that I spent 13 minutes in conversation with this patient as well as with planning and coordinating care for this patient and organizing this note. Telehealth Telehealth Location of provider rendering services: practice address Location of patient: address on file Patient Identification confirmed using: Name, : Yes Telehealth method: voice only Patient verbally consented to treatment: Yes Patient verbally consented to billing insurance company: Yes Patient informed of any privacy concerns related to visit: Yes Minutes spent on Phone/Video with Pt.: 13 Coding Level of Care Code Tele Est Pt Level 3 (97223) Diagnoses Lumbar spondylosis M47.816 Lumbar degenerative disc disease M51.36 Sacroiliac joint pain M53.3 Lumbar radiculopathy, chronic M54.16
== END 2023-09-22 14:39 | disposition home or self-care (01) ==
LOC: HO.PMC 14:19
PROVIDERS: PCP Internal Medicine; Visit Provider Nurse Practitioner Family
DX: M47.816 Spondylosis without myelopathy or radiculopathy, lumbar region (principal); M51.36 Other intervertebral disc degeneration, lumbar region; M53.3 Sacrococcygeal disorders, not elsewhere classified; M54.16 Radiculopathy, lumbar region
CPT/HCPCS: 99442

== ENCOUNTER → 2023-09-22 14:19 | Outpatient (BNVA) | payer OTHER, SELFPAY | PROVIDERS: PCP Internal Medicine; Visit Provider Nurse Practitioner Family ==

== ENCOUNTER 2023-10-05 11:20 | Day surgery (SDC) | payer OTHER, SELFPAY ==
--- NOTE | ~2023-10-05 | FL_ITS ---
EXAMINATION: XR FLUOROSCOPY WITH IMAGES CLINICAL INFORMATION: L3 SPRINT PNS, right. COMPARISON: None available. TECHNIQUE: Fluoroscopy Supervised By: Dr. Janes Choe. Fluoroscopy Time: 0.1 minute. Cumulative Dose: 3.21 mGy. DAP: 0.0546 Gycm2. Images: 1. FINDINGS: Single image demonstrates a wire projecting over the right side of the lumbar spine FL/FL guidance in OR IMPRESSION: Fluoroscopy for pain management procedure.
[2023-10-05 12:51] VITALS: BP 139/82; PULSE 85; RESP 16; TEMP 36.4; O2SAT 99; BMI 43.2
--- NOTE | 2023-10-05 13:42 | P.HPSUR_ITS ---
Pre-Procedural Eval Section A Date of Service: 10/05/23 The patient is an INPATIENT: No Changes since office visit: Yes Patient answered all questions The History & Physical has been completed within 30 days and I have reviewed it.: No Section B Chief Complaint: Spondylosis without myelopathy or radiculopathy, Details of Present Illness: as above Relevant Family History (Specify if Yes): No Relevant Social History: None Present Medications: see Short Stay [facility] assessment Medical History: No relevant PMH History of Previous Operations: No relevant previous surgery Allergies: Allergies Allergy/AdvReac Type Severity Reaction Status Date / Time ziprasidone [From GEODON] Allergy Severe HIVES,SWELL Verified 10/05/23 12:53 ING alosetron [From LOTRONEX] Allergy Intermediate RASH Verified 10/05/23 12:53 Sulfa (Sulfonamide Allergy Intermediate RASH Verified 10/05/23 12:53 Antibiotics) [SULFA (SULFONAMIDE ANTIBIOTICS)] cephalexin [Keflex] Allergy Unknown rash Verified 10/05/23 12:53 oxycodone [OXYCODONE] AdvReac Severe HALLUCINATIONS, Verified 10/05/23 12:53 hallucination, hallucinations meperidine [Demerol] AdvReac Unknown nausea and Verified 10/05/23 12:53 vomiting morphine AdvReac Unknown nausea and Verified 10/05/23 12:53 vomiting Review of Systems Sugical H&P ROS: Negative: Cardiovascular, Respiratory, Neurological, Psychiatric, Hem-Onc, Allergic/Immunologic, Gastrointestinal, Genitourinary, Integumentary, Endocrine and Eyes/Ears/Nose/Throat and Yes, Specify: Constitution ( morbid obesity) and Musculoskeletal ( spondylosis lumbar) Exam Surgical H&P Exam: Normal: HEENT, Normal: Heart, Normal: Lungs, Normal: Extremities, Normal: Skin and Normal: Neurological and Significant Findings: Abdomen ( enlarged 2 to i/a and s/q fat) Plan Diagnosis/Plan: Unchanged I have reviewed the history and physical and performed a pertinent physical examination on my patient. No changes have occurred unless specified. Time Spent With Patient Time: Total time managing care of this patient today ____ minutes.
[2023-10-05 15:10] VITALS: BP 122/81; PULSE 87; RESP 18; TEMP 36.6; O2SAT 98
--- NOTE | 2023-10-05 15:14 | PM.OP ---
Brief Operative Note Date of Service: 10/05/23 Pre-op diagnosis: Spondylosis lumbar without myelopathy or radiculopathy Post-op diagnosis: same Procedure: right lumbar L4 sprint PNS Implants: nothing permanent Surgeon: Janes Choe MD Anesthesia: local Was an Health Associate used for this Procedure?: No Estimated blood loss (mL): 1 Condition: stable Disposition: PACU
--- NOTE | 2023-10-05 15:16 | P.OP_ITS ---
Operative Note Operative Note Date of Service: 10/05/23 Narrative: Sprint PNS L4 right side. After the risks, benefits and alternatives were discussed with the patient and informed consent was obtained, patient was placed in the prone position and padded to foster comfort. Time out was performed delineating correct site and side of the procedure , name and of the patient, patient participated in time out procedure. the lower back of the patient was prepped with ChloraPrep and draped with full body fenestrated drape. ?Sterily draped C-arm was brought over the operating field and clear picture of the lumbar spine was demonstrated on the screen. . Right L5 lamina was chosen as the target of the tip of the needle position. Projection of the [id number] was chosen as the start of the needle advancement. That point was chosen as the local anesthetic infiltration point. After identifying and marking the intended target, the skin around the planned entry point and the subcutaneous tissues were injected with local anesthetic forming skin wheal.. ?A percutaneous sleeve and stimulating probe lead introduction system were assembled, inserted and advanced through the skin wheal to the? point of interest under C-arm view in oblique vision fashion, the introducer needle was delivered to a location in proximity to the multifidus muscles at the right laminar of L4. Multiple stimulation parameters were used to deliver stimulation to the? nerve in concert with stimulating at multiple positions around the nerve. Nerve target acquisition was confirmed noting generation of? in the? corresponding to the nerve being stimulated. Various electrical parameter comb inations were tested, and the lead location was adjusted? until the patient indicated? overlapping the distribution of the patient?s typical region of pain. The stimulating probe was removed from the introducer and a percutaneous lead was guided through the needle and delivered to a location in similar proximity to the nerve. Final location was verified with electrical stimulation. The introducer needle was removed, and the exposed end of the percutaneous lead was attached to an external stimulator unit. Various electrical parameter combinations were again tested until the patient indicated paresthesia or muscle tension overlapping the distribution of the patient?s typical region of pain. After confirming that lead impedance was in the normal range, the external unit was detached, the needle was removed, and the lead was anchored at the skin. The lead was threaded into the connector block and electrical continuity and desired patient response was confirmed. The connector block was attached to the external stimulator unit. The site was covered with a sterile occlusive dressing and an? image was taken to document final placement. ?Upon completion of the procedure the patient was taken outside the OR where he recovered uneventfully she went home without immediate complications.
== END 2023-10-05 15:17 | disposition home or self-care (01) ==
PROVIDERS: PCP Internal Medicine; Visit Provider Anesthesiology
PROC: (CPT 64555; principal; 2023-10-05 13:40)
DX: M47.816 Spondylosis without myelopathy or radiculopathy, lumbar region (principal); M51.36 Other intervertebral disc degeneration, lumbar region; M54.16 Radiculopathy, lumbar region; M53.3 Sacrococcygeal disorders, not elsewhere classified; I10 Essential (primary) hypertension; E78.2 Mixed hyperlipidemia; J45.20 Mild intermittent asthma, uncomplicated; R73.01 Impaired fasting glucose; D68.00 Von Willebrand disease, unspecified; E03.9 Hypothyroidism, unspecified; R94.4 Abnormal results of kidney function studies; E66.01 Morbid (severe) obesity due to excess calories; Z68.41 Body mass index [BMI] 40.0-44.9, adult; Z88.1 Allergy status to other antibiotic agents; Z88.2 Allergy status to sulfonamides; Z88.8 Allergy status to other drugs, medicaments and biological substances; Z88.5 Allergy status to narcotic agent; Z87.891 Personal history of nicotine dependence
CPT/HCPCS: 64555; C1778; J2795

== ENCOUNTER → 2023-10-05 11:20 | Outpatient (BNV) | payer OTHER, SELFPAY | PROVIDERS: PCP Internal Medicine; Visit Provider Anesthesiology | DX: M47.816 Spondylosis without myelopathy or radiculopathy, lumbar region (principal) | CPT/HCPCS: 64555 ==

== ENCOUNTER 2023-10-12 10:07 | Outpatient (AMB) | payer OTHER, SELFPAY ==
--- NOTE | 2023-10-12 10:10 | A.OFFVIS_ITS ---
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 Accompanied by: Spouse Allergies ziprasidone [From GEODON] Allergy (Severe, Verified 10/12/23 10:17) HIVES,SWELLING alosetron [From LOTRONEX] Allergy (Intermediate, Verified 10/12/23 10:17) RASH Sulfa (Sulfonamide Antibiotics) [SULFA (SULFONAMIDE ANTIBIOTICS)] Allergy (Intermediate, Verified 10/12/23 10:17) RASH cephalexin [Keflex] Allergy (Unknown, Verified 10/12/23 10:17) rash oxycodone [OXYCODONE] Adverse Reaction (Severe, Verified 10/12/23 10:17) HALLUCINATIONS, hallucination, hallucinations meperidine [Demerol] Adverse Reaction (Unknown, Verified 10/12/23 10:17) nausea and vomiting morphine Adverse Reaction (Unknown, Verified 10/12/23 10:17) nausea and vomiting HPI HPI Comments History of Present Illness Details Patient presents today one week status post right L3 medial branch Sprint PNS on 10/05/[address] Choe. Patient reports about 50% ongoing pain relief in the right lower back since procedure with partial improvement in her daily functioning and sleep. Her current stimulation settings are at 65 with overstimulation noted to her right back and flank. We decreased stimulation to 60 today and patient will continue to monitor her pain levels. Dressing site was without any signs of infection, pathological discharge, or swelling except mild redness at the lead insertion site. Dressing change was done today in the clinic with instructions provided to patient and her spouse on Sprint device care and dressing changes. Patient is scheduled for left-sided Sprint lead placement next week on 10/19/23. Denies any recent cough, cold, infection, fever, bladder or bowel dysfunction or saddle anesthesia or other significant changes in medical history since last office visit. Past Procedures: 10/05/23: Right L3 medial branch Sprint- 50% pain relief at 65, decreased to 60 for overstimulation 06/09/23: Therapeutic Bilateral L3-L4 DR L5 MBBs-80% ongoing pain relief 04/27/23: Diagnostic Bilateral L3-L4-DR L5 MBBs-80% pain relief for 12 hours 03/17/23: Right diagnostic sacroiliac joe int injection-10% for 3-4 hours PFSH Medical History Lumbar radiculopathy, chronic Mixed dyslipidemia Decreased glomerular filtration rate (GFR) Impaired fasting glucose Mild intermittent asthma Morbid obesity Von Willebrand disease History of MRSA infection Bipolar 1 disorder, depressed ADHD Hypothyroid Hypertension GERD (gastroesophageal reflux disease) Atypical ductal hyperplasia of right breast Acquired hypothyroidism Surgical History Hx of colonoscopy History of bilateral carpal tunnel release Hx of cystoscopy Hx of esophagogastroduodenoscopy Vesicovaginal fistula S/P laparoscopic surgery History of total abdominal hysterectomy History of section History of eye surgery History of partial thyroidectomy Family History Father HTN (hypertension) Hyperlipidemia Mother HTN (hypertension) Alzheimers disease Mental health disorder Maternal Aunt Breast cancer Brother Substance use disorder Social History Housing: House Alcohol intake: current Alcohol intake frequency: 0-2 drinks per day Alcohol type: hard liquor Patient Tobacco Use Status: Former Tobacco user Quit Date: 6 yr ago Tobacco use type: Cigarette Years Smoked: 20 years e-Cigarette/Vaping Use: Never Used Current occupational status: unemployed Cognitive needs: No Hearing needs: No Vision needs: Yes Review of Systems Const All systems reviewed & are unremarkable except as noted in HPI and below Physical Exam Vital Signs: Last Vital Signs Pulse 82 10/12/23 10:15 BP 147/73 H 10/12/23 10:16 Pulse Ox 98 10/12/23 10:15 Oxygen Delivery Method Room Air 10/12/23 10:15 BMI result Body Mass Index 43.2 On exam today: Appears afebrile. Alert and oriented. Mood and affect appropriate. Follows and participates in conversation appropriately. Respiratory effort is unlabored. No cough. Able to transition from sit to stand unassisted. Ambulates with bilaterally normal heel strike and toe off. Able to stand and walk on toes and heels. Lead Insertion Site: Lead insertion sites look clean, dry, intact. Mild redness noted at the lead insertion site, no pathological discharge, no swelling and no erythema. Assessment & Plan Assessment & Plan (1) Lumbar degenerative disc disease: Code(s): M51.36 - Other intervertebral disc degeneration, lumbar region (2) Lumbar spondylosis: Code(s): M47.816 - Spondylosis without myelopathy or radiculopathy, lumbar region Plan Patient is one week status post right L3 medial branch Sprint PNS on 10/05/23 with ongoing 50% pain relief with improved daily functioning and sleep. Patient will continue to adjust her stimulation settings and monitor her pain levels. Dressing change was done in clinic today and family was educated on dressing changes and caring for the device. Patient is scheduled for left-sided Sprint PNS trial next week. All questions and concerns have been answered and patient agreed with the plan. Follow-up after left Sprint PNS trial and sooner as needed. Coding Level of Care Code Est Pt Level 3 (77690) Diagnoses Lumbar degenerative disc disease M51.36 Lumbar spondylosis M47.816
[2023-10-12 10:15] VITALS: BP 180/106; PULSE 82; O2SAT 98; BMI 43.2
[2023-10-12 10:16] VITALS: BP 147/73
== END 2023-10-12 10:44 | disposition home or self-care (01) ==
PROVIDERS: PCP Internal Medicine; Visit Provider Nurse Practitioner Family
DX: M51.36 Other intervertebral disc degeneration, lumbar region (principal); M47.816 Spondylosis without myelopathy or radiculopathy, lumbar region
CPT/HCPCS: 99024

== ENCOUNTER → 2023-10-12 10:07 | Outpatient (BNVA) | payer OTHER, SELFPAY | PROVIDERS: PCP Internal Medicine; Visit Provider Nurse Practitioner Family | DX: M51.36 Other intervertebral disc degeneration, lumbar region (principal); M47.816 Spondylosis without myelopathy or radiculopathy, lumbar region | CPT/HCPCS: 99212 ==

== ENCOUNTER 2023-10-19 11:21 | Day surgery (SDC) | payer OTHER, SELFPAY ==
--- NOTE | ~2023-10-19 | FL_ITS ---
EXAMINATION: XR FLUOROSCOPY WITH IMAGES CLINICAL INFORMATION: Left lumbar SPRINT PNS. COMPARISON: None available. TECHNIQUE: Fluoroscopy Supervised By: Dr. Janes Choe. Fluoroscopy Time: 0.1 minute. Cumulative Dose: 4.68 mGy. DAP: 1.27 Gycm2. Images: 1. FINDINGS: Image demonstrates probe projecting over the left side of a mid lumbar vertebral body FL/FL guidance in OR IMPRESSION: Fluoroscopy for pain management procedure.
[2023-10-19 11:32] VITALS: BMI 43.7
--- NOTE | 2023-10-19 12:00 | P.HPSUR_ITS ---
Pre-Procedural Eval Section A Date of Service: 10/19/23 The patient is an INPATIENT: No Changes since office visit: Yes Patient answered all questions The History & Physical has been completed within 30 days and I have reviewed it.: No Section B Chief Complaint: Spondylosis without myelopathy or radiculopathy, Details of Present Illness: as above Relevant Family History (Specify if Yes): No Relevant Social History: None Present Medications: see Short Stay [facility] assessment Medical History: No relevant PMH History of Previous Operations: No relevant previous surgery Allergies: Allergies Allergy/AdvReac Type Severity Reaction Status Date / Time ziprasidone [From GEODON] Allergy Severe HIVES,SWELL Verified 10/19/23 11:32 ING alosetron [From LOTRONEX] Allergy Intermediate RASH Verified 10/19/23 11:32 Sulfa (Sulfonamide Allergy Intermediate RASH Verified 10/19/23 11:32 Antibiotics) [SULFA (SULFONAMIDE ANTIBIOTICS)] cephalexin [Keflex] Allergy Unknown rash Verified 10/19/23 11:32 oxycodone [OXYCODONE] AdvReac Severe HALLUCINATIONS, Verified 10/19/23 11:32 hallucination, hallucinations meperidine [Demerol] AdvReac Unknown nausea and Verified 10/19/23 11:32 vomiting morphine AdvReac Unknown nausea and Verified 10/19/23 11:32 vomiting Review of Systems Sugical H&P ROS: Negative: Cardiovascular, Respiratory, Neurological, Psychiatric, Hem-Onc, Allergic/Immunologic, Gastrointestinal, Genitourinary, Integumentary, Endocrine and Eyes/Ears/Nose/Throat and Yes, Specify: Constitution ( morbid obesity) and Musculoskeletal ( spondylosis lumbar) Exam Surgical H&P Exam: Normal: HEENT, Normal: Heart, Normal: Lungs, Normal: Extremities, Normal: Skin and Normal: Neurological and Significant Findings: Abdomen ( enlarged 2 to i/a and s/q fat) Plan Diagnosis/Plan: Unchanged I have reviewed the history and physical and performed a pertinent physical examination on my patient. No changes have occurred unless specified. Time Spent With Patient Time: Total time managing care of this patient today ____ minutes.
--- NOTE | 2023-10-19 12:01 | P.OP_ITS ---
Operative Note Operative Note Date of Service: 10/19/23 Narrative: Sprint PNS L4 left side. After the risks, benefits and alternatives were discussed with the patient and informed consent was obtained, patient was placed in the prone position and padded to foster comfort. Time out was performed delineating correct site and side of the procedure , name and of the patient, patient participated in time out procedure. the lower back of the patient was prepped with ChloraPrep and draped with full body fenestrated drape. ?Sterily draped C-arm was brought over the operating field and clear picture of the lumbar spine was demonstrated on the screen. . Left L3 lamina was chosen as the target of the tip of the needle position. Projection of the L3 lamina was chosen as the start of the needle advancement. That point was chosen as the local anesthetic infiltration point. After identifying and marking the intended target, the skin around the planned entry point and the subcutaneous tissues were injected with local anesthetic forming skin wheal.. ?A percutaneous sleeve and stimulating probe lead introduction system were assembled, inserted and advanced through the skin wheal to the? point of interest under C-arm view in oblique vision fashion, the introducer needle was delivered to a location in proximity to the multifidus muscles at the left laminar of L4. Multiple stimulation parameters were used to deliver stimulation to the? nerve in concert with stimulating at multiple positions around the nerve. Nerve target acquisition was confirmed noting generation of? in the? corresponding to the nerve being stimulated. Various electrical parameter combin ations were tested, and the lead location was adjusted? until the patient indicated? overlapping the distribution of the patient?s typical region of pain. The stimulating probe was removed from the introducer and a percutaneous lead was guided through the needle and delivered to a location in similar proximity to the nerve. Final location was verified with electrical stimulation. The introducer needle was removed, and the exposed end of the percutaneous lead was attached to an external stimulator unit. Various electrical parameter combinations were again tested until the patient indicated paresthesia or muscle tension overlapping the distribution of the patient?s typical region of pain. After confirming that lead impedance was in the normal range, the external unit was detached, the needle was removed, and the lead was anchored at the skin. The lead was threaded into the connector block and electrical continuity and desired patient response was confirmed. The connector block was attached to the external stimulator unit. The site was covered with a sterile occlusive dressing and an? image was taken to document final placement. ?Upon completion of the procedure the patient was taken outside the OR where he recovered uneventfully she went home without immediate complications.
[2023-10-19 12:40] VITALS: PULSE 85; RESP 18; TEMP 36.3; O2SAT 97
--- NOTE | 2023-10-19 12:42 | P.BOP_ITS ---
Brief Operative Note Date of Service: 10/19/23 Pre-op diagnosis: Spondylosis lumbar without myelopathy or radiculopathy Post-op diagnosis: same Procedure: right lumbar L4 sprint PNS Implants: nothing permanent Surgeon: Janes Choe MD Anesthesia: local Was an Ditching Machine Engineer used for this Procedure?: No Estimated blood loss (mL): 1 Condition: stable Disposition: PACU
== END 2023-10-19 13:08 | disposition home or self-care (01) ==
PROVIDERS: PCP Internal Medicine; Visit Provider Anesthesiology
PROC: (CPT 64555; principal; 2023-10-19 12:30)
DX: M47.816 Spondylosis without myelopathy or radiculopathy, lumbar region (principal); M51.36 Other intervertebral disc degeneration, lumbar region; M53.3 Sacrococcygeal disorders, not elsewhere classified; M54.16 Radiculopathy, lumbar region; I10 Essential (primary) hypertension; J45.20 Mild intermittent asthma, uncomplicated; E78.2 Mixed hyperlipidemia; R73.01 Impaired fasting glucose; F31.9 Bipolar disorder, unspecified; E66.01 Morbid (severe) obesity due to excess calories; Z68.41 Body mass index [BMI] 40.0-44.9, adult; Z88.1 Allergy status to other antibiotic agents; Z88.5 Allergy status to narcotic agent; Z88.8 Allergy status to other drugs, medicaments and biological substances; Z87.891 Personal history of nicotine dependence
CPT/HCPCS: 64555; C1778; J2795

== ENCOUNTER → 2023-10-19 11:21 | Outpatient (BNV) | payer OTHER, SELFPAY | PROVIDERS: PCP Internal Medicine; Visit Provider Anesthesiology | DX: M47.816 Spondylosis without myelopathy or radiculopathy, lumbar region (principal) | CPT/HCPCS: 64555 ==

== ENCOUNTER 2023-10-26 10:35 | Outpatient (AMB) | payer OTHER, SELFPAY ==
--- NOTE | 2023-10-26 10:41 | MHC.OFFVIS ---
Intake Vital Signs 10/26/23 10:45 Height 5 ft 8.25 in Weight 287 lb 3 oz BMI 43.3 BP 131/89 Blood Pressure Location Rt brachial Position Sitting Pulse 95 Pulse Source Pulse Oximeter Pulse Oximetry (%) 98 Oxygen Delivery Method Room Air Intake Visit Reasons: L L3 SPRINT PNS 1 WK APPT 10/19/23/Confirmed Intake Note: Pain today 12/30 Design Maintenance Engineer Required: No Accompanied by: Self / Same As Patient Allergies ziprasidone [From GEODON] Allergy (Severe, Verified 10/26/23 10:46) HIVES,SWELLING alosetron [From LOTRONEX] Allergy (Intermediate, Verified 10/26/23 10:46) RASH Sulfa (Sulfonamide Antibiotics) [SULFA (SULFONAMIDE ANTIBIOTICS)] Allergy (Intermediate, Verified 10/26/23 10:46) RASH cephalexin [Keflex] Allergy (Unknown, Verified 10/26/23 10:46) rash oxycodone [OXYCODONE] Adverse Reaction (Severe, Verified 10/26/23 10:46) HALLUCINATIONS, hallucination, hallucinations meperidine [Demerol] Adverse Reaction (Unknown, Verified 10/26/23 10:46) nausea and vomiting morphine Adverse Reaction (Unknown, Verified 10/26/23 10:46) nausea and vomiting HPI HPI Comments History of Present Illness Details Patient presents today one week status post left L4 medial branch Sprint PNS on 10/19/[address] Choe. Patient reports about 70% ongoing pain relief in the right lower back since procedure with improvement in her daily functioning, mobility, range of motion and sleep. Her current stimulation settings are at 55 for both sides. She is content with outcome of both Sprint trials so far and will continue to monitor her pain levels and adjust settings as needed. Dressing site was without any signs of infection, pathological discharge, no redness, no erythema or bleeding. Dressing change was done today in the clinic. Patient reports her spouse will continue dressing changes for bilateral lower back Sprint sites at home. Denies any recent cough, cold, infection, fever, bladder or bowel dysfunction or saddle anesthesia or other significant changes in medical history since last office visit. Past Procedures: 10/19/23: Left L4 medial branch Sprint-70% pain relief 55 stimulation 10/05/23: Right L4 medial branch Sprint-50% pain relief at 65, decreased to 60 for overstimulation 06/09/23: Therapeutic Bilateral L3-L4 DR L5 MBBs-80% ongoing pain relief 04/27/23: Diagnostic Bilateral L3-L4-DR L5 MBBs-80% pain relief for 12 hours 03/17/23: Right diagnostic sacroiliac joint injection-10% for 3-4 hours [facility] Medical History Lumbar radiculopathy, chronic Mixed dyslipidemia Decreased glomerular filtration rate (GFR) Impaired fasting glucose Mild intermittent asthma Morbid obesity Von Willebrand disease History of MRSA infection Bipolar 1 disorder, depressed ADHD Hypothyroid Hypertension GERD (gastroesophageal reflux disease) Atypical ductal hyperplasia of right breast Acquired hypothyroidism Surgical History Hx of colonoscopy History of bilateral carpal tunnel release Hx of cystoscopy Hx of esophagogastroduodenoscopy Vesicovaginal fistula S/P laparoscopic surgery History of total abdominal hysterectomy History of section History of eye surgery History of partial thyroidectomy Family History Father HTN (hypertension) Hyperlipidemia Mother HTN (hypertension) Alzheimers disease Mental health disorder Maternal Aunt Breast cancer Brother Substance use disorder Social History Housing: House Alcohol intake: current Alcohol intake frequency: 0-2 drinks per day Alcohol type: hard liquor Patient Tobacco Use Status: Former Tobacco user Quit Date: 6 yr ago Tobacco use type: Cigarette Years Smoked: 20 years e-Cigarette/Vaping Use: Never Used Current occupational status: unemployed Cognitive needs: No Hearing needs: No Vision needs: Yes Review of Systems Const All systems reviewed & are unremarkable except as noted in HPI and below Physical Exam Vital Signs: Last Vital Signs Pulse 95 10/26/23 10:45 BP 131/89 10/26/23 10:45 Pulse Ox 98 10/26/23 10:45 Oxygen Delivery Method Room Air 10/26/23 10:45 BMI result Body Mass Index 43.3 On exam today: Appears afebrile. Alert and oriented. Mood and affect appropriate. Follows and participates in conversation appropriately. Respiratory effort is unlabored. No cough. Able to transition from sit to stand unassisted. Ambulates with bilaterally normal heel strike and toe off. Able to stand and walk on toes and heels. Lead Insertion Site: Lead insertion sites look clean, dry, intact. No pathological discharge, no swelling and no erythema. Both left and right Sprint devices are at 55 stimulation with positive paresthesias to low back. Assessment & Plan Assessment & Plan (1) Lumbar degenerative disc disease: Code(s): M51.36 - Other intervertebral disc degeneration, lumbar region (2) Lumbar spondylosis: Code(s): M47.816 - Spondylosis without myelopathy or radiculopathy, lumbar region Plan Patient is one week status post left L4 medial branch Sprint PNS placement and 3 weeks s/p right L4 medial branch Sprint PNS with ongoing 70% pain relief with improved daily functioning and sleep. Patient will continue to adjust her stimulation settings and monitor her pain levels. Dressing change was done in clinic today and will be continued by patient's family at home. All questions and concerns have been answered and patient agreed with the plan. Follow-up Sprint removal and sooner as needed. Coding Level of Care Code Est Pt Level 3 (02264) Diagnoses Lumbar degenerative disc disease M51.36 Lumbar spondylosis M47.816
[2023-10-26 10:45] VITALS: BP 131/89; PULSE 95; O2SAT 98; BMI 43.3
== END 2023-10-26 11:15 | disposition home or self-care (01) ==
PROVIDERS: PCP Internal Medicine; Visit Provider Nurse Practitioner Family
DX: M51.36 Other intervertebral disc degeneration, lumbar region (principal); M47.816 Spondylosis without myelopathy or radiculopathy, lumbar region
CPT/HCPCS: 99024

== ENCOUNTER → 2023-10-26 10:35 | Outpatient (BNVA) | payer OTHER, SELFPAY | PROVIDERS: PCP Internal Medicine; Visit Provider Nurse Practitioner Family | DX: M51.36 Other intervertebral disc degeneration, lumbar region (principal); M47.816 Spondylosis without myelopathy or radiculopathy, lumbar region | CPT/HCPCS: 99212 ==

== ENCOUNTER 2023-11-03 08:51 | Outpatient (AMB) | payer OTHER, SELFPAY ==
--- NOTE | 2023-11-03 09:00 | A.OFFVIS_ITS ---
Intake Vital Signs 11/03/23 09:04 Height 5 ft 8.25 in Weight 288 lb 12.889 oz BMI 43.6 BP 141/95 H Blood Pressure Location Rt radial Position Sitting Pulse 107 H Intake Visit Reasons: 6 month follow up Intake Note: Arcelia presents in office visit today in 6 months follow up. CC: Patient reports doing well today and denies having any new GI concerns. Ware Carrier Required: No Accompanied by: Self / Same As Patient Allergies ziprasidone [From GEODON] Allergy (Severe, Verified 11/03/23 09:07) HIVES,SWELLING alosetron [From LOTRONEX] Allergy (Intermediate, Verified 11/03/23 09:07) RASH Sulfa (Sulfonamide Antibiotics) [SULFA (SULFONAMIDE ANTIBIOTICS)] Allergy (Intermediate, Verified 11/03/23 09:07) RASH cephalexin [Keflex] Allergy (Unknown, Verified 11/03/23 09:07) rash oxycodone [OXYCODONE] Adverse Reaction (Severe, Verified 11/03/23 09:07) HALLUCINATIONS, hallucination, hallucinations meperidine [Demerol] Adverse Reaction (Unknown, Verified 11/03/23 09:07) nausea and vomiting morphine Adverse Reaction (Unknown, Verified 11/03/23 09:07) nausea and vomiting HPI 6 month follow up HPI Details Assessment & Plan (1) GERD (gastroesophageal reflux diseas e): Code(s): K21.9 - Gastro-esophageal reflux disease without esophagitis Plan: She continues to do well with her GI regimen, she still will have some GERD breakthrough, rosalba when bending but she know this is weight related. Overall however she is satisfied with her current GI regimen of imipramine, dicyclomine and pantoprazole. She is now having back injections and she hopes this will help her to exercise better and lose weight. This is still a work in progress. ROV 6 mos. (2) Irritable bowel syndrome with diarrh ea: Code(s): K58.0 - Irritable bowel syndrome with diarrhea Medications: Refilled dicyclomine 40 mg (2 x 20 mg) PO QID 720 tabs 1R F K21.9 - Gastro-eso phageal reflux dis ease without esoph agitis, K58.0 - Ir ritable bowel synd wallace with diarrhea , Z12.11 - Encount er for screening f or malignant neopl asm of colon pantoprazole 40 mg PO BID 180 tabs 3RF Discontinued levothyroxine 75 mcg PO QAM 90 tabs 1RF lisinopril 10 mg PO DAILY 90 tabs 1RF albuterol sulfate 90 mcg/actuation 2 puffs PO Q6H W[place] N 8.5 grams 4RF wh eezing pantoprazole 40 mg PO BID 180 tabs 2RF TODAY'S VISIT Her son moved to the [facility], and they are not seeing each other much so this was a dissappointment in her Xmas. She just had a spinal stim installed in her back. With this she has to avoid CIC, but she has suppositories at home. She is trying to cut down on sweets for weight loss, but when she cut them out completely she developed a PARSON. I am addicted to sweets! Her brother has the same problem. She is satisfied with her current GI regimen of imipramine, dicyclomine and pantoprazole. [facility] Medical History Lumbar radiculopathy, chronic Mixed dyslipidemia Decreased glomerular filtration rate (GFR) Impaired fasting glucose Mild intermittent asthma Morbid obesity Von Willebrand disease History of MRSA infection Bipolar 1 disorder, depressed ADHD Hypothyroid Hypertension GERD (gastroesophageal reflux disease) Atypical ductal hyperplasia of right breast Acquired hypothyroidism Surgical History Hx of colonoscopy History of bilateral carpal tunnel release Hx of cystoscopy Hx of esophagogastroduodenoscopy Vesicovaginal fistula S/P laparoscopic surgery History of total abdominal hysterectomy History of section History of eye surgery History of partial thyroidectomy Family History Father HTN (hypertension) Hyperlipidemia Mother HTN (hypertension) Alzheimers disease Mental health disorder Maternal Aunt Breast cancer Brother Substance use disorder Social History Housing: House Alcohol intake: current Alcohol intake frequency: 0-2 drinks per day Alcohol type: hard liquor Patient Tobacco Use Status: Former Tobacco user Quit Date: 6 yr ago Tobacco use type: Cigarette Years Smoked: 20 years e-Cigarette/Vaping Use: Never Used Current occupational status: unemployed Cognitive needs: No Hearing needs: No Vision needs: Yes Review of Systems Const Denies fatigue, Denies fever(s), Denies night sweats, Denies poor appetite and Denies weight loss Eyes Details: glasses Reports requires corrective lenses ENT Reports Normal hearing present, Denies dental pain, Denies dysphagia, Denies hearing loss, Denies mouth pain, Denies odynophagia, Denies throat swelling, Denies tongue swelling and Reports other (Dentition adequate) Card Reports no additional complaints Resp Reports no additional complaints GI Denies abdominal pain, Denies melena, Denies bloating, Denies hematochezia, Denies constipation, Reports GI cramping, Denies dysphagia, Denies excessive flatus, Denies early satiety, Reports heartburn, Denies diarrhea, Denies nausea, Denies odynophagia, Denies vomiting and Denies hematemesis Musc Reports back pain Skin/Breast Denies pruritus, Denies lesions, Denies rash and Denies jaundice Neuro Reports Normal hearing present and Denies Abnormal speech present Endo Denies fatigue Aller/Immun Denies throat swelling and Denies tongue swelling Physical Exam Vital Signs: Last Vital Signs Pulse 107 H 11/03/23 09:04 BP 141/95 H 11/03/23 09:04 BMI result Body Mass Index 43.6 Const General: cooperative, no acute distress, well developed and well groomed Nutritional Appearance: well nourished and obese Orientation/consciousness: oriented to person, oriented to place and oriented to time Limitations: No language barrier HEENT Head: Yes normocephalic and Yes atraumatic Eyes General: appearance normal, both eyes and all related structures Pupils: Equal, round and reactive pupils present Neck Neck: Yes normal visual inspection and Yes no lymphadenopathy Thyroid: Thyroid normal Resp Effort & Inspection: normal respiratory effort and able to speak in complete sentences Auscultation: clear to auscultation bilaterally Cardio Rate: regular rate Rhythm: regular rhythm Heart sounds: Normal, physiologic split S2 sound present Peripheral pulses: radial pulses present and posterior tibial pulses present GI Inspection: No distended, Yes Abdominal panniculus present and Yes obesity Palpation (GI): Soft to palpation, nontender, no guarding, not rigid and No hepatosplenomegaly present Percussion: Yes normal to percussion Auscultation: normal bowel sounds Rectal Exam - Female: deferred Skin General skin exam: no rashes or lesions noted, turgor normal, skin not dry, no jaundice, No spider nevi and no striae Rashes: no rashes Nails: normal Neuro General: oriented to person, oriented to place and oriented to time Cranial nerves: Yes Equal, round and reactive pupils present and Yes Normal hearing present Speech: No Abnormal speech present Extrem General: Yes normal to inspection, No clubbing, No cyanosis and No edema Psych Appearance: grossly normal and well kempt Mental Status: mental status grossly normal Speech and movement: Normal speech and movement present Affect: normal affect Attitude: cooperative Thought process: Normal thought process present and not confabulating Thought content: Normal thought content present Insight: Fair insight present (Psych) Judgement: Fair judgement present (Psych) Assessment & Plan Assessment & Plan (1) GERD (gastroesophageal reflux disease): Code(s): K21.9 - Gastro-esophageal reflux disease without esophagitis (2) Irritable bowel syndrome with diarrhea: Code(s): K58.0 - Irritable bowel syndrome with diarrhea Plan Her son moved to the [facility], and they are not seeing each other much so this was a dissappointment in her Xmas. She just had a spinal stim installed in her back. With this she has to avoid CIC, but she has suppositories at home. She is trying to cut down on sweets for weight loss, but when she cut them out completely she developed a PARSON. I am addicted to sweets! Her brother has the same problem. She is satisfied with her current GI regimen of imipramine, dicyclomine and pantoprazole Return office visit in 6 months Medications: Refilled dicyclomine 40 mg (2 x 20 mg) PO QID 720 tabs 1RF K21.9 - Gastro-esophageal reflux disease without esophagitis, K58.0 - Irritable bowel syndrome with diarrhea, Z12.11 - Encounter for screening for malignant neoplasm of colon pantoprazole 40 mg PO BID 180 tabs 3RF Coding Level of Care Code Est Pt Level 3 (64624) Diagnoses GERD (gastroesophageal reflux disease) K21.9 Irritable bowel syndrome with diarrhea K58.0
[2023-11-03 09:04] VITALS: BP 141/95; PULSE 107; BMI 43.6
== END 2023-11-03 09:22 | disposition home or self-care (01) ==
PROVIDERS: PCP Internal Medicine; Visit Provider Nurse Practitioner
DX: K21.9 Gastro-esophageal reflux disease without esophagitis (principal); K58.0 Irritable bowel syndrome with diarrhea
CPT/HCPCS: 99213

== ENCOUNTER → 2023-11-03 08:51 | Outpatient (BNVA) | payer OTHER, SELFPAY | PROVIDERS: PCP Internal Medicine; Visit Provider Nurse Practitioner | DX: K21.9 Gastro-esophageal reflux disease without esophagitis (principal); K58.0 Irritable bowel syndrome with diarrhea | CPT/HCPCS: 99212 ==

== ENCOUNTER 2023-12-04 15:20 | Outpatient (AMB) | payer OTHER, SELFPAY ==
--- NOTE | 2023-12-04 15:22 | MHC.OFFVIS ---
Intake Vital Signs 12/04/23 15:25 Height 5 ft 8.25 in Weight 288 lb BMI 43.5 BP 139/83 Blood Pressure Location Rt brachial Position Sitting Pulse 95 Pulse Source Pulse Oximeter Pulse Oximetry (%) 100 Oxygen Delivery Method Room Air Intake Visit Reasons: R L3 SPRINT REMOVAL 10/05/23 Allergies ziprasidone [From GEODON] Allergy (Severe, Verified 12/04/23 15:26) HIVES,SWELLING alosetron [From LOTRONEX] Allergy (Intermediate, Verified 12/04/23 15:26) RASH Sulfa (Sulfonamide Antibiotics) [SULFA (SULFONAMIDE ANTIBIOTICS)] Allergy (Intermediate, Verified 12/04/23 15:26) RASH cephalexin [Keflex] Allergy (Unknown, Verified 12/04/23 15:26) rash oxycodone [OXYCODONE] Adverse Reaction (Severe, Verified 12/04/23 15:26) HALLUCINATIONS, hallucination, hallucinations meperidine [Demerol] Adverse Reaction (Unknown, Verified 12/04/23 15:26) nausea and vomiting morphine Adverse Reaction (Unknown, Verified 12/04/23 15:26) nausea and vomiting HPI HPI Comments History of Present Illness Details Patient presents today right L4 medial branch Sprint PNS removal. Patient reports ongoing 90-100% ongoing pain relief in bilateral lower back since Sprint device placement with improvement in her daily functioning, mobility and sleep. Her current stimulation settings are at 57 for right and 75 for left side. She is content with outcome of both Sprint trials so far. Patient is looking forward to increase her daily walking and optimize her weight towards a healthier BMI. Dressing site was without any signs of infection, pathological discharge, no redness, no erythema or bleeding. Dressing change was done today in the clinic. Right Sprint PNS lead removed with the tip intact. Patient reports her spouse will continue dressing changes for left lower back Sprint sites at home for 2 more weeks. Denies any recent cough, cold, infection, fever, bladder or bowel dysfunction or saddle anesthesia or other significant changes in medical history since last office visit. Past Procedures: 10/19/23: Left L4 medial branch Sprint-100% pain relief 75 stimulation 10/05/23: Right L4 medial branch Sprint-90% pain relief at 57 stimulation, removed 12/04/23 06/09/23: Therapeutic Bilateral L3-L4 DR L5 MBBs-80% ongoing pain relief 04/27/23: Diagnostic Bilateral L3-L4-DR L5 MBBs-80% pain relief for 12 hours 03/17/23: Right diagnostic sacroiliac joint injection-10% for 3-4 hours [facility] Medical History Lumbar radiculopathy, chronic Mixed dyslipidemia Decreased glomerular filtration rate (GFR) Impaired fasting glucose Mild intermittent asthma Morbid obesity Von Willebrand disease History of MRSA infection Bipolar 1 disorder, depressed ADHD Hypothyroid Hypertension GERD (gastroesophageal reflux disease) Atypical ductal hyperplasia of right breast Acquired hypothyroidism Surgical History Hx of colonoscopy History of bilateral carpal tunnel release Hx of cystoscopy Hx of esophagogastroduodenoscopy Vesicovaginal fistula S/P laparoscopic surgery History of total abdominal hysterectomy History of section History of eye surgery History of partial thyroidectomy Family History Father HTN (hypertension) Hyperlipidemia Mother HTN (hypertension) Alzheimers disease Mental health disorder Maternal Aunt Breast cancer Brother Substance use disorder Social History Housing: House Alcohol intake: current Alcohol intake frequency: 0-2 drinks per day Alcohol type: hard liquor Patient Tobacco Use Status: Former Tobacco user Quit Date: 6 yr ago Tobacco use type: Cigarette Years Smoked: 20 years e-Cigarette/Vaping Use: Never Used Current occupational status: unemployed Cognitive needs: No Hearing needs: No Vision needs: Yes Review of Systems Const All systems reviewed & are unremarkable except as noted in HPI and below Physical Exam Vital Signs: Last Vital Signs Pulse 95 12/04/23 15:25 BP 139/83 12/04/23 15:25 Pulse Ox 100 12/04/23 15:25 Oxygen Delivery Method Room Air 12/04/23 15:25 BMI result Body Mass Index 43.5 On exam today: Appears afebrile. Alert and oriented. Mood and affect appropriate. Follows and participates in conversation appropriately. Respiratory effort is unlabored. No cough. Able to transition from sit to stand unassisted. Ambulates with bilaterally normal heel strike and toe off. Able to stand and walk on toes and heels. Lead Insertion Site: Lead insertion sites look clean, dry, intact. No pathological discharge, no swelling and no erythema. Right side lead pulled with tip intact. Left side dressing changed in clinic today. Positive paresthesia on the left low back at 75 stimulation. Right side setting set to 0 prior to removal. Results Reviewed Results Reviewed: MR LUMBAR SPINE WITHOUT CONTRAST 09/29/22 CLINICAL INFORMATION: Radiculopathy, lumbar region. COMPARISON: Lumbar spine MRI 03/12/2010. FINDINGS: The lumbar vertebral bodies maintain normal heights and alignment. The disc heights are preserved. No bone marrow edema is seen. The distal spinal cord appears normal. The conus medullaris terminates normally at the L1 level. The extraspinal soft tissues are unremarkable. SPINAL LEVELS: L1-L2: No posterior disc abnormality. No spinal canal or neural foraminal stenosis. L2-L3: No posterior disc abnormality. No spinal canal or neural foraminal stenosis. L3-L4: No posterior disc abnormality. Mild facet arthropathy. No spinal canal or neural foraminal stenosis. L4-L5: Mild disc bulging with moderate facet arthropathy ligamentum flavum infolding. No spinal canal stenosis. Mild encroachment on the right neural foramen. L5-S1: No posterior disc abnormality. Moderate left facet arthropathy. No spinal canal or neural foraminal stenosis. IMPRESSION: No significant narrowing of the spinal canal or neural foramina. No definite nerve root compression is seen. XR LUMBAR SPINE XR SI JOINT 02/21/23 FINDINGS: Lumbar spine: There is normal lumbar lordosis. The vertebral heights, alignment and disc heights are normal. There is mild ventral spondylosis. No visible acute fracture, dislocation or subluxation. There is minimal ventral spondylosis. No lytic or sclerotic process seen. The paravertebral soft tissues are normal. SI joints: There is normal symmetry of bilateral SI joints without any bony erosive changes, sclerosis or lytic process. The pubic symphysis is normal. There are phleboliths throughout the lower pelvis. IMPRESSION: 1. Mild ventral spondylosis lumbar spine. No visible acute fracture, dislocation or lytic process seen. 2. Unremarkable SI joints. XR BILATERAL HIPS WITH AP PELVIS 08/21/23 CLINICAL INFORMATION: Sacrococcygeal disorders COMPARISON: CT abdomen pelvis 03/18/2016 FINDINGS: No fracture. Some minor degenerative changes are seen with some supra-acetabular lateral sclerosis, unchanged from prior. Hip joint spaces are maintained. Alignment is anatomic. Sacroiliac joints and pubic symphysis are normal. No abnormal soft tissue calcifications. Phleboliths are noted in the pelvis. IMPRESSION: Minimal degenerative changes in the hips. No acute finding. Assessment & Plan Assessment & Plan (1) Lumbar degenerative disc disease: Code(s): M51.36 - Other intervertebral disc degeneration, lumbar region (2) Lumbar spondylosis: Code(s): M47.816 - Spondylosis without myelopathy or radiculopathy, lumbar region Plan Patient presented today for Right L4 Medial Branch Sprint PNS lead removal. She reports ongoing 90-100 % pain relief. Lead insertion site looks clean, dry, intact, no pathological discharge. Area was cleansed with Chloraprep. Lead pulled with tip intact. Dressing change was also done for the left side. Patient will return to the office in 2 weeks for left L4 Sprint removal. All questions and concerns have been answered and the patient agreed with the plan. Follow up as needed.? Coding Level of Care Code Est Pt Level 3 (42888) Diagnoses Lumbar degenerative disc disease M51.36 Lumbar spondylosis M47.816
[2023-12-04 15:25] VITALS: BP 139/83; PULSE 95; O2SAT 100; BMI 43.5
== END 2023-12-04 15:51 | disposition home or self-care (01) ==
PROVIDERS: PCP Internal Medicine; Visit Provider Nurse Practitioner Family
DX: M51.36 Other intervertebral disc degeneration, lumbar region (principal); M47.816 Spondylosis without myelopathy or radiculopathy, lumbar region
CPT/HCPCS: 99213

== ENCOUNTER → 2023-12-04 15:20 | Outpatient (BNVA) | payer OTHER, SELFPAY | PROVIDERS: PCP Internal Medicine; Visit Provider Nurse Practitioner Family | DX: M51.36 Other intervertebral disc degeneration, lumbar region (principal); M47.816 Spondylosis without myelopathy or radiculopathy, lumbar region | CPT/HCPCS: 99212 ==

== ENCOUNTER 2023-12-18 11:19 | Outpatient (AMB) | payer OTHER, SELFPAY ==
--- NOTE | 2023-12-18 11:22 | A.OFFVIS_ITS ---
Intake Vital Signs 12/18/23 11:26 Height 5 ft 8.25 in Weight 288 lb BMI 43.5 BP 134/82 Blood Pressure Location Lt brachial Position Sitting Respiration 16 Pulse 93 Pulse Source Pulse Oximeter Pulse Oximetry (%) 99 Oxygen Delivery Method Room Air Intake Visit Reasons: L L3 SPRINT PNS 60 DAY REMOVAL 10/19/23 Intake Note: Pain today 0/10 Regulator Operator Required: No Accompanied by: Spouse Allergies ziprasidone [From GEODON] Allergy (Severe, Verified 12/18/23 11:26) HIVES,SWELLING alosetron [From LOTRONEX] Allergy (Intermediate, Verified 12/18/23 11:26) RASH Sulfa (Sulfonamide Antibiotics) [SULFA (SULFONAMIDE ANTIBIOTICS)] Allergy (I ntermediate, Verified 12/18/23 11:) RASH cephalexin [Keflex] Allergy (Unknown, Verified 12/18/23 11:) rash oxycodone [OXYCODONE] Adverse Reaction (Severe, Verified 12/18/23 11:26) HALLUCINATIONS, hallucination, hallucinations meperidine [Demerol] Adverse Reaction (Unknown, Verified 12/18/23 11:26) nausea and vomiting morphine Adverse Reaction (Unknown, Verified 12/18/23 11:26) nausea and vomiting HPI HPI Comments History of Present Illness Details Patient presents today left L4 medial branch Sprint PNS removal. Patient reports ongoing 100% ongoing pain relief in bilateral lower back since Sprint device placement with improvement in her daily functioning, mobility and sleep. She has turned off Sprint device yesterday and continues to have ongoing pain relief. Patient is content with outcome of both Sprint trials so far. Patient is looking forward to increase her daily walking and optimize her weight towards a healthier BMI. She reports intermittent radiation of back pain into her right lower extremity without numbness or tingling during prolonged walking or bending. Dressing site was without any signs of infection, pathological discharge, no redness, no erythema or bleeding. Dressing change was done today in the clinic. Left Sprint PNS lead removed with the tip intact. Denies any recent cough, cold, infection, fever, bladder or bowel dysfunction or saddle anesthesia or other significant changes in medical history since last office visit. Past Procedures: 12/18/23: Left L4 MB Sprint removal-100% pain relief 10/19/23: Left L4 medial branch Sprint-1 00% pain relief 75 stimulation 12/14/23: Right L4 medial branch Sprint- 90% pain relief at 57 stimulation, removed 12/04/23 06/09/23: Therapeutic Bilateral L3-L4 DR L5 MBBs-80% ongoing pain relief 04/27/23: Diagnostic Bilateral L3-L4-DR L5 MBBs-80% pain relief for 12 hours 03/17/23: Right diagnostic sacroiliac joe int injection-10% for 3-4 hours PFSH Medical History Lumbar radiculopathy, chronic Mixed dyslipidemia Decreased glomerular filtration rate (GFR) Impaired fasting glucose Mild intermittent asthma Morbid obesity Von Willebrand disease History of MRSA infection Bipolar 1 disorder, depressed ADHD Hypothyroid Hypertension GERD (gastroesophageal reflux disease) Atypical ductal hyperplasia of right breast Acquired hypothyroidism Surgical History Hx of colonoscopy History of bilateral carpal tunnel release Hx of cystoscopy Hx of esophagogastroduodenoscopy Vesicovaginal fistula S/P laparoscopic surgery History of total abdominal hysterectomy History of section History of eye surgery History of partial thyroidectomy Family History Father HTN (hypertension) Hyperlipidemia Mother HTN (hypertension) Alzheimers disease Mental health disorder Maternal Aunt Breast cancer Brother Substance use disorder Social History Housing: House Alcohol intake: current Alcohol intake frequency: 0-2 drinks per day Alcohol type: hard liquor Patient Tobacco Use Status: Former Tobacco user Quit Date: 6 yr ago Tobacco use type: Cigarette Years Smoked: 20 years e-Cigarette/Vaping Use: Never Used Current occupational status: unemployed Cognitive needs: No Hearing needs: No Vision needs: Yes Review of Systems Const All systems reviewed & are unremarkable except as noted in HPI and below Physical Exam Vital Signs: Last Vital Signs Pulse 93 12/18/23 11:26 BP 134/82 12/18/23 11:26 Pulse Ox 99 12/18/23 11:26 Oxygen Delivery Method Room Air 12/18/23 11:26 BMI result Body Mass Index 43.5 On exam today: Appears afebrile. Alert and oriented. Mood and affect appropriate. Follows and participates in conversation appropriately. Respiratory effort is unlabored. No cough. Able to transition from sit to stand unassisted. Ambulates with bilaterally normal heel strike and toe off. Able to stand and walk on toes and heels. Seated SLR testing negative bilaterally. Strength: 5/5 bilateral hip flexion. No groin pain with I/E hip rotations. Lead Insertion Site: Lead insertion sites look clean, dry, intact. No pathological discharge, no swelling and no erythema. Lead pulled with tip intact. Results Reviewed Results Reviewed: MR LUMBAR SPINE WITHOUT CONTRAST 09/29/22 CLINICAL INFORMATION: Radiculopathy, lumbar region. COMPARISON: Lumbar spine MRI 03/12/2010. FINDINGS: The lumbar vertebral bodies maintain normal heights and alignment. The disc heights are preserved. No bone marrow edema is seen. The distal spinal cord appears normal. The conus medullaris terminates normally at the L1 level. The extraspinal soft tissues are unremarkable. SPINAL LEVELS: L1-L2: No posterior disc abnormality. No spinal canal or neural foraminal stenosis. L2-L3: No posterior disc abnormality. No spinal canal or neural foraminal stenosis. L3-L4: No posterior disc abnormality. Mild facet arthropathy. No spinal canal or neural foraminal stenosis. L4-L5: Mild disc bulging with moderate facet arthropathy ligamentum flavum infolding. No spinal canal stenosis. Mild encroachment on the right neural foramen. L5-S1: No posterior disc abnormality. Moderate left facet arthropathy. No spinal canal or neural foraminal stenosis. IMPRESSION: No significant narrowing of the spinal canal or neural foramina. No definite nerve root compression is seen. XR LUMBAR SPINE XR SI JOINT 02/21/23 FINDINGS: Lumbar spine: There is normal lumbar lordosis. The vertebral heights, alignment and disc heights are normal. There is mild ventral spondylosis. No visible acute fracture, dislocation or subluxation. There is minimal ventral spondylosis. No lytic or sclerotic process seen. The paravertebral soft tissues are normal. SI joints: There is normal symmetry of bilateral SI joints without any bony erosive changes, sclerosis or lytic process. The pubic symphysis is normal. There are phleboliths throughout the lower pelvis. IMPRESSION: 1. Mild ventral spondylosis lumbar spine. No visible acute fracture, dislocation or lytic process seen. 2. Unremarkable SI joints. XR BILATERAL HIPS WITH AP PELVIS 08/21/23 CLINICAL INFORMATION: Sacrococcygeal disorders COMPARISON: CT abdomen pelvis 03/18/2016 FINDINGS: No fracture. Some minor degenerative changes are seen with some supra-acetabular lateral sclerosis, unchanged from prior. Hip joint spaces are maintained. Alignment is anatomic. Sacroiliac joints and pubic symphysis are normal. No abnormal soft tissue calcifications. Phleboliths are noted in the pelvis. IMPRESSION: Minimal degenerative changes in the hips. No acute finding. Assessment & Plan Assessment & Plan (1) Lumbar degenerative disc disease: Code(s): M51.36 - Other intervertebral disc degeneration, lumbar region (2) Lumbar spondylosis: Code(s): M47.816 - Spondylosis without myelopathy or radiculopathy, lumbar region Plan Patient presented today for Left L4 Medial Branch Sprint PNS lead removal. She reports ongoing 100 % pain relief. Lead insertion site looks clean, dry, intact, no pathological discharge. Area was cleansed with Chloraprep. Lead pulled with tip intact. Patient will continue to monitor her axial low back symptoms and notify our office when her pain returns to baseline. Patient will continue to monitor her intermittent right radicular symptoms. SLR testing is negative today. All questions and concerns have been answered and the patient agreed with the plan. Follow up as needed.? Coding Level of Care Code Est Pt Level 3 (30820) Diagnoses Lumbar degenerative disc disease M51.36 Lumbar spondylosis M47.816
[2023-12-18 11:26] VITALS: BP 134/82; PULSE 93; RESP 16; O2SAT 99; BMI 43.5
== END 2023-12-18 11:33 | disposition home or self-care (01) ==
PROVIDERS: PCP Internal Medicine; Visit Provider Nurse Practitioner Family
DX: M51.36 Other intervertebral disc degeneration, lumbar region (principal); M47.816 Spondylosis without myelopathy or radiculopathy, lumbar region
CPT/HCPCS: 99213

== ENCOUNTER → 2023-12-18 11:19 | Outpatient (BNVA) | payer OTHER, SELFPAY | PROVIDERS: PCP Internal Medicine; Visit Provider Nurse Practitioner Family | DX: M51.36 Other intervertebral disc degeneration, lumbar region (principal); M47.816 Spondylosis without myelopathy or radiculopathy, lumbar region | CPT/HCPCS: 99212 ==

== ENCOUNTER 2023-12-25 10:10 | Outpatient (REF) | payer OTHER, SELFPAY | END 2023-12-25 10:11 | disposition home or self-care (01) | LOC: HO.MAMMO 10:10 | PROVIDERS: PCP Internal Medicine; Visit Provider Internal Medicine | DX: Z12.31 Encounter for screening mammogram for malignant neoplasm of breast (principal) | CPT/HCPCS: 77063; 77067 ==

== ENCOUNTER → 2023-12-25 10:15 | Outpatient (BNV) | payer OTHER, SELFPAY | PROVIDERS: PCP Internal Medicine; Visit Provider Radiology Diagnostic Radiology | DX: Z12.31 Encounter for screening mammogram for malignant neoplasm of breast (principal) | CPT/HCPCS: 77063; 77067 ==

== ENCOUNTER 2024-03-19 11:23 | Outpatient (AMB) | payer OTHER, SELFPAY ==
--- NOTE | 2024-03-19 11:32 | MHC.OFFVIS ---
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 Accompanied by: Self / Same As Patient Allergies ziprasidone [From GEODON] Allergy (Severe, Verified 03/19/24 11:36) HIVES,SWELLING alosetron [From LOTRONEX] Allergy (Intermediate, Verified 03/19/24 11:36) RASH Sulfa (Sulfonamide Antibiotics) [SULFA (SULFONAMIDE ANTIBIOTICS)] Allergy (Intermediate, Verified 03/19/24 11:36) RASH cephalexin [Keflex] Allergy (Unknown, Verified 03/19/24 11:36) rash oxycodone [OXYCODONE] Adverse Reaction (Severe, Verified 03/19/24 11:36) HALLUCINATIONS, hallucination, hallucinations meperidine [Demerol] Adverse Reaction (Unknown, Verified 03/19/24 11:36) nausea and vomiting morphine Adverse Reaction (Unknown, Verified 03/19/24 11:36) nausea and vomiting HPI Comments Details: Patient presents today for follow up for low back pain. She reports low back pain radiating to her sacral and lateral hip areas, worse on the right side. Patient also reports significant muscle spasms in the lower paraspinals. She reports ongoing 50% pain relief status post Sprint PNS removal in November but not significant pain relief in sacral and hip areas. Patient has mild hip OA per last year's imaging studies. Today's exam consistent with lumbar paraspinal stiffness and sacroiliac joint pain with positive provocative results. Denies any recent cough, cold, infection, fever, abdominal or groin pain, bladder or bowel dysfunction, saddle anesthesia, or any significant changes in her medical history, medications or recent hospitalizations. Patient with BMI>40 and recent weight gain, reports chronic sweets cravings. She is interested to undergo Weight Management evaluation. Patient has previously completed Nutrition consulation but would like to explore other options to help her loose weight to decrease chronic back and hip pain, increase tolerance to physical daily activities and exercise and improve sleep. Past Procedures: 12/18/23: Left L4 MB Sprint removal-100% pain relief 10/19/23: Left L4 medial branch Sprint-100% pain relief 75 stimulation 10/05/23: Right L4 medial branch Sprint-90% pain relief at 57 stimulation, removed 12/04/23 06/09/23: Therapeutic Bilateral L3-L4 DR L5 MBBs-80% ongoing pain relief 04/27/23: Diagnostic Bilateral L3-L4-DR L5 MBBs-80% pain relief for 12 hours 03/17/23: Right diagnostic sacroiliac joint injection-10% for 3-4 hours [facility] Medical History Lumbar radiculopathy, chronic Mixed dyslipidemia Decreased glomerular filtration rate (GFR) Impaired fasting glucose Mild intermittent asthma Morbid obesity Von Willebrand disease History of MRSA infection Bipolar 1 disorder, depressed ADHD Hypothyroid Hypertension GERD (gastroesophageal reflux disease) Atypical ductal hyperplasia of right breast Acquired hypothyroidism Surgical History Hx of colonoscopy History of bilateral carpal tunnel release Hx of cystoscopy Hx of esophagogastroduodenoscopy Vesicovaginal fistula S/P laparoscopic surgery History of total abdominal hysterectomy History of section History of eye surgery History of partial thyroidectomy Family History Father HTN (hypertension) Hyperlipidemia Mother HTN (hypertension) Alzheimers disease Mental health disorder Maternal Aunt Breast cancer Brother Substance use disorder Social History Housing: House Alcohol intake: current Alcohol intake frequency: 0-2 drinks per day Alcohol type: hard liquor Patient Tobacco Use Status: Former Tobacco user Quit Date: 6 yr ago Tobacco use type: Cigarette Years Smoked: 20 years e-Cigarette/Vaping Use: Never Used Current occupational status: unemployed Cognitive needs: No Hearing needs: No Vision needs: Yes Review of Systems Const All systems reviewed & are unremarkable except as noted in HPI and below Physical Exam On exam today: Appears afebrile. Alert and oriented. Mood and affect appropriate. Follows and participates in conversation appropriately. Respiratory effort is unlabored. No cough. Able to transition from sit to stand unassisted. Ambulates with bilaterally normal heel strike and toe off. Able to stand and walk on toes and heels. Back/Spine/Pelvis Cervical Spine: cervical ROM normal and No Cervical spine tenderness Thoracic/Lumbar Spine: thoracic and lumbar spine normal to inspection, No Thoracic/lumbar spine scar(s), Lasegue's sign negative, straight leg raise negative bilaterally, pain with thoraco-lumbar ROM, paraspinal muscle tenderness, No thoracic spinal tenderness and lumbar spinal tenderness (L5-S1) Pelvis: buttock tenderness (upper buttocks, right>left) bilaterally Sacroiliac joints: bilaterally (+Lev's, Gaenslen, Stinchfield R>L) tender to palpation Results Reviewed Results Reviewed: MR LUMBAR SPINE WITHOUT CONTRAST 09/29/22 CLINICAL INFORMATION: Radiculopathy, lumbar region. COMPARISON: Lumbar spine MRI 03/12/2010. FINDINGS: The lumbar vertebral bodies maintain normal heights and alignment. The disc heights are preserved. No bone marrow edema is seen. The distal spinal cord appears normal. The conus medullaris terminates normally at the L1 level. The extraspinal soft tissues are unremarkable. SPINAL LEVELS: L1-L2: No posterior disc abnormality. No spinal canal or neural foraminal stenosis. L2-L3: No posterior disc abnormality. No spinal canal or neural foraminal stenosis. L3-L4: No posterior disc abnormality. Mild facet arthropathy. No spinal canal or neural foraminal stenosis. L4-L5: Mild disc bulging with moderate facet arthropathy ligamentum flavum infolding. No spinal canal stenosis. Mild encroachment on the right neural foramen. L5-S1: No posterior disc abnormality. Moderate left facet arthropathy. No spinal canal or neural foraminal stenosis. IMPRESSION: No significant narrowing of the spinal canal or neural foramina. No definite nerve root compression is seen. XR LUMBAR SPINE XR SI JOINT 02/21/23 FINDINGS: Lumbar spine: There is normal lumbar lordosis. The vertebral heights, alignment and disc heights are normal. There is mild ventral spondylosis. No visible acute fracture, dislocation or subluxation. There is minimal ventral spondylosis. No lytic or sclerotic process seen. The paravertebral soft tissues are normal. SI joints: There is normal symmetry of bilateral SI joints without any bony erosive changes, sclerosis or lytic process. The pubic symphysis is normal. There are phleboliths throughout the lower pelvis. IMPRESSION: 1. Mild ventral spondylosis lumbar spine. No visible acute fracture, dislocation or lytic process seen. 2. Unremarkable SI joints. XR BILATERAL HIPS WITH AP PELVIS 08/21/23 CLINICAL INFORMATION: Sacrococcygeal disorders COMPARISON: CT abdomen pelvis 03/18/2016 FINDINGS: No fracture. Some minor degenerative changes are seen with some supra-acetabular lateral sclerosis, unchanged from prior. Hip joint spaces are maintained. Alignment is anatomic. Sacroiliac joints and pubic symphysis are normal. No abnormal soft tissue calcifications. Phleboliths are noted in the pelvis. IMPRESSION: Minimal degenerative changes in the hips. No acute finding. Assessment & Plan Assessment & Plan (1) Lumbar degenerative disc disease: Code(s): M51.36 - Other intervertebral disc degeneration, lumbar region Category: Medical (2) Morbid obesity with body mass index (BMI) of 40.0 to 44.9 in adult: Code(s): E66.01 - Morbid (severe) obesity due to excess calories; Z68.41 - Body mass index [BMI] 40.0-44.9, adult Category: Medical (3) Lumbar degenerative disc disease: Code(s): M51.36 - Other intervertebral disc degeneration, lumbar region Category: Medical (4) Lumbar spondylosis: Code(s): M47.816 - Spondylosis without myelopathy or radiculopathy, lumbar region Category: Medical (5) Muscle spasm of back: Code(s): M62.830 - Muscle spasm of back Category: Medical (6) Sacroiliac joint pain: Code(s): M53.3 - Sacrococcygeal disorders, not elsewhere classified Category: Medical Plan Schedule Diagnostic Bilateral Sacroiliac Joint Injections with local and fluoroscopy, oral Ativan prior to procedure. Expectations, risks and benefits were reviewed. Patient is aware she will be contacted to schedule this procedure. Patient reports overall 50% ongoing pain relief for axial low back pain s/p Sprint PNS lead removal in November. Weight Management Referral to assist patient with weight loss goals to decrease pain, improve functioning and sleep. Short script for tramadol provided today for [id number] pain while patient awaits for injections. Side effects and precautions discussed with patient. Narcan provided. All questions were answered and patient agreed with the treatment plan. Follow-up after injections and sooner as needed. Anticoagulation: Patient not on anticoagulant Justification for interventional therapy: ? Patient with average pain > 6/10 ? Patient has exhausted conservative therapy, NSAIDs, physical therapy ? Patient is continuing home exercise program The risks, consequences, alternatives, and benefits of various treatment options were discussed with the patient in great detail, including conservative management, injections and procedures. Orders: Referrals Medical Weight Management Referral E66.01 - Morbid (severe) obesity due to excess calories, M51.36 - Other intervertebral disc degeneration, lumbar region, Z68.41 - Body mass index [BMI] 40.0-44.9, adult Medications: New naloxone 4 mg/actuation (Narcan) spray 1 dose into ONE nostril; alternate nostrils w each dose until help arrives 4 mg intranasal Q2M PRN 2 ea 0RF opioid overdose tramadol 50 mg PO BID 10 days PRN 20 tabs 0RF pain M47.816 - Spondylosis without myelopathy or radiculopathy, lumbar region, M51.36 - Other intervertebral disc degeneration, lumbar region, M53.3 - Sacrococcygeal disorders, not elsewhere classified, M62.830 - Muscle spasm of back Coding Level of Care Code Est Pt Level 4 (42404) Diagnoses Lumbar degenerative disc disease M51.36 Morbid obesity with body mass index (BMI) of 40.0 to 44.9 in adult E66.01; Z68.41 Lumbar spondylosis M47.816 Muscle spasm of back M62.830 Sacroiliac joint pain M53.3
[2024-03-19 11:35] VITALS: BP 146/85; PULSE 84; O2SAT 97; BMI 44.5
== END 2024-03-19 11:57 | disposition home or self-care (01) ==
PROVIDERS: PCP Internal Medicine; Visit Provider Nurse Practitioner Family
DX: M51.36 Other intervertebral disc degeneration, lumbar region (principal); E66.01 Morbid (severe) obesity due to excess calories; Z68.41 Body mass index [BMI] 40.0-44.9, adult; M47.816 Spondylosis without myelopathy or radiculopathy, lumbar region; M62.830 Muscle spasm of back; M53.3 Sacrococcygeal disorders, not elsewhere classified
CPT/HCPCS: 99214

== ENCOUNTER → 2024-03-19 11:23 | Outpatient (BNVA) | payer OTHER, SELFPAY | PROVIDERS: PCP Internal Medicine; Visit Provider Nurse Practitioner Family | DX: M51.36 Other intervertebral disc degeneration, lumbar region (principal); M47.816 Spondylosis without myelopathy or radiculopathy, lumbar region; M62.830 Muscle spasm of back; M53.3 Sacrococcygeal disorders, not elsewhere classified; E66.01 Morbid (severe) obesity due to excess calories; Z68.41 Body mass index [BMI] 40.0-44.9, adult | CPT/HCPCS: 99212 ==

== ENCOUNTER 2024-04-04 10:10 | Outpatient (AMB) | payer OTHER, SELFPAY ==
[2024-04-04 10:12] VITALS: BP 118/74; PULSE 100; O2SAT 99; BMI 44.2
--- NOTE | 2024-04-04 10:12 | MHC.PC.OV ---
Vital Signs 04/04/24 10:12 Height 5 ft 8.5 in Weight 295 lb BMI 44.2 BP 118/74 Blood Pressure Location Lt brachial Position Sitting Pulse 100 Pulse Source Pulse Oximeter Pulse Oximetry (%) 99 Oxygen Delivery Method Room Air Intake Visit Reasons: shoulder pain, both Intake Note: Pt is here today for a sick visit. Pt c/o bilateral shoulder pain. Allergies ziprasidone [From GEODON] Allergy (Severe, Verified 04/04/24 10:40) HIVES,SWELLING alosetron [From LOTRONEX] Allergy (Intermediate, Verified 04/04/24 10:40) RASH Sulfa (Sulfonamide Antibiotics) [SULFA (SULFONAMIDE ANTIBIOTICS)] Allergy (Intermediate, Verified 04/04/24 10:40) RASH cephalexin [Keflex] Allergy (Unknown, Verified 04/04/24 10:40) rash oxycodone [OXYCODONE] Adverse Reaction (Severe, Verified 04/04/24 10:40) HALLUCINATIONS, hallucination, hallucinations meperidine [Demerol] Adverse Reaction (Unknown, Verified 04/04/24 10:40) nausea and vomiting morphine Adverse Reaction (Unknown, Verified 04/04/24 10:40) nausea and vomiting Medication List - Last Reconciled 04/04/24 by [place] Allison MD albuterol sulfate 90 mcg/actuation (ProAir HFA) 2 puffs PO Q6H PRN blood pressure monitor As directed cariprazine (Vraylar) 6 mg PO DAILY chlorthalidone 12.5 mg PO DAILY cholecalciferol (vitamin D3) (Vitamin D3) 25 mcg PO DAILY dextroamphetamine-amphetamine 10 mg (Adderall) 30 mg PO .q pm dextroamphetamine-amphetamine 30 mg ER (Adderall XR) 1 cap PO DAILY PRN dicyclomine 40 mg (2 x 20 mg) PO QID fluticasone furoate-vilanterol 200-25 mcg/dose (Breo Ellipta) 1 inh inhalation DAILY heating pads As directed hydrocortisone 2.5% 1 appl [place] BID PRN levothyroxine (Synthroid) 75 mcg PO QAM lisinopril 10 mg PO DAILY lorazepam (Ativan) 2 mg PO BID PRN multivitamin (Multiple Vitamins tablet) 1 tab PO DAILY naloxone 4 mg/actuation (Narcan) 4 mg intranasal Q2M PRN pantoprazole 40 mg PO BID [Pill cutter As directed] Shower Chair With backrest tramadol 50 mg PO BID PRN 10 days trazodone 50 mg PO BEDTIME PRN Tobacco use date assessed: 04/04/24 Dental Screening Dental Screen Date: 04/04/24 Did you have a dental visit in the last 12 months?: Yes Did you have a dental problem in the last 6 months where you did not have access to dental care?: No Was dental information given to patient?: Patient has dentist HPI shoulder pain, both HPI Details 53-year-old lady here today complaining of bilateral showed plane , left more than the right. This has been present now on and off for the last several years but seems to be getting worse. He is now unable to shampoo or pressure here as she is unable to lift her arms up above shoulders due to pain and stiffness. Has difficulty hyperextending arms to the back. The has been applying ice packs to affected area which affords only temporary relief. Tylenol does not help much. Unable to take NSAIDs due to her bone Willebrand's disease. [facility] Medical History (Updated 04/04/24 @ 10:48 by [place]ia Allison MD) Bilateral shoulder pain Lumbar radiculopathy, chronic Mixed dyslipidemia Decreased glomerular filtration rate (GFR) Impaired fasting glucose Mild intermittent asthma Morbid obesity Von Willebrand disease History of MRSA infection Bipolar 1 disorder, depressed ADHD Hypothyroid Hypertension GERD (gastroesophageal reflux disease) Atypical ductal hyperplasia of right breast Acquired hypothyroidism Surgical History Hx of colonoscopy History of bilateral carpal tunnel release Hx of cystoscopy Hx of esophagogastroduodenoscopy Vesicovaginal fistula S/P laparoscopic surgery History of total abdominal hysterectomy History of section History of eye surgery History of partial thyroidectomy Family History Father HTN (hypertension) Hyperlipidemia Mother HTN (hypertension) Alzheimers disease Mental health disorder Maternal Aunt Breast cancer Brother Substance use disorder Social History Housing: House Alcohol intake: current Alcohol intake frequency: 0-2 drinks per day Alcohol type: hard liquor Patient Tobacco Use Status: Former Tobacco user Tobacco use type: Cigarette Years Smoked: 20 years e-Cigarette/Vaping Use: Never Used service: No Current occupational status: unemployed Cognitive needs: No Hearing needs: No Vision needs: Yes Questionnaire Thrive Questionnaire Date Thrive assessed: 09/11/23 AUDIT C Alcohol Use Questionnaire (AUDIT-C) 1. How often do you have a drink containing alcohol?: 4 or more times a week 2. How many drinks containing alcohol do you have on a typical day when you are drinking?: 3 or 4 3. How often do you have six or more drinks on one occasion?: Never Total Score: 5 MINGO-7 AMB Questionnaire MINGO-7 Date MINGO - 7 assessed: 09/11/23 Source: Developed by Drs. Henri Oliver, Yanelis Liu, Everton Cevallos and colleagues, with an educational oscar from [employer]. Review of Systems Const Reports no additional complaints Card Denies chest pain, Denies irregular heart rhythm, Denies lightheadedness and Denies dyspnea Resp Denies chest congestion, Denies cough and Denies dyspnea GI Reports no additional complaints Neuro Reports no additional complaints Physical exam (Primary Care) Vital Signs: Last Vital Signs Pulse 100 04/04/24 10:12 BP 118/74 04/04/24 10:12 Pulse Ox 99 04/04/24 10:12 Oxygen Delivery Method Room Air 04/04/24 10:12 BMI result Body Mass Index 44.2 Tobacco/Smoking Status: Tobacco use Status Tobacco use date assessed 04/04/24 04/04/24 10:17 Patient Tobacco Use Status Former Tobacco user 04/04/24 10:17 Tobacco use type Cigarette 04/04/24 10:17 e-Cigarette/Vaping Use Never Used 04/04/24 10:17 Thrive Assessment: Date of Thrive Assessment Date Thrive assessed 09/11/23 04/04/24 10:17 Const General: comfortable, no acute distress and alert Nutritional Appearance: obese Orientation/consciousness: patient oriented x3 HENMT Head: Yes normocephalic Ears: external ears normal, TM's normal bilaterally and EAC's normal General nose exam: Normal external nose present Face and sinus: Yes face symmetric Mouth: Normal oral and palatal mucosa present, oropharynx normal and moist mucous membranes Eyes General: appearance normal, both eyes and all related structures Neck Other: Supple with no lymphadenopathy, full range of motion, thyroid gland nonpalpable Resp Auscultation: clear to auscultation bilaterally Cardio Rate: regular rate Rhythm: regular rhythm Heart sounds: S1 normal heart sound present and S2 normal heart sound present Back/Spine/Pelvis Other: Tenderness on palpation over left trapezius Skin General skin exam: no rashes or lesions noted Neuro General: patient oriented x3 Extrem Other: Unable to abduct both arms more than 90 degrees , +impingement sign on the left General: Yes no joint enlargement, Yes no clubbing, cyanosis or edema and Yes no pedal edema Assessment and Plan Assessment & Plan (1) Bilateral shoulder pain: Code(s): M25.511 - Pain in right shoulder; M25.512 - Pain in left shoulder Plan: Ordered x-rays of both shoulder joints, and continue applying ice packs to affected area, may take Tylenol arthritis 650 mg per tablet together with 25 mg of tramadol which she already has at home. Referred to physical therapy for further treatment Orders: Orders PT Evaluation and Treatment 04/04/24 M25.511 - Pain in right shoulder, M25.512 - Pain in left shoulder XR shoulder RT min 2V 04/04/24 M25.511 - Pain in right shoulder, M25.512 - Pain in left shoulder XR shoulder LT min 2V 04/04/24 M25.511 - Pain in right shoulder, M25.512 - Pain in left shoulder Coding Level of Care Code Est Pt Level 4 (87675) Diagnoses Bilateral shoulder pain M25.511; M25.512
== END 2024-04-04 12:32 | disposition home or self-care (01) ==
PROVIDERS: PCP Internal Medicine; Visit Provider Internal Medicine
DX: M25.511 Pain in right shoulder (principal); M25.512 Pain in left shoulder
CPT/HCPCS: 99214

== ENCOUNTER 2024-04-04 10:52 | Outpatient (REF) | payer OTHER, SELFPAY ==
--- NOTE | ~2024-04-04 | XR_ITS ---
EXAMINATION: XR SHOULDER, LEFT CLINICAL INFORMATION: Pain in left shoulder COMPARISON: None available. TECHNIQUE: AP external rotation, Grashey, scapular Y, and axillary views of the left shoulder. FINDINGS: The bones and soft tissues are normal. No fracture. Glenohumeral and acromioclavicular alignment is anatomic with normal glenohumeral joint space. Mild degenerative change of the acromioclavicular joint. No abnormal soft tissue calcifications. XR/XR shoulder LT min 2V IMPRESSION: Mild degenerative change of the acromioclavicular joint.
--- NOTE | ~2024-04-04 | XR_ITS ---
EXAMINATION: XR SHOULDER, RIGHT CLINICAL INFORMATION: Pain in right shoulder COMPARISON: None available. TECHNIQUE: AP external rotation, Grashey, scapular Y, and axillary views of the right shoulder. FINDINGS: The bones and soft tissues are normal. No fracture. Glenohumeral and acromioclavicular alignment is anatomic with normal joint space. No abnormal soft tissue calcifications. XR/XR shoulder RT min 2V IMPRESSION: No bony abnormality.
== END 2024-04-04 10:53 | disposition home or self-care (01) ==
LOC: HO.HMGCX 10:52
PROVIDERS: PCP Internal Medicine; Visit Provider Internal Medicine
DX: M25.511 Pain in right shoulder (principal); M25.512 Pain in left shoulder
CPT/HCPCS: 73030

== ENCOUNTER 2024-04-30 06:10 | Outpatient (REF) | payer OTHER, SELFPAY ==
--- NOTE | ~2024-04-30 | FL_ITS ---
EXAMINATION: XR FLUOROSCOPY WITH IMAGES CLINICAL INFORMATION: Sacrococcygeal disorders. COMPARISON: None available. TECHNIQUE: Fluoroscopy Supervised By: Dr. Janes Choe. Fluoroscopy Time: 0.3 minutes. Cumulative Dose: 21.5 mGy. DAP: 0.373 Gycm2. Images: 2. FINDINGS: Intraoperative fluoroscopy and spot films were performed during a procedure in the OR. Spinal needles are seen on each side just medial to the SI joints with contrast present around the needle tips. Please correlate with Dr. Choe's report for complete details. FL/FL guidance in treatment room IMPRESSION: Intraoperative fluoroscopy and spot films were obtained. Please see Dr. Choe's report for complete details.
== END 2024-04-30 06:11 | disposition home or self-care (01) ==
LOC: CF 06:10
PROVIDERS: Visit Provider Anesthesiology
DX: M53.3 Sacrococcygeal disorders, not elsewhere classified (principal); M51.36 Other intervertebral disc degeneration, lumbar region; M47.816 Spondylosis without myelopathy or radiculopathy, lumbar region; M62.830 Muscle spasm of back; E66.01 Morbid (severe) obesity due to excess calories
CPT/HCPCS: 27096; J2795; Q9967

== ENCOUNTER 2024-04-30 09:00 | Outpatient (AMB) | payer OTHER, SELFPAY ==
[2024-04-30 09:15] VITALS: BP 144/76; PULSE 106; RESP 16; O2SAT 96; BMI 44.2
--- NOTE | 2024-04-30 09:15 | A.OFFVIS_ITS ---
Vital Signs 04/30/24 09:15 04/30/24 10:11 Height 5 ft 8.5 in 5 ft 8.5 in Weight 295 lb 295 lb BMI 44.2 44.2 BP 144/76 H 125/73 Blood Pressure Location Lt brachial Lt brachial Position Sitting Sitting Respiration 16 16 Pulse 106 H 98 Pulse Source Pulse Oximeter Pulse Oximeter Pulse Oximetry (%) 96 98 Oxygen Delivery Method Room Air Room Air Comment pre-op post-op Intake Visit Reasons: Diagnostic Bilateral SIJ Injections/Ativan Allergies ziprasidone [From GEODON] Allergy (Severe, Verified 04/30/24 10:18) HIVES,SWELLING alosetron [From LOTRONEX] Allergy (Intermediate, Verified 04/30/24 10:18) RASH Sulfa (Sulfonamide Antibiotics) [SULFA (SULFONAMIDE ANTIBIOTICS)] Allergy (Intermediate, Verified 04/30/24 10:18) RASH cephalexin [Keflex] Allergy (Unknown, Verified 04/30/24 10:18) rash oxycodone [OXYCODONE] Adverse Reaction (Severe, Verified 04/30/24 10:18) HALLUCINATIONS, hallucination, hallucinations meperidine [Demerol] Adverse Reaction (Unknown, Verified 04/30/24 10:18) nausea and vomiting morphine Adverse Reaction (Unknown, Verified 04/30/24 10:18) nausea and vomiting FOR[facility]LY [facility] Medical History (Updated 04/04/24 @ 10:48 by Albania Allison MD) Bilateral shoulder pain Lumbar radiculopathy, chronic Mixed dyslipidemia Decreased glomerular filtration rate (GFR) Impaired fasting glucose Mild intermittent asthma Morbid obesity Von Willebrand disease History of MRSA infection Bipolar 1 disorder, depressed ADHD Hypothyroid Hypertension GERD (gastroesophageal reflux disease) Atypical ductal hyperplasia of right breast Acquired hypothyroidism Surgical History Hx of colonoscopy History of bilateral carpal tunnel release Hx of cystoscopy Hx of esophagogastroduodenoscopy Vesicovaginal fistula S/P laparoscopic surgery History of total abdominal hysterectomy History of section History of eye surgery History of partial thyroidectomy Family History Father HTN (hypertension) Hyperlipidemia Mother HTN (hypertension) Alzheimers disease Mental health disorder Maternal Aunt Breast cancer Brother Substance use disorder Social History Housing: House Alcohol intake: current Alcohol intake frequency: 0-2 drinks per day Alcohol type: hard liquor Patient Tobacco Use Status: Former Tobacco user Tobacco use type: Cigarette Years Smoked: 20 years e-Cigarette/Vaping Use: Never Used service: No Current occupational status: unemployed Cognitive needs: No Hearing needs: No Vision needs: Yes Physical Exam Vital Signs: Last Vital Signs Pulse 98 04/30/24 10:11 Resp 16 04/30/24 10:11 BP 125/73 04/30/24 10:11 Pulse Ox 98 04/30/24 10:11 Oxygen Delivery Method Room Air 04/30/24 10:11 BMI result Body Mass Index 44.2 Assessment & Plan Assessment & Plan (1) Lumbar degenerative disc disease: Code(s): M51.36 - Other intervertebral disc degeneration, lumbar region Category: Medical Plan: Bilateral diagnostic sacroiliac joint injection Informed consent was explained thoroughly to the patient. All questions about benefits and risks for the procedure were answered. Patient came to the operating room and was positioned prone on the operating table with the pillow under the pelvis. Time out was performed delineating name and of the patient, allergies and the nature of the procedure. The lower back and buttocks of the patient were prepped with ChloraPrep prepped and draped with sterile utility towels. C-arm was brought over the operating field and sq picture of patient's pelvis was demonstrated on the screen. For the right joint tilting C-arm contralateral to the site of the joint the most posterior portion of the joints was superimposed with anterior silhouette of the joint. Skin was injected in the projection of the joint slightly medial to the location of the joint with 25 gauge 1/2 inch needle using local lidocaine 2% .After that 22 gauge 3 and 1/2 inch needle was driven to the right joint in tunnel vision fashion. When needle entered the joint capsule injection of the contrast was performed demonstrating intra-articular and minimally periarticular spread of the contrast. After that 4 cc. of ropivacaine 0.5% was injected into the joint. Upon completion of the injections the needle was removed, and the procedure was repeated on the left side in mirroring fashion. Sterile dressing was applied. Upon completion of the injection patient was taken outside of the operating room to the recovery room where recovered uneventfully. (2) Morbid obesity with body mass index (BMI) of 40.0 to 44.9 in adult: Code(s): E66.01 - Morbid (severe) obesity due to excess calories; Z68.41 - Body mass index [BMI] 40.0-44.9, adult Category: Medical (3) Lumbar degenerative disc disease: Code(s): M51.36 - Other intervertebral disc degeneration, lumbar region Category: Medical (4) Lumbar spondylosis: Code(s): M47.816 - Spondylosis without myelopathy or radiculopathy, lumbar region Category: Medical (5) Muscle spasm of back: Code(s): M62.830 - Muscle spasm of back Category: Medical (6) Sacroiliac joint pain: Code(s): M53.3 - Sacrococcygeal disorders, not elsewhere classified Category: Medical Plan Schedule Diagnostic Bilateral Sacroiliac Joint Injections with local and fluoros copy, oral Ativan prior to procedure. Expectations, risks and benefits were reviewed. Patient is aware she will be contacted to schedule this procedure. Patient reports overall 50% ongoing pain relief for axial low back pain s/p Sprint PNS lead removal in November. Weight Management Referral to assist patient with weight loss goals to decrease pain, improve functioning and sleep. Short script for tramadol provided today for [id number] pain while patient awaits for injections. Side effects and precautions discussed with patient. Narcan provided. All questions were answered and patient agreed with the treatment plan. Follow- up after injections and sooner as needed. Anticoagulation: Patient not on anticoagulant Justification for interventional therapy: ? Patient with average pain > 6/10 ? Patient has exhausted conservative therapy, NSAIDs, physical therapy ? Patient is continuing home exercise program The risks, consequences, alternatives, and benefits of various treatment options were discussed with the patient in great detail, including conservative management, injections and procedures. Orders: Orders FL guidance in treatment room Today M53.3 - Sacrococcygeal disorders, not elsewhere classified Medications: New lorazepam (Ativan) Take 30 minutes prior to arrival to procedure 1 mg PO ONCE 1 tab 0RF anxiety Coding Level of Care Code Procedure Only Diagnoses Lumbar degenerative disc disease M51.36 Morbid obesity with body mass index (BMI) of 40.0 to 44.9 in adult E66.01; Z68.41 Lumbar spondylosis M47.816 Muscle spasm of back M62.830 Sacroiliac joint pain M53.3
[2024-04-30 10:11] VITALS: BP 125/73; PULSE 98; RESP 16; O2SAT 98; BMI 44.2
== END 2024-04-30 09:50 | disposition home or self-care (01) ==
LOC: HO.PMCPRC 09:00
PROVIDERS: PCP Internal Medicine; Visit Provider Anesthesiology
DX: M53.3 Sacrococcygeal disorders, not elsewhere classified (principal)
CPT/HCPCS: 27096

== ENCOUNTER 2024-05-07 08:51 | Outpatient (AMB) | payer OTHER, SELFPAY ==
[2024-05-07 08:59] VITALS: BP 129/72; PULSE 113; BMI 42.7
--- NOTE | 2024-05-07 08:59 | MHC.OFFVIS ---
Vital Signs 05/07/24 08:59 Height 5 ft 8.5 in Weight 285 lb BMI 42.7 BP 129/72 Blood Pressure Location Lt brachial Position Sitting Pulse 113 H Intake Visit Reasons: 6 month follow up Intake Note: Patient folllow up for GERD and IBS Patient cc: abdominal pain on and off, GERD, diarrhea with some blood. Denies any other GI issues for today. Automatic Oven Operator Required: No Accompanied by: Self / Same As Patient Allergies ziprasidone [From GEODON] Allergy (Severe, Verified 05/07/24 08:58) HIVES,SWELLING alosetron [From LOTRONEX] Allergy (Intermediate, Verified 05/07/24 08:58) RASH Sulfa (Sulfonamide Antibiotics) [SULFA (SULFONAMIDE ANTIBIOTICS)] Allergy (Intermediate, Verified 05/07/24 08:58) RASH cephalexin [Keflex] Allergy (Unknown, Verified 05/07/24 08:58) rash oxycodone [OXYCODONE] Adverse Reaction (Severe, Verified 05/07/24 08:58) HALLUCINATIONS, hallucination, hallucinations meperidine [Demerol] Adverse Reaction (Unknown, Verified 05/07/24 08:58) nausea and vomiting morphine Adverse Reaction (Unknown, Verified 05/07/24 08:58) nausea and vomiting HPI HPI 6 month follow up: Details: Assessment & Plan (1) GERD (gastroesophageal reflux disease): Code(s): K21.9 - Gastro-esophageal reflux disease without esophagitis (2) Irritable bowel syndrome with diarrhea: Code(s): K58.0 - Irritable bowel syndrome with diarrhea Plan Her son moved to the [facility], and they are not seeing each other much so this was a dissappointment in her Xmas. She just had a spinal stim installed in her back. With this she has to avoid CIC, but she has suppositories at home. She is trying to cut down on sweets for weight loss, but when she cut them out completely she developed a PARSON. I am addicted to sweets! Her brother has the same problem. She is satisfied with her current GI regimen of imipramine, dicyclomine and pantoprazole Return office visit in 6 months Medications: Refilled dicyclomine 40 mg (2 x 20 mg) PO QID 720 tabs 1RF K21.9 - Gastro-esophageal reflux disease without esophagitis, K58.0 - Irritable bowel syndrome with diarrhea, Z12.11 - Encounter for screening for malignant neoplasm of colon pantoprazole 40 mg PO BID 180 tabs 3RF TODAY'S VISIT She is doing fairly well but is having some breakthrough GERD especially with bending and sometimes not with bending. She is taking her pantoprazole twice a day. She thinks this may be due to her weight. She continues to struggle with weight loss especially since her spinal stimulator is still a work in progress. It is causing her some sharp pains that she did not have prior to the instillation so she is going to check with the provider to see what can be done. She is also seeing red blood on the toilet tissue not with every bowel movement but frequently. A sometimes it is in the toilet. She does have a history of hemorrhoids that she treats successfully with tucks pads. However, I think this might be further up given her last colonoscopy in 2020 showed internal hemorrhoids. We discussed using [id number] preparation H suppository since there knee in easy and will probably give her better resolution. She still has access to dicyclomine if needed for bowel cramping. Return office visit in 6 weeks to see how she is doing. [facility]LY [facility] Medical History (Updated 04/04/24 @ 10:48 by Albania Allison MD) Bilateral shoulder pain Lumbar radiculopathy, chronic Mixed dyslipidemia Decreased glomerular filtration rate (GFR) Impaired fasting glucose Mild intermittent asthma Morbid obesity Von Willebrand disease History of MRSA infection Bipolar 1 disorder, depressed ADHD Hypothyroid Hypertension GERD (gastroesophageal reflux disease) Atypical ductal hyperplasia of right breast Acquired hypothyroidism Surgical History Hx of colonoscopy History of bilateral carpal tunnel release Hx of cystoscopy Hx of esophagogastroduodenoscopy Vesicovaginal fistula S/P laparoscopic surgery History of total abdominal hysterectomy History of section History of eye surgery History of partial thyroidectomy Family History Father HTN (hypertension) Hyperlipidemia Mother HTN (hypertension) Alzheimers disease Mental health disorder Maternal Aunt Breast cancer Brother Substance use disorder Social History Housing: House Alcohol intake: current Alcohol intake frequency: 0-2 drinks per day Alcohol type: hard liquor Patient Tobacco Use Status: Former Tobacco user Tobacco use type: Cigarette Years Smoked: 20 years e-Cigarette/Vaping Use: Never Used service: No Current occupational status: unemployed Cognitive needs: No Hearing needs: No Vision needs: Yes Review of Systems Const Denies fatigue, Denies fever(s), Denies night sweats, Denies poor appetite and Denies weight loss Eyes Details: glasses Reports requires corrective lenses ENT Reports Normal hearing present, Denies dental pain, Denies dysphagia, Denies hearing loss, Denies mouth pain, Denies odynophagia, Denies throat swelling, Denies tongue swelling and Reports other (Dentition adequate) Card Reports no additional complaints Resp Reports no additional complaints GI Details: Denies abdominal pain, Denies melena, Denies bloating, Reports hematochezia, Denies constipation, Reports GI cramping, Denies dysphagia, Denies excessive flatus, Denies early satiety, Reports heartburn, Reports diarrhea, Denies nausea, Denies odynophagia, Denies vomiting and Denies hematemesis Musc Reports back pain and Reports radiating pain into limb Skin/Breast Denies pruritus, Denies lesions, Denies rash and Denies jaundice Neuro Reports Normal hearing present and Denies Abnormal speech present Endo Denies fatigue Aller/Immun Denies throat swelling and Denies tongue swelling Physical Exam Vital Signs: Last Vital Signs Pulse 113 H 05/07/24 08:59 BP 129/72 05/07/24 08:59 BMI result Body Mass Index 42.7 Const General: cooperative, no acute distress, well developed and well groomed Nutritional Appearance: well nourished and obese Orientation/consciousness: oriented to person, oriented to place and oriented to time Limitations: No language barrier HEENT Head: Yes normocephalic and Yes atraumatic Eyes General: appearance normal, both eyes and all related structures Pupils: Equal, round and reactive pupils present Neck Neck: Yes normal visual inspection and Yes no lymphadenopathy Thyroid: Thyroid normal Resp Effort & Inspection: normal respiratory effort and able to speak in complete sentences Auscultation: clear to auscultation bilaterally Cardio Rate: regular rate Rhythm: regular rhythm Heart sounds: Normal, physiologic split S2 sound present Peripheral pulses: radial pulses present and posterior tibial pulses present GI Inspection: No distended, Yes Abdominal panniculus present and Yes obesity Palpation (GI): Soft to palpation, nontender, no guarding, not rigid and No hepatosplenomegaly present Percussion: Yes normal to percussion Auscultation: normal bowel sounds Rectal Exam - Female: deferred Skin General skin exam: no rashes or lesions noted, turgor normal, skin not dry, no jaundice, No spider nevi and no striae Rashes: no rashes Nails: normal Neuro General: oriented to person, oriented to place and oriented to time Cranial nerves: Yes Equal, round and reactive pupils present and Yes Normal hearing present Speech: No Abnormal speech present Extrem General: Yes normal to inspection, No clubbing, No cyanosis and No edema Psych Appearance: grossly normal and well kempt Mental Status: mental status grossly normal Speech and movement: Normal speech and movement present Affect: normal affect Attitude: cooperative Thought process: Normal thought process present and not confabulating Thought content: Normal thought content present Insight: Fair insight present (Psych) Judgement: Fair judgement present (Psych) Assessment & Plan Assessment & Plan (1) GERD (gastroesophageal reflux disease): Code(s): K21.9 - Gastro-esophageal reflux disease without esophagitis Category: Medical (2) Irritable bowel syndrome with diarrhea: Code(s): K58.0 - Irritable bowel syndrome with diarrhea Category: Medical Plan She is doing fairly well but is having some breakthrough GERD especially with bending and sometimes not with bending. She is taking her pantoprazole twice a day. She thinks this may be due to her weight. She continues to struggle with weight loss especially since her spinal stimulator is still a work in progress. It is causing her some sharp pains that she did not have prior to the instillation so she is going to check with the provider to see what can be done. She is also seeing red blood on the toilet tissue not with every bowel movement but frequently. A sometimes it is in the toilet. She does have a history of hemorrhoids that she treats successfully with tucks pads. However, I think this might be further up given her last colonoscopy in 2020 showed internal hemorrhoids. We discussed using [id number] preparation H suppository since there knee in easy and will probably give her better resolution. She still has access to dicyclomine if needed for bowel cramping. Return office visit in 6 weeks to see how she is doing. Medications: Refilled dicyclomine 40 mg (2 x 20 mg) PO QID 720 tabs 1RF K21.9 - Gastro-esophageal reflux disease without esophagitis, K58.0 - Irritable bowel syndrome with diarrhea, Z12.11 - Encounter for screening for malignant neoplasm of colon pantoprazole 40 mg PO BID 180 tabs 3RF Coding Level of Care Code Est Pt Level 3 (94437) Diagnoses GERD (gastroesophageal reflux disease) K21.9 Irritable bowel syndrome with diarrhea K58.0
== END 2024-05-07 09:21 | disposition home or self-care (01) ==
PROVIDERS: PCP Internal Medicine; Visit Provider Nurse Practitioner
DX: K21.9 Gastro-esophageal reflux disease without esophagitis (principal); K58.0 Irritable bowel syndrome with diarrhea
CPT/HCPCS: 99213

== ENCOUNTER → 2024-05-07 08:51 | Outpatient (BNVA) | payer OTHER, SELFPAY | PROVIDERS: PCP Internal Medicine; Visit Provider Nurse Practitioner | DX: K58.0 Irritable bowel syndrome with diarrhea (principal); K21.9 Gastro-esophageal reflux disease without esophagitis | CPT/HCPCS: 99212 ==

== ENCOUNTER 2024-05-13 09:17 | Outpatient (AMB) | payer OTHER, SELFPAY ==
--- NOTE | 2024-05-13 09:20 | MHC.OFFVIS ---
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 Accompanied by: Self / Same As Patient Allergies ziprasidone [From GEODON] Allergy (Severe, Verified 05/13/24 09:25) HIVES,SWELLING alosetron [From LOTRONEX] Allergy (Intermediate, Verified 05/13/24 09:25) RASH Sulfa (Sulfonamide Antibiotics) [SULFA (SULFONAMIDE ANTIBIOTICS)] Allergy (Intermediate, Verified 05/13/24 09:25) RASH cephalexin [Keflex] Allergy (Unknown, Verified 05/13/24 09:25) rash oxycodone [OXYCODONE] Adverse Reaction (Severe, Verified 05/13/24 09:25) HALLUCINATIONS, hallucination, hallucinations meperidine [Demerol] Adverse Reaction (Unknown, Verified 05/13/24 09:25) nausea and vomiting morphine Adverse Reaction (Unknown, Verified 05/13/24 09:25) nausea and vomiting HPI Comments Details: Patient presents today to assess response to Diagnostic Bilateral SIJ Injections on 04/30/[address] Choe. Patient reports 70-80% pain relief for 24 hours status post procedure with improved functioning, mobility and sleep. She reports ongoing muscle tenderness in the right mid to lower back paraspinals with radiation into her right buttock and lateral hip. Patient has mild hip OA per last year's imaging studies. She is trying to stay active and loose weight for longer-term pain relief of low back pain and joint pain. Patient has pending Weight Management referral and has been on a waiting list. She now requests referral to [facility] for Weight Management. Denies any recent cough, cold, infection, fever, abdominal or groin pain, bladder or bowel dysfunction, saddle anesthesia, or any significant changes in her medical history, medications or recent hospitalizations. Past Procedures: 04/30/24: Diagnostic Bilateral SIJ [id number]% pain relief for 24 hours 12/18/23: Left L4 MB Sprint removal-100% pain relief 10/19/23: Left L4 medial branch Sprint-100% pain relief 75 stimulation 10/05/23: Right L4 medial branch Sprint-90% pain relief at 57 stimulation, removed 12/04/23 06/09/23: Therapeutic Bilateral L3-L4 DR L5 MBBs-80% ongoing pain relief 04/27/23: Diagnostic Bilateral L3-L4-DR L5 MBBs-80% pain relief for 12 hours 03/17/23: Right diagnostic sacroiliac joint injection-10% for 3-4 hours PFS Medical History Bilateral shoulder pain Lumbar radiculopathy, chronic Mixed dyslipidemia Decreased glomerular filtration rate (GFR) Impaired fasting glucose Mild intermittent asthma Morbid obesity Von Willebrand disease History of MRSA infection Bipolar 1 disorder, depressed ADHD Hypothyroid Hypertension GERD (gastroesophageal reflux disease) Atypical ductal hyperplasia of right breast Acquired hypothyroidism Surgical History Hx of colonoscopy History of bilateral carpal tunnel release Hx of cystoscopy Hx of esophagogastroduodenoscopy Vesicovaginal fistula S/P laparoscopic surgery History of total abdominal hysterectomy History of section History of eye surgery History of partial thyroidectomy Family History Father HTN (hypertension) Hyperlipidemia Mother HTN (hypertension) Alzheimers disease Mental health disorder Maternal Aunt Breast cancer Brother Substance use disorder Social History Housing: House Alcohol intake: current Alcohol intake frequency: 0-2 drinks per day Alcohol type: hard liquor Patient Tobacco Use Status: Former Tobacco user Tobacco use type: Cigarette Years Smoked: 20 years e-Cigarette/Vaping Use: Never Used service: No Current occupational status: unemployed Cognitive needs: No Hearing needs: No Vision needs: Yes Review of Systems Const All systems reviewed & are unremarkable except as noted in HPI and below Physical Exam Vital Signs: Last Vital Signs Pulse 80 05/13/24 09:24 BP 163/87 H 05/13/24 09:24 Pulse Ox 98 05/13/24 09:24 Oxygen Delivery Method Room Air 05/13/24 09:24 BMI result Body Mass Index 44.6 On exam today: Appears afebrile. Alert and oriented. Mood and affect appropriate. Follows and participates in conversation appropriately. Respiratory effort is unlabored. No cough. Able to transition from sit to stand unassisted. Ambulates with bilaterally normal heel strike and toe off. Able to stand and walk on toes and heels. General: Yes no CVA tenderness Back/Spine/Pelvis Back: no CVA tenderness Cervical Spine: cervical ROM normal, cervical muscular tenderness and No Cervical spine tenderness Thoracic/Lumbar Spine: thoracic and lumbar spine normal to inspection, No Thoracic/lumbar spine scar(s), Lasegue's sign negative, straight leg raise negative bilaterally, pain with thoraco-lumbar ROM, paraspinal muscle tenderness on the right greater than left, No thoracic spinal tenderness and lumbar spinal tenderness (L5-S1) Pelvis: buttock tenderness (upper buttocks, right>left) bilaterally Sacroiliac joints: bilaterally (+Lev's, Gaenslen, Stinchfield, Pelvic compression) tender to palpation Results Reviewed Results Reviewed: MR LUMBAR SPINE WITHOUT CONTRAST 09/29/22 CLINICAL INFORMATION: Radiculopathy, lumbar region. COMPARISON: Lumbar spine MRI 03/12/2010. FINDINGS: The lumbar vertebral bodies maintain normal heights and alignment. The disc heights are preserved. No bone marrow edema is seen. The distal spinal cord appears normal. The conus medullaris terminates normally at the L1 level. The extraspinal soft tissues are unremarkable. SPINAL LEVELS: L1-L2: No posterior disc abnormality. No spinal canal or neural foraminal stenosis. L2-L3: No posterior disc abnormality. No spinal canal or neural foraminal stenosis. L3-L4: No posterior disc abnormality. Mild facet arthropathy. No spinal canal or neural foraminal stenosis. L4-L5: Mild disc bulging with moderate facet arthropathy ligamentum flavum infolding. No spinal canal stenosis. Mild encroachment on the right neural foramen. L5-S1: No posterior disc abnormality. Moderate left facet arthropathy. No spinal canal or neural foraminal stenosis. IMPRESSION: No significant narrowing of the spinal canal or neural foramina. No definite nerve root compression is seen. XR LUMBAR SPINE XR SI JOINT 02/21/23 FINDINGS: Lumbar spine: There is normal lumbar lordosis. The vertebral heights, alignment and disc heights are normal. There is mild ventral spondylosis. No visible acute fracture, dislocation or subluxation. There is minimal ventral spondylosis. No lytic or sclerotic process seen. The paravertebral soft tissues are normal. SI joints: There is normal symmetry of bilateral SI joints without any bony erosive changes, sclerosis or lytic process. The pubic symphysis is normal. There are phleboliths throughout the lower pelvis. IMPRESSION: 1. Mild ventral spondylosis lumbar spine. No visible acute fracture, dislocation or lytic process seen. 2. Unremarkable SI joints. XR BILATERAL HIPS WITH AP PELVIS 08/21/23 CLINICAL INFORMATION: Sacrococcygeal disorders COMPARISON: CT abdomen pelvis 03/18/2016 FINDINGS: No fracture. Some minor degenerative changes are seen with some supra-acetabular lateral sclerosis, unchanged from prior. Hip joint spaces are maintained. Alignment is anatomic. Sacroiliac joints and pubic symphysis are normal. No abnormal soft tissue calcifications. Phleboliths are noted in the pelvis. IMPRESSION: Minimal degenerative changes in the hips. No acute finding. Assessment & Plan Assessment & Plan (1) Morbid obesity with body mass index (BMI) of 40.0 to 44.9 in adult: Code(s): E66.01 - Morbid (severe) obesity due to excess calories; Z68.41 - Body mass index [BMI] 40.0-44.9, adult Category: Medical (2) Lumbar degenerative disc disease: Code(s): M51.36 - Other intervertebral disc degeneration, lumbar region Category: Medical (3) Lumbar degenerative disc disease: Code(s): M51.36 - Other intervertebral disc degeneration, lumbar region Category: Medical (4) Lumbar spondylosis: Code(s): M47.816 - Spondylosis without myelopathy or radiculopathy, lumbar region Category: Medical (5) Muscle spasm of back: Code(s): M62.830 - Muscle spasm of back Category: Medical (6) Sacroiliac joint pain: Code(s): M53.3 - Sacrococcygeal disorders, not elsewhere classified Category: Medical Plan Schedule Therapeutic Bilateral Sacroiliac Joint Injections with local and fluoroscopy, oral Ativan prior to procedure. Expectations, risks and benefits were reviewed. Patient is aware she will be contacted to schedule this procedure. We also discussed neuromodulation with Curonix PNS system, SI joint stabilization with fusion, and RFA procedures. Weight Management pending referral to assist patient with weight loss goals to decrease pain, improve functioning and sleep. Patient requests referral to be resubmitted to [facility]. All questions were answered and patient agreed with the treatment plan. Follow-up after injections and sooner as needed. Anticoagulation: Patient not on anticoagulant Justification for interventional therapy: ? Patient with average pain > 6/10 ? Patient has exhausted conservative therapy, NSAIDs, physical therapy ? Patient is continuing home exercise program The risks, consequences, alternatives, and benefits of various treatment options were discussed with the patient in great detail, including conservative management, injections and procedures. Orders: Referrals Medical Weight Management Referral E66.01 - Morbid (severe) obesity due to excess calories, Z68.41 - Body mass index [BMI] 40.0-44.9, adult Coding Level of Care Code Est Pt Level 4 (17668) Diagnoses Morbid obesity with body mass index (BMI) of 40.0 to 44.9 in adult E66.01; Z68.41 Lumbar degenerative disc disease M51.36 Lumbar spondylosis M47.816 Muscle spasm of back M62.830 Sacroiliac joint pain M53.3
[2024-05-13 09:24] VITALS: BP 163/87; PULSE 80; O2SAT 98; BMI 44.6
== END 2024-05-13 09:45 | disposition home or self-care (01) ==
PROVIDERS: PCP Internal Medicine; Visit Provider Nurse Practitioner Family
DX: E66.01 Morbid (severe) obesity due to excess calories (principal); Z68.41 Body mass index [BMI] 40.0-44.9, adult; M51.36 Other intervertebral disc degeneration, lumbar region; M47.816 Spondylosis without myelopathy or radiculopathy, lumbar region; M62.830 Muscle spasm of back; M53.3 Sacrococcygeal disorders, not elsewhere classified
CPT/HCPCS: 99214

== ENCOUNTER → 2024-05-13 09:17 | Outpatient (BNVA) | payer OTHER, SELFPAY | PROVIDERS: PCP Internal Medicine; Visit Provider Nurse Practitioner Family | DX: M51.36 Other intervertebral disc degeneration, lumbar region (principal); M47.816 Spondylosis without myelopathy or radiculopathy, lumbar region; M62.830 Muscle spasm of back; M53.3 Sacrococcygeal disorders, not elsewhere classified; E66.01 Morbid (severe) obesity due to excess calories; Z68.41 Body mass index [BMI] 40.0-44.9, adult | CPT/HCPCS: 99212 ==

== ENCOUNTER 2024-07-09 07:11 | Outpatient (REF) | payer OTHER, SELFPAY | END 2024-07-09 07:12 | disposition home or self-care (01) | LOC: CF 07:11 | PROVIDERS: Visit Provider Anesthesiology | DX: M53.3 Sacrococcygeal disorders, not elsewhere classified (principal); M51.36 Other intervertebral disc degeneration, lumbar region; M47.816 Spondylosis without myelopathy or radiculopathy, lumbar region; M62.830 Muscle spasm of back; E66.01 Morbid (severe) obesity due to excess calories; Z68.41 Body mass index [BMI] 40.0-44.9, adult | CPT/HCPCS: 27096; J2795; J3301; Q9967 ==

== ENCOUNTER 2024-07-09 10:28 | Outpatient (AMB) | payer OTHER, SELFPAY ==
[2024-07-09 10:55] VITALS: BP 139/83; PULSE 77; RESP 16; O2SAT 98
--- NOTE | 2024-07-09 10:55 | A.OFFVIS_ITS ---
Vital Signs 07/09/24 10:55 07/09/24 11:39 BP 139/83 132/84 Blood Pressure Location Lt brachial Lt brachial Position Sitting Sitting Respiration 16 17 Pulse 77 83 Pulse Source Pulse Oximeter Pulse Oximeter Pulse Oximetry (%) 98 98 Oxygen Delivery Method Room Air Room Air Comment pre-op post-op Intake Visit Reasons: BILATERAL THERAPEUTIC SIJ INJECTIONS/ATIVAN REQ Allergies ziprasidone [From GEODON] Allergy (Severe, Verified 07/09/24 10:56) HIVES,SWELLING alosetron [From LOTRONEX] Allergy (Intermediate, Verified 07/09/24 10:56) RASH Sulfa (Sulfonamide Antibiotics) [SULFA (SULFONAMIDE ANTIBIOTICS)] Allergy (Intermediate, Verified 07/09/24 10:56) RASH cephalexin [Keflex] Allergy (Unknown, Verified 07/09/24 10:56) rash oxycodone [OXYCODONE] Adverse Reaction (Severe, Verified 07/09/24 10:56) HALLUCINATIONS, hallucination, hallucinations meperidine [Demerol] Adverse Reaction (Unknown, Verified 07/09/24 10:56) nausea and vomiting morphine Adverse Reaction (Unknown, Verified 07/09/24 10:56) nausea and vomiting PFSH Medical History Bilateral shoulder pain Lumbar radiculopathy, chronic Mixed dyslipidemia Decreased glomerular filtration rate (GFR) Impaired fasting glucose Mild intermittent asthma Morbid obesity Von Willebrand disease History of MRSA infection Bipolar 1 disorder, depressed ADHD Hypothyroid Hypertension GERD (gastroesophageal reflux disease) Atypical ductal hyperplasia of right breast Acquired hypothyroidism Surgical History Hx of colonoscopy History of bilateral carpal tunnel release Hx of cystoscopy Hx of esophagogastroduodenoscopy Vesicovaginal fistula S/P laparoscopic surgery History of total abdominal hysterectomy History of section History of eye surgery History of partial thyroidectomy Family History Father HTN (hypertension) Hyperlipidemia Mother HTN (hypertension) Alzheimers disease Mental health disorder Maternal Aunt Breast cancer Brother Substance use disorder Social History Housing: House Alcohol intake: current Alcohol intake frequency: 0-2 drinks per day Alcohol type: hard liquor Patient Tobacco Use Status: Former Tobacco user Tobacco use type: Cigarette Years Smoked: 20 years e-Cigarette/Vaping Use: Never Used service: No Current occupational status: unemployed Cognitive needs: No Hearing needs: No Vision needs: Yes Physical Exam Vital Signs: Last Vital Signs Pulse 83 07/09/24 11:39 Resp 17 07/09/24 11:39 BP 132/84 07/09/24 11:39 Pulse Ox 98 07/09/24 11:39 Oxygen Delivery Method Room Air 07/09/24 11:39 Assessment & Plan Assessment & Plan (1) Lumbar degenerative disc disease: Code(s): M51.36 - Other intervertebral disc degeneration, lumbar region Category: Medical Plan: Bilateral therapeutic sacroiliac joint injection. Informed consent was explained thoroughly to the patient. All questions about benefits and risks for the procedure were answered. Patient came to the operating room and was positioned prone on the operating table with the pillow under the pelvis. Time out was performed delineating name and of the patient, allergies and the nature of the procedure. The lower back and buttocks of the patient were prepped with ChloraPrep prepped and draped with sterile utility towels. C-arm was brought over the operating field and sq picture of patient's pelvis was demonstrated on the screen. For the right joint tilting C-arm contralateral to the site of the joint the most posterior portion of the joints was superimposed with anterior silhouette of the joint. Skin was injected in the projection of the joint slightly medial to the location of the joint with 25 gauge 1/2 inch needle using local lidocaine 2% .After that 22 gauge 3 and 1/2 inch needle was driven to the right joint in tunnel vision fashion. When needle entered the joint capsule injection of the contrast was performed demonstrating intra-articular and minimally periarticular spread of the contrast. After that 4 cc. of ropivacaine 0.5% mixed with Kenalog was injected into the joint. Upon completion of the injections the needle was removed, and the procedure was repeated on the left side in mirroring fashion. Total dose of Kenalog 80 mg. The needle was removed. Sterile dressing was applied. Upon completion of the injection patient was taken outside of the operating room to the recovery room where recovered uneventfully. (2) Morbid obesity with body mass index (BMI) of 40.0 to 44.9 in adult: Code(s): E66.01 - Morbid (severe) obesity due to excess calories; Z68.41 - Body mass index [BMI] 40.0-44.9, adult Category: Medical (3) Lumbar degenerative disc disease: Code(s): M51.36 - Other intervertebral disc degeneration, lumbar region Category: Medical (4) Lumbar spondylosis: Code(s): M47.816 - Spondylosis without myelopathy or radiculopathy, lumbar region Category: Medical (5) Muscle spasm of back: Code(s): M62.830 - Muscle spasm of back Category: Medical (6) Sacroiliac joint pain: Code(s): M53.3 - Sacrococcygeal disorders, not elsewhere classified Category: Medical Plan Schedule Diagnostic Bilateral Sacroiliac Joint Injections with local and fluoroscopy, oral Ativan prior to procedure. Expectations, risks and benefits were reviewed. Patient is aware she will be contacted to schedule this procedure. Patient reports overall 50% ongoing pain relief for axial low back pain s/p Sprint PNS lead removal in November. Weight Management Referral to assist patient with weight loss goals to decrease pain, improve functioning and sleep. Short script for tramadol provided today for [id number] pain while pat ient awaits for injections. Side effects and precautions discussed with patient. Narcan provided. All questions were answered and patient agreed with the treatment plan. Follow- up after injections and sooner as needed. Anticoagulation: Patient not on anticoagulant Justification for interventional therapy: ? Patient with average pain > 6/10 ? Patient has exhausted conservative therapy, NSAIDs, physical therapy ? Patient is continuing home exercise program The risks, consequences, alternatives, and benefits of various treatment options were discussed with the patient in great detail, including conservative management, injections and procedures. Orders: Orders FL guidance in treatment room Today M53.3 - Sacrococcygeal disorders, not elsewhere classified Medications: New lorazepam (Ativan) Take 30 minutes prior to arrival to procedure 1 mg PO ONCE 1 tab 0RF anxiety Coding Level of Care Code Procedure Only Diagnoses Lumbar degenerative disc disease M51.36 Morbid obesity with body mass index (BMI) of 40.0 to 44.9 in adult E66.01; Z68.41 Lumbar spondylosis M47.816 Muscle spasm of back M62.830 Sacroiliac joint pain M53.3
[2024-07-09 11:39] VITALS: BP 132/84; PULSE 83; RESP 17; O2SAT 98
== END 2024-07-09 11:38 | disposition home or self-care (01) ==
LOC: HO.PMCPRC 10:28
PROVIDERS: PCP Internal Medicine; Visit Provider Anesthesiology
DX: M53.3 Sacrococcygeal disorders, not elsewhere classified (principal)
CPT/HCPCS: 27096

== ENCOUNTER 2024-07-30 10:54 | Outpatient (AMB) | payer OTHER, SELFPAY ==
[2024-07-30 11:00] VITALS: BP 151/81; PULSE 95; O2SAT 100; BMI 43.6
--- NOTE | 2024-07-30 11:00 | A.OFFVIS_ITS ---
Vital Signs 07/30/24 11:00 Height 5 ft 8.5 in Weight 291 lb 4 oz BMI 43.6 BP 151/81 H Blood Pressure Location Lt brachial Position Sitting Pulse 95 Pulse Source Pulse Oximeter Pulse Oximetry (%) 100 Oxygen Delivery Method Room Air Intake Visit Reasons: BILATERAL THERAPEUTIC SIJ INJECTIONS Intake Note: Pain today 12/30 Base Engineer Required: No Accompanied by: Self / Same As Patient Allergies ziprasidone [From GEODON] Allergy (Severe, Verified 07/30/24 11:01) HIVES,SWELLING alosetron [From LOTRONEX] Allergy (Intermediate, Verified 07/30/24 11:01) RASH Sulfa (Sulfonamide Antibiotics) [SULFA (SULFONAMIDE ANTIBIOTICS)] Allergy (Intermediate, Verified 07/30/24 11:01) RASH cephalexin [Keflex] Allergy (Unknown, Verified 07/30/24 11:01) rash oxycodone [OXYCODONE] Adverse Reaction (Severe, Verified 07/30/24 11:01) HALLUCINATIONS, hallucination, hallucinations meperidine [Demerol] Adverse Reaction (Unknown, Verified 07/30/24 11:01) nausea and vomiting morphine Adverse Reaction (Unknown, Verified 07/30/24 11:01) nausea and vomiting HPI Comments Details: Patient presents today to assess response to Therapeutic Bilateral SIJ Injections on 07/09/[address] Choe. Patient reports 100% ongoing pain since procedure with improved functioning, mobility and sleep. She occasionally experiences sharp pain in her right mid to lower back which is relieved with ice pack. Patient continues to stay physically active and loose weight for longer-term pain relief of low back pain and joint pain. She was applauded for loosing 6 lbs since last visit. Patient has pending Weight Management referral at [facility] in September. Denies any recent cough, cold, infection, fever, abdominal or groin pain, bladder or bowel dysfunction, saddle anesthesia, or any significant changes in her medical history, medications or recent hospitalizations. Past Procedures: 07/09/24: Therapeutic Bilateral SIJ injections-100% ongoing pain relief 04/30/24: Diagnostic Bilateral SIJ [id number]-15-09% pain relief for 24 hours 12/18/23: Left L4 MB Sprint removal-100% pain relief 10/19/23: Left L4 medial branch Sprint-100% pain relief 75 stimulation 10/05/23: Right L4 medial branch Sprint-90% pain relief at 57 stimulation, removed 12/04/23 06/09/23: Therapeutic Bilateral L3-L4 DR L5 MBBs-80% ongoing pain relief 04/27/23: Diagnostic Bilateral L3-L4-DR L5 MBBs-80% pain relief for 12 hours 03/17/23: Right diagnostic sacroiliac joint injection-10% for 3-4 hours [facility] Medical History (Updated 07/30/24 @ 11:20 by ELDON Coyle) Sacroiliac joint pain Bilateral shoulder pain Lumbar radiculopathy, chronic Mixed dyslipidemia Decreased glomerular filtration rate (GFR) Impaired fasting glucose Mild intermittent asthma Morbid obesity Von Willebrand disease History of MRSA infection Bipolar 1 disorder, depressed ADHD Hypothyroid Hypertension GERD (gastroesophageal reflux disease) Atypical ductal hyperplasia of right breast Acquired hypothyroidism Surgical History Hx of colonoscopy History of bilateral carpal tunnel release Hx of cystoscopy Hx of esophagogastroduodenoscopy Vesicovaginal fistula S/P laparoscopic surgery History of total abdominal hysterectomy History of section History of eye surgery History of partial thyroidectomy Family History Father HTN (hypertension) Hyperlipidemia Mother HTN (hypertension) Alzheimers disease Mental health disorder Maternal Aunt Breast cancer Brother Substance use disorder Social History Housing: House Alcohol intake: current Alcohol intake frequency: 0-2 drinks per day Alcohol type: hard liquor Patient Tobacco Use Status: Former Tobacco user Tobacco use type: Cigarette Years Smoked: 20 years e-Cigarette/Vaping Use: Never Used service: No Current occupational status: unemployed Cognitive needs: No Hearing needs: No Vision needs: Yes Review of Systems Const All systems reviewed & are unremarkable except as noted in HPI and below Physical Exam Vital Signs: Last Vital Signs Pulse 95 07/30/24 11:00 BP 151/81 H 07/30/24 11:00 Pulse Ox 100 07/30/24 11:00 Oxygen Delivery Method Room Air 07/30/24 11:00 BMI result Body Mass Index 43.6 On exam today: Appears afebrile. Alert and oriented. Mood and affect appropriate. Follows and participates in conversation appropriately. Respiratory effort is unlabored. No cough. Able to transition from sit to stand unassisted. Ambulates with bilaterally normal heel strike and toe off. Able to stand and walk on toes and heels. Results Reviewed Results Reviewed: MR LUMBAR SPINE WITHOUT CONTRAST 09/29/22 CLINICAL INFORMATION: Radiculopathy, lumbar region. COMPARISON: Lumbar spine MRI 03/12/2010. FINDINGS: The lumbar vertebral bodies maintain normal heights and alignment. The disc heights are preserved. No bone marrow edema is seen. The distal spinal cord appears normal. The conus medullaris terminates normally at the L1 level. The extraspinal soft tissues are unremarkable. SPINAL LEVELS: L1-L2: No posterior disc abnormality. No spinal canal or neural foraminal stenosis. L2-L3: No posterior disc abnormality. No spinal canal or neural foraminal stenosis. L3-L4: No posterior disc abnormality. Mild facet arthropathy. No spinal canal or neural foraminal stenosis. L4-L5: Mild disc bulging with moderate facet arthropathy ligamentum flavum infolding. No spinal canal stenosis. Mild encroachment on the right neural foramen. L5-S1: No posterior disc abnormality. Moderate left facet arthropathy. No spinal canal or neural foraminal stenosis. IMPRESSION: No significant narrowing of the spinal canal or neural foramina. No definite nerve root compression is seen. XR LUMBAR SPINE XR SI JOINT 02/21/23 FINDINGS: Lumbar spine: There is normal lumbar lordosis. The vertebral heights, alignment and disc heights are normal. There is mild ventral spondylosis. No visible acute fracture, dislocation or subluxation. There is minimal ventral spondylosis. No lytic or sclerotic process seen. The paravertebral soft tissues are normal. SI joints: There is normal symmetry of bilateral SI joints without any bony erosive changes, sclerosis or lytic process. The pubic symphysis is normal. There are phleboliths throughout the lower pelvis. IMPRESSION: 1. Mild ventral spondylosis lumbar spine. No visible acute fracture, dislocation or lytic process seen. 2. Unremarkable SI joints. XR BILATERAL HIPS WITH AP PELVIS 08/21/23 CLINICAL INFORMATION: Sacrococcygeal disorders COMPARISON: CT abdomen pelvis 03/18/2016 FINDINGS: No fracture. Some minor degenerative changes are seen with some supra-acetabular lateral sclerosis, unchanged from prior. Hip joint spaces are maintained. Alignment is anatomic. Sacroiliac joints and pubic symphysis are normal. No abnormal soft tissue calcifications. Phleboliths are noted in the pelvis. IMPRESSION: Minimal degenerative changes in the hips. No acute finding. Assessment & Plan Assessment & Plan (1) Morbid obesity with body mass index (BMI) of 40.0 to 44.9 in adult: Code(s): E66.01 - Morbid (severe) obesity due to excess calories; Z68.41 - Body mass index [BMI] 40.0-44.9, adult Category: Medical (2) Lumbar degenerative disc disease: Code(s): M51.36 - Other intervertebral disc degeneration, lumbar region Category: Medical (3) Sacroiliac joint pain: Code(s): M53.3 - Sacrococcygeal disorders, not elsewhere classified Category: Medical Plan Patient is status post bilateral therapeutic SIJ injections last month with significant improvement in her daily functioning, mobility and sleep. Patient will continue to monitor her symptoms and notify our office when her pain returns to baseline. Patient is aware that she can not receive another injection in that area for three months. We also discussed the Sprint PNS trial for SIJ pain for a longer term pain relief. All questions and concerns have been answered and patient agreed with the plan. Follow up as needed. Coding Level of Care Code Est Pt Level 3 (38946) Complex EM visit Add On G2211 Diagnoses Morbid obesity with body mass index (BMI) of 40.0 to 44.9 in adult E66.01; Z68.41 Lumbar degenerative disc disease M51.36 Sacroiliac joint pain M53.3
== END 2024-07-30 11:09 | disposition home or self-care (01) ==
PROVIDERS: PCP Internal Medicine; Visit Provider Nurse Practitioner Family
DX: E66.01 Morbid (severe) obesity due to excess calories (principal); Z68.41 Body mass index [BMI] 40.0-44.9, adult; M51.360 Other intervertebral disc degeneration, lumbar region with discogenic back pain only; M53.3 Sacrococcygeal disorders, not elsewhere classified
CPT/HCPCS: 99213; G2211

== ENCOUNTER → 2024-07-30 10:54 | Outpatient (BNVA) | payer OTHER, SELFPAY | PROVIDERS: PCP Internal Medicine; Visit Provider Nurse Practitioner Family | DX: M53.3 Sacrococcygeal disorders, not elsewhere classified (principal); M51.360 Other intervertebral disc degeneration, lumbar region with discogenic back pain only; E66.01 Morbid (severe) obesity due to excess calories; Z68.41 Body mass index [BMI] 40.0-44.9, adult | CPT/HCPCS: 99212 ==

== ENCOUNTER 2024-08-30 08:37 | Outpatient (REF) | payer OTHER, SELFPAY ==
[2024-08-30 10:07] LABS: Appearance Urine Cloudy; Color Urine Dark Yellow; Glucose Urine UA Negative (Negative); Leukocyte Esterase Urine Large (3+) (Negative); Nitrite Urine Negative (Negative); PH 7.5 (5.0-9.0); UMIC TRIGGER UA YES; Urine Blood Negative (Negative); Urine Ketones Negative (Negative); Urine Protein Trace mg/dL (Neg-Trace)
[2024-08-30 10:11] LABS: Bacteria Urine 1+ (None Seen); Hyaline Casts Urine 0-2 /LPF (0-2); RBC Urine 0-2 /HPF (0-2); WBC Urine >50 /HPF (0-5)
[2024-08-30 10:56] LABS: Estimated Average Glucose 111 mg/dL; Hemoglobin A1C 145.2217 umol/L; Hemoglobin A1c % 5.5 % (<6.0); Total Hemoglobin (HGBA1C) 3994.0247 umol/L
[2024-08-30 11:18] LABS: Creatinine Urine 229.96 mg/dL; Microalbum/Creatinine Ratio Ur 4.3 ug/mg cr (<30); Protein/Creatinine Ratio, Ur 0.05 (<0.2); Total Protein Urine Random 12 mg/dL (<12)
[2024-08-30 11:31] LABS: Parathyroid Hormone Intact 73.1 pg/mL (8.7-77.1)
[2024-08-30 12:14] LABS: Alanine Aminotransferase 26 U/L (0-31); Aspartate Amino Transferase 26 U/L (5-31); Cholesterol 231 mg/dL (<200); Glucose Fasting 109 mg/dL (60-99); HDL Cholesterol 53 mg/dL (>40); LDL Cholesterol Calculated 136 mg/dL (<100); Triglycerides 210 mg/dL (<150)
[2024-08-30 12:17] LABS: Albumin Level 4.2 g/dL (3.5-5.0); Anion Gap 15 (12-20); Blood Urea Nitrogen 16 mg/dL (9-16); Calcium 10.1 mg/dL (8.4-10.2); Carbon Dioxide 29 mmol/L (22-29); Chloride 101 mmol/L (96-108); Estimated Glomerular Filt Rate 41; Magnesium 1.9 mg/dL (1.6-2.6); Phosphorus 2.2 mg/dL (2.7-4.5); Potassium 3.8 mmol/L (3.3-5.1); Sodium 141 mmol/L (135-145); Vitamin D 25-OH Total 95.2 ng/mL (>30)
[2024-08-30 12:36] LABS: Free T4 (Free Thyroxine) 1.22 ng/dL (0.71-1.85); Thyroid Stimulating Hormone 2.85 uIU/mL (0.32-4.0)
== END 2024-08-30 08:38 | disposition home or self-care (01) ==
LOC: HO.HMGCLDS 08:37
PROVIDERS: PCP Internal Medicine; Referring Provider Internal Medicine Nephrology; Visit Provider Internal Medicine
DX: N18.31 Chronic kidney disease, stage 3a (principal); I10 Essential (primary) hypertension; E78.2 Mixed hyperlipidemia; E03.9 Hypothyroidism, unspecified; R73.01 Impaired fasting glucose
CPT/HCPCS: 36415; 80051; 80061; 81001; 82040; 82043; 82306; 82310; 82565; 82570; 82947; 83036; 83735; 83970; 84100; 84156; 84439; 84443; 84450; 84460; 84520

== ENCOUNTER 2024-09-17 08:45 | Outpatient (AMB) | payer OTHER, SELFPAY ==
[2024-09-17 08:56] VITALS: BP 110/66; PULSE 91; O2SAT 98; BMI 44.2
--- NOTE | 2024-09-17 08:56 | A.OFFPC_ITS ---
Vital Signs 09/17/24 08:56 Height 5 ft 8.5 in Weight 295 lb BMI 44.2 BP 110/66 Blood Pressure Location Lt brachial Position Sitting Pulse 91 Pulse Source Pulse Oximeter Pulse Oximetry (%) 98 Oxygen Delivery Method Room Air Intake Visit Reasons: Annual PE~lipids, HTN, impaired fasting glucose Intake Note: Pt is here today for her PE: last mammogram 12/25/23, colonoscopy 10/29/20 Allergies ziprasidone [From GEODON] Allergy (Severe, Verified 09/17/24 09:12) HIVES,SWELLING alosetron [From LOTRONEX] Allergy (Intermediate, Verified 09/17/24 09:12) RASH Sulfa (Sulfonamide Antibiotics) [SULFA (SULFONAMIDE ANTIBIOTICS)] Allergy (Intermediate, Verified 09/17/24 09:12) RASH cephalexin [Keflex] Allergy (Unknown, Verified 09/17/24 09:12) rash oxycodone [OXYCODONE] Adverse Reaction (Severe, Verified 09/17/24 09:12) HALLUCINATIONS, hallucination, hallucinations meperidine [Demerol] Adverse Reaction (Unknown, Verified 09/17/24 09:12) nausea and vomiting morphine Adverse Reaction (Unknown, Verified 09/17/24 09:12) nausea and vomiting Medication List - Last Reconciled 09/17/24 by Albania Allison MD albuterol sulfate 90 mcg/actuation 2 puffs PO Q6H PRN blood pressure monitor As directed cariprazine (Vraylar) 6 mg PO DAILY chlorthalidone 12.5 mg PO DAILY cholecalciferol (vitamin D3) (Vitamin D3) 25 mcg PO DAILY dextroamphetamine-amphetamine 10 mg (Adderall) 30 mg PO .q pm dextroamphetamine-amphetamine 30 mg ER (Adderall XR) 1 cap PO DAILY PRN dicyclomine 40 mg (2 x 20 mg) PO QID estradiol 0.01%(0.1mg/gram) vaginal fluticasone furoate-vilanterol 200-25 mcg/dose (Breo Ellipta) 1 inh inhalation DAILY heating pads As directed hydrocortisone 2.5% 1 appl OR BID PRN levothyroxine (Synthroid) 75 mcg PO QAM lisinopril 10 mg PO DAILY lorazepam (Ativan) 2 mg PO BID PRN multivitamin (Multiple Vitamins tablet) 1 tab PO DAILY naloxone 4 mg/actuation (Narcan) 4 mg intranasal Q2M PRN pantoprazole 40 mg PO BID [Pill cutter As directed] scopolamine base (Transderm-Scop) 1 patch transdermal Q3D PRN Shower Chair With backrest tramadol 50 mg PO BID PRN 10 days trazodone 50 mg PO BEDTIME PRN Tobacco use date assessed: 09/17/24 Dental Screening Dental Screen Date: 09/17/24 Did you have a dental visit in the last 12 months?: Yes Did you have a dental problem in the last 6 months where you did not have access to dental care?: No Was dental information given to patient?: Patient has dentist HPI Annual PE~lipids, HTN, impaired fasting glucose HPI Details The patient is a 54-year-old female with past medical history significant for mixed dyslipidemia, bipolar 1 disorder, with ADHD, followed by psychiatry, she has mild intermittent asthma, history of prediabetes, on Willebrand's disease, hypothyroidism, hypertension, GERD, presenting today for her physical exam. - she is up-to-date with her screening mammogram, last done December 2023. Up-to-date with her flu vaccine and shingles vaccination, states that she is also up-to-date with her COVID booster but not seen on mass registry website for vaccine. Last colonoscopy performed in 2020 with benign polyp removal; next due in 2030. Regularly followed by her eye doctor, monitored for glaucoma due to past eye surgery complications. Complains of having chronic low back pain. She reports the onset of the pain after the removal of a [employer] PNS device that had been implanted for pain management. The device was inserted as a trial to alleviate back pain and was removed over a year ago, which resulted in a significant increase in pain localized to the right side, occasionally radiating down right leg. The patient describes the pain as severe and unrelenting. Previous interventions included spinal injections and the implantation of the nerve stimulator, both of which provided only temporary relief. The patient suspects a possible tear or musculoskeletal damage due to poor healing after device removal. She expresses heightened sensitivity in the area and reports persisting excruciating pain. Past imaging studies such as MRI last conducted in 2009 have not been repeated. The patient wishes to pursue pain management discussions and is considering seeking care at an alternative facility. [facility] Medical History (Updated 09/17/24 @ 09:43 by Albania Allison MD) Sacroiliac joint pain Bilateral shoulder pain Lumbar radiculopathy, chronic Mixed dyslipidemia Decreased glomerular filtration rate (GFR) Impaired fasting glucose Mild intermittent asthma Morbid obesity Von Willebrand disease History of MRSA infection Bipolar 1 disorder, depressed ADHD Hypothyroid Hypertension GERD (gastroesophageal reflux disease) Atypical ductal hyperplasia of right breast Acquired hypothyroidism Surgical History Hx of colonoscopy History of bilateral carpal tunnel release Hx of cystoscopy Hx of esophagogastroduodenoscopy Vesicovaginal fistula S/P laparoscopic surgery History of total abdominal hysterectomy History of section History of eye surgery History of partial thyroidectomy Family History Father HTN (hypertension) Hyperlipidemia Mother HTN (hypertension) Alzheimers disease Mental health disorder Maternal Aunt Breast cancer Brother Substance use disorder Social History Housing: House Alcohol intake: current Alcohol intake frequency: 0-2 drinks per day Alcohol type: hard liquor Patient Tobacco Use Status: Former Tobacco user Tobacco use type: Cigarette Years Smoked: 20 years e-Cigarette/Vaping Use: Never Used service: No Current occupational status: unemployed Cognitive needs: No Hearing needs: No Vision needs: Yes Questionnaire PHQ-9 Over the last 2 weeks, how often have you been bothered by any of the following problems? 1. Little interest or pleasure in doing things: several days 2. Feeling down, depressed, or hopeless: not at all 3. Trouble falling or staying asleep, or sleeping too much: not at all 4. Feeling tired or having little energy: more than half the days 5. Poor appetite or overeating: several days 6. Feeling bad about yourself - or that you are a failure or have let yourself or your family down: not at all 7. Trouble concentrating on things, such as reading the newspaper or watching television: not at all 8. Moving or speaking so slowly that other people could have noticed. Or the opposite - being so fidgety or restless that you have been moving around a lot more than usual: not at all 9. Thoughts that you would be better off or of hurting yourself in some way: not at all Total score: 4 Depression Screening Interpretation: Negative (Currently followed by Psychiatry, adrien SUAREZ) Depression Screening Done: Yes 71321 - PHQ-9 Billing: Yes Source: Developed by Drs. Henri Oliver, Yanelis Liu, Everton Cevallos and colleagues, with an educational oscar from [employer]. Thrive Questionnaire Date Thrive assessed: 09/17/24 I am a: Patient What is your living situation today?: I have a steady place to live Within the past 12 months, did the food you bought not last and you didn't have the money to get more?: Never true Within the past 12 months, did you worry whether your food would run out before you got money to buy more?: Never true Do you have trouble paying for medicines?: No Do you have trouble getting transportation to medical appointments?: No Do you have trouble paying your heating and electricity bill?: No Do you have trouble taking care of your child, family member or friend?: No Do you have trouble with day-to-day activities such as bathing, preparing meals, shopping, managing finances, etc.?: No Are you currently unemployed and looking for a job?: I choose not to answer this question Are you interested in more education?: No Please select the resources that you would like help with: None Currently or been in a relationship where the following occur: No concerns reported THRIVE Score: 0 AUDIT C Alcohol Use Questionnaire (AUDIT-C) 1. How often do you have a drink containing alcohol?: 4 or more times a week 2. How many drinks containing alcohol do you have on a typical day when you are drinking?: 3 or 4 3. How often do you have six or more drinks on one occasion?: Never Total Score: 5 MINGO-7 AMB Questionnaire MINGO-7 Date MINGO - 7 assessed: 09/17/24 Feeling nervous, anxious, or on edge: 0 = Not at all Not being able to stop or control worryin = Not at all Worrying too much about different things: 0 = Not at all Trouble relaxin = Not at all Being so restless that it is hard to sit still: 0 = Not at all Becoming easily annoyed or irritable: 0 = Not at all Feeling afraid as if something awful might happen: 0 = Not at all Total MINGO-7 score (0-4 normal; 5-9 mild; 10-14 moderate; 15-21 severe): 0 Source: Developed by Drs. Henri Oliver, Yanelis Liu, Everton Cevallos and colleagues, with an educational oscar from [employer]. MINGO-7 Assessment Billing MINGO-7 Assessment Tool: MINGO-7 Assessment 45385 Review of Systems Const Reports no additional complaints Eyes Details: sees [facility] , suspect glaucoma OS ENT Details: [facility] Card Denies chest pain, Denies irregular heart rhythm, Denies lightheadedness and Denies dyspnea Resp Denies chest congestion, Denies cough and Denies dyspnea GI Reports no additional complaints Reports no additional complaints Musc Reports as per HPI Skin/Breast Denies breast skin changes, Denies breast pain, Denies breast mass, Denies lesions and Denies rash Neuro Reports no additional complaints Psych Reports no additional complaints Physical exam (Primary Care) Vital Signs: Last Vital Signs Pulse 91 09/17/24 08:56 BP 110/66 09/17/24 08:56 Pulse Ox 98 09/17/24 08:56 Oxygen Delivery Method Room Air 09/17/24 08:56 BMI result Body Mass Index 44.2 Tobacco/Smoking Status: Tobacco use Status Tobacco use date assessed 09/17/24 09/17/24 09:02 Patient Tobacco Use Status Former Tobacco user 09/17/24 08:58 Tobacco use type Cigarette 09/17/24 08:58 e-Cigarette/Vaping Use Never Used 09/17/24 08:58 PHQ-9: PHQ-9 Score PHQ-9: Total score 4 09/17/24 09:13 Depression Screening Interpretation: Negative (Currently followed by Psychiatry, adrien SUAREZ) Thrive Assessment: Date of Thrive Assessment Date Thrive assessed 09/17/24 09/17/24 09:02 Currently or been in a relationship where the following occur: No concerns reported Results Reviewed Results Reviewed: Name: Arcelia Pickering Age/Sex: 54/F : 1970 Unit#: [id number] Attend Dr: Albania Allison MD Re08/30/24 Status: DEP REF Location: [facility] Disch: SPEC : [id number] OLAMIDE: 08/30/24 STATUS: COMP REQ : [id number] RECD: 08/30/[address] [facility] [address]: Kenny Marques MD COMP: 08/30/24 ENTERED: 08/30/[address]: Albania Allison MD ORDERED: Lytes, BUN, Creat, CA, Phos, MG, Alb, Vitamin D 25-OH Test Result Flag Reference Sodium 141 135-145 mmol/L Potassium 3.8 3.3-5.1 mmol/L CL 101 96-108 mmol/L CO2 29 22-29 mmol/L Gap 15 12-20 BUN 16 9-16 mg/dL Creat 1.33 0.5-1.4 mg/dL EGFR 41 NOTE: For -[place] individuals, multiply the result by 1.210. Chronic Kidney Disease: Estimated GFR < 60 mL/min/1.73m2 Severe Kidney Disease: Estimated GFR < 15 mL/min/1.73m2 CA 10.1 8.4-10.2 mg/dL Phosphorus 2.2 L 2.7-4.5 mg/dL Magnesium 1.9 1.6-2.6 mg/dL Alb 4.2 3.5-5.0 g/dL Vit D 25-OH Tot 95.2 >30 ng/mL Health Based Reference Values* < 20 ng/mL Deficient 20-30 ng/mL Insufficient > 30 ng/mL Sufficient Coding Level of Care Code Est Pt Prev Care 40-64y(55839) Diagnoses Annual visit for general adult medical examination with abnormal findings Z00.01 Acquired hypothyroidism E03.9 Primary hypertension I10 Hypertension type: primary hypertension Attention deficit hyperactivity disorder (ADHD), predominantly inattentive type F90.0 Attention deficit-hyperactivity disorder type: predominantly inattentive Bipolar 1 disorder, depressed F31.9 Von Willebrand disease D68.0 GERD (gastroesophageal reflux disease) K21.9 Irritable bowel syndrome with diarrhea K58.0 Morbid obesity E66.01 Mild intermittent asthma without complication J45.20 Asthma complication type: uncomplicated Impaired fasting glucose R73.01 Mixed dyslipidemia E78.2 Lumbar degenerative disc disease M51.36 Additional Codes PHQ-9 - 87603 - PHQ-9 Billing: Yes ([id number]) MINGO-7 Assessment Billing - MINGO-7 Assessment Tool: MINGO-7 Assessment 64501 ([id number]) Assessment & Plan Assessment & Plan (1) Annual visit for general adult medical examination with abnormal findings: Code(s): Z00.01 - Encounter for general adult medical examination with abnormal findings (2) Acquired hypothyroidism: Code(s): E03.9 - Hypothyroidism, unspecified Category: Medical (3) Hypertension: Code(s): I10 - Essential (primary) hypertension Category: Medical Qualifiers: Hypertension type: primary hypertension Qualified Code(s): I10 - Essential (primary) hypertension (4) ADHD: Code(s): F90.9 - Attention-deficit hyperactivity disorder, unspecified type Category: Medical Qualifiers: Attention deficit-hyperactivity disorder type: predominantly inattentive Qualified Code(s): F90.0 - Attention-deficit hyperactivity disorder, predominantly inattentive type (5) Bipolar 1 disorder, depressed: Code(s): F31.9 - Bipolar disorder, unspecified Category: Medical (6) Von Willebrand disease: Comment: low levels, no DDAVP preop Code(s): D68.0 - Von Willebrand disease Category: Medical (7) GERD (gastroesophageal reflux disease): Code(s): K21.9 - Gastro-esophageal reflux disease without esophagitis Category: Medical (8) Irritable bowel syndrome with diarrhea: Code(s): K58.0 - Irritable bowel syndrome with diarrhea Category: Medical (9) Morbid obesity: Code(s): E66.01 - Morbid (severe) obesity due to excess calories Category: Medical (10) Mild intermittent asthma: Code(s): J45.20 - Mild intermittent asthma, uncomplicated Category: Medical Qualifiers: Asthma complication type: uncomplicated Qualified Code(s): J45.20 - Mild intermittent asthma, uncomplicated (11) Impaired fasting glucose: Code(s): R73.01 - Impaired fasting glucose Category: Medical (12) Mixed dyslipidemia: Comment: no meds currently Code(s): E78.2 - Mixed hyperlipidemia Category: Medical (13) Lumbar degenerative disc disease: Code(s): M51.36 - Other intervertebral disc degeneration, lumbar region Category: Medical Plan -up-to-date with her breast cancer screening, done earlier this year with negative findings, had a screening colonoscopy done in 2020 with hyperplastic polyp removed, repeat due again in 2030. - Chronic Low Back Pain: Consider MRI to assess potential musculoskeletal damage. Recommend topical Voltaren gel for local anti-inflammatory effect. - Hyperlipidemia: Advise dietary modifications and alcohol reduction to manage elevated cholesterol and triglyceride levels. - Overweight: Continue with weight management programs and assess further interventions. 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 -currently followed by psychiatry for treatment of bipolar disorder/ADHD, sees Dr.?KALYANI SUAREZ Patient was informed and verbally consented to the use of an ambient scribe for clinic note documentation during this visit. Orders: Orders Basic Metabolic Panel Fasting 12/21/24 E03.9 - Hypothyroidism, unspecified, E66.01 - Morbid (severe) obesity due to excess calories, E78.2 - Mixed hyperlipidemia, F31.9 - Bipolar disorder, unspecified, I10 - Essential (primary) hypertension, J45.20 - Mild intermittent asthma, uncomplicated, K21.9 - Gastro-esophageal reflux disease without esophagitis, R73.01 - Impaired fasting glucose Thyroid Peroxidase Antibodies 12/21/24 E03.9 - Hypothyroidism, unspecified, E66.01 - Morbid (severe) obesity due to excess calories, E78.2 - Mixed hyperlipidemia, F31.9 - Bipolar disorder, unspecified, I10 - Essential (primary) hypertension, J45.20 - Mild intermittent asthma, uncomplicated, K21.9 - Gastro- esophageal reflux disease without esophagitis, R73.01 - Impaired fasting glucose Free T4 (Free Thyroxine) 12/21/24 E03.9 - Hypothyroidism, unspecified, E66.01 - Morbid (severe) obesity due to excess calories, E78.2 - Mixed hyperlipidemia, F31.9 - Bipolar disorder, unspecified, I10 - Essential (primary) hypertension, J45.20 - Mild intermittent asthma, uncomplicated, K21.9 - Gastro-esophageal reflux disease without esophagitis, R73.01 - Impaired fasting glucose Aspartate Amino Transferase 12/21/24 E03.9 - Hypothyroidism, unspecified, E66.01 - Morbid (severe) obesity due to excess calories, E78.2 - Mixed hyperlipidemia, F31.9 - Bipolar disorder, unspecified, I10 - Essential (primary) hypertension, J45.20 - Mild intermittent asthma, uncomplicated, K21.9 - Gastro- esophageal reflux disease without esophagitis, R73.01 - Impaired fasting glucose Alanine Aminotransferase 12/21/24 E03.9 - Hypothyroidism, unspecified, E66.01 - Morbid (severe) obesity due to excess calories, E78.2 - Mixed hyperlipidemia, F31.9 - Bipolar disorder, unspecified, I10 - Essential (primary) hypertension, J45.20 - Mild intermittent asthma, uncomplicated, K21.9 - Gastro-esophageal reflux disease without esophagitis, R73.01 - Impaired fasting glucose Lipid Panel 12/21/24 E03.9 - Hypothyroidism, unspecified, E66.01 - Morbid (severe) obesity due to excess calories, E78.2 - Mixed hyperlipidemia, F31.9 - Bipolar disorder, unspecified, I10 - Essential (primary) hypertension, J45.20 - Mild intermittent asthma, uncomplicated, K21.9 - Gastro-esophageal reflux disease without esophagitis, R73.01 - Impaired fasting glucose Hemoglobin A1c 12/21/24 E03.9 - Hypothyroidism, unspecified, E66.01 - Morbid (severe) obesity due to excess calories, E78.2 - Mixed hyperlipidemia, F31.9 - Bipolar disorder, unspecified, I10 - Essential (primary) hypertension, J45.20 - Mild intermittent asthma, uncomplicated, K21.9 - Gastro-esophageal reflux disease without esophagitis, R73.01 - Impaired fasting glucose Thyroid Stimulating Hormone 12/21/24 E03.9 - Hypothyroidism, unspecified, E66.01 - Morbid (severe) obesity due to excess calories, E78.2 - Mixed hyperlipidemia, F31.9 - Bipolar disorder, unspecified, I10 - Essential (primary) hypertension, J45.20 - Mild intermittent asthma, uncomplicated, K21.9 - Gastro- esophageal reflux disease without esophagitis, R73.01 - Impaired fasting glucose Medications: New diclofenac epolamine 1.3% 1 patch topical Q12H PRN 30 ea 0RF low back pain
== END 2024-09-17 09:46 | disposition home or self-care (01) ==
PROVIDERS: PCP Internal Medicine; Visit Provider Internal Medicine
DX: Z00.00 Encounter for general adult medical examination without abnormal findings (principal); F31.9 Bipolar disorder, unspecified; D68.00 Von Willebrand disease, unspecified; E66.01 Morbid (severe) obesity due to excess calories; Z68.41 Body mass index [BMI] 40.0-44.9, adult; M51.369 Other intervertebral disc degeneration, lumbar region without mention of lumbar back pain or lower extremity pain; E03.9 Hypothyroidism, unspecified; I10 Essential (primary) hypertension; F90.0 Attention-deficit hyperactivity disorder, predominantly inattentive type; K21.9 Gastro-esophageal reflux disease without esophagitis; K58.0 Irritable bowel syndrome with diarrhea; J45.20 Mild intermittent asthma, uncomplicated

== ENCOUNTER → 2024-09-17 08:45 | Outpatient (BNVA) | payer OTHER, SELFPAY | PROVIDERS: PCP Internal Medicine; Visit Provider Internal Medicine | DX: Z00.01 Encounter for general adult medical examination with abnormal findings (principal); E03.9 Hypothyroidism, unspecified; I10 Essential (primary) hypertension; F90.0 Attention-deficit hyperactivity disorder, predominantly inattentive type; F31.9 Bipolar disorder, unspecified; D68.00 Von Willebrand disease, unspecified; K21.9 Gastro-esophageal reflux disease without esophagitis; K58.0 Irritable bowel syndrome with diarrhea; E66.01 Morbid (severe) obesity due to excess calories; R73.01 Impaired fasting glucose; E78.2 Mixed hyperlipidemia; M51.360 Other intervertebral disc degeneration, lumbar region with discogenic back pain only | CPT/HCPCS: 96127; 99396 ==

== ENCOUNTER 2024-09-24 13:49 | Outpatient (AMB) | payer OTHER, SELFPAY ==
--- NOTE | 2024-09-24 13:52 | A.OFFVIS_ITS ---
Vital Signs 09/24/24 14:02 Height 5 ft 8.5 in Weight 294 lb 8.601 oz BMI 44.1 BP 134/82 Blood Pressure Location Lt brachial Position Sitting Pulse 93 Intake Visit Reasons: 6 week follow up RB on TT, GERD, IBS Intake Note: Patient follow up for GERD and IBS CC: Patient c/o more diarrhea lately and abdominal cramps. 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 Accompanied by: Self / Same As Patient Allergies ziprasidone [From GEODON] Allergy (Severe, Verified 09/24/24 14:04) HIVES,SWELLING alosetron [From LOTRONEX] Allergy (Intermediate, Verified 09/24/24 14:04) RASH Sulfa (Sulfonamide Antibiotics) [SULFA (SULFONAMIDE ANTIBIOTICS)] Allergy (Intermediate, Verified 09/24/24 14:04) RASH cephalexin [Keflex] Allergy (Unknown, Verified 09/24/24 14:04) rash oxycodone [OXYCODONE] Adverse Reaction (Severe, Verified 09/24/24 14:04) HALLUCINATIONS, hallucination, hallucinations meperidine [Demerol] Adverse Reaction (Unknown, Verified 09/24/24 14:04) nausea and vomiting morphine Adverse Reaction (Unknown, Verified 09/24/24 14:04) nausea and vomiting HPI HPI 6 week follow up RB on TT, GERD, IBS: Details: Assessment & Plan (1) GERD (gastroesophageal reflux disease): Code(s): K21.9 - Gastro-esophageal reflux disease without esophagitis Category: Medical (2) Irritable bowel syndrome with diarrhea: Code(s): K58.0 - Irritable bowel syndrome with diarrhea Category: Medical Plan She is doing fairly well but is having some breakthrough GERD especially with bending and sometimes not with bending. She is taking her pantoprazole twice a day. She thinks this may be due to her weight. She continues to struggle with weight loss especially since her spinal stimulator is still a work in progress. It is causing her some sharp pains that she did not have prior to the instillation so she is going to check with the provider to see what can be done. She is also seeing red blood on the toilet tissue not with every bowel movement but frequently. A sometimes it is in the toilet. She does have a history of hemorrhoids that she treats successfully with tucks pads. However, I think this might be further up given her last colonoscopy in 2020 showed internal hemorrhoids. We discussed using [id number] preparation H suppository since there knee in easy and will probably give her better resolution. She still has access to dicyclomine if needed for bowel cramping. Return office visit in 6 weeks to see how she is doing. Medications: Refilled dicyclomine 40 mg (2 x 20 mg) PO QID 720 tabs 1RF K21.9 - Gastro-esophageal reflux disease without esophagitis, K58.0 - Irritable bowel syndrome with diarrhea, Z12.11 - Encounter for screening for malignant neoplasm of colon pantoprazole 40 mg PO BID 180 tabs 3RF TODAYS VISITA She continues on pantoprazole and bentyl. However she continues to have back and forth swings of her bowels. She will have severe pain in the lower abdomen followed by what initially seems like constipation but then watery diarrhea. This will persist sometimes for a day or 2 and then she will usually go back to constipation. I explained that sometimes it is quite difficult to figure out the driving process when people go back and forth between diarrhea and constipation. She is taking a fiber gummy and that should be good for evening out the swings but it is obviously not working well enough for her. I suggest that we start by trying to treat her with a mild laxative like senna and see how she responds to that and go from there to try to figure out the real underlying mechanism for the back and forth bowel movements. She is able to repeat verbalize understanding of this. In the meantime she can either take were stopped the dicyclomine depending on what she finds it helpful for cramping. She continues on her pantoprazole. Return office visit in 6 weeks [facility] Medical History (Updated 09/24/24 @ 14:18 by LAVERNE Barahona) Irritable bowel syndrome with diarrhea Sacroiliac joint pain Bilateral shoulder pain Lumbar radiculopathy, chronic Mixed dyslipidemia Decreased glomerular filtration rate (GFR) Impaired fasting glucose Mild intermittent asthma Morbid obesity Von Willebrand disease History of MRSA infection Bipolar 1 disorder, depressed ADHD Hypothyroid Hypertension GERD (gastroesophageal reflux disease) Atypical ductal hyperplasia of right breast Acquired hypothyroidism Surgical History Hx of colonoscopy History of bilateral carpal tunnel release Hx of cystoscopy Hx of esophagogastroduodenoscopy Vesicovaginal fistula S/P laparoscopic surgery History of total abdominal hysterectomy History of section History of eye surgery History of partial thyroidectomy Family History Father HTN (hypertension) Hyperlipidemia Mother HTN (hypertension) Alzheimers disease Mental health disorder Maternal Aunt Breast cancer Brother Substance use disorder Social History Housing: House Alcohol intake: current Alcohol intake frequency: 0-2 drinks per day Alcohol type: hard liquor Patient Tobacco Use Status: Former Tobacco user Tobacco use type: Cigarette Years Smoked: 20 years e-Cigarette/Vaping Use: Never Used service: No Current occupational status: unemployed Cognitive needs: No Hearing needs: No Vision needs: Yes Review of Systems Const Details: glasses Denies fatigue, Denies fever(s), Denies night sweats, Denies poor appetite and Denies weight loss ENT Reports Normal hearing present, Denies dental pain, Denies dysphagia, Denies hearing loss, Denies mouth pain, Denies odynophagia, Denies throat swelling, Denies tongue swelling and Reports other (Dentition adequate) Card Reports no additional complaints Resp Reports no additional complaints GI Details: Reports abdominal pain, Denies melena, Denies bloating, Denies hematochezia, Reports constipation, Denies GI cramping, Denies dysphagia, Denies excessive flatus, Denies early satiety, Reports heartburn, Denies diarrhea, Reports loose stools, Denies nausea, Denies odynophagia, Denies vomiting and Denies hematemesis Skin/Breast Denies pruritus, Denies lesions, Denies rash and Denies jaundice Neuro Reports Normal hearing present and Denies Abnormal speech present Endo Denies fatigue Aller/Immun Denies throat swelling and Denies tongue swelling Physical Exam Vital Signs: Last Vital Signs Pulse 93 09/24/24 14:02 BP 134/82 09/24/24 14:02 BMI result Body Mass Index 44.1 Const General: cooperative, no acute distress, well developed and well groomed Nutritional Appearance: well nourished and obese Orientation/consciousness: oriented to person, oriented to place and oriented to time Limitations: No language barrier HEENT Head: Yes normocephalic and Yes atraumatic Eyes General: appearance normal, both eyes and all related structures Pupils: Equal, round and reactive pupils present Neck Neck: Yes normal visual inspection and Yes no lymphadenopathy Thyroid: Thyroid normal Resp Effort & Inspection: normal respiratory effort and able to speak in complete sentences Auscultation: clear to auscultation bilaterally Cardio Rate: regular rate Rhythm: regular rhythm Heart sounds: Normal, physiologic split S2 sound present Peripheral pulses: radial pulses present and posterior tibial pulses present GI Inspection: No distended, Yes Abdominal panniculus present and Yes obesity Palpation (GI): Soft to palpation, nontender, no guarding, not rigid and No hepatosplenomegaly present Percussion: Yes normal to percussion Auscultation: normal bowel sounds Rectal Exam - Female: deferred Skin General skin exam: no rashes or lesions noted, turgor normal, skin not dry, no jaundice, No spider nevi and no striae Rashes: no rashes Nails: normal Neuro General: oriented to person, oriented to place and oriented to time Cranial nerves: Yes Equal, round and reactive pupils present and Yes Normal hearing present Speech: No Abnormal speech present Extrem General: Yes normal to inspection, No clubbing, No cyanosis and No edema Psych Appearance: grossly normal and well kempt Mental Status: mental status grossly normal Speech and movement: Normal speech and movement present Affect: normal affect Attitude: cooperative Thought process: Normal thought process present and not confabulating Thought content: Normal thought content present Insight: Fair insight present (Psych) Judgement: Fair judgement present (Psych) Assessment & Plan Assessment & Plan (1) Irritable bowel syndrome with both constipation and diarrhea: Code(s): K58.2 - Mixed irritable bowel syndrome Category: Medical (2) GERD (gastroesophageal reflux disease): Code(s): K21.9 - Gastro-esophageal reflux disease without esophagitis Category: Medical Plan She continues on pantoprazole and bentyl. However she continues to have back and forth swings of her bowels. She will have severe pain in the lower abdomen followed by what initially seems like constipation but then watery diarrhea. This will persist sometimes for a day or 2 and then she will usually go back to constipation. I explained that sometimes it is quite difficult to figure out the driving process when people go back and forth between diarrhea and constipation. She is taking a fiber gummy and that should be good for evening out the swings but it is obviously not working well enough for her. I suggest that we start by trying to treat her with a mild laxative like senna and see how she responds to that and go from there to try to figure out the real underlying mechanism for the back and forth bowel movements. She is able to repeat verbalize understanding of this. In the meantime she can either take were stopped the dicyclomine depending on what she finds it helpful for cramping. She continues on her pantoprazole. Return office visit in 6 weeks Medications: New sennosides (Senna Laxative) 17.2 mg (2 x 8.6 mg) PO BEDTIME 60 tabs 3RF K58.2 - Mixed irritable bowel syndrome On Hold dicyclomine Hold Comment: Doctor's Order 40 mg (2 x 20 mg) PO QID 720 tabs 3RF K21.9 - Gastro-esophageal reflux disease without esophagitis, K58.0 - Irritable bowel syndrome with diarrhea, Z12.11 - Encounter for screening for malignant neoplasm of colon Coding Level of Care Code Est Pt Level 3 (32652) Diagnoses Irritable bowel syndrome with both constipation and diarrhea K58.2 GERD (gastroesophageal reflux disease) K21.9
[2024-09-24 14:02] VITALS: BP 134/82; PULSE 93; BMI 44.1
--- OUTSIDE RECORDS SUMMARY | 2024-10-01 14:41 | XMS_ITS ---
Author Organization [facility] Address [address] [address] Care Team Providers Care Bilingual Manager Name Role Phone Estefany DOTSON, [place] Mehta Primary Care Provider Un available Nimo Weber Unavailable [phone] Hilario Currie Unavailable [phone] Allergies Allergen (clinical drug ingredient) Drug/Non Drug Allergy documented on EMR Reaction Allergy Type Onset Date Status cefaclor ceclor (uncoded) Unknown Allergy Act delia sulfamethoxazole / trimethoprim Bactrim Unknown Drug Allergy Active Ceftin Unknown Drug Allergy Active meperidine Demerol Unknown Drug Allergy Active ziprasidone Geodon Unknown Drug Allergy Activ e Keflex Unknown Drug Allergy Active alosetron Lotronex Unknown Drug Allergy Active morphine Morphine Unknown Drug Allergy Active oxycodone Oxycodone Unknown Drug Allergy Active REASON FOR VISIT pcp-08/2023 Medications Medication SIG (Take, Route, Frequency, Duration) Notes Start Date End Date Status Breo Ellipta Active Dicyclomine HCl 20 MG 1 tablet Orally Th ree times a day Active Adderall 10 MG 3 tablet Orally Once a day Active Albuterol Active Adderall XR 20 MG 1 capsule in the morning Orally Once a day Active LORazepam 2 MG 1 tablet at bedtime as needed Orally Once a day 2 a day Active Pantoprazole Sodium 40 MG 1 tablet Orall y Once a day Active traZODone HCl 50 MG 1 tablet at bedtime as needed Orally Once a day Active Levothyroxine Sodium 75 MCG 1 tablet in the morning on an empty stomach Orally Once a day Active Lisinopril 10 MG 1 tablet Orally Once a day Active Vraylar 6 MG 1 capsule Orally Onc e a day Active Work Note . .pt. is totally disabled from work until further notice due to stress fx right heel . . for . 12/19/2013 Not-Taking Chlorthalidone Activ e Fiber Gummies Active Multivitamin Active AFO-fixed fixed 1 dx: stress fx righ t heel PTB AFO brace right foot and leg for as needed 12/19/2013 Not-Taking Work Note . . . . for . 12/11/2013 Not-T aking Folic Acid 20 MG as directed Orally Not-Taking Bickmore 3-6-9 Fatty Acids as directed Orally Not-Taking Probiotic as directed Orally N ot-Taking Ativan 2 MG 1 tablet at bedtime Orally Once a day Not-Taking Ranitidine HCl 300 MG 1 capsule at bedti me Orally Once a day for 30 day(s) Not-Taking Graham Thyroid 60 MG 1 tablet Orally Onc e a day for 30 day(s) Not-Taking Zestril 10 MG 1 tablet Orally Once a day for 30 day(s) Not-Taking LaMICtal 200 MG 1 tablet Orally Once a day for 30 day(s) Not-Taking AFO-fixed fixed 1 dx: stress fx righ t heel PTB AFO brace right foot and leg for as needed Not-Taking Custom Orthotics as directed 07/08/2024 Active Physical Therapy . . . 2-3x/week for 3- 4 weeks 07/08/2024 Active Night Splint AFO - L1930 as directed 07/08/2024 Active Work Note . .pt. is totally disabled from work until further notice due to stress fx right heel . . for . Not-Taking Social History Tobacco Use: Social History Observation Description Date Details (start date - stop date) Former Smoker NA - NA Tobacco Use/Smoking Question Answer Notes Are you a: former smoker Additional Findings: Tobacco Non-User Cu rrent non-smoker, but past smoking history unknown Alcohol Screen Question Answer Notes Did you have a drink contain ing alcohol in the past year? Yes How often did you have a dri nk containing alcohol in the past year? 4 or more times a week (4 points) Points 4 Interpretation Positive Tobacco use other than smoking: Question Answer Notes Are you an other tobacco user? No Problems Problem Type SNOMED Code ICD Code Onset Dates Problem Status W/U Status Risk Notes Problem Plantar fascial fibromatosis (25417351) Plantar fascial fibromatosis (M72.2) Active confirmed Vital Signs Height 5ft 8in in 08/22/2024 Weight 291 lbs 08/22/2024 BMI 44.24 kg/m2 08/22/2024 Encounters Encounter Location Date Provider Diagnosis [facility] [address] [address] 08/22/2024 Hilario Currie Plantar fascial fibromatosis M72.2 ; Metatarsalgia, left foot M77.42 ; Metatarsalgia, right foot M77.41 ; Tinea unguium B35.1 ; Bunionette of right foot M21.621 and Bunionette of left foot M21.622 Assessments Encounter Date Diagnosis (ICD Code) Assessment Notes Treatment Notes Treatment Clinical Notes Section Notes 08/22/2024 Plantar fascial fibromatosis (ICD-10 - M72.2) 08/22/2024 Metatarsalgia, left foot (ICD-10 - M77.42) 08/22/2024 Metatarsalgia, right foot (ICD-10 - M77.41) 08/22/2024 Tinea unguium (ICD-10 - B35.1) 08/22/2024 Bunionette of right foot (ICD-10 - M21.621) 08/22/2024 Bunionette of left foot (ICD-10 - M21.622) Plan Of Treatment Next Appt Details Follow Up: 4 Weeks, Reason: Provider Name:Nimo Didi thakkar, 10/17/2024 02:45:00 PM, [address] [place] [address], [id number], Progress Notes * Arcelia HOLT MDOB: (54 yo F)Acc No.[id number]:08/22/2024 Progress Note Patient:?Arcelia Holt Provider:?Hilario Currie DPM :1970???Age:54 Y???Sex:Female D ate:08/22/2024 Address:[address] [place] [address], [facility] Pcp:Jac Guardado Subjective: * Chief Complaints: * ???Pcp-08/2023 * HPI: ???Heel pain:?Nature:?sharp pain.?Location:?Proximal plantar aspect of Heel, plantar, Arch, B/L.?Duration:?several years .?Onset/Cause:?unknown, denies trauma.?Aggravated:?standing, walking.?Treatments:?previous tx at [facility].?Severity/Quality:?States 8 out of 10.?Foot Pain:?Nature:?sharp.?Location?Bottom, B/L, Outside, Forefoot.?Duration:?1 month.?Course:?worse.?Aggrevated:?any pressure.?Treatments:?none.?Quality/Severity?severe.? * ROS:?General/Constitutional:?Nausea?denies.?Vomiting?denies.?Hunger Thirst?denies.?Loss appetite?denies.?Chills?denies.?Fatigue?denies.?Fever?denies.?Night Sweats?denies.?Unexplained weight loss?denies.?Unexplained weight gain?denies.?HEENTM:?Dentures?denies.?Dizziness?denies.?Glasses/contacts?denies.?Retinopathy?de nies.?Blurred/double vision?denies.?TMJ?denies.?Discharge/drainage?denies.?Implants?denies.?Sore throat?denies.?Dental implants?denies.?Hard of hearing ?denies.?Difficulty chewing/swallowing/speaking?denies.?Nose bleeds?denies.?Sore mouth?denies.?Respiratory:?On Oxygen?denies.?Pneumonia/pleurisy?denies.?Bronchitis?denies.?Emphysema?denies.?C oughing?denies.?Cough blood?denies.?Shortness of breath?denies.?Wheezing?denies.?Cardiovascular:?Pacemaker?denies.?MVP?denies.?WPW?denies.?CHF?denies.?Heart attack?denies.?Septal defect?denies.?Rapid beat?denies.?Chest pain ?denies.?Atrial Fib.?denies.?Murmur/Palpitations?denies.?Gastrointestinal:?Hemorrhoids?denies.?Stomach/Abdominal pain?denies.?Dark blood stool?denies.?Irritable bowel ?denies.?Constipation?denies.?Diarrhea?denies.?Hematology:?Swelling?denies.?Clots?denies.?Varicose Veins?denies.?Bruising?denies.?Bleeding problem?denies.?Genitourinary:?Blood urine?denies.?Frequent/Painfu/urination/bladder control?denies.?Kidney stones?denies.?Infection (UTI)?denies.?Nephropathy?denies.?sex trans dis (STD)?denies.?Prostate?denies.?Musculoskeletal:?Hammertoes?denies.?Bunions?denies.?Back Pain?denies.?Muscle Cramps/ Resting?denies.?Muscle cramps / walking?denies.?Generalized aches and pains?denies.?Weakness?denies.?Integ.:?[place]?denies.?Scars?denies.?Corns/calluses?denies.?Ingrown nails?denies.?Painful nails?denies.?Open Sores?denies.?Rashes?denies.?Neurologic:?Difficulty sleeping?denies.?Brain disorder?denies.?Numbness?denies.?Balance trouble?denies.?Confusion?denies.?Fainting/blackouts?denies.?Tingling?denies.?Tr emors?denies.? * Medical History:? * Surgical History:?eye surger y cyst removal section thyroid nodule removal 1992 * Hospitalization/Major Diagno stic Procedure:?Denies Past Hospitalization * Family History:?Mother: jesus lennon, diagnosed with Family history of arthritis, Unspecified essential hypertension.?Father: alive, foot problems, diagnosed with Unspecified essential hypertension, Other specified conditions influencing health status.? * Social History:?Tobacco Use:?Tobacco Use/Smoking?Are you a:?former smoker ?Additional Findings: Tobacco Non-User?Current non-smoker, but past smoking history unknown ?Tobacco use other than smoking?Are you an other tobacco user??No ???Drugs/Alcohol:?Drugs?Have you used drugs other than those for medical reasons in the past 12 months??No ?Alcohol Screen?Did you have a drink containing alcohol in the past year??Yes ?How often did you have a drink containing alcohol in the past year??4 or more times a week (4 points) ?Points?4 ?Interpretation?Positive * Medications:?TakingMultivita gayle Leslie , Notes: GummiesChlorthalidone Vraylar 6 MG Capsule 1 capsule Orally Once a daytraZODone HCl 50 MG Tablet 1 tablet at bedtime as needed Orally Once a dayPantoprazole Sodium 40 MG Tablet Delayed Release 1 tablet Orally Once a dayLORazepam 2 MG Tablet 1 tablet at bedtime as needed Orally Once a day, Notes: 2 a dayLisinopril 10 MG Tablet 1 tablet Orally Once a dayLevothyroxine Sodium 75 MCG Tablet 1 tablet in the morning on an empty stomach Orally Once a dayDicyclomine HCl 20 MG Tablet 1 tablet Orally Three times a dayBreo Ellipta Albuterol Adderall 10 MG Tablet 3 tablet Orally Once a dayAdderall XR 20 MG Capsule Extended Release 24 Hour 1 capsule in the morning Orally Once a dayNight Splint AFO - L1930 as directed Physical Therapy . . . . 2-3x/weekCustom Orthotics as directed Taking Multivitamin Taking Fiber , Notes: GummiesTaking Chlorthalidone Taking Vraylar 6 MG Capsule 1 capsule Orally Once a dayTaking traZODone HCl 50 MG Tablet 1 tablet at bedtime as needed Orally Once a dayTaking Pantoprazole Sodium 40 MG Tablet Delayed Release 1 tablet Orally Once a dayTaking LORazepam 2 MG Tablet 1 tablet at bedtime as needed Orally Once a day, Notes: 2 a dayTaking Lisinopril 10 MG Tablet 1 tablet Orally Once a dayTaking Levothyroxine Sodium 75 MCG Tablet 1 tablet in the morning on an empty stomach Orally Once a dayTaking Dicyclomine HCl 20 MG Tablet 1 tablet Orally Three times a dayTaking Breo Ellipta Taking Albuterol Taking Adderall 10 MG Tablet 3 tablet Orally Once a dayTaking Adderall XR 20 MG Capsule Extended Release 24 Hour 1 capsule in the morning Orally Once a dayTaking Night Splint AFO - L1930 as directed Taking Physical Therapy . . . . 2-3x/weekTaking Custom Orthotics as directed Not-Taking/PRNAFO-fixed fixed orthotic 1 dx: stress fx right heel PTB AFO brace right foot and legWork Note . . .pt. is totally disabled from work until further notice due to stress fx right heel . .Graham Thyroid 60 MG Tablet 1 tablet Orally Once a dayRanitidine HCl 300 MG Capsule 1 capsule at bedtime Orally Once a dayAtivan 2 MG Tablet 1 tablet at bedtime Orally Once a dayZestril 10 MG Tablet 1 tablet Orally Once a dayLaMICtal 200 MG Tablet 1 tablet Orally Once a dayProbiotic Capsule as directed Orally Bickmore 3-6-9 Fatty Acids Capsule as directed Orally Folic Acid 20 MG Capsule as directed Orally Work Note . . . . .AFO-fixed fixed orthotic 1 dx: stress fx right heel PTB AFO brace right foot and legWork Note . . .pt. is totally disabled from work until further notice due to stress fx right heel . .Medication List reviewed and reconciled with the patientNot-Taking/PRN AFO-fixed fixed orthotic 1 dx: stress fx right heel PTB AFO brace right foot and legNot-Taking/PRN Work Note . . .pt. is totally disabled from work until further notice due to stress fx right heel . .Not-Taking/PRN Graham Thyroid 60 MG Tablet 1 tablet Orally Once a dayNot- Taking/PRN Ranitidine HCl 300 MG Capsule 1 capsule at bedtime Orally Once a dayNot- Taking/PRN Ativan 2 MG Tablet 1 tablet at bedtime Orally Once a dayNot-Taking/PRN Zestril 10 MG Tablet 1 tablet Orally Once a dayNot-Taking/PRN LaMICtal 200 MG Tablet 1 tablet Orally Once a dayNot-Taking/PRN Probiotic Capsule as directed Orally Not- Taking/PRN Bickmore 3-6-9 Fatty Acids Capsule as directed Orally Not-Taking/PRN Folic Acid 20 MG Capsule as directed Orally Not-Taking/PRN Work Note . . . . .Not-Taking/PRN AFO- fixed fixed orthotic 1 dx: stress fx right heel PTB AFO brace right foot and legNot-Taking/PRN Work Note . . .pt. is totally disabled from work until further notice due to stress fx right heel . .Medication List reviewed and reconciled with the patient * Allergies:?GeodonLotronexMor phineOxycodoneDemerol: AllergyCeftin: AllergyKeflex: AllergyBactrim: Allergyceclor: Allergyyes[Allergies Verified] Objective: * Vitals:?Ht: 5ft 8in, Wt:291, BMI:44.24, Shoe size: 10, Ht-cm: 172.72 cm, Wt-k kg. * Examination: ???General Examination: ?GENERAL APPEARANCE:?Reveals a pleasant, alert, well nourished, well- developed, well hydrated individual, who demonstrates proper attention to hygiene/body habitus, and is in no acute distress, Pt serves as own historian for office visit today.?ORIENTED:?person, place, and time.?Neurological: ?SENSORY:? Neurological exam demonstrates pop plantar jenifer 5th mtpj.?BABINSKI REFLEX:?Absent, B/L , absent.?Vascular: ?DP PULSES(B):? 2/4, B/L.?PT PULSES(B):? 1/4, B/L.?PIGMENTATION:?normal, B/L.?TELANGECTASIA:?absent.?VARICOSITIES:?absent.?Dermatologic: ?SKIN FINDINGS:? Skin exam reveals Keratotic lesion(s) located at, SUB MTH (s), 5, B/L.?Heel Pain: ?INSPECTION REVEALS:?Pain on Palpation to Plantar Fascia med. and central bands, intrinsic musc., infra-calcaneal bursa, and med calc tubercle, B/L--distal pf jenifer.?Orthopedic: ?MUSCLE STRENGTH:?5/5 all groups in a symmetrical fashion, B/L.?FOOT MORPHOLOGY:? Pes Cavus structure, B/L.?Neuroma Pain: ?PALPATION:?No interspace pain noted on palpation.? Assessment: * Assessment: 1.?Plantar fascial fibromato sis - M72.2 (Primary)?2.?Metatarsalgia, left foot - M77.42?3.?Metatarsalgia, right foot - M77.41?4.?Tinea unguium - B35.1?5.?Bunionette of right foot - M21.621?6.?Bunionette of left foot - M21.622? Plan: * Treatment: * Procedure Codes:? * Preventive Medicine:? ??Counseling:?Discussion:?-13: Office or other outpatient visit for the evaluation and management of an established patient, which required a medically appropriate history and/or examination and LOW level of DECISION MAKING for: 1 STABLE ACUTE UNCOMPLICATED PROBLEM, 2 OR MORE MINOR PROBLEMS, OR 1 STABLE CHRONIC PROBLEM, THAT POSE(S) A LOW RISK FOR MORBIDITY/MORTALITY. The visit on the day of the encounter encompassed interpreting the data and educating the patient as to the nature of their condition, treatment options available according to their individual PMH, meds, allergies, and overall health/living conditions, as well as any potential risks or complications that may occur from a failure to adhere to, and participate in, the recommended course of therapy. The discussion included a complete verbal, and/or written explanation of the examination results, any x-rays taken, the proposed diagnosis, and outline of the treatment plan. A schedule for future care needs was also explained. The patient verbalized an understanding of the instructions at this time and agreed to be an active participant in their treatment. If the patient should think of any questions or concerns after the visit, I have encouraged the patient to call the office.?Orthotic Dispensing:?The patient presents today for fitting and dispensing of orthotics. The inserts were checked against the prescription and found to be accurate. They were properly fitted to the patients feet and shoes in both weight-bearing and non-weight bearing attitudes. The patient was instructed to gradually increase the amount of time they are wearing the orthoses, starting with one hour the first day and thereon progressively increasing the amount of time used by one hours per day until they are comfortable to be worn all day and with all activities. They were asked to call the office if any signs of skin irritation were noted including redness, blistering or callous formation. The patient verbally indicated a full understanding of all the above information.? * Follow Up:?4 Weeks * Images: * Sign off status: Completed true * Provider:?Hilario Currie DPM Date:? 024 Generated for Sara hendrix/Charla/Bethanyitting on:?10/01/2024 02:40 PM EST History and Physical Notes * HPI (History of Present Illness) Category Sub-Category Detail Notes Category Not es Heel pain Duration: several years Nature: sharp pain Severity/Quality: States 8 out of 10 Location: Proximal plantar asp ect of Heel, plantar, Arch, B/L Onset/Cause: unknown, torieies francisca erazo Aggravated: standing, walking Treatments: previous tx at [facility] Foot Pain Aggrevated: any pressure Course: worse Duration: 1 month Nature: sharp Treatments: none Quality/Severity severe Location Bottom, B/L, Outside , Forefoot Examination Category Sub-Category Detail Notes Category Not es Neuroma Pain PALPATION: No interspace pain noted on palpation Heel Pain INSPECTION REVEALS: Pain on Palp ation to Plantar Fascia med. and central bands, intrinsic musc., infra-calcaneal bursa, and med calc tubercle, B/L--distal pf jenifer Neurological SENSORY: Neurological exa m demonstrates pop plantar jenifer 5th mtpj BABINSKI REFLEX: Absent, B/L , absent Dermatologic SKIN FINDINGS: Skin exam reveal s Keratotic lesion(s) located at, SUB MTH (s), 5, B/L Orthopedic FOOT MORPHOLOGY: Pes Cavus structure, B/L MUSCLE STRENGTH: 5/5 all groups in a symmetrical fashion, B/L General Examination GENERAL APPEARANCE: Reveals a pleasant, alert, well nourished, well-developed, well hydrated individual, who demonstrates proper attention to hygiene/body habitus, and is in no acute distress, Pt serves as own historian for office visit today ORIENTED: person, place, and t aspen Vascular DP PULSES(B): 2/4, B/L PT PULSES(B): 1/4, B/L TELANGECTASIA: absent VARICOSITIES: absent PIGMENTATION: normal, B/L
--- OUTSIDE RECORDS SUMMARY | 2024-10-01 14:41 | XMS_ITS ---
Author Organization [facility] Address [address] [place] [address] Care Team Providers Care Lav Crewman Name Role Phone Estefany DOTSON, [place] Mehta Primary Care Provider Un available Nimo Weber Unavailable [phone] Hilario Currie Unavailable [phone] REASON FOR VISIT r/s 09/17/24 appt Encounters Encounter Location Date Provider Diagnosis [address] [address] 09/09/2024 Hilario Currie Plan Of Treatment Next Appt Details Provider Name:Nimo thakkar, 10/17/2024 02:45:00 PM, [address] [place] [address], [phone], Progress Notes * Arcelia HOLT MDOB: (54 yo F)Acc No.[id number]:09/09/2024 Patient:?Arcelia HOLT :1970???Age:54 Y???Sex:Female Address:[address] [place], [address] * true * Date:? Generated for Printi ng/Faxing/eTransmitting on:?10/01/2024 02:40 PM EST
--- OUTSIDE RECORDS SUMMARY | 2024-10-01 14:41 | XMS_ITS | Patient Health Record ---
Author Organization [facility] Address [address] [facility] [place] [address] Care Team Providers Care Real Estate Loan Officer Name Role Phone Estefany DOTSON, [place] Mehta Primary Care Provider Un available Nimo Weber Unavailable [phone] Hilario Currie Unavailable [phone] Jerome Gilbert Unavailable [phone] Allergies Allergen (clinical drug ingredient) Drug/Non Drug [...] Active oxycodone Oxycodone Unknown Drug Allergy Active Reason For Referral No Information Medications Medication SIG (Take, Route, Frequency, Duration) Notes Start Date End Date Status AFO-fixed fixed 1 dx: stress fx righ t heel PTB AFO brace right foot and leg for as needed Not-Taking Custom Orthotics as directed 07/08/2024 Active Physical Therapy . . . 2-3x/week for 3- 4 weeks 07/08/2024 Active Night Splint AFO - L1930 as directed 07/08/2024 Active Ativan 2 MG 1 tablet at bedtime Orally Once a day Not-Taking Ranitidine HCl 300 MG 1 capsule at bedti me Orally Once a day for 30 day(s) Not-Taking [place] Thyroid 60 MG 1 tablet Orally Onc e a day for 30 day(s) Not-Taking Work Note . .pt. is totally disabled from work until further notice due to stress fx right heel . . for . Not-Taking Adderall XR 20 MG 1 capsule in the morning Orally Once a day Active Adderall 10 MG 3 tablet Orally Once a day Active Albuterol Active LORazepam 2 MG 1 tablet at bedtime as needed Orally Once a day 2 a day Active AFO-fixed fixed 1 dx: stress fx righ t heel PTB AFO brace right foot and leg for as needed 12/19/2013 Not-Taking Pantoprazole Sodium 40 MG 1 tablet Orall y Once a day Active Work Note . . . . for . 12/11/2013 Not-T aking traZODone HCl 50 MG 1 tablet at bedtime as needed Orally Once a day Active Folic Acid 20 MG as directed Orally Not-Taking Vraylar 6 MG 1 capsule Orally Onc e a day Active [place] 3-6-9 Fatty Acids as directed Orally Not-Taking Breo Ellipta Active Dicyclomine HCl 20 MG 1 tablet Orally Th ree times a day Active Levothyroxine Sodium 75 MCG 1 tablet in the morning on an empty stomach Orally Once a day Active Lisinopril 10 MG 1 tablet Orally Once a day Active Work Note . .pt. is totally disabled from work until further notice due to stress fx right heel . . for . 12/19/2013 Not-Taking Probiotic as directed Orally N ot-Taking LaMICtal 200 MG 1 tablet Orally Once a day for 30 day(s) Not-Taking Chlorthalidone Activ e Fiber Gummies Active Multivitamin Active Zestril 10 MG 1 tablet Orally Once a day for 30 day(s) Not-Taking Social History Tobacco Use: Social History [...] Problem Status W/U Status Risk Notes Problem Bursitis (61913243) Bursitis (727.3) Active confirmed Problem Myositis (53545868) Myositis (729.1) Active confirmed Problem Pain in limb (61968413) Pain in Limb (729.5) Active confirmed Problem Plantar fasciitis (195986006) Plantar Fasciitis (728.71) Active confirmed Problem Plantar fascial fibromatosis (56831122) Plantar fascial fibromatosis (M72.2) Active confirmed Vital Signs Height 5ft 8in in 08/22/2024 Weight 291 lbs 08/22/2024 BMI 44.24 kg/m2 08/22/2024 Encounters Encounter Location Date Provider Diagnosis [address] [address] 07/08/2024 Hilario Currie Plantar fascial fibromatosis M72.2 ; Metatarsalgia, left foot M77.42 ; Metatarsalgia, right foot M77.41 ; Tinea unguium B35.1 ; Bunionette of right foot M21.621 and Bunionette of left foot M21.[address] [address] 08/22/2024 Hilario Currie Plantar fascial fibromatosis M72.2 ; Metatarsalgia, left foot M77.42 ; Metatarsalgia, right foot M77.41 ; Tinea unguium B35.1 ; Bunionette of right foot M21.621 and Bunionette of left foot M21.[address] [address] 07/08/[address] [address] 07/18/[address] [address] 09/09/2024 Hilario Currie Assessments Encounter Date Diagnosis (ICD Code) Assessment Notes Treatment Notes Treatment Clinical Notes Section Notes 07/08/2024 Plantar fascial fibromatosis (ICD-10 - M72.2) Patient Educated with: HEEL CORD STRETCHES.pdf (HEEL CORD STRETCHES.pdf) Patient Educated with: RICE THERAPY.pdf (RICE THERAPY.pdf) 07/08/2024 Metatarsalgia, left foot (ICD-10 - M77.42) 08/22/2024 Plantar fascial fibromatosis (ICD-10 - M72.2) 08/22/2024 Metatarsalgia, left foot (ICD-10 - M77.42) 07/08/2024 Metatarsalgia, right foot (ICD-10 - M77.41) 08/22/2024 Metatarsalgia, right foot (ICD-10 - M77.41) 07/08/2024 Tinea unguium (ICD-10 - B35.1) 08/22/2024 Tinea unguium (ICD-10 - B35.1) 07/08/2024 Bunionette of right foot (ICD-10 - M21.621) 08/22/2024 Bunionette of right foot (ICD-10 - M21.621) 08/22/2024 Bunionette of left foot (ICD-10 - M21.622) 07/08/2024 Bunionette of left foot (ICD-10 - M21.622) Plan Of Treatment Pending Test Test Name Order Date X ray : Foot, right 2V 12/04/2013 X ray : Foot, left 3V 07/08/2024 X ray : Foot, right 3V 07/08/2024 Next Appt Details Provider Name:Nimo Tolbert ariane, 10/17/2024 02:45:00 PM, [address] [place] [address], [phone], Insurance Providers Payer Name Payer Address Payer Phone Subscriber Number Group Number Insured Name Patient Relationship to Insured Coverage Start Date Coverage End Date [facility] [employer] SCO Claims [address] [facility] [place] [address] [id number] Arcelia Multani Self - patient is the insured Medical (General) History Medical History History ICD Code asthma Back,Hip,and Knee pain Depression High blood pressure Reflux Headaches Thyroid disorder chronic sinusitis Psychiatric disorder Transfusions Surgical History Surgery Date(Month/Year) eye surgery cyst removal section thyroid nodule removal 1992
--- OUTSIDE RECORDS SUMMARY | 2024-10-01 14:41 | XMS_ITS ---
Author Organization [facility] Address [address] [place] [address] Care Team Providers Care Radiology Technologist Name Role Phone Estefany DOTSON, [place] Mehta Primary Care Provider Un available Nimo Weber Unavailable [phone] Jerome Gilbert Unavailable [phone] Encounters Encounter Location Date Provider Diagnosis [address] [address] 09/17/2024 Jerome Gilbert Plan Of Treatment Next Appt Details Provider Name:Nimo Didi thakkar, 10/17/2024 02:45:00 PM, [address] [place], [address], Progress Notes * Arcelia HOLT MDOB: (54 yo F)Acc No.[id number]:09/17/2024 Progress Notes Patient:?Arcelia HOLT Provider:?Jerome Gilbert D.P.M. :1970???Age:54 Y???Sex:Female D ate:09/17/2024 Address: [address], [place]-[address] Pcp:Jac Guardado Subjective: * Chief Complaints: * ??? * Medical History:? Objective: * Vitals:? Assessment: Plan: * Treatment: * Images: * The named appointment provid er may or may not be the originator of this progress note, and it is not deemed complete until electronically signed by the appointment provider. Sign off status: Pending * Provider:?Jerome Gilbert D.P.M. Date:?08/24 Generated for Sara hendrix/Charla/Gonzalo on:?10/01/2024 02:40 PM EST
== END 2024-09-24 14:23 | disposition home or self-care (01) ==
PROVIDERS: PCP Internal Medicine; Visit Provider Nurse Practitioner
DX: K58.2 Mixed irritable bowel syndrome (principal); K21.9 Gastro-esophageal reflux disease without esophagitis
CPT/HCPCS: 99213

== ENCOUNTER → 2024-09-24 13:49 | Outpatient (BNVA) | payer OTHER, SELFPAY | PROVIDERS: PCP Internal Medicine; Visit Provider Nurse Practitioner | DX: K21.9 Gastro-esophageal reflux disease without esophagitis (principal); K58.2 Mixed irritable bowel syndrome; R10.30 Lower abdominal pain, unspecified | CPT/HCPCS: 99212 ==

== ENCOUNTER 2024-09-26 09:47 | Outpatient (AMB) | payer OTHER, SELFPAY ==
--- NOTE | 2024-09-26 09:50 | A.OFFVIS_ITS ---
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 Accompanied by: Self / Same As Patient Allergies ziprasidone [From GEODON] Allergy (Severe, Verified 09/26/24 09:53) HIVES,SWELLING alosetron [From LOTRONEX] Allergy (Intermediate, Verified 09/26/24 09:53) RASH Sulfa (Sulfonamide Antibiotics) [SULFA (SULFONAMIDE ANTIBIOTICS)] Allergy (Intermediate, Verified 09/26/24 09:53) RASH cephalexin [Keflex] Allergy (Unknown, Verified 09/26/24 09:53) rash oxycodone [OXYCODONE] Adverse Reaction (Severe, Verified 09/26/24 09:53) HALLUCINATIONS, hallucination, hallucinations meperidine [Demerol] Adverse Reaction (Unknown, Verified 09/26/24 09:53) nausea and vomiting morphine Adverse Reaction (Unknown, Verified 09/26/24 09:53) nausea and vomiting HPI Comments Details: Patient presents today for follow up for chronic low back pain. She reports unrelenting right sided low back pain that she reports has been present since right Sprint PNS temporary lead removal in November 2023 with lead tip intact. Patient had good relief for axial low back pain with Sprint system. She reports right sided localized tenderness with frequent stabbing, shooting and sharp pain in right paraspinal lower lumbar area with radiation into her right lower extremity. Patient has concerns for a possible tear or musculoskeletal damage due to poor healing after device removal. She requests to update MRI. Denies any fever or chills, cough, rash, swelling, weakness, bladder or bowel dysfunction or saddle anesthesia. Patient reports reports she was evaluated by [facility] at [facility] and will be starting on Zepbound injection prior to surgical considerations. Patient continues to stay physically active and loose weight for longer-term pain relief of low back pain and joint pain. Past Procedures: 07/09/24: Therapeutic Bilateral SIJ injections-100% ongoing pain relief 04/30/24: Diagnostic Bilateral SIJ [id number]% pain relief for 24 hours 12/18/23: Left L4 MB Sprint removal-100% pain relief 10/19/23: Left L4 medial branch Sprint-100% pain relief 75 stimulation 10/05/23: Right L4 medial branch Sprint-90% pain relief at 57 stimulation, removed 12/04/23 06/09/23: Therapeutic Bilateral L3-L4 DR L5 MBBs-80% ongoing pain relief 04/27/23: Diagnostic Bilateral L3-L4-DR L5 MBBs-80% pain relief for 12 hours 03/17/23: Right diagnostic sacroiliac joint injection-10% for 3-4 hours [facility] Medical History Irritable bowel syndrome with diarrhea Sacroiliac joint pain Bilateral shoulder pain Lumbar radiculopathy, chronic Mixed dyslipidemia Decreased glomerular filtration rate (GFR) Impaired fasting glucose Mild intermittent asthma Morbid obesity Von Willebrand disease History of MRSA infection Bipolar 1 disorder, depressed ADHD Hypothyroid Hypertension GERD (gastroesophageal reflux disease) Atypical ductal hyperplasia of right breast Acquired hypothyroidism Surgical History Hx of colonoscopy History of bilateral carpal tunnel release Hx of cystoscopy Hx of esophagogastroduodenoscopy Vesicovaginal fistula S/P laparoscopic surgery History of total abdominal hysterectomy History of section History of eye surgery History of partial thyroidectomy Family History Father HTN (hypertension) Hyperlipidemia Mother HTN (hypertension) Alzheimers disease Mental health disorder Maternal Aunt Breast cancer Brother Substance use disorder Social History Housing: House Alcohol intake: current Alcohol intake frequency: 0-2 drinks per day Alcohol type: hard liquor Patient Tobacco Use Status: Former Tobacco user Tobacco use type: Cigarette Years Smoked: 20 years e-Cigarette/Vaping Use: Never Used service: No Current occupational status: unemployed Cognitive needs: No Hearing needs: No Vision needs: Yes Review of Systems Const All systems reviewed & are unremarkable except as noted in HPI and below Physical Exam Vital Signs: Last Vital Signs Pulse 96 09/26/24 09:53 BP 146/90 H 09/26/24 09:53 Pulse Ox 98 09/26/24 09:53 Oxygen Delivery Method Room Air 09/26/24 09:53 BMI result Body Mass Index 44.4 On exam today: Appears afebrile. Morbidly obese. Alert and oriented. Clear speech. Mood and affect appropriate. Pleasant. Follows and participates in conversation appropriately. Respiratory effort is unlabored. No cough. Able to transition from sit to stand unassisted. Ambulates with bilaterally normal heel strike and toe off. Able to stand and walk on toes and heels. General: Yes no CVA tenderness Back/Spine/Pelvis Back: no CVA tenderness and back tenderness (right lower lumbar paraspinals) Cervical Spine: cervical ROM normal and No Cervical spine tenderness Thoracic/Lumbar Spine: thoracic and lumbar spine normal to inspection, No Thoracic/lumbar spine scar(s), Lasegue's sign negative, straight leg raise negative bilaterally, pain with thoraco-lumbar ROM, paraspinal muscle tenderness on the right in the mid lumbar and in the lower lumbar, thoraco-lumbar spasm on the right in the mid lumbar, No thoracic spinal tenderness and No lumbar spinal tenderness Sacroiliac joints: bilaterally tender to palpation (mild) Extrem General: Yes capillary refill normal, Yes no clubbing, cyanosis or edema and Yes no calf tenderness Results Reviewed Results Reviewed: MR LUMBAR SPINE WITHOUT CONTRAST 09/29/22 CLINICAL INFORMATION: Radiculopathy, lumbar region. COMPARISON: Lumbar spine MRI 03/12/2010. FINDINGS: The lumbar vertebral bodies maintain normal heights and alignment. The disc heights are preserved. No bone marrow edema is seen. The distal spinal cord appears normal. The conus medullaris terminates normally at the L1 level. The extraspinal soft tissues are unremarkable. SPINAL LEVELS: L1-L2: No posterior disc abnormality. No spinal canal or neural foraminal stenosis. L2-L3: No posterior disc abnormality. No spinal canal or neural foraminal stenosis. L3-L4: No posterior disc abnormality. Mild facet arthropathy. No spinal canal or neural foraminal stenosis. L4-L5: Mild disc bulging with moderate facet arthropathy ligamentum flavum infolding. No spinal canal stenosis. Mild encroachment on the right neural foramen. L5-S1: No posterior disc abnormality. Moderate left facet arthropathy. No spinal canal or neural foraminal stenosis. IMPRESSION: No significant narrowing of the spinal canal or neural foramina. No definite nerve root compression is seen. XR LUMBAR SPINE XR SI JOINT 02/21/23 FINDINGS: Lumbar spine: There is normal lumbar lordosis. The vertebral heights, alignment and disc heights are normal. There is mild ventral spondylosis. No visible acute fracture, dislocation or subluxation. There is minimal ventral spondylosis. No lytic or sclerotic process seen. The paravertebral soft tissues are normal. SI joints: There is normal symmetry of bilateral SI joints without any bony erosive changes, sclerosis or lytic process. The pubic symphysis is normal. There are phleboliths throughout the lower pelvis. IMPRESSION: 1. Mild ventral spondylosis lumbar spine. No visible acute fracture, dislocation or lytic process seen. 2. Unremarkable SI joints. XR BILATERAL HIPS WITH AP PELVIS 08/21/23 CLINICAL INFORMATION: Sacrococcygeal disorders COMPARISON: CT abdomen pelvis 03/18/2016 FINDINGS: No fracture. Some minor degenerative changes are seen with some supra-acetabular lateral sclerosis, unchanged from prior. Hip joint spaces are maintained. Alignment is anatomic. Sacroiliac joints and pubic symphysis are normal. No abnormal soft tissue calcifications. Phleboliths are noted in the pelvis. IMPRESSION: Minimal degenerative changes in the hips. No acute finding. Assessment & Plan Assessment & Plan (1) Lumbar radiculopathy, chronic: Code(s): M54.16 - Radiculopathy, lumbar region Category: Medical (2) Low back pain radiating to right lower extremity: Code(s): M54.50 - Low back pain, unspecified; M79.604 - Pain in right leg Category: Medical (3) Lumbar degenerative disc disease: Code(s): M51.36 - Other intervertebral disc degeneration, lumbar region Category: Medical (4) Pain in right paraspinal region: Code(s): M54.9 - Dorsalgia, unspecified Category: Medical Plan Patient had Sprint PNS temporary leads removed in November 2023, reports ongoing stabbing, shooting and sharp pain on the right lower lumbar paraspinals since PNS lead removal with radiation into RLE. The patient is concerned for a possible tear or musculoskeletal damage due to poor healing after device removal. Will proceed with lumbar CT scan to further evaluate her symptoms. Script provided for gabapentin at bedtime. Side effects and precautions were di scussed with patient. All questions and concerns have been answered and patient agreed with the treatment plan. Follow-up for CT scan results and sooner as needed. Orders: Orders CT lumbar spine wo/w IV con Today M54.16 - Radiculopathy, lumbar region, M54.50 - Low back pain, unspecified, M54.9 - Dorsalgia, unspecified, M79.604 - Pain in right leg Medications: New gabapentin 300 mg PO BEDTIME 30 days 30 caps 0RF pain M54.16 - Radiculopathy, lumbar region, M54.50 - Low back pain, unspecified, M79.604 - Pain in right leg Discontinued tramadol Discontinued Reason: Patient Completed Course 50 mg PO BID 10 days PRN 20 tabs 0RF pain M47.816 - Spondylosis without myelopathy or radiculopathy, lumbar region, M51.36 - Other intervertebral disc degeneration, lumbar region, M53.3 - Sacrococcygeal disorders, not elsewhere classified, M62.830 - Muscle spasm of back Coding Level of Care Code Est Pt Level 4 (55368) Complex EM visit Add On G2211 Diagnoses Lumbar radiculopathy, chronic M54.16 Low back pain radiating to right lower extremity M54.50; M79.604 Lumbar degenerative disc disease M51.36 Pain in right paraspinal region M54.9
[2024-09-26 09:53] VITALS: BP 146/90; PULSE 96; O2SAT 98; BMI 44.4
--- OUTSIDE RECORDS SUMMARY | 2024-10-02 01:06 | XMS_ITS ---
Author Organization [facility] Address [address] [facility] [place] [address] Care Team Providers Care Surveillance Systems Engineer Name Role Phone Estefany DOTSON, [place] Mehta Primary Care Provider Un available Nimo Weber Unavailable [phone] Hilario Currie Unavailable [phone] Allergies Allergen (clinical drug ingredient) Drug/Non Drug [...] Acid 20 MG as directed Orally Not-Taking [place] 3-6-9 Fatty Acids as directed Orally Not-Taking Probiotic as directed Orally N ot-Taking Ativan 2 MG 1 tablet at bedtime Orally Once a day Not-Taking Ranitidine HCl 300 MG 1 capsule at bedti me Orally Once a day for 30 day(s) Not-Taking [place] Thyroid 60 MG 1 tablet Orally Onc [...] Status Risk Notes Problem Plantar fascial fibromatosis (83822403) Plantar fascial fibromatosis (M72.2) Active confirmed Vital Signs Height 5ft 8in in 08/22/2024 Weight 291 lbs 08/22/2024 BMI 44.24 kg/m2 08/22/2024 Encounters Encounter Location Date Provider Diagnosis [facility] [address] [address] 08/22/2024 Hilario Currie Plantar fascial fibromatosis M72.2 [...] Provider Name:Nimo Didi thakkar, 10/17/2024 02:45:00 PM, [address] [place] [address], [address], Progress Notes * Arcelia HOLT MDOB: (54 yo F)Acc No.[id number]:08/22/2024 Progress Note Patient:?Arcelia Holt Provider:?Hilario Currie DPM :1970???Age:54 Y???Sex:Female D ate:08/22/2024 Address:[address] [place] [address], [facility] Pcp:Jac Guardado Subjective: * Chief Complaints: [...] due to stress fx right heel . .[place] Thyroid 60 MG Tablet 1 tablet Orally Once a dayRanitidine HCl 300 MG Capsule 1 capsule at bedtime Orally Once a dayAtivan 2 MG Tablet 1 tablet at bedtime Orally Once a dayZestril 10 MG Tablet 1 tablet Orally Once a dayLaMICtal 200 MG Tablet 1 tablet Orally Once a dayProbiotic Capsule as directed Orally [place] 3-6-9 Fatty Acids Capsule as directed Orally [...] to stress fx right heel . .Not-Taking/PRN [place] Thyroid 60 MG Tablet 1 tablet Orally [...] Probiotic Capsule as directed Orally Not- Taking/PRN [place] 3-6-9 Fatty Acids Capsule as directed Orally [...] DPM Date:? 024 Generated for Sara hendrix/Charla/Bethanyitting on:?10/02/2024 01:06 AM EST History and Physical Notes * [...]
--- OUTSIDE RECORDS SUMMARY | 2024-10-02 01:06 | XMS_ITS ---
Author Organization [facility] Address [address] [place] [address] Care Team Providers Care Back Tender Pulp Drier Name Role Phone Estefany DOTSON, [place] Mehta Primary Care Provider Un available Nimo Weber Unavailable [phone] Hilario Currie Unavailable [phone] REASON FOR VISIT r/s 09/17/24 appt Encounters Encounter Location Date Provider Diagnosis [address] [address] 09/09/2024 Hilario Currie Plan Of Treatment Next Appt Details Provider Name:Nimo thakkar, 10/17/2024 02:45:00 PM, [address] [place] [address], [address], Progress Notes * Arcelia HOLT MDOB: (54 yo F)Acc No.[id number]:09/09/2024 Patient:?Arcelia HOLT :1970???Age:54 Y???Sex:Female Address:[address] [place], [address] * true * Date:? Generated for Printi ng/Fagloriag/eTransmitting on:?10/02/2024 01:06 AM EST
--- OUTSIDE RECORDS SUMMARY | 2024-10-02 01:06 | XMS_ITS ---
Author Organization [facility] Address [address] [place] [address] Care Team Providers Care Property Claims Adjuster Name Role Phone Estefany DOTSON, [place] Mehta Primary Care Provider Un available Nimo Weber Unavailable [phone] Jerome Gilbert Unavailable [phone] Encounters Encounter Location Date Provider Diagnosis [address] [address] 09/17/2024 Jerome Gilbert Plan Of Treatment Next Appt Details Provider Name:Nimo Didi thakkar, 10/17/2024 02:45:00 PM, [address] [place], [address], Progress Notes * Arcelia HOLT MDOB: (54 yo F)Acc No.[id number]:09/17/2024 Progress Notes Patient:?rAcelia HOLT Provider:?Jerome Gilbert D.P.M. :1970???Age:54 Y???Sex:Female D ate:09/17/2024 Address:[address], [place]-[address] Pcp:Jac Guardado Subjective: [...] Gilbert D.P.M. Date:?08/24 Generated for Sara hendrix/Charla/Gonzalo on:?10/02/2024 01:05 AM EST
--- OUTSIDE RECORDS SUMMARY | 2024-10-02 01:07 | XMS_ITS | Patient Health Record ---
Author Organization [facility] Address [address] [facility] [place] [address] Care Team Providers Care Rock Breaker Name Role Phone Estefany DOTSON, [place] Mehta Primary Care Provider Un available Nimo Weber Unavailable [phone] Hilario Currie Unavailable [phone] Jerome Gilbert Unavailable [phone] Allergies Allergen (clinical drug ingredient) Drug/Non Drug [...] Once a day for 30 day(s) Not-Taking [place] Thyroid 60 MG 1 tablet Orally Onc [...] capsule Orally Onc e a day Active [place] 3-6-9 Fatty Acids as directed Orally Not-Taking [...] Status W/U Status Risk Notes Problem Bursitis (76513765) Bursitis (727.3) Active confirmed Problem Myositis (08921407) Myositis (729.1) Active confirmed Problem Pain in limb (61504671) Pain in Limb (729.5) Active confirmed Problem Plantar fasciitis (050972690) Plantar Fasciitis (728.71) Active confirmed Problem Plantar fascial fibromatosis (22850448) Plantar fascial fibromatosis (M72.2) Active confirmed Vital Signs Height 5ft 8in in 08/22/2024 Weight 291 lbs 08/22/2024 BMI 44.24 kg/m2 08/22/2024 Encounters Encounter Location Date Provider Diagnosis [address] [address] 07/08/2024 Hilario Currie Plantar fascial fibromatosis M72.2 ; Metatarsalgia, left foot M77.42 ; Metatarsalgia, right foot M77.41 ; Tinea unguium B35.1 ; Bunionette of right foot M21.621 and Bunionette of left foot M21.[address] [address] 08/22/2024 Hilario Currie Plantar fascial fibromatosis M72.2 ; Metatarsalgia, left foot M77.42 ; Metatarsalgia, right foot M77.41 ; Tinea unguium B35.1 ; Bunionette of right foot M21.621 and Bunionette of left foot M21.[address] [address] 07/08/[address] [address] 07/18/[address] [address] 09/09/2024 Hilario Currie Assessments Encounter Date Diagnosis [...] Provider Name:Nimo Tolbert ariane, 10/17/2024 02:45:00 PM, [address] [place] [address], [address], Insurance Providers Payer Name Payer Address Payer Phone Subscriber Number Group Number Insured Name Patient Relationship to Insured Coverage Start Date Coverage End Date [facility] CCA S[employer] Claims [address] [facility] [place] [id number] Arcelia Multani Self - patient is the insured Medical (General) History Medical History History ICD Code asthma Back,Hip,and Knee pain Depression High blood pressure Reflux Headaches Thyroid disorder chronic sinusitis Psychiatric disorder Transfusions Surgical History Surgery Date(Month/Year) eye surgery cyst removal section thyroid nodule removal 1992
== END 2024-09-26 10:17 | disposition home or self-care (01) ==
PROVIDERS: PCP Internal Medicine; Visit Provider Nurse Practitioner Family
DX: M54.16 Radiculopathy, lumbar region (principal); M54.50 Low back pain, unspecified; M79.604 Pain in right leg; M51.369 Other intervertebral disc degeneration, lumbar region without mention of lumbar back pain or lower extremity pain; M54.9 Dorsalgia, unspecified
CPT/HCPCS: 99214; G2211

== ENCOUNTER → 2024-09-26 09:47 | Outpatient (BNVA) | payer OTHER, SELFPAY | PROVIDERS: PCP Internal Medicine; Visit Provider Nurse Practitioner Family | DX: M54.16 Radiculopathy, lumbar region (principal); M79.604 Pain in right leg; M51.360 Other intervertebral disc degeneration, lumbar region with discogenic back pain only; M53.3 Sacrococcygeal disorders, not elsewhere classified; M62.830 Muscle spasm of back; Z87.891 Personal history of nicotine dependence | CPT/HCPCS: 99212 ==

== ENCOUNTER 2024-12-13 08:27 | Outpatient (REF) | payer OTHER, SELFPAY ==
--- OUTSIDE RECORDS SUMMARY | 2024-12-13 08:39 | XMS_ITS ---
Author Organization [facility] Address [address] [place] [address] Care Team Providers Care Decision Support Analyst Name Role Phone Estefany DOTSON, [place] Mehta Primary Care Provider Un available Nimo Weber Unavailable [phone] Hilario Currie Unavailable [phone] REASON FOR VISIT r/s 09/17/24 appt Encounters Encounter Location Date Provider Diagnosis [facility] [address] [place] [address] 09/09/2024 Hilario Currie Plan Of Treatment No Information Progress Notes * Arcelia HOLT MDOB: (54 yo F)Acc No.[id number]:09/09/2024 Patient:?Arcelia HOLT :1970???Age:54 Y???Sex:Female Address:[address] [place], [address] * true * Date:? Generated for Printi ruma/Charla/eTransmitting on:?12/13/2024 08:39 AM EST
--- OUTSIDE RECORDS SUMMARY | 2024-12-13 08:40 | XMS_ITS | Clinical Summary ---
Author Organization [facility] Address [address] [address] Phone Care Team Providers Care Substance Addiction Coordinator Name Role Phone Nelli Allison MD Primary Care Provider [phone] Allergies Active Allergy Reactions Criticality Noted Date Comments Basil Oil Itching 08/31/2016 Cephalexin Rash Low 06/28/2016 Oxycodone Other (see comments) High 06/28/2016 Pecan Extract Itching 08/31/2016 Spencer Extract Itching 08/31/2016 Ziprasidone Hcl Rash High 01/14/2019 Medications albuterol HFA (PROVENTIL HFA;VENTOLIN HFA) 108 (90 Base) MCG/ACT inhaler Inhale 2 puffs every 6 (six) hours if needed for wheezing Active amphetamine-dex troamphetamine (ADDERALL) 15 MG tablet Take 10 mg by mouth in the morning and 10 mg at noon and 10 mg in the evening. Active fluticasone HFA (FLOVENT HFA) 220 MCG/ACT inhaler Inhale 1 puff 2 (two) times a day Rinse mouth with water after use to reduce aftertaste and incidence of candidiasis. Do not swallow. Active imipramine (TOFRANIL) 25 MG tablet Take 25 mg by mouth every night Active levothyroxine sodium (TIROSINT) 75 MCG capsule Take 75 mcg by mouth 1 (one) time each day Active lisinopril 10 MG tablet Take 10 mg by mouth 1 (one) time each day Active LORazepam (ATIVAN) 2 MG tablet Take 2 mg by mouth every 6 (six) hours if needed for anxiety Active pantoprazole (PROTONIX) 40 MG EC tablet Take 40 mg by mouth 1 (one) time each day before breakfast Do not crush, chew, or split. Active scopolamine (TRANSDERM-SCOP ) 1 MG/3DAYS patch 72 hour Apply 1 patch topically every 3rd (third) day Active traZODone (DESYREL) 50 MG tablet Take 50 mg by mouth every night Active Amphetamine-Dex troamphetamine (ADDERALL XR PO) Take 300 mg by mouth in the morning. Active chlorthalidone 25 MG tablet Take 0.5 tablets (12.5 mg total) by mouth 1 (one) time each day 180 tablet 3 4 05/06/20 28 Active Active Problems Problem Noted Date Diagnosed Date Stage 3a chronic kidney disease 08/03/2022 Stage 3b chronic kidney disease 03/03/2022 Chronic kidney disease due to benign hypertensio n 03/03/2022 Renal osteodystrophy 03/03/2022 Essential (primary) hypertension 03/01/2022 Abnormal result of kidney function study 022 Immunizations Name Administration Dates Next Due Pfizer SARS-COV-2 01/22/2021,01/01/2021 Family History Medical History Relation Comments Hyperlipidemia Father Hypertension Father Alzheimer's disease Mother Hypertension Mother Mental illness Mother Relation Status Comments Father Mother Social History Tobacco Use Types Packs/Day Years Used Date Smoking Tobacco: Former Smokeless Tobacco: Never Alcohol Use Standard Drinks/Week Comments Yes 0 (1 standard drink = 0.6 oz pur e alcohol) Comments Unknown Sex and Gender Information Value Date Recorded Sex Assigned at Not on file Legal Sex Female 5:01 PM EST Gender Identity Not on file Sexual Orientation Not on file Last Filed Vital Signs Vital Sign Reading Time Taken Comments Blood Pressure 120/78 09/10/2024 1:29 PM EST Pulse 99 09/10/2024 1:29 PM EST Temperature - - Respiratory Rate - - Oxygen Saturation 99% 09/10/2024 1:29 PM EST Inhaled Oxygen Concentration - - Weight 134 kg (296 lb) 09/10/2024 1:29 PM EST Height - - Body Mass Index - - Plan of Treatment Upcoming Encounters Date Type Department Care Team (Late st Contact Info) Description 09/10/2025 1:00 PM EST Office Visit [facility] [address] [place] [address] Kenny Marques MD [address] [facility] [address] [place] [phone] Health Maintenance Due Date Last Done Comments Breast Cancer Screening 1970 Pneumococcal Vaccine: Pediat rics (0 to 5 Years) and At-Risk Patients (6 to 64 Years) (1 of 2 - PCV) 1975 Hepatitis B Vaccine (1 of 3 - 19+ 3-dose series) 06/07 Colorectal Cancer Screening: Annual FOBT 2018 Colorectal Cancer Screening: Colonoscopy 2018 Colorectal Cancer Screening: Sigmoidoscopy 2018 Influenza Vaccine (#1) 2024 Insurance [facility] ([id number]) [facility] ([id number]) Care Teams Substance Addiction Coordinator Relationship Specialty Start Date End Date Nelli Allison MD [facility] [place] [address] PCP - General Internal Medicine 02/15/22
--- OUTSIDE RECORDS SUMMARY | 2024-12-13 08:40 | XMS_ITS | Encounter Summary ---
Author Organization [facility] Address [address] [place] [address] Phone Care Team Providers Care Child Abuse Worker Name Role Phone Nelli Allison MD Primary Care Provider [phone]- [phone] Encounter Details Date Type Department Care Team (Late Contact Info) Description 08/03/2022 Documentation Only [facility] [address] [place] [address] Nina Sánchez Social History Tobacco Use Types Packs/Day Years Used Date Smoking Tobacco: Former Smokeless Tobacco: Never Alcohol Use Standard Drinks/Week Comments Yes 0 (1 standard drink = 0.6 oz pur e alcohol) Comments Unknown Sex and Gender Information Value Date Recorded Sex Assigned at Not on file Legal Sex Female 5:01 PM EST Gender Identity Not on file Sexual Orientation Not on file documented as of this encounter Plan of Treatment Upcoming Encounters Date Type Department Care Team (Late st Contact Info) Description 09/10/2025 1:00 PM EST Office Visit [facility] [address] [address] Kenny Marques MD [address] [address] documented as of this encounter Visit Diagnoses Not on filedocumented in this encounter Care Teams Child Abuse Worker Relationship Specialty Start Date End Date Nelli Allison MD [facility] [place] [address] PCP - General Internal Medicine 02/15/22 documented as of this encounter
--- OUTSIDE RECORDS SUMMARY | 2024-12-13 08:40 | XMS_ITS ---
Author Organization [facility] Address [address] [facility] [place] [address] Care Team Providers Care Technical Specialist Cytology Name Role Phone Estefany DOTSON, [place] Mehta Primary Care Provider Un available Nimo Weber Unavailable [phone] Jerome Gilbert [phone] Encounters Encounter Location Date Provider [facility] [address] [facility] [place] [address] 09/17/2024 Jerome Gilbert Plan Of Treatment No Information Progress Notes * Arcelia HOLT MDOB: (54 yo F)Acc No.[id number]:09/17/2024 Progress Notes Patient:?Arcelia HOLT Provider:?Jerome Gilbert D.P.M. :1970???Age:54 Y???Sex:Female D ate:09/17/2024 Address:[address] [place] Pcp:Jac Guardado Subjective: * Chief Complaints: [...] Gilbert D.P.M. Date:?08/24 Generated for Sara hendrix/Charla/Gonzalo on:?12/13/2024 08:40 AM EST
--- OUTSIDE RECORDS SUMMARY | 2024-12-13 08:40 | XMS_ITS ---
Author Organization [facility] Address [address] [facility] [place] [address] Care Team Providers Care Broadcast Operations Technician Name Role Phone Estefany DOTSON, [place] Mehta Primary Care Provider Un available Nimo Weber Unavailable [phone] Allergies Allergen (clinical drug ingredient) Drug/Non Drug [...] Duration) Notes Start Date End Date Status Zestril 10 MG 1 tablet Orally Once a day for 30 day(s) Not-Taking Ativan 2 MG 1 tablet at bedtime Orally Once a day Not-Taking Ranitidine HCl 300 MG 1 capsule at bedti me Orally Once a day for 30 day(s) Not-Taking [place] Thyroid 60 MG 1 tablet Orally Onc e a day for 30 day(s) Not-Taking Work Note . .pt. is totally disabled from work until further notice due to stress fx right heel . . for . Not-Taking Adderall XR 20 MG 1 capsule in the morning Orally Once a day Active AFO-fixed fixed 1 dx: stress fx righ t heel PTB AFO brace right foot and leg for as needed Not-Taking Custom Orthotics as directed 07/08/2024 Active Physical Therapy . . . 2-3x/week for 3- 4 weeks 07/08/2024 Active Night Splint AFO - L1930 as directed 07/08/2024 Active Adderall 10 MG 3 tablet Orally Once a day Active Albuterol Active Breo Ellipta Active Dicyclomine HCl 20 MG 1 tablet Orally Th ree times a day Active Levothyroxine Sodium 75 MCG 1 tablet in the morning on an empty stomach Orally Once a day Active Vraylar 6 MG 1 capsule Orally Onc e a day Active Lisinopril 10 MG 1 tablet Orally Once a day Active LORazepam 2 MG 1 tablet at bedtime as needed Orally Once a day 2 a day Active Pantoprazole Sodium 40 MG 1 tablet Orall y Once a day Active traZODone HCl 50 MG 1 tablet at bedtime as needed Orally Once a day Active Chlorthalidone Activ e Fiber Gummies Active Multivitamin Active Work Note . .pt. is totally disabled from work until further notice due to stress fx right heel . . for . 12/19/2013 Not-Taking AFO-fixed fixed 1 dx: stress fx righ t heel PTB AFO brace right foot and leg for as needed 12/19/2013 Not-Taking LaMICtal 200 MG 1 tablet Orally Once a day for 30 day(s) Not-Taking Work Note . . . . for . 12/11/2013 Not-T aking Folic Acid 20 MG as directed Orally Not-Taking [place] 3-6-9 Fatty Acids as directed Orally Not-Taking Probiotic as directed Orally N ot-Taking Social History Tobacco Use: Social History Observation Description Date Details (start date - stop date) Former Smoker NA - NA Tobacco Use/Smoking Question Answer Notes Are you a: former smoker Additional Findings: Tobacco Non-User Cu rrent non-smoker, but past smoking history unknown Tobacco use other than smoking: Question Answer Notes Are you an other tobacco user? No Vital Signs Height 5ft8in in 10/17/2024 Weight 295 lbs 10/17/2024 BMI 44.85 kg/m2 10/17/2024 Blood pressure systolic 139 mm Hg 10/17/20 24 Blood pressure diastolic 76 mm Hg 024 Encounters Encounter Location Date Provider Diagnosis [facility] [address] [place] [address] 10/17/2024 Nimo Casillasaker Plantar fascial fibromatosis M72.2 ; Metatarsalgia, left foot M77.42 ; Metatarsalgia, right foot M77.41 ; Tinea unguium B35.1 ; Bunionette of right foot M21.621 and Bunionette of left foot M21.622 Assessments Encounter Date Diagnosis (ICD Code) Assessment Notes Treatment Notes Treatment Clinical Notes Section Notes 10/17/2024 Plantar fascial fibromatosis (ICD-10 - M72.2) 10/17/2024 Metatarsalgia, left foot (ICD-10 - M77.42) 10/17/2024 Metatarsalgia, right foot (ICD-10 - M77.41) 10/17/2024 Tinea unguium (ICD-10 - B35.1) 10/17/2024 Bunionette of right foot (ICD-10 - M21.621) 10/17/2024 Bunionette of left foot (ICD-10 - M21.622) Plan Of Treatment Next Appt Details Follow Up: prn, Reason: Progress Notes * Arcelia HOLT MDOB: (54 yo F)Acc No.[id number]:10/17/2024 Progress Notes Patient:?Arcelia HOLT Provider:?Nimo Weber DPM :1970???Age:54 Y???Sex:Female D ate:10/17/2024 Address:[address] [place] [address], [place], [id number] Pcp:Jac Guardado Subjective: * Chief Complaints: * ???Pcp-08/2023 * HPI: ???Heel pain:?Nature:?sharp pain.?Location:?Proximal plantar aspect of Heel, plantar, Arch, B/L.?Duration:?several years .?Onset/Cause:?unknown, denies trauma.?Aggravated:?standing, walking.?Treatments:?previous tx [facility].?Severity/Quality:?States 8 out of 10.?Foot Pain:?Nature:?sharp.?Location?Bottom, B/L, Outside, Forefoot.?Duration:?several months.?Course:?worse.?Aggrevated:?any pressure.?Treatments:?none.?Quality/Severity?severe.?Misc?Presents for fitting of orthotics- she has just purchased new shoes to accomodate orthotics and has not yet been able to wear them..? * ROS:?General/Constitutional:?Nausea?denies.?Vomiting?denies.?Hunger Thirst?denies.?Loss appetite?denies.?Chills?denies.?Fatigue?denies.?Fever?denies.?Night Sweats?denies.?Unexplained weight loss?denies.?Unexplained [...] * Family History:?Mother: jesus lennon, diagnosed with Unspecified essential hypertension, Family history of arthritis.?Father: alive, foot problems, diagnosed with Unspecified essential hypertension, Other specified conditions influencing health status.? * Social History:?Tobacco Use:?Tobacco Use/Smoking?Are you a:?former smoker ?Additional Findings: Tobacco Non-User?Current non-smoker, but past smoking history unknown ?Tobacco use other than smoking?Are you an other tobacco user??No * Medications:?TakingMultivita min Fiber , Notes to Pharmacist: GummiesChlorthalidone Vraylar 6 MG Capsule 1 capsule Orally Once a day traZODone HCl 50 MG Tablet 1 tablet at bedtime as needed Orally Once a day Pantoprazole Sodium 40 MG Tablet Delayed Release 1 tablet Orally Once a day LORazepam 2 MG Tablet 1 tablet at bedtime as needed Orally Once a day , Notes to Pharmacist: 2 a dayLisinopril 10 MG Tablet 1 tablet Orally Once a day Levothyroxine Sodium 75 MCG Tablet 1 tablet in the morning on an empty stomach Orally Once a day Dicyclomine HCl 20 MG Tablet 1 tablet Orally Three times a day Breo Ellipta Albuterol Adderall 10 MG Tablet 3 tablet Orally Once a day Adderall XR 20 MG Capsule Extended Release 24 Hour 1 capsule in the morning Orally Once a day Night Splint AFO - L1930 as directed Physical Therapy . . . . 2-3x/week Custom Orthotics as directed Taking Multivitamin Taking Fiber , Notes to Pharmacist: GummiesTaking Chlorthalidone Taking Vraylar 6 MG Capsule 1 capsule Orally Once a day Taking traZODone HCl 50 MG Tablet 1 tablet at bedtime as needed Orally Once a day Taking Pantoprazole Sodium 40 MG Tablet Delayed Release 1 tablet Orally Once a day Taking LORazepam 2 MG Tablet 1 tablet at bedtime as needed Orally Once a day , Notes to Pharmacist: 2 a dayTaking Lisinopril 10 MG Tablet 1 tablet Orally Once a day Taking Levothyroxine Sodium 75 MCG Tablet 1 tablet in the morning on an empty stomach Orally Once a day Taking Dicyclomine HCl 20 MG Tablet 1 tablet Orally Three times a day Taking Breo Ellipta Taking Albuterol Taking Adderall 10 MG Tablet 3 tablet Orally Once a day Taking Adderall XR 20 MG Capsule Extended Release 24 Hour 1 capsule in the morning Orally Once a day Taking Night Splint AFO - L1930 as directed Taking Physical Therapy . . . . 2-3x/week Taking Custom Orthotics as directed Not-Taking/PRNAFO-fixed fixed orthotic 1 dx: stress fx right heel PTB AFO brace right foot and leg Work Note . . .pt. is totally disabled from work until further notice due to stress fx right heel . . [place] Thyroid 60 MG Tablet 1 tablet Orally Once a day Ranitidine HCl 300 MG Capsule 1 capsule at bedtime Orally Once a day Ativan 2 MG Tablet 1 tablet at bedtime Orally Once a day Zestril 10 MG Tablet 1 tablet Orally Once a day LaMICtal 200 MG Tablet 1 tablet Orally Once a day Probiotic Capsule as directed Orally [place] 3-6-9 Fatty Acids Capsule as directed Orally Folic Acid 20 MG Capsule as directed Orally Work Note . . . . . AFO-fixed fixed orthotic 1 dx: stress fx right heel PTB AFO brace right foot and leg Work Note . . .pt. is totally disabled from work until further notice due to stress fx right heel . . Medication List reviewed and reconciled with the patientNot-Taking/PRN AFO-fixed fixed orthotic 1 dx: stress fx right heel PTB AFO brace right foot and leg Not-Taking/PRN Work Note . . .pt. is totally disabled from work until further notice due to stress fx right heel . . Not-Taking/PRN [place] Thyroid 60 MG Tablet 1 tablet Orally Once a day Not-Taking/PRN Ranitidine HCl 300 MG Capsule 1 capsule at bedtime Orally Once a day Not-Taking/PRN Ativan 2 MG Tablet 1 tablet at bedtime Orally Once a day Not-Taking/PRN Zestril 10 MG Tablet 1 tablet Orally Once a day Not-Taking/PRN LaMICtal 200 MG Tablet 1 tablet Orally Once a day Not-Taking/PRN Probiotic Capsule as directed Orally Not-Taking/PRN [place] 3-6-9 Fatty Acids Capsule as directed Orally Not-Taking/PRN Folic Acid 20 MG Capsule as directed Orally Not-Taking/PRN Work Note . . . . . Not-Taking/PRN AFO-fixed fixed orthotic 1 dx: stress fx right heel PTB AFO brace right foot and leg Not-Taking/PRN Work Note . . .pt. is totally disabled from work until further notice due to stress fx right heel . . Medication List reviewed and reconciled with the patient * Allergies:?GeodonLotronexMor phineOxycodoneDemerol: AllergyCeftin: AllergyKeflex: AllergyBactrim: Allergyceclor: Allergyyes[Allergies Verified] Objective: * Vitals:?Ht: 5ft8in, Wt:295, BMI:44.85, Shoe size: 10, BP:139/76mm Hg, Ht-cm: 172.72 cm, Wt-k.81 kg. * Examination: ???General Examination: ?GENERAL APPEARANCE:?Reveals a pleasant, alert, well nourished, well- developed, well hydrated individual, who demonstrates proper attention to hygiene/body habitus, and is in no acute distress, Pt serves as own historian for office visit today.?ORIENTED:?person, place, and time.?Neurological: ?SENSORY:? Neurological exam demonstrates pop plantar jenifer 5th mtpj.?BABINSKI REFLEX:?Absent, B/L , absent.?Vascular: ?DP PULSES (B):? 2/4, B/L.?PT PULSES (B):? 1/4, B/L.?PIGMENTATION:?normal, B/L.?TELANGECTASIA:?absent.?VARICOSITIES:?absent.?Dermatologic: ?SKIN FINDINGS:? Skin exam reveals Keratotic lesion(s) located at, SUB MTH (s), 5, B/L.?Heel Pain: ?INSPECTION REVEALS:?Pain on Palpation to Plantar Fascia med. and central bands, intrinsic musc., infra-calcaneal bursa, and med calc tubercle, B/L--Left> Right.?Orthopedic: ?MUSCLE STRENGTH:?5/5 all groups in a symmetrical fashion, B/L.?FOOT MORPHOLOGY:? Pes Cavus structure, B/L.?Neuroma Pain: ?PALPATION:?No interspace pain noted on palpation.? Assessment: * Assessment: 1.?Plantar fascial fibromato sis - M72.2 (Primary)???2.?Metatarsalgia, left foot - M77.42???3.?Metatarsalgia, right foot - M77.41???4.?Tinea unguium - B35.1???5.?Bunionette of right foot - M21.621???6.?Bunionette of left foot - M21.622??? Plan: * Treatment: * Procedure Codes:? * [...] of all the above information.? * Follow Up:?prn * Images: * Sign off status: Completed true * Provider:?Nimo Weber DPM Date:?12/18/2023 Generated for Sara hendrix/Charla/Gonzalo on:?12/13/2024 08:40 AM EST History and Physical Notes * HPI (History of Present Illness) Category Sub-Category Detail Notes Category Not es Heel pain Duration: several years Nature: sharp pain Severity/Quality: States 8 out of 10 Location: Proximal plantar asp ect of Heel, plantar, Arch, B/L Onset/Cause: unknown, denies francisca erazo Aggravated: standing, walking Treatments: previous tx at [facility] Foot Pain Aggrevated: any pressure Course: worse Duration: several months Nature: sharp Treatments: none Quality/Severity severe Location Bottom, B/L, Outside , Forefoot Misc Presents for fitting of orthotics- she has just purchased new shoes to accomodate orthotics and has not yet been able to wear them. Examination Category Sub-Category Detail Notes Category Not es Neuroma Pain PALPATION: No interspace pain noted on palpation Heel Pain INSPECTION REVEALS: Pain on Palp ation to Plantar Fascia med. and central bands, intrinsic musc., infra-calcaneal bursa, and med calc tubercle, B/L--Left> Right Neurological SENSORY: Neurological exa m demonstrates pop [...] person, place, and t aspen Vascular DP PULSES (B): 11/26, B/L PT PULSES (B): 10/26, B/L TELANGECTASIA: absent VARICOSITIES: absent PIGMENTATION: normal, B/L
--- OUTSIDE RECORDS SUMMARY | 2024-12-13 08:40 | XMS_ITS | Patient Health Record ---
Author Organization [facility] Address [address] [facility] [place] [address] Care Team Providers Care Supervisor Buffing And Pasting Name Role Phone Estefany DOTSON, [place] Mehta Primary Care Provider Un available Nimo Weber Unavailable [phone] Hilario Currie Unavailable [phone] Jerome Gilbert Unavailable [phone] Allergies Allergen (clinical drug ingredient) Drug/Non Drug [...] Duration) Notes Start Date End Date Status Lisinopril 10 MG 1 tablet Orally Once a day Active Work Note . .pt. is totally disabled from work until further notice due to stress fx right heel . . for . 12/19/2013 Not-Taking LORazepam 2 MG 1 tablet at bedtime [...] Acid 20 MG as directed Orally Not-Taking [place] 3-6-9 Fatty Acids as directed Orally Not-Taking Probiotic as directed Orally N ot-Taking Adderall XR 20 MG 1 capsule in the morning Orally Once a day Active Adderall 10 MG 3 tablet Orally Once a day Active Albuterol Active Breo Ellipta Active Dicyclomine HCl 20 MG 1 tablet Orally Th ree times a day Active Levothyroxine Sodium 75 MCG 1 tablet in the morning on an empty stomach Orally Once a day Active Work Note . .pt. is totally disabled from work until further notice due to stress fx right heel . . for . Not-Taking AFO-fixed fixed 1 dx: stress fx righ t heel PTB AFO brace right foot and leg for as needed Not-Taking Custom Orthotics as directed 07/08/2024 Active Physical Therapy . . . 2-3x/week for 3- 4 weeks 07/08/2024 Active Night Splint AFO - L1930 as directed 07/08/2024 Active Vraylar 6 MG 1 capsule Orally Onc e a day Active Chlorthalidone Activ e Fiber Gummies Active LaMICtal 200 MG 1 tablet Orally Once a day for 30 day(s) Not-Taking Multivitamin Active Zestril 10 MG 1 tablet Orally Once a day for 30 day(s) Not-Taking Ativan 2 MG 1 tablet at bedtime Orally Once a day Not-Taking Ranitidine HCl 300 MG 1 capsule at bedti me Orally Once a day for 30 day(s) Not-Taking [place] Thyroid 60 MG 1 tablet Orally Onc e a day for 30 day(s) Not-Taking Social [...] Status W/U Status Risk Notes Problem Bursitis (37303217) Bursitis (727.3) Active confirmed Problem Myositis (73197803) Myositis (729.1) Active confirmed Problem Pain in limb (40220083) Pain in Limb (729.5) Active confirmed Problem Plantar fasciitis (103237645) Plantar Fasciitis (728.71) Active confirmed Problem Plantar fascial fibromatosis (78115071) Plantar fascial fibromatosis (M72.2) Active confirmed Vital Signs Blood pressure diastolic 76 mm Hg 10/17/2024 Height 5ft8in in 10/17/2024 Blood pressure systolic 139 mm Hg 10/17/2024 Weight 295 lbs 10/17/2024 BMI 44.85 kg/m2 10/17/2024 Encounters Encounter Location Date Provider Diagnosis [address] [address] 07/08/2024 Hilario Currie Plantar fascial fibromatosis M72.2 ; Metatarsalgia, left foot M77.42 ; Metatarsalgia, right foot M77.41 ; Tinea unguium B35.1 ; Bunionette of right foot M21.621 and Bunionette of left foot M21.[address] [address] 08/22/2024 Hilario Currie Plantar fascial fibromatosis M72.2 ; Metatarsalgia, left foot M77.42 ; Metatarsalgia, right foot M77.41 ; Tinea unguium B35.1 ; Bunionette of right foot M21.621 and Bunionette of left foot M21.[address] [address] 10/17/2024 Nimo Weber Plantar fascial fibromatosis M72.2 ; Metatarsalgia, left foot M77.42 ; Metatarsalgia, right foot M77.41 ; Tinea unguium B35.1 ; Bunionette of right foot M21.621 and Bunionette of left foot M21.[address] [address] 07/08/2024 Hilario Currie [facility] [address] [address] 07/18/2024 Hilario Kush [facility] [address] [address] 09/09/2024 Hilario Currie Assessments Encounter Date Diagnosis (ICD Code) Assessment Notes Treatment Notes Treatment Clinical Notes Section Notes 07/08/2024 Plantar fascial fibromatosis (ICD-10 - M72.2) Patient Educated with: HEEL CORD STRETCHES.pdf (HEEL CORD STRETCHES.pdf) Patient Educated with: RICE THERAPY.pdf (RICE THERAPY.pdf) 07/08/2024 Metatarsalgia, left foot (ICD-10 - M77.42) 08/22/2024 Plantar fascial fibromatosis (ICD-10 - M72.2) 08/22/2024 Metatarsalgia, left foot (ICD-10 - M77.42) 10/17/2024 Plantar fascial fibromatosis (ICD-10 - M72.2) 10/17/2024 Metatarsalgia, left foot (ICD-10 - M77.42) 10/17/2024 Metatarsalgia, right foot (ICD-10 - M77.41) 07/08/2024 Metatarsalgia, right foot (ICD-10 - M77.41) 08/22/2024 Metatarsalgia, right foot (ICD-10 - M77.41) 07/08/2024 Tinea unguium (ICD-10 - B35.1) 08/22/2024 Tinea unguium (ICD-10 - B35.1) 10/17/2024 Tinea unguium (ICD-10 - B35.1) 10/17/2024 Bunionette of right foot (ICD-10 - M21.621) 07/08/2024 Bunionette of right foot (ICD-10 - M21.621) 08/22/2024 Bunionette of right foot (ICD-10 - M21.621) 08/22/2024 Bunionette of left foot (ICD-10 - M21.622) 07/08/2024 Bunionette of left foot (ICD-10 - M21.622) 10/17/2024 Bunionette of left foot (ICD-10 - M21.622) Plan Of Treatment Pending Test Test Name Order Date X ray : Foot, right 2V 12/04/2013 X ray : Foot, left 3V 07/08/2024 X ray : Foot, right 3V 07/08/2024 Insurance Providers Payer Name Payer Address Payer Phone Subscriber Number Group Number Insured Name Patient Relationship to Insured Coverage Start Date Coverage End Date [facility] [employer] Claims [address] [place] [id number] Arcelia Multani Self - patient is the insured Medical (General) History Medical History History ICD Code asthma Back,Hip,and Knee pain Depression High blood pressure Reflux Headaches Thyroid disorder chronic sinusitis Psychiatric disorder Transfusions Surgical History Surgery Date(Month/Year) eye surgery cyst removal section thyroid nodule removal 1992
[2024-12-13 10:09] LABS: Estimated Average Glucose 105 mg/dL; Hemoglobin A1C 135.1643 umol/L; Hemoglobin A1c % 5.3 % (<6.0); Total Hemoglobin (HGBA1C) 3974.7756 umol/L
[2024-12-13 10:24] LABS: Alanine Aminotransferase 24 U/L (0-31); Anion Gap 12 (12-20); Aspartate Amino Transferase 23 U/L (5-31); Blood Urea Nitrogen 19 mg/dL (9-16); Calcium 9.6 mg/dL (8.4-10.2); Carbon Dioxide 29 mmol/L (22-29); Chloride 103 mmol/L (96-108); Cholesterol 197 mg/dL (<200); Estimated Glomerular Filt Rate 51; Glucose Fasting 103 mg/dL (60-99); HDL Cholesterol 46 mg/dL (>40); LDL Cholesterol Calculated 124 mg/dL (<100); Potassium 3.5 mmol/L (3.3-5.1); Sodium 140 mmol/L (135-145); Triglycerides 135 mg/dL (<150)
[2024-12-13 10:46] LABS: Free T4 (Free Thyroxine) 1.24 ng/dL (0.71-1.85); Thyroid Stimulating Hormone 2.28 uIU/mL (0.32-4.0)
[2024-12-14 14:24] LABS: Thyroid Peroxidase Antibodies <1 IU/mL (<9)
== END 2024-12-13 08:28 | disposition home or self-care (01) ==
LOC: HO.HMGCLDS 08:27
PROVIDERS: PCP Internal Medicine; Visit Provider Internal Medicine
DX: E78.2 Mixed hyperlipidemia (principal); R73.01 Impaired fasting glucose; I10 Essential (primary) hypertension; J45.20 Mild intermittent asthma, uncomplicated; E66.01 Morbid (severe) obesity due to excess calories; E03.9 Hypothyroidism, unspecified; K21.9 Gastro-esophageal reflux disease without esophagitis; F31.9 Bipolar disorder, unspecified
CPT/HCPCS: 36415; 80048; 80061; 83036; 84439; 84443; 84450; 84460; 86376

== ENCOUNTER 2024-12-17 09:06 | Outpatient (AMB) | payer OTHER, SELFPAY ==
[2024-12-17 09:54] VITALS: BP 100/60; PULSE 101; RESP 17; TEMP 36.6; O2SAT 99; BMI 43.1
--- NOTE | 2024-12-17 09:54 | MHC.PC.OV ---
Vital Signs 12/17/24 09:54 Height 5 ft 8.5 in Weight 288 lb BMI 43.1 BP 100/60 Blood Pressure Location Rt brachial Position Sitting Respiration 17 Pulse 101 H Pulse Source Pulse Oximeter Temp 97.9 F Temp Source Oral Pulse Oximetry (%) 99 Oxygen Delivery Method Room Air Intake Visit Reasons: 3 month follow up Intake Note: Pt is here today for her 3mo. f/u Allergies ziprasidone [From GEODON] Allergy (Severe, Verified 12/17/24 10:24) HIVES,SWELLING alosetron [From LOTRONEX] Allergy (Intermediate, Verified 12/17/24 10:24) RASH Sulfa (Sulfonamide Antibiotics) [SULFA (SULFONAMIDE ANTIBIOTICS)] Allergy (Intermediate, Verified 12/17/24 10:24) RASH cephalexin [Keflex] Allergy (Unknown, Verified 12/17/24 10:24) rash oxycodone [OXYCODONE] Adverse Reaction (Severe, Verified 12/17/24 10:24) HALLUCINATIONS, hallucination, hallucinations meperidine [Demerol] Adverse Reaction (Unknown, Verified 12/17/24 10:24) nausea and vomiting morphine Adverse Reaction (Unknown, Verified 12/17/24 10:24) nausea and vomiting Medication List - Last Reconciled 12/17/24 by Albania Allison MD albuterol sulfate 90 mcg/actuation 2 puffs PO Q6H PRN blood pressure monitor As directed cariprazine (Vraylar) 6 mg PO DAILY chlorthalidone 12.5 mg PO DAILY cholecalciferol (vitamin D3) (Vitamin D3) 25 mcg PO DAILY dextroamphetamine-amphetamine 10 mg (Adderall) 30 mg PO .q pm dextroamphetamine-amphetamine 30 mg ER (Adderall XR) 1 cap PO DAILY PRN diclofenac epolamine 1.3% 1 patch topical Q12H PRN dicyclomine 40 mg (2 x 20 mg) PO QID estradiol 0.01%(0.1mg/gram) vaginal fluticasone furoate-vilanterol 200-25 mcg/dose (Breo Ellipta) 1 inh inhalation DAILY gabapentin 300 mg PO BEDTIME 30 days heating pads As directed hydrocortisone 2.5% 1 appl LA BID PRN levothyroxine (Synthroid) 75 mcg PO QAM lisinopril 10 mg PO DAILY lorazepam (Ativan) 2 mg PO BID PRN multivitamin (Multiple Vitamins tablet) 1 tab PO DAILY naloxone 4 mg/actuation (Narcan) 4 mg intranasal Q2M PRN pantoprazole 40 mg PO BID [Pill cutter As directed] scopolamine base (Transderm-Scop) 1 patch transdermal Q3D PRN sennosides (Senna Laxative) 17.2 mg (2 x 8.6 mg) PO BEDTIME Shower Chair With backrest tirzepatide (weight loss) (Zepbound) 10 mg subcut QWEEK trazodone 50 mg PO BEDTIME PRN Tobacco use date assessed: 12/17/24 Dental Screening Dental Screen Date: 12/17/24 Did you have a dental visit in the last 12 months?: Yes Did you have a dental problem in the last 6 months where you did not have access to dental care?: No Was dental information given to patient?: Patient has dentist HPI 3 month follow up HPI Details 54 year old lady with history of hypertension, mixed dyslipidemia , hypothyroidism, and impaired Fasting glucose, here today for follow-up. She has been compliant with taking her medications, and has been adhering to a healthy diet. She has morbid obesity, currently now being seen at the weight loss clinic at [facility] and is on Zepbound , which has been helping her lose weight. She is now currently being followed at [facility] interventional pain management clinic, sees Dr. Elvira Jean Baptiste, and had an initial right L4-5/L5-S1 diagnostic medial branch blocks which provide 100% pain relief that lasted for 6 hours, and noted improvement in her mobility ability to do ADLs asleep during that time plan now is to perform a 2nd diagnostic medial branch block for the same nerves and if successful will proceed with subsequent radiofrequency ablation(RFA) of the same nerves/levels. [facility] Medical History (Updated 12/17/24 @ 15:25 by Albania Allison MD) Irritable bowel syndrome with diarrhea Sacroiliac joint pain Bilateral shoulder pain Lumbar radiculopathy, chronic Mixed dyslipidemia Decreased glomerular filtration rate (GFR) Impaired fasting glucose Mild intermittent asthma Morbid obesity Von Willebrand disease History of MRSA infection Bipolar 1 disorder, depressed ADHD Hypothyroid Hypertension GERD (gastroesophageal reflux disease) Atypical ductal hyperplasia of right breast Acquired hypothyroidism Surgical History Hx of colonoscopy History of bilateral carpal tunnel release Hx of cystoscopy Hx of esophagogastroduodenoscopy Vesicovaginal fistula S/P laparoscopic surgery History of total abdominal hysterectomy History of section History of eye surgery History of partial thyroidectomy Family History Father HTN (hypertension) Hyperlipidemia Mother HTN (hypertension) Alzheimers disease Mental health disorder Maternal Aunt Breast cancer Brother Substance use disorder Social History Housing: House Alcohol intake: current Alcohol intake frequency: 0-2 drinks per day Alcohol type: hard liquor Patient Tobacco Use Status: Former Tobacco user Tobacco use type: Cigarette Years Smoked: 20 years e-Cigarette/Vaping Use: Never Used service: No Current occupational status: unemployed Cognitive needs: No Hearing needs: No Vision needs: Yes Questionnaire PHQ-9 Over the last 2 weeks, how often have you been bothered by any of the following problems? 1. Little interest or pleasure in doing things: several days 2. Feeling down, depressed, or hopeless: several days 3. Trouble falling or staying asleep, or sleeping too much: several days 4. Feeling tired or having little energy: several days 5. Poor appetite or overeating: not at all 6. Feeling bad about yourself - or that you are a failure or have let yourself or your family down: not at all 7. Trouble concentrating on things, such as reading the newspaper or watching television: not at all 8. Moving or speaking so slowly that other people could have noticed. Or the opposite - being so fidgety or restless that you have been moving around a lot more than usual: not at all 9. Thoughts that you would be better off or of hurting yourself in some way: not at all Total score: 4 Depression Screening Interpretation: Positive Depression Screening Follow-up: Existing condition, In treatment and Community Mental Health Worker F/U Depression Screening Done: Yes Source: Developed by Drs. Henri Oliver, Yanelis Liu, Everton Cevallos and colleagues, with an educational oscar from [employer]. Thrive Questionnaire Date Thrive assessed: 12/17/24 I am a: Patient What is your living situation today?: I have a steady place to live Within the past 12 months, did the food you bought not last and you didn't have the money to get more?: Never true Within the past 12 months, did you worry whether your food would run out before you got money to buy more?: Never true Do you have trouble paying for medicines?: No Do you have trouble getting transportation to medical appointments?: No Do you have trouble paying your heating and electricity bill?: No Do you have trouble taking care of your child, family member or friend?: No Do you have trouble with day-to-day activities such as bathing, preparing meals, shopping, managing finances, etc.?: No Are you currently unemployed and looking for a job?: No Are you interested in more education?: No Please select the resources that you would like help with: None Currently or been in a relationship where the following occur: I choose not to answer THRIVE Score: 0 AUDIT C Alcohol Use Questionnaire (AUDIT-C) 1. How often do you have a drink containing alcohol?: 4 or more times a week 2. How many drinks containing alcohol do you have on a typical day when you are drinking?: 1 or 2 3. How often do you have six or more drinks on one occasion?: Less than monthly Total Score: 5 MINGO-7 AMB Questionnaire MINGO-7 Date MINGO - 7 assessed: 09/17/24 Feeling nervous, anxious, or on edge: 0 = Not at all Not being able to stop or control worryin = Not at all Worrying too much about different things: 0 = Not at all Trouble relaxin = Not at all Being so restless that it is hard to sit still: 0 = Not at all Becoming easily annoyed or irritable: 0 = Not at all Feeling afraid as if something awful might happen: 0 = Not at all Total MINGO-7 score (0-4 normal; 5-9 mild; 10-14 moderate; 15-21 severe): 0 Source: Developed by Drs. Henri Oliver, Yanelis Liu, Everton Cevallos and colleagues, with an educational oscar from [employer] MINGO-7 Assessment Billing MINGO-7 Assessment Tool: MINGO-7 Assessment 22761 Review of Systems Const Details: Currently going to the weight loss program at [facility] Ayden Pritchard, currently on Zepbound 10 mg once a week Eyes Details: sees [facility] , suspect glaucoma OS ENT Details: [facility] dental clinic Card Denies chest pain, Denies irregular heart rhythm, Denies lightheadedness and Denies dyspnea Resp Denies chest congestion, Denies cough and Denies dyspnea GI Reports no additional complaints Reports no additional complaints Musc Reports no additional complaints Skin/Breast Denies breast pain, Denies breast mass and Denies rash Neuro Details: Now sees [facility] pain management, scheduled for nerve ablation at lumbar spine Reports no additional complaints Psych Reports no additional complaints Endo Reports no additional complaints Physical exam (Primary Care) Vital Signs: Last Vital Signs Temp 97.9 F 12/17/24 09:54 Pulse 101 H 12/17/24 09:54 Resp 17 12/17/24 09:54 BP 100/60 12/17/24 09:54 Pulse Ox 99 12/17/24 09:54 Oxygen Delivery Method Room Air 12/17/24 09:54 BMI result Body Mass Index 43.1 Tobacco/Smoking Status: Tobacco use Status Tobacco use date assessed 12/17/24 12/17/24 09:58 Patient Tobacco Use Status Former Tobacco user 12/17/24 09:58 Tobacco use type Cigarette 12/17/24 09:58 e-Cigarette/Vaping Use Never Used 12/17/24 09:58 PHQ-9: PHQ-9 Score PHQ-9: Total score 4 12/17/24 15:31 Depression Screening Interpretation: Positive Depression Screening Follow-up: Existing condition, In treatment and Community Mental Health Worker F/U Thrive Assessment: Date of Thrive Assessment Date Thrive assessed 12/17/24 12/17/24 09:58 Currently or been in a relationship where the following occur: I choose not to answer Const General: comfortable, no acute distress and alert Nutritional Appearance: obese Orientation/consciousness: patient oriented x3 HENMT Head: Yes normocephalic Ears: external ears normal, TM's normal bilaterally and EAC's normal General nose exam: Normal external nose present Face and sinus: Yes face symmetric Mouth: Normal oral and palatal mucosa present, oropharynx normal and moist mucous membranes Eyes General: appearance normal, both eyes and all related structures Neck Other: Supple with no lymphadenopathy, full range of motion, thyroid gland nonpalpable Resp Auscultation: clear to auscultation bilaterally Cardio Rate: regular rate Rhythm: regular rhythm Heart sounds: S1 normal heart sound present and S2 normal heart sound present GI Palpation (GI): Soft to palpation, nontender and no masses Auscultation: normal bowel sounds Skin General skin exam: no rashes or lesions noted Neuro General: patient oriented x3 Extrem General: Yes no joint enlargement, Yes no clubbing, cyanosis or edema and Yes no pedal edema Results Reviewed Results Reviewed: Laboratory Tests 12/13/24 08:33 Estimat Average Glucose 105 Hemoglobin A1c % 5.3 Name: Arcelia Pickering Age/Sex: 54/F : 1970 Unit#: [id number] Attend Dr: Albania Allison MD Re12/13/24 Status: DEP REF Location: [facility] Disch: SPEC : [id number] OLAMIDE: 12/13/24 STATUS: COMP REQ : [id number] RECD: 12/13/[address]: Albania Allison MD COMP: 12/13/24 ENTERED: 12/13/[address]: ORDERED: Met Prof Fast, AST, ALT, Lipid Panel, Free T4, TSH Test Result Flag Reference Sodium 140 135-145 mmol/L Potassium 3.5 3.3-5.1 mmol/L CL 103 96-108 mmol/L CO2 29 22-29 mmol/L Gap 12 12-20 BUN 19 H 9-16 mg/dL Creat 1.12 0.5-1.4 mg/dL eGFR 51 Chronic Kidney Disease: Estimated GFR < 60 mL/min/1.73m2 Severe Kidney Disease: Estimated GFR < 15 mL/min/1.73m2 FBS 103 H 60-99 mg/dL A fasting glucose from 100-125 mg/dl is considered impaired (pre-diabetes). CA 9.6 8.4-10.2 mg/dL AST (GOT) 23 5-31 U/L ALT (GPT) 24 0-31 U/L Triglyceride 135 <150 mg/dL Desirable Triglyceride: less than 150 mg/dL Borderline High Triglyceride 150-199 mg/dL High Triglyceride: 200-499 mg/dL Very High Triglyceride: greater than or equal to 5OO mg/dL Cholesterol 197 <200 mg/dL Desirable Cholesterol: less than 200 mg/dL Borderline High Cholesterol: 200-239 mg/dL High Cholesterol: greater than 239 mg/dL LDL Calculated 124 H <100 mg/dL Desirable LDL: less than 100 mg/dL Near Optimal/Above Optimal LDL: 110-129 mg/dL Borderline High LDL: 130-159 mg/dL High LDL: 160-189 mg/dL Very High LDL: greater than or equal to 190 mg/dL HDL 46 >40 mg/dL Desirable HDL: greater than 40 mg/dL Note: This HDL assay may give artificially low results in patients with liver disease. Free T4 1.24 0.71-1.85 ng/dL TSH 3rd Gen. 2.28 0.32-4.0 uIU/mL Coding Level of Care Code Est Pt Level 4 (92049) Complex EM visit Add On G2211 Diagnoses Mixed dyslipidemia E78.2 Impaired fasting glucose R73.01 Primary hypertension I10 Hypertension type: primary hypertension Morbid obesity E66.01 Acquired hypothyroidism E03.9 Additional Codes MINGO-7 Assessment Billing - MINGO-7 Assessment Tool: MINGO-7 Assessment 70535 ([id number]) Assessment & Plan Assessment & Plan (1) Mixed dyslipidemia: Comment: no meds currently Code(s): E78.2 - Mixed hyperlipidemia Category: Medical Plan: Reviewed recent fasting lipid profile with patient with levels within normal limits . Continue adherence to low-cholesterol diet and regular exercise, at least 30 minutes 3 to 4 times a week. Make healthy food choices, eat more fruits, vegetables, whole grains, wild caught fish and low-fat dairy. Limit amount of meat and fried or fatty food products, as well as processed foods and fast foods. (2) Impaired fasting glucose: Code(s): R73.01 - Impaired fasting glucose Category: Medical Plan: Your previous fasting blood sugars were elevated above 100 mg/dL. Impaired glucose metabolism increases the risk for developing diabetes mellitus type 2, as well as heart attack and stroke later on. Lifestyle changes that promotes weight loss, healthy eating habits, and regular exercise are important, and can prevent the progression to diabetes (3) Hypertension: Code(s): I10 - Essential (primary) hypertension Category: Medical Qualifiers: Hypertension type: primary hypertension Qualified Code(s): I10 - Essential (primary) hypertension Plan: Blood pressure at goal of less than 130/80. Continue with current medication. Reinforced importance of following a low sodium diet, getting regular exercise, and lowering stress levels. Lisinopril 10 mg daily (4) Morbid obesity: Code(s): E66.01 - Morbid (severe) obesity due to excess calories Category: Medical Plan: Currently on Zepbound and is being followed at the weight loss clinic at [facility] (5) Acquired hypothyroidism: Code(s): E03.9 - Hypothyroidism, unspecified Category: Medical Plan: Latest thyroid levels are within normal limits, continue current dose of levothyroxine 75 mcg daily
--- OUTSIDE RECORDS SUMMARY | 2024-12-17 09:55 | XMS_ITS ---
Author Organization [facility] Address [address] [place] [address] Care Team Providers Care Account Services Associate Name Role Phone Estefany DOTSON, Albania Mehta Primary Care Provider Un available Nimo Weber Unavailable [phone] Hilario Currie Unavailable [phone] REASON FOR VISIT r/s 09/17/24 appt Encounters Encounter Location Date Provider Diagnosis [facility] [address] [place] [address] 09/09/2024 Hilario Currie Plan Of Treatment No Information Progress Notes * Arcelia HOLT MDOB: (54 yo F)Acc No.[id number]:09/09/2024 Patient:?Arcelia HOLT :1970???Age:54 Y???Sex:Female Address:[address] [place], [address] * true * Date:? Generated for Printi ruma/Charla/eTransmitting on:?12/17/2024 09:55 AM EST
--- OUTSIDE RECORDS SUMMARY | 2024-12-17 09:56 | XMS_ITS | Encounter Summary ---
Author Organization [facility] Address [address] [place] [address] Phone Care Team Providers Care Fullerette Name Role Phone Nelli Allison MD Primary Care Provider [phone]- [phone] Encounter Details Date Type Department Care Team (Late Contact Info) Description 08/03/2022 Documentation Only [facility] [address] [place] [address] Nina Sánchez Social History Tobacco [...] Visit [facility] [address] [address] Kenny Marques MD [address] [address] documented as of this encounter Visit Diagnoses Not on filedocumented in this encounter Care Teams Fullerette Relationship Specialty Start Date End Date Nelli Allison MD [place] [address] PCP - General Internal Medicine 02/15/22 documented as of this encounter
--- OUTSIDE RECORDS SUMMARY | 2024-12-17 09:56 | XMS_ITS | Clinical Summary ---
Author Organization [facility] Address [address] [address] Phone Care Team Providers Care Hoist Worker Name Role Phone Nelli Allison MD Primary Care Provider +1- [phone] Allergies Active Allergy Reactions Criticality Noted Date Comments Basil Oil Itching 08/31/2016 Cephalexin Rash Low 06/28/2016 Oxycodone Other (see comments) High 06/28/2016 Pecan Extract Itching 08/31/2016 [place] Extract Itching 08/31/2016 Ziprasidone Hcl Rash High [...] Visit [facility] [address] [place] [address] Kenny Marques MD [address] [facility] [address] [place] [id number] Health Maintenance Due Date Last Done Comments [...] Sigmoidoscopy 2018 Influenza Vaccine (#1) 2024 Insurance [facility] ([id number]) [facility] ([id number]) Care Teams Hoist Worker Relationship Specialty Start Date End Date Nelli Allison MD [facility] [place] [address] PCP - General Internal Medicine 02/15/22
--- OUTSIDE RECORDS SUMMARY | 2024-12-17 09:56 | XMS_ITS ---
Author Organization [facility] Address [address] [facility] [place] [address] Care Team Providers Care Professor Of Industrial Technology Name Role Phone Estefany DOTSON, Albania Mehta Primary Care Provider Un available Nimo Weber Unavailable [phone] Allergies Allergen (clinical drug ingredient) Drug/Non Drug [...] Once a day for 30 day(s) Not-Taking [place] Thyroid 60 MG 1 tablet Orally Onc [...] Acid 20 MG as directed Orally Not-Taking [place] 3-6-9 Fatty Acids as directed Orally Not-Taking [...] 024 Encounters Encounter Location Date Provider Diagnosis [facility] [address] [place] [address] 10/17/2024 Nimo Casillasaker Plantar fascial fibromatosis M72.2 [...] * Arcelia HOLT MDOB: (54 yo F)Acc No.[id number]:10/17/2024 Progress Notes Patient:?Arcelia HOLT Provider:?Nimo Weber DPM :1970???Age:54 Y???Sex:Female D ate:10/17/2024 Address:[address] [place] [address], [place], [id number] Pcp:Jac Guardado Subjective: * Chief Complaints: * [...] to stress fx right heel . . [place] Thyroid 60 MG Tablet 1 tablet Orally Once a day Ranitidine HCl 300 MG Capsule 1 capsule at bedtime Orally Once a day Ativan 2 MG Tablet 1 tablet at bedtime Orally Once a day Zestril 10 MG Tablet 1 tablet Orally Once a day LaMICtal 200 MG Tablet 1 tablet Orally Once a day Probiotic Capsule as directed Orally [place] 3-6-9 Fatty Acids Capsule as directed Orally [...] stress fx right heel . . Not-Taking/PRN [place] Thyroid 60 MG Tablet 1 tablet Orally [...] Not-Taking/PRN Probiotic Capsule as directed Orally Not-Taking/PRN [place] 3-6-9 Fatty Acids Capsule as directed Orally [...] Weber DPM Date:?12/18/2023 Generated for Sara hendrix/Charla/Gonzalo on:?12/17/2024 09:56 AM EST History and Physical Notes * [...]
--- OUTSIDE RECORDS SUMMARY | 2024-12-17 09:56 | XMS_ITS | Patient Health Record ---
Author Organization [facility] Address [address] [facility] [place] [address] Care Team Providers Care Metal Off Bearer Name Role Phone Estefany DOTSON, Albania Mehta Primary Care Provider Un available Nimo Weber Unavailable [phone] Hilario Currie Unavailable [phone] Jerome Gilbert Unavailable [phone] Allergies Allergen (clinical drug ingredient) Drug/Non Drug [...] Acid 20 MG as directed Orally Not-Taking [place] 3-6-9 Fatty Acids as directed Orally Not-Taking [...] Once a day for 30 day(s) Not-Taking [place] Thyroid 60 MG 1 tablet Orally Onc [...] Status W/U Status Risk Notes Problem Bursitis (15574351) Bursitis (727.3) Active confirmed Problem Myositis (85944932) Myositis (729.1) Active confirmed Problem Pain in limb (73304174) Pain in Limb (729.5) Active confirmed Problem Plantar fasciitis (618146409) Plantar Fasciitis (728.71) Active confirmed Problem Plantar fascial fibromatosis (72289230) Plantar fascial fibromatosis (M72.2) Active confirmed Vital Signs Blood pressure diastolic 76 mm Hg 10/17/2024 Height 5ft8in in 10/17/2024 Blood pressure systolic 139 mm Hg 10/17/2024 Weight 295 lbs 10/17/2024 BMI 44.85 kg/m2 10/17/2024 Encounters Encounter Location Date Provider Diagnosis [address] [address] 07/08/2024 Hilario Currie Plantar fascial fibromatosis M72.2 ; Metatarsalgia, left foot M77.42 ; Metatarsalgia, right foot M77.41 ; Tinea unguium B35.1 ; Bunionette of right foot M21.621 and Bunionette of left foot M21.[address] [address] 08/22/2024 Hilario Currie Plantar fascial fibromatosis M72.2 ; Metatarsalgia, left foot M77.42 ; Metatarsalgia, right foot M77.41 ; Tinea unguium B35.1 ; Bunionette of right foot M21.621 and Bunionette of left foot M21.[address] [address] 10/17/2024 Nimo Weber Plantar fascial fibromatosis M72.2 ; Metatarsalgia, left foot M77.42 ; Metatarsalgia, right foot M77.41 ; Tinea unguium B35.1 ; Bunionette of right foot M21.621 and Bunionette of left foot M21.[address] [address] 07/08/2024 Hilario Currie [facility] [address] [address] 07/18/2024 Hilario Kush [facility] [address] [address] 09/09/2024 Hilario Currie Assessments Encounter Date Diagnosis [...] Insured Coverage Start Date Coverage End Date [facility] [employer] Claims [address] [place] [id number] Arcelia Multani Self - patient is the insured Medical (General) History Medical History History ICD Code asthma Back,Hip,and Knee pain Depression High blood pressure Reflux Headaches Thyroid disorder chronic sinusitis Psychiatric disorder Transfusions Surgical History Surgery Date(Month/Year) eye surgery cyst removal section thyroid nodule removal 1992
--- OUTSIDE RECORDS SUMMARY | 2024-12-17 09:56 | XMS_ITS ---
Author Organization [facility] Address [address] [facility] [place] [address] Care Team Providers Care Piercer Operator Name Role Phone Estefany DOTSON, Albania Mehta Primary Care Provider Un available Nimo Weber Unavailable [phone] Jerome Gilbert [phone] Encounters Encounter Location Date Provider [address] [place] [address] 09/17/2024 Jerome Gilbert Plan Of Treatment No Information Progress Notes * Arcelia HOLT MDOB: (54 yo F)Acc No.[id number]:09/17/2024 Progress Notes Patient:?Arcelia HOLT Provider:?Jerome Gilbert D.P.M. :1970???Age:54 Y???Sex:Female D ate:09/17/2024 Address:[address] [phone] Pcp:Jac Guardado Subjective: * [...] Gilbert D.P.M. Date:?08/24 Generated for Sara hendrix/Charla/Gonzalo on:?12/17/2024 09:56 AM EST
== END 2024-12-17 11:08 | disposition home or self-care (01) ==
PROVIDERS: PCP Internal Medicine; Visit Provider Internal Medicine
DX: E78.2 Mixed hyperlipidemia (principal); R73.01 Impaired fasting glucose; E66.01 Morbid (severe) obesity due to excess calories; Z68.41 Body mass index [BMI] 40.0-44.9, adult; I10 Essential (primary) hypertension; E03.9 Hypothyroidism, unspecified

== ENCOUNTER → 2024-12-17 09:06 | Outpatient (BNVA) | payer OTHER, SELFPAY | PROVIDERS: PCP Internal Medicine; Visit Provider Internal Medicine | DX: E78.2 Mixed hyperlipidemia (principal); R73.01 Impaired fasting glucose; E66.01 Morbid (severe) obesity due to excess calories; I10 Essential (primary) hypertension; E03.9 Hypothyroidism, unspecified | CPT/HCPCS: 96127; 99212 ==

== ENCOUNTER 2024-12-30 10:10 | Outpatient (REF) | payer OTHER, SELFPAY ==
--- OUTSIDE RECORDS SUMMARY | 2024-12-30 11:20 | XMS_ITS ---
Author Organization [facility] Address [address] [place] [address] Care Team Providers Care All Round Logger Name Role Phone Estefany DOTSON, [place] Mehta Primary Care Provider Un available Nimo Weber Unavailable [phone] Jerome Gilbert [phone] Encounters Encounter Location Date Provider [facility] [address] [facility] [address] 09/17/2024 Jerome Gilbert Plan Of Treatment No Information Progress Notes * Arcelia HOLT MDOB: (54 yo F)Acc No.[id number]:09/17/2024 Progress Notes Patient:?Arcelia HOLT Provider:?Jerome Gilbert D.P.M. :1970???Age:54 Y???Sex:Female D ate:09/17/2024 Address:[address] [phone] Pcp:Jac Guardado Subjective: * [...] Gilbert D.P.M. Date:?08/24 Generated for Sara hendrix/Charla/Gonzalo on:?12/30/2024 11:20 AM EDT
--- OUTSIDE RECORDS SUMMARY | 2024-12-30 11:20 | XMS_ITS | Patient Health Record ---
Author Organization [facility] Address [address] [facility] [place] [address] Care Team Providers Care Sawmill Production Worker Name Role Phone Estefany DOTSON, [place] Mehta Primary Care Provider Un available Nimo Weber Unavailable [phone] Hilario Currie Unavailable [phone] Jerome Gilbert Unavailable [phone] Allergies Allergen (clinical drug ingredient) Drug/Non Drug [...] Acid 20 MG as directed Orally Not-Taking [place] 3-6-9 Fatty Acids as directed Orally Not-Taking [...] Once a day for 30 day(s) Not-Taking [place] Thyroid 60 MG 1 tablet Orally Onc [...] Status W/U Status Risk Notes Problem Bursitis (60519547) Bursitis (727.3) Active confirmed Problem Myositis (05338428) Myositis (729.1) Active confirmed Problem Pain in limb (43273471) Pain in Limb (729.5) Active confirmed Problem Plantar fasciitis (452362330) Plantar Fasciitis (728.71) Active confirmed Problem Plantar fascial fibromatosis (40582567) Plantar fascial fibromatosis (M72.2) Active confirmed Vital Signs Blood pressure diastolic 76 mm Hg 10/17/2024 Height 5ft8in in 10/17/2024 Blood pressure systolic 139 mm Hg 10/17/2024 Weight 295 lbs 10/17/2024 BMI 44.85 kg/m2 10/17/2024 Encounters Encounter Location Date Provider Diagnosis [address] [address] 07/08/2024 Hilario Currie Plantar fascial fibromatosis M72.2 ; Metatarsalgia, left foot M77.42 ; Metatarsalgia, right foot M77.41 ; Tinea unguium B35.1 ; Bunionette of right foot M21.621 and Bunionette of left foot M21.[address] [address] 08/22/2024 Hilario Currie Plantar fascial fibromatosis M72.2 ; Metatarsalgia, left foot M77.42 ; Metatarsalgia, right foot M77.41 ; Tinea unguium B35.1 ; Bunionette of right foot M21.621 and Bunionette of left foot M21.[address] [address] 10/17/2024 Nimo Weber Plantar fascial fibromatosis M72.2 ; Metatarsalgia, left foot M77.42 ; Metatarsalgia, right foot M77.41 ; Tinea unguium B35.1 ; Bunionette of right foot M21.621 and Bunionette of left foot M21.[address] [address] 07/08/2024 Hilario Currie [facility] [address] [address] 07/18/2024 Hilario Kush [facility] [address] [address] 09/09/2024 Hilario Currie Assessments Encounter Date Diagnosis [...] Insured Coverage Start Date Coverage End Date [facility] [employer] Claims [address] [place] [phone] [id number] Arcelia Multani Self - patient is the insured Medical (General) History Medical History History ICD Code asthma Back,Hip,and Knee pain Depression High blood pressure Reflux Headaches Thyroid disorder chronic sinusitis Psychiatric disorder Transfusions Surgical History Surgery Date(Month/Year) eye surgery cyst removal section thyroid nodule removal 1992
--- OUTSIDE RECORDS SUMMARY | 2024-12-30 11:20 | XMS_ITS | Clinical Summary ---
Author Organization [facility] Address [address] [address] Phone Care Team Providers Care Linoleum Printer Name Role Phone Nelli Allison MD Primary Care Provider +1- [phone] Allergies Active Allergy Reactions Criticality Noted Date Comments Basil Oil Itching 08/31/2016 Cephalexin Rash Low 06/28/2016 Oxycodone Other (see comments) High 06/28/2016 Pecan Extract Itching 08/31/2016 [place] Extract Itching 08/31/2016 Ziprasidone Hcl Rash High [...] Visit [facility] [address] [place] [address] Kenny Marques MD [address] [facility] [address] [place] [id number] Health Maintenance Due Date Last Done Comments [...] Sigmoidoscopy 2018 Influenza Vaccine (#1) 2024 Insurance [facility] ([id number]) [facility] ([id number]) Care Teams Linoleum Printer Relationship Specialty Start Date End Date Nelli Allison MD [place] [address] PCP - General Internal Medicine 02/15/22
--- OUTSIDE RECORDS SUMMARY | 2024-12-30 11:20 | XMS_ITS | Encounter Summary ---
Author Organization [facility] Address [address] [place] [address] Phone Care Team Providers Care Tool Crib Supervisor Name Role Phone Nelli Allison MD Primary Care Provider +1- [phone] Encounter Details Date Type Department Care Team (Late Contact Info) Description 08/03/2022 Documentation Only [facility] [address] [place] [address] Nina Sánchez Social History Tobacco [...] Visit [facility] [address] [address] Kenny Marques MD [address] [address] documented as of this encounter Visit Diagnoses Not on filedocumented in this encounter Care Teams Tool Crib Supervisor Relationship Specialty Start Date End Date Nelli Allison MD [facility] [place] [address] PCP - General Internal Medicine 02/15/22 documented as of this encounter
== END 2024-12-30 10:11 | disposition home or self-care (01) ==
LOC: HO.MAMMO 10:10
PROVIDERS: PCP Internal Medicine; Visit Provider Internal Medicine
DX: Z12.31 Encounter for screening mammogram for malignant neoplasm of breast (principal)
CPT/HCPCS: 77063; 77067

== ENCOUNTER → 2024-12-30 10:30 | Outpatient (BNV) | payer OTHER, SELFPAY | PROVIDERS: PCP Internal Medicine; Visit Provider Internal Medicine | DX: Z12.31 Encounter for screening mammogram for malignant neoplasm of breast (principal) | CPT/HCPCS: 77063; 77067 ==

== ENCOUNTER 2025-08-27 09:13 | Outpatient (REF) | payer OTHER, SELFPAY ==
--- NOTE | ~2025-08-27 | XR_ITS ---
EXAMINATION: XR RIBS, LEFT CLINICAL INFORMATION: R07.81 - Pleurodynia COMPARISON: X-ray 10/15/2017 TECHNIQUE: Chest 1 view. Bilateral RIBS 3 views.. FINDINGS: Lungs are clear. No consolidation, pneumothorax, or pleural effusion. The cardiomediastinal silhouette and pulmonary vasculature are normal. Soft tissue marker positioned along the bilateral inferior rib cage. No acute displaced rib fracture is identified. XR/XR ribs LT min 3V w CXR1V IMPRESSION: No acute pulmonary disease. No acute displaced rib fracture is identified. Electronically signed by: Dada Nieto MD 08/27/2025 10:18 AM [facility]
== END 2025-08-27 09:14 | disposition home or self-care (01) ==
LOC: HO.HMGCX 09:13
PROVIDERS: PCP Internal Medicine; Visit Provider Physician Assistant
DX: R07.89 Other chest pain (principal)
CPT/HCPCS: 71101; 99212

== ENCOUNTER 2025-08-27 09:13 | Outpatient (AMB) | payer OTHER, SELFPAY ==
--- OUTSIDE RECORDS SUMMARY | 2024-07-31 04:30 | XMS_ITS ---
Author Organization [facility] Address [address] [place] [address] Care Team Providers Care Postal Inspector Name Role Phone Estefany DOTSON, [place] Mehta Primary Care Provider Un available Nimo Weber Unavailable [phone] Hilario Santos Unavailable [phone] REASON FOR VISIT OT's Not In Encounters Encounter Location Date Provider Diagnosis [facility] [address] [place] [address] 07/31/2024 Hilario Santos Plan Of Treatment No Information Progress Notes * Arcelia HOLT MDOB: (55 yo F)Acc No.[id number]:07/31/2024 Progress Note Patient: Elise POWELLEMILEE Arcelia Jac Provider: Chepe Currie DPM :1970 A ge:54 Y S ex:Female Date:07/31/2024 [facility] [facility] [id number] Pcp:Jac Guardado Subjective: * Chief Complaints: * 1 . OT's Not In. * HPI: H eel pain: Nature: s harp pain. Location: P roximal plantar aspect of Heel, plantar, Arch, B/L. Duration: s everal years . Onset/Cause: u nknown, denies trauma. Course: w orse. Aggravated: s tanding, walking. Treatments: p revious tx at [facility]. Severity/Quality: S tates 10 out of 10. [...] DPM Date: Generated for Sara hendrix/Charla/Gonzalo on: 10/27/2024 09:58 AM EST History and Physical Notes * HPI (History of Present Illness) Category Sub-Category Detail Notes Category Not es Heel pain Duration: several years Nature: sharp pain Severity/Quality: States 10 out of 10 Location: Proximal plantar asp ect of Heel, plantar, Arch, B/L Onset/Cause: unknown, denies francisca erazo Aggravated: standing, walking Course: worse Treatments: previous tx at [facility] Foot Pain Aggrevated: any pressure Course: worse Duration: 1 month Nature: sharp Treatments: none Quality/Severity severe Location Bottom, B/L, Outside , Forefoot
--- OUTSIDE RECORDS SUMMARY | 2024-08-15 04:30 | XMS_ITS ---
Author Organization [facility] Address [address] [place] [address] Care Team Providers Care Pyrometer Operator Name Role Phone Estefany DOTSON, [place] Mehta Primary Care Provider Un available Nimo Weber Unavailable [phone] Hilario Santos Unavailable [phone] Black Encounters Encounter Location Date Provider Diagnosis [facility] [address] [place] [address] 08/15/2024 Hilario Santos Plan Of Treatment No Information Progress Notes * Arcelia HOLT MDOB: (55 yo F)Acc No.[id number]:08/15/2024 Progress Note Patient: Andre ALARCONa Jac Provider: Chepe Currie DPM :1970 A ge:54 Y S ex:Female Date:08/15/2024 [facility] [facility] [id number] Pcp:Jac Guardado Subjective: * Chief Complaints: * [...] Date: Generated for Sara hendrix/Charla/Gonzalo on: 10/27/2024 09:59 AM EST
--- OUTSIDE RECORDS SUMMARY | 2024-09-17 06:00 | XMS_ITS ---
Author Organization [facility] Address [address] [place] [address] Care Team Providers Care Speech Therapy Assistant Name Role Phone Estefany DOTSON, [place] Mehta Primary Care Provider Un available Nimo Weber Unavailable [phone] Jerome Gilbert [phone] Encounters Encounter Location Date Provider Diagnosis [address] [place] [address] 09/17/2024 Jerome Gilbert Plan Of Treatment No Information Progress Notes * Arcelia HOLT MDOB: (55 yo F)Acc No.[id number]:09/17/2024 Progress Notes Patient: Arcelia ALARCON Provider: Jac Gilbert D.P.M. :1970 A ge:54 Y S ex:Female Date:09/17/2024 Address:[address] [id number] Pcp:Jac Guardado Subjective: * Chief Complaints: * * Medical History: Objective: * Vitals: Assessment: Plan: * Treatment: * Images: * The named appointment provid er may or may not be the originator of this progress note, and it is not deemed complete until electronically signed by the appointment provider. Sign off status: Pending * Provider: Jac Gilbert D.P.M. Date: 11/17/2023 Generated for Carriei ng/Faxing/eTransmitting on: 1 10/27/2024 09:59 AM EST
[2025-08-27 09:25] VITALS: BP 114/66; PULSE 88; TEMP 36.5; O2SAT 97; BMI 40.3
--- NOTE | 2025-08-27 09:25 | AM.OFFWIN_ITS ---
Intake Vital Signs 08/27/25 09:25 Height 5 ft 8.5 in Weight 269 lb BMI 40.3 BP 114/66 Blood Pressure Location Rt brachial Position Sitting Pulse 88 Pulse Source Pulse Oximeter Temp 97.7 F Temp Source Oral Pulse Oximetry (%) 97 Oxygen Delivery Method Room Air Intake Visit Reasons: EP Left side pain Intake Note: pt presents with left sided rib pain- pt recalls bending and turning on her left side while in the salon chair 1.5 wks ago- notes pain with deep breathing Patient Tobacco Use Status: Former Tobacco user Allergies ziprasidone (From GEODON) Allergy (Severe, Verified 08/27/25 09:33) HIVES,SWELLING alosetron (From LOTRONEX) Allergy (Intermediate, Verified 08/27/25 09:33) RASH Sulfa (Sulfonamide Antibiotics) (SULFA (SULFONAMIDE ANTIBIOTICS)) Allergy (Intermediate, Verified 08/27/25 09:33) RASH cephalexin (Keflex) Allergy (Unknown, Verified 08/27/25 09:33) rash oxycodone (OXYCODONE) Adverse Reaction (Severe, Verified 08/27/25 09:33) HALLUCINATIONS, hallucination, hallucinations meperidine (Demerol) Adverse Reaction (Unknown, Verified 08/27/25 09:33) nausea and vomiting morphine Adverse Reaction (Unknown, Verified 08/27/25 09:33) nausea and vomiting Do you need a note to return to daycare/school/sports/work: No HPI HPI Comments History of Present Illness Details History of Present Illness - The patient is a 55-year-old female pr esenting with suspected rib fracture. - History of Problem: The patient experi enced pain on the left side after bending over in a salon chair and hearing a pop. - The pain is localized under the bra wi re on the left side and is tender to touch. - The incident occurred a week and a gina f ago, and the pain worsens with deep breaths. - No shortness of breath reported, but p ain is worse with deep breathing. - The patient has not been screened for osteoporosis, which may contribute to bone fragility. Review of Systems - Respiratory: Reports pain with deep br eaths. Denies dyspnea. All systems reviewed and are unremarkable except as noted in HPI Physical Exam General: Cooperative, healthy appearing, comfortable, no acute distress and well developed Orientation: Patient oriented x3 Limitations: No limitations Head: Normal to inspection Ears: Hearing grossly normal bilaterally Nose: Normal External nose present Face and sinus: Normal facial exam Eyes: Appearance normal, both eyes and all related structures Neck: Normal visual inspection and Yes full ROM Chest: TTP left side mid clavicular line T8-T9 Respiratory: Normal respiratory effort and able to speak in complete sentences. Skin: No rashes or lesions noted Neuro: Patient oriented x3 Extremities: Normal to inspection [facility] Medical History (Updated 08/27/25 @ 09:40 by Yas Nelson PA-C) Rib pain on left side Irritable bowel syndrome with diarrhea Sacroiliac joint pain Bilateral shoulder pain Lumbar radiculopathy, chronic Mixed dyslipidemia Decreased glomerular filtration rate (GFR) Impaired fasting glucose Mild intermittent asthma Morbid obesity Von Willebrand disease History of MRSA infection Bipolar 1 disorder, depressed ADHD Hypothyroid Hypertension GERD (gastroesophageal reflux disease) Atypical ductal hyperplasia of right breast Acquired hypothyroidism Surgical History Hx of colonoscopy History of bilateral carpal tunnel release Hx of cystoscopy Hx of esophagogastroduodenoscopy Vesicovaginal fistula S/P laparoscopic surgery History of total abdominal hysterectomy History of section History of eye surgery History of partial thyroidectomy Family History Father HTN (hypertension) Hyperlipidemia Mother HTN (hypertension) Alzheimers disease Mental health disorder Maternal Aunt Breast cancer Brother Substance use disorder Social History Housing: House Alcohol intake: current Alcohol intake frequency: 0-2 drinks per day Alcohol type: hard liquor Patient Tobacco Use Status: Former Tobacco user Tobacco use type: Cigarette Years Smoked: 20 years e-Cigarette/Vaping Use: Never Used service: No Current occupational status: unemployed Cognitive needs: No Hearing needs: No Vision needs: Yes Physical Exam Vital Signs: Last Vital Signs Temp 97.7 F 08/27/25 09:25 Pulse 88 08/27/25 09:25 BP 114/66 08/27/25 09:25 Pulse Ox 97 08/27/25 09:25 Oxygen Delivery Method Room Air 08/27/25 09:25 BMI result Body Mass Index 40.3 Assessment & Plan Assessment & Plan (1) Rib pain on left side: Code(s): R07.81 - Pleurodynia Plan: Patient was informed and verbally consented to the use of an ambient scribe for clinic note documentation during this visit. - An x-ray has been ordered to rule out a rib fracture. - Pain management options discussed include Voltaren gel and lidocaine patches. - Advised that healing may take 6-8 weeks, with pain expected to decrease over time. Orders: Orders XR ribs LT 2V Today R07.81 - Pleurodynia Coding Level of Care Code Est Pt Level 4 (41205) Diagnoses Rib pain on left side R07.81
--- OUTSIDE RECORDS SUMMARY | 2025-08-27 09:59 | XMS_ITS | Encounter Summary ---
Author Organization [facility] Address [address] [place] [address] Phone Care Team Providers Care Perinatal Tech Name Role Phone Nelli Allison MD Primary Care Provider +1- [phone] Encounter Details Date Type Department Care Team (Late Contact Info) Description 08/03/2022 Documentation Only [facility] [address] [place] [address] Nina Sánchez Social History Tobacco [...] Care Team (Late st Contact Info) Description 10/21/2025 2:45 PM EST Office Visit [facility] [address] [address] Kenny Marques MD [address] [address] documented as of this encounter Visit Diagnoses Not on filedocumented in this encounter Care Teams Perinatal Tech Relationship Specialty Start Date End Date Nelli Allison MD [facility] [place] [address] PCP - General Internal Medicine 02/15/22 documented as of this encounter
--- OUTSIDE RECORDS SUMMARY | 2025-08-27 09:59 | XMS_ITS | Clinical Summary ---
Author Organization [facility] Address [address] [address] Phone Care Team Providers Care Coring Machine Operator Name Role Phone Nelli Allison MD Primary Care Provider +1- [phone] Allergies Active Allergy Reactions Criticality Noted Date Comments Basil Oil Itching 08/31/2016 Cephalexin Rash Low 06/28/2016 Oxycodone Other (see comments) High 06/28/2016 Pecan Extract Itching 08/31/2016 [place] Extract Itching 08/31/2016 Ziprasidone Hcl Rash High [...] (one) time each day 180 tablet 3 5 05/27/20 29 Active Active Problems Problem Noted Date Diagnosed Date Stage 3a chronic kidney disease 08/03/2022 Stage 3b chronic kidney disease 03/03/2022 Chronic kidney disease due to benign hypertensio n 03/03/2022 Renal osteodystrophy 03/03/2022 Essential (primary) hypertension 03/01/2022 Abnormal result of kidney function study 022 Encounters Date Type Department Care Team Description 06/17/2025 [facility]ill [facility] [address] [address] [facility] Immunizations Immunization Administration Dates Next Due Pfizer SARS-COV-2 01/22/2021,01/01/2021 [...] Visit [facility] [address] [phone] Kenny Marques MD [address] [phone] Health Maintenance Due Date Last Done Comments Breast Cancer Screening 1970 Hepatitis B Vaccine (1 of 3 - 19+ 3-dose series) 06/07 Pneumococcal Vaccine: 50+ Years (1 of 2 - PCV) 988 Colorectal Cancer Screening: Annual FOBT 2018 Colorectal Cancer Screening: Colonoscopy 2018 Colorectal Cancer Screening: Sigmoidoscopy 2018 Influenza Vaccine (#1) [address] [facility] ([id number]) [place] [phone] [facility] MCR ([id number][place] [phone] Care Teams Coring Machine Operator Relationship Specialty Start Date End Date Nelli Allison MD [address] [place] [address] PCP - General Internal Medicine 02/15/22
--- OUTSIDE RECORDS SUMMARY | 2025-08-27 09:59 | XMS_ITS | Clinical Summary ---
Author Organization [facility] Address [address] [address] Phone Care Team Providers Care Dynamicist Name Role Phone Albania Allison MD Primary Care Provider Allergies Active Allergy Reactions Criticality Noted Date Comments Alosetron 09/24/2024 Basil Itching 08/31/2016 Cephalexin Rash Low 06/28/2016 Oxycodone Other (See Comments) High 06/28/2016 Pecan Extract Itching 08/31/2016 Kenton Extract Itching 08/31/2016 Sulfadiazine 09/24/2024 Korean Montchanin 09/24/2024 Ziprasidone Rash High 01/14/2019 Medications albuterol 90 mcg/actuation inhaler 2 puffs every 6 (six) hours as needed for wheezing. 07/23/20 24 Active VRAYLAR 6 mg capsule Take 1 capsule by mouth every morning. 09/16/20 24 Active chlorthalidone (HYGROTON) 25 MG tablet Take 0.5 tablets by mouth every morning. 08/27/20 24 Active ADDERALL XR 30 mg 24 hr capsule Take 1 capsule by mouth every morning. 09/13/20 24 Active dextroamphetami ne-amphetamine (ADDERALL) 10 mg Tab tablet Take 10 mg by mouth 3 (three) times a day. 09/17/20 24 Active BREO ELLIPTA 200-25 mcg/dose inhaler Inhale 1 puff into the lungs daily. 07/31/20 24 Active levothyroxine (SYNTHROID, LEVOTHROID) 75 MCG tablet Take 75 mcg by mouth every morning. 06/30/20 Active lisinopril (PRINIVIL,ZESTR IL) 10 MG tablet Take 1 tablet by mouth every morning. 09/17/20 Active LORazepam (ATIVAN) 2 MG tablet Take 1 tablet by mouth 2 (two) times a day. 09/04/20 Active pantoprazole (PROTONIX) 40 MG tablet Take 1 tablet by mouth 2 (two) times a day. 07/30/20 24 Active lidocaine HCl-hydrocortis on ac 3-0.5 % Crea Place rectally. 02/21/20 25 Active ipratropium-alb uteroL (DUONEB) 0.5-3 mg (2.5 mg base)/3 mL nebulizer solution USE 3 ML VIA NEBULIZER FOUR TIMES DAILY FOR WHEEZING 02/08/20 Active melatonin 5 mg Tab Take by mouth nightly at bedtime. Active tirzepatide, weight loss, (ZEPBOUND) 15 mg/0.5 mL subcutaneous penIndications: Class 3 severe obesity with serious comorbidity and body mass index (BMI) of 40.0 to 44.9 in adult Inject 0.5 mL (15 mg total) under the skin once a week. 2 mL 2 08/20/20 Active SENNA 8.6 mg tablet take 2 tablet by mouth every night at bedtime 09/24/20 Discontinued polyethylene glycol (MIRALAX) 17 gram/dose powder Take by mouth. 01/31/20 25 025 Discontinued tirzepatide, weight loss, (ZEPBOUND) 15 mg/0.5 mL subcutaneous penIndications: Class 3 severe obesity with serious comorbidity and body mass index (BMI) of 40.0 to 44.9 in adult Inject 0.5 mL (15 mg total) under the skin once a week. 2 mL 1 06/24/20 25 025 Discontinued(Re order) Active Problems Problem Noted Date Diagnosed Date Bipolar 2 disorder 09/24/2024 Class 2 severe obesity with serious comorbidity and body mass index (BMI) of 39.0 to 39.9 in adult 09/24/2024 Overview (09/24/2024): WHO class 3,AACE stage 1 Assessment & Plan (08/20/2025 11:02 AM EDT): Reinforced recommendations to stop drinking alcohol and start some form of regular exercise. Continue high-protein low carbohydrate diet. Make sure she is getting adequate protein. Even though she is a poor responder to GLP-1's, having lost less than the expected amount of body weight, ongoing treatment should at least help prevent weight gain so she will continue 15 mg of Zepbound and follow-up with me in 3 months. Assessment & Plan (06/17/2025 11:11 AM EDT): Since he has not lost the anticipated amount of weight on Zepbound. I do think this is a combination of her being a under responder to the medication and her lack of exercise and alcohol intake. I have encouraged her to stop drinking and start some form of regular exercise. She has opted to discontinue the Zepbound. She is not interested in bariatric surgery. She will return to follow-up with her primary care provider Assessment & Plan (03/11/2025 10:18 AM EDT): She needs to get back on track with high-protein low carbohydrate diet. I would also like to see her eating more vegetables. She is going to schedule follow-up with RD. Functionally she has been very limited due to her back pain but I have continued to encourage her to engage in some form of regular exercise. She is scheduled for a nerve ablation for her back pain so hopefully she will be able to be more active if that is helpful. Will increase Zepbound to 12.5 mg. She will follow-up with me in 3 months. Assessment & Plan (12/10/2024 10:29 AM EST): She has had a hard time integrating the lifestyle changes we have asked for. She is working on adding more protein. We had a very ariela conversation about the need for her to stop drinking alcohol nightly. She does not feel physically dependent she just likes the ritual of having some drinks in the evening with her partner. She will swap out hard seltzers for plain seltzers. This is definitely going to hinder her weight loss. She can start doing upper body strength training. I have ordered labs. Follow-up with me in 3 months, sooner if issues Assessment & Plan (09/24/2024 11:00 AM EST): Pt was educated on the pathophysiology of obesity, which is a chronic, relapsing, often progressive neuroendocrine disease with behavioral components. We discussed treatment approaches including lifestyle changes, pharmacotherapy & bariatric surgery. We discussed their personal treatment goals. We discussed targeting a weight loss goal of 5-10% over the next 6 months as this modest amount of weight loss has been shown to decrease blood pressure, insulin resistance, sleep apnea, liver inflammation, arthritic pain and improve dyslipidemia. She reports labs done recently w PCP. Will send these in. Patient was given the initial meal plan and exercise recommendations. I recommend patient work with our dietitian, Alisa Barakat RD and have asked them to schedule an appt. I have recommended the following Anti-Obesity Medication: Tirzepatide They will start at 2.5 mg q week x 4 wk, then if tolerated we can titrate every 4 weeks The patient has completed > 6 months of efforts focused on dietary and lifestyle changes and has been unsuccessful in reaching their weight loss goals. I have explained that this medication decreases appetite & food cravings and increases feeling of fullness. I have reviewed the following possible side effects: Nausea, vomiting, constipation, gastroparesis, SBO, pancreatitis, gallstones, suicidal thoughts, diabetic retinopathy, optic neuropathy, low blood sugar and in rat studies an increased risk of medullary thyroid cancer and MEN2. This medication is not recommended in patients with a personal or family history of medullary thyroid cancer or multiple endocrine neoplasia 2A or 2B. We also discussed health insurance inflicted barriers to obtaining GLP1RA and possible need for prior authorization & appeal Snoring 09/24/2024 Chronic kidney disease due to benign hypertensio n 03/03/2022 Renal osteodystrophy 03/03/2022 Stage 3 chronic kidney disease 03/03/2022 Essential (primary) hypertension 03/01/2022 Incomplete emptying of bladder 07/15/2018 OAB (overactive bladder) 04/12/2018 Stress incontinence in female 08/03/2017 Overview (09/24/2024): Added automatically from request for surgery [id number] Low von Willebrand factor (v WF) ristocetin cofactor activity 08/30/2016 Vesicovaginal fistula 08/23/2016 Overview (09/24/2024): S/p repair Encounters Date Type Department Care Team Description 08/20/2025 10:45 AM EDT Office Visit [facility] [address] [place] [address] Damaris Ham CNP Class 2 severe obesity with serious comorbidity and body mass index (BMI) of 39.0 to 39.9 in adult, unspecified obesity type (Primary Dx); Class 3 severe obesity with serious comorbidity and body mass index (BMI) of 40.0 to 44.9 in adult 07/15/2025 10:30 AM EDT Nutrition [facility] [address] [place] [address] Lorrie Barakat LDN Morbid obesity with BMI of 40.0-44.9, adult (Primary Dx) 06/17/2025 10:45 AM EDT Office Visit [facility] [address] [place] [address] Damaris Ham CNP Class 3 severe obesity with serious comorbidity and body mass index (BMI) of 40.0 to 44.9 in adult (Primary Dx) 06/10/2025 Telephone [facility] [address] [place] [address] Maxim Millard Medication Prior Authorization (Zepbound ) 06/04/2025 Refill [facility] [address] [place] [address] [place] [address] Damaris Ham CNP Medication Refill 05/27/2025 10:30 AM EDT Nutrition [facility] [address] [place] [address] Lorrie Barakat LDN Morbid obesity with BMI of 40.0-44.9, adult (Primary Dx) from Last 3 Months Social History Tobacco Use Types Packs/Day Years Used Date Smoking Tobacco: Former Cigarettes Q uit: 2012 Smokeless Tobacco: Never Tobacco Cessation:Counseling Given: Not Answered Alcohol Use Standard Drinks/Week Comments Yes 0 (1 standard drink = 0.6 oz pur e alcohol) Education Answer Date Recorded Are you interested in more education? Not on cristhian e 07/26/2024 Are you concerned about learning? Not on file 07/26/2024 No 07/26/2024 No 07/26/2024 Digital Access Answer Date Recorded No 07/26/2024 No 07/26/2024 Reliable internet access at home? Not on file 07/26/2024 Device with a working camera? Not on file Comments Unknown Sex and Gender Information Value Date Recorded Sex Assigned at Not on file Legal Sex Female 3:11 PM EDT Gender Identity Not on file Sexual Orientation Not on file Last Filed Vital Signs Vital Sign Reading Time Taken Comments Blood Pressure 126/82 08/20/2025 10:00 AM EDT Pulse 88 08/20/2025 10:00 AM EDT Temperature 36.4 C (97.5 F) 06/17/2025 10:00 AM EDT Respiratory Rate - - Oxygen Saturation 97% 08/20/2025 10: 00 AM EDT Inhaled Oxygen Concentration - - Weight 120.8 kg (266 lb 6.4 oz) 025 10:00 AM EDT Height 174 cm (5' 8.5 ) 06/17/2025 10:0 0 AM EDT Body Mass Index 39.91 06/17/2025 10:00 AM EDT Plan of Treatment Upcoming Encounters Date Type Department Care Team (Late st Contact Info) Description 11/14/2025 10:45 AM EST Office Visit [facility] [address] [place] [address] Damaris Ham, SLIP [employer]ER [address] [facility], [address]nd [place] [address] [email or web address] Health Maintenance Due Date Last Done Comments Adult Td,Tdap Booster 1969 LIPID PANEL 1969 DEPRESSION SCREENING 1981 SMOKING Hx and SMOKELESS TOBACCO SCREENING 1982 HEPATITIS C SCREENING 1987 HIV ONE-TIME SCREENING (18-6 5 YEARS) 1987 PAP SMEAR 1990 MAMMOGRAM 2009 COLOGUARD 2014 COLONOSCOPY 2014 COLORECTAL CANCER SCREENING 2014 FIT TEST 2014 FOBT 2014 SIGMOIDOSCOPY 2014 VIRTUAL COLONOSCOPY 2014 PNEUMOCOCCAL VACCINES (50+ years) (1 of 1 - PCV) 2019 ZOSTER VACCINES (1 of 2) 2019 INFLUENZA VACCINE (#1) 2025 COVID-19 VACCINE (1 - 2024-2 6 season) 2025 CREATININE LEVEL 12/10/2025 12/10/2024 POTASSIUM LEVEL 12/10/2025 12/10/2024 TSH LEVEL 12/10/2025 12/10/2024 BLOOD PRESSURE 02/18/2026 08/20/2025 SCREENING FOR DIABETES 12/10/2027 , 12/10/2024 RSV VACCINE (1 - 1-dose 75+ series) 2044 HEPATITIS A VACCINES Aged Out No long er eligible based on patient's age to complete this topic HIB VACCINES Aged Out No longer eligi ble based on patient's age to complete this topic MENINGOCOCCAL VACCINES (ACWY) Aged Out No longer eligible based on patient's age to complete this topic MENINGOCOCCAL VACCINES (B) Aged Out N o longer eligible based on patient's age to complete this topic Medical Devices Not on file Procedures Procedure Name Priority Date/Time Associated Diagnosis Comments TSH WITH REFLEX Routine 12/10/2024 10:35 AM EST Class 3 severe obesity with serious comorbidity and body mass index (BMI) of 40.0 to 44.9 in adult, unspecified obesity type COMPREHENSIVE METABOLIC PANEL (CMP) Routine 12/10/2024 10:35 AM EST Class 3 severe obesity with serious comorbidity and body mass index (BMI) of 40.0 to 44.9 in adult, unspecified obesity type from Last 3 Months or Most Recently Relevant to Health Maintenance Results * (ABNORMAL) Comprehensive metabolic panel (12/10/2024 10:35 AM EST) SODIUM 139 133 - 146 mmol/L [facility] POTASSIUM 3.8 3.3 - 5.1 mmol/L [facility] CHLORIDE 99 96 - 108 mmol/L [facility] CO2 27 21 - 35 mmol/L [facility] BUN 21(H) 6 - 19 mg/dL [facility] CREATININE 1.40 0.5 - 1.5 mg/dL [facility] GLUCOSE 104(H) 70 - 99 mg/dL [facility] ALBUMIN 4.0 3.9 - 4.8 g/dL [facility] TOTAL PROTEIN 8.0 6.5 - 8.0 g/dL [facility] CALCIUM 10.0 8.4 - 10.3 mg/dL [facility] ALKALINE PHOSPHATASE 72 39 - 117 U/L [facility] TOTAL BILIRUBIN 0.3 0.0 - 1.2 mg/dL [facility] AST 27 0 - 37 U/L [facility] ALT 15 0 - 40 U/L [facility] GLOBULIN 4.0 1 - 4.8 g/dL [facility] EGFR 44(L) >59 mL/min/1.7 3m2 [facility] Comment:Estimated glomerular filtration rate calculated using the CKD-EPI refit equation. ANION GAP 17 10 - 20 mmol/L [facility] Blood 12/10/2024 10:3 5 AM EST 12/10/2024 10:40 AM EST us [facility] [employer] [employer] LAB BLOOD BKR ORDERABLES F inal Result Performing Organization Address City/[facility]/ZIP Co de Phone Number [address] [address] * TSH with reflex (12/10/2024 10:35 AM EST) TSH 2.47 0.27 - 4.20 uIU/mL [facility] Blood 12/10/2024 10:3 5 AM EST 12/10/2024 10:40 AM EST [facility] BKR ORDERABLES F inal Result [address] [address] from Last 3 Months or Most Recently Relevant to Health Maintenance Insurance MEDICARE PART A & B [facility] ONE CARE MEDICARE REPLACEMENT [facility] MEDICARE PART A & B [facility] ONE CARE MEDICARE REPLACEMENT [facility] MEDICARE PART A & B [facility] ONE CARE MEDICARE REPLACEMENT [place] MEDICARE PART A & B [facility] ONE CARE MEDICARE [facility]EMENT [facility] B [facility] ONE CARE MEDICARE REPLACEMENT MEDICARE PART A & B [facility] ONE CARE MEDICARE REPLACEMENT Care Teams Dynamicist Relationship Specialty Start Date End Date Albania Allison MD [address] [place] [address] [place] [address] PCP - General Internal Medicine 12/29/14 Additional Source Comments The information contained in this document represents components of the legal health record. It is not the complete legal health record[facility]
--- OUTSIDE RECORDS SUMMARY | 2025-08-27 09:59 | XMS_ITS | Data Portability ---
Author Organization [facility], [facility] Address [address] [place] [address] Care Team Providers Care Surface Plate Finisher Name Role Phone MARTA FRANCISCO Primary Care Provider Assessment No assessment recorded. Plan of Treatment Reminders Order Date Submit Date Provider Last Modified By Organization Details Last Modified Time Details Appointments None recorded . Lab None recorded . Referral physical therapis t referral - ICD-10: M75.41(r ight) M75.42(l eft) 1. Rotator cuff strength ening program. 2. Scapular stabiliz ation program includin g strength ening, mobiliza tion, and proprioc eption. 3. End stage range stretchi ng 4. Soft tissue modaliti es as indicate d. 5. Home exercise program. 6. Therapeu tic exercise s: all exercise s prn per therapis t. 7. Manual therapy: all manual therapy prn per therapis t. [address] (Erich Trujillo), [address], [place], [address], 4 15:04:01 Procedures None recorded . Surgeries None recorded . Imaging XR, elbow, 3 or more view - room 202, L elbow 3v 2024 025 [facility], [address], [place], [address], 5 12:02:23 XR, shoulder , 2 or more view - rm 209 4V L shoulder pain 2023 024 [facility], [address], [place], [address], 15:04:01 Medication Orders None recorded . Patient TargetsNo targets recorded. Patient Instructions Encounter Date Encounter Id Patient Instructions Last Modified By Organization Details Last Modified Time 03/03/2025 [id number] tennis elbow: exercises Not available 03/07/2025 12:02:23 golfer's elbow: exercises Not available 03/07/2025 12:02:23 Reason for Referral Physical Therapist Referral for Pain of left shoulder joint ICD-10: M75.41(right) M75.42(left)1. Rotator cuff strengthening program.2. Scapular stabilization program including strengthening, mobilization, and proprioception.3. End stage range stretching4. Soft tissue modalities as indicated.5. Home exercise program.6. Therapeutic exercises: all exercises prn per therapist.7. Manual therapy: all manual therapy prn per therapist. Referring Physician: Jennifer Son, Orthopedic Surgery, [id number] Encounter Date: 07/05/2024 Results Created Date Observation Date Name Description Value Unit Range Abnormal Flag Note LastModifiedBy Organization Detail LastModifiedTime 07/05/2007/05/2024 XR, shoul josé miguel, 2 or more view http:/ [email or web address] ?Encry pted=s hAaTro YD8dLq bEUv6g %2BXZw aYqtaq 0bqfl% 2Fg9IQ a4ajBk vP9nXo QUaueC m3YtLR FvZlgJ JJ8mAn HZtai3 9b5216 AC0Kqa nmFVKe gKiQtr MwF INTERFACE [facility] [address], [place], [address], 07/05/2024 13:16:40 07/05/20 24 07/05/2024 XR, shoul josé miguel, 2 or more view [email or web address] ?Encry pted=s hAaTro YD8dLq bEUv6g %2BXZw aYqtaq 0bqfl% 2Fg9IQ a4ajBk vP9nXo QUaueC m3YtLR FvZlgJ JJ8mAn HZtai3 1r2588 AC0Kqa nmFVKe gKiQtr MwF INTERFACE [facility] [address] [facility] [address], [place], [address], 07/05/2024 13:16:42 03/03/20 25 03/03/2025 XR, elbow , 3 or more view [email or web address] ?Encry pted=s hAaTro YD8dLq bEUv6g %2BXZw aYqtaq 0bqfl% 2Fg9IQ a4ajBk vP9nXo QUaueC m3YtLR FvZlg JJ8mAn HZtai3 3x3883 AC0Kla nSEUKS lKiQtr MwF INTERFACE [facility] [address] [facility], [place], [address], 03/03/2025 13:19:54 03/03/20 25 03/03/2025 XR, elbow , 3 or more view http:/ [email or web address] ?Encry pted=s hAaTro YD8dLq bEUv6g %2BXZw aYqtaq 0bqfl% 2Fg9IQ a4ajBk vP9nXo QUaueC m3YtLR FvZl JJ8[place] HZtai3 3j7433 AC0Kla nSEUKS lKiQtr MwF INTERFACE [facility] [address] [facility], [place], [address], 03/03/2025 13:19:55 Result Notes Documentation Provider Name and Address Organization Details Recorded Time Xr, Shoulder, 2 Or More View : [email or web address]? Encrypted=erNaAntDP8wUjcF Uv6g%0PBDyjEjkog7bymr%2Fg 3PCi1zkGibQ8rNoIJmgdLu6Uk MFCiBocALW8oRcKCpag52k646 5HD9DetpyGRDbaPzJudItN Not Available [facility] 07/05/2024 13:16: 41 Xr, Shoulder, 2 Or More View : [email or web address]? Encrypted=hrStHsqAE6tQawC Uv6g%7UOBdvYlhss0qzng%2Fg 1MFt6efWrtX6jTzTKwetUl3Dr RKWqXodZNP5nHuWWgtx65n929 8AG3PctgrRLGusCtFjfFyT Not Available [facility] 07/05/2024 13:16: 43 Xr, Elbow, 3 Or More View : [email or web address] Encrypted=jkShCvkPL7vFhbS Uv6g%1KVQbxSqvoy5qtpk%2Fg 2WVp9ppRlwH4dArBCwscLz2Vb MZTtHowTFW7xLeAExrk83l286 4UX9EtqmIPVXUqXtZnrWgU Not Available [facility] 03/03/2025 13:19: 54 Xr, Elbow, 3 Or More View : [email or web address] Encrypted=rkClXptET5cQkmA Uv6g%5KESdsLrite8zanr%2Fg 0LIz2vrUuhT3lMsWWiceTl6Hs PSJkEhlLFT1lXpHTpsf92k370 8SZ7WjfzHCSKErWyHvjSjS Not Available [facility] 03/03/2025 13:19: 55 Problems Name Problem SNOMED Code Status Onset Date Resolution Date Notes Provider Name and Address Organization Details Recorded Time No complaints 007991200 Active Status : 'I'; Not Available Former[facility] 09:21:55 Impingemen t syndrome of left shoulder region 7067450803226 04 Active 2023 Jennifer Son PA-C [address] [place] [address] [address], [place], [address] , [facility] 09/13/202 4 13:53:05 Left lateral elbow tendinopat hy 3511292045315 00 Active 2024 MORALES Garzon-Amador [address], [place], [address] , [facility] 5 14:09:59 Problem Notes None recorded. Procedures Surgical History Date Name Laterality Status Provider Name and Address Organization Details Recorded Time 5 Sports Shoulder completed MORALES Garzon-Amador [address], [place], [address], [facility] 01/10/2025 15:39:39 4 Sports Shoulder completed MORALES Garzon-Amador [address], [place], [address], [facility] 07/05/2024 13:52:45 Hand Surgery completed Marquita glez [facility] 01/10/2025 15:13:36 Imaging Results None recorded. Procedure Notes None recorded. Medical Equipment None Reported. Allergies Allergen ID Allergen Name Allergen Category Reaction Reaction Severity Criticality Documentation Date Start Date Code Code System Note Provider Name and Address Organization Details Recorded Time 74591 Substance with sulfonami de structure and antibacte rial mechanism of action (substanc e) medicatio n Not available Not available Not available 12/25/20232008 03339 8003 SNOMED Aller gyRea ction : 'Asth ma/Sh ort of Breat h'; Not Available [facility] 4 14:47:22 66653 Keflex medicatio n rash moderate Not available 12/25/2023200816 7 RxNorm Marquita maldonado [facility] 5 15:13:34 32836 oxycodone hydrochlo ride medicatio n Not available Not available Not available 12/25/20232017 58888 RxNorm Not Available [facility] 4 14:47:22 Medications Name Sig Start Date Stop Date Status Note LastModified by Organization Details LastModified Time ipratropium 0.5 mg-albutero l 3 mg (2.5 mg base)/3 mL nebulizatio n soln USE 3 ML VIA NEBULIZER FOUR TIMES DAILY FOR WHEEZING active Not Available Not Available No t Available trazodone 50 mg tablet TAKE 1 TO 2 TABLETS BY MOUTH AT BEDTIME NEEDED active Not Available Not Available No t Available cetirizine 10 mg tablet TAKE 1 TABLET BY MOUTH BY MOUTH TWICE DAILY FOR FIRST 5 DAYS THEN TAKE 1 TABLET BY MOUTH EVERY DAY active Not Available Not Available No t Available benzonatate 200 mg capsule TAKE 1 CAPSULE BY MOUTH THREE TIMES DAILY FOR 5 DAYS FOR COUGH active Not Available Not Available No t Available senna 8.6 mg tablet TAKE 2 TABLET BY MOUTH EVERY NIGHT AT BEDTIME active Not Available Not Available No t Available prednisone 20 mg tablet TAKE 2 TABLETS BY MOUTH DAILY FOR 5 DAYS active Not Available Not Available No t Available dextroamphe tamine-amph etamine 10 mg tablet TAKE 1 TABLET BY MOUTH THREE TIMES DAILY active Not Available Not Available No t Available chlorthalid one 25 mg tablet TAKE 1/2 TABLET BY MOUTH ONCE DAILY active Not Available Not Available No t Available ciprofloxac in 250 mg tablet TAKE 1 TABLET BY MOUTH IN THE MORNING AND 1 TABLET IN THE EVENING active Not Available Not Available No t Available tramadol 50 mg tablet TAKE 1 TABLET BY MOUTH TWICE DAILY FOR 10 DAYS NEEDED FOR PAIN active Not Available Not Available No t Available levothyroxi ne 75 mcg tablet TAKE 1 TABLET BY MOUTH EVERY MORNING active Not Available Not Available No t Available hydrocortis one 2.5 % topical cream with perineal applicator APPLY RECTALLY TO THE AFFECTED AREA TWICE DAILY NEEDED FOR HEMORRHOI DS active Not Available Not Available No t Available Adderall XR 30 mg capsule,ext ended release TAKE 1 CAPSULE BY MOUTH DAILY active Not Available Not Available No t Available trazodone 100 mg tablet TAKE 1 TABLET BY MOUTH AT BEDTIME NEEDED active Not Available Not Available No t Available dicyclomine 20 mg tablet TAKE 2 TABLETS BY MOUTH FOUR TIMES DAILY active Not Available Not Available No t Available lorazepam 2 mg tablet TAKE 1 TABLET BY MOUTH TWICE DAILY NEEDED active Not Available Not Available No t Available pantoprazol e 40 mg tablet,aditi yed release TAKE 1 TABLET BY MOUTH TWICE DAILY active Not Available Not Available No t Available dextroamphe tamine-amph etamine 20 mg tablet TAKE 1/2 TABLET BY MOUTH THREE TIMES DAILY active Not Available Not Available No t Available lisinopril 10 mg tablet TAKE 1 TABLET BY MOUTH DAILY active Not Available Not Available No t Available dextroamphe tamine-amph etamine 15 mg tablet TAKE 1 TABLET BY MOUTH TWICE DAILY active Not Available Not Available No t Available gabapentin 300 mg capsule TAKE 1 CAPSULE BY MOUTH AT BEDTIME FOR PAIN active Not Available Not Available No t Available lorazepam 1 mg tablet TAKE 1 TABLET BY MOUTH 30 MINUTES PRIOR TO ARRIVAL TO PROCEDURE active Not Available Not Available No t Available estradiol 0.01% (0.1 mg/gram) vaginal cream APPLY PEA-SIZE AMOUNT TO LABIA TWO TIMES PER WEEK active Not Available Not Available No t Available scopolamine 1 mg over 3 days transdermal patch APPLY 1 PATCH TOPICALLY TO THE SKIN EVERY 3 DAYS NEEDED FOR NAUSEA OR VOMITING active Not Available Not Available No t Available albuterol sulfate HFA 90 mcg/actuati on aerosol inhaler INHALE 2 PUFFS BY MOUTH EVERY 6 HOURS NEEDED FOR WHEEZING active Not Available Not Available No t Available hydrocortis one 2.5 % topical ointment active Not Available Not Available Not Available ketoconazol e 2 % topical cream APPLY ONCE DAILY TO THE AFFECTED AREA OF THE EARS NEEDED active Not Available Not Available No t Available fluticasone propionate 50 mcg/actuati on nasal spray,suspe nsion TAKE 2 SPRAYS INTRANASA LLY TWICE DAILY FOR 5 DAYS THEN ONCE DAILY AFTER THAT active Not Available Not Available No t Available ranitidine HCl bid 07/03 completed Statu s: 'Curr ent'; Not Available Not Available Not Available Breo Ellipta 200 mcg-25 mcg/dose powder for inhalation INHALE 1 PUFF BY MOUTH DAILY active Not Available Not Available No t Available naloxone 4 mg/actuatio n nasal spray CALL 911. SPR CONTENTS OF ONE SPRAYER (0.1ML) INTO ONE NOSTRIL. REPEAT IN 2-3 MIN IF SYMPTOMS OF OPIOID EMERGENCY PERSIST, ALTERNATE NOSTRILS active Not Available Not Available No t Available Vraylar 6 mg capsule TAKE 1 CAPSULE BY MOUTH DAILY active Not Available Not Available No t Available Zepbound 10 mg/0.5 mL subcutaneou s pen injector ADMINISTE R 10 MG UNDER THE SKIN EVERY 7 DAYS active Not Available Not Available No t Available Zepbound 5 mg/0.5 mL subcutaneou s pen injector ADMINISTE R 5 MG UNDER THE SKIN EVERY 7 DAYS active Not Available Not Available No t Available Zepbound 2.5 mg/0.5 mL subcutaneou s pen injector ADMINISTE R 2.5 MG UNDER THE SKIN EVERY 7 DAYS active Not Available Not Available No t Available Zepbound 7.5 mg/0.5 mL subcutaneou s pen injector ADMINISTE R 7.5 MG UNDER THE SKIN EVERY 7 DAYS active Not Available Not Available No t Available Vitals Date Recorded Body height Body mass index (BMI) Body weight Provider Name and Address Organization Details Last Updated DateTime 01/10/2025 173.99 cm 41.8 kg/m2 368618.27 g Marquita glez [facility] 01/10/2025 15:13:56 Date Recorded Body height Body mass index (BMI) Body weight Provider Name and Address Organization Details Last Updated DateTime 03/03/2025 173.99 cm 42 kg/m2 557311.86 g Martha William [facility] 03/03/2025 13:12:06 Social History Question Answer Notes LastModified by Organizat ion Details LastModified Time Tobacco Smoking Status Former Smoker Marquita glez [facility] 01/10/2025 15:13:36 When Did You Quit Smoking? 6-10yearssi ncelastciga rette Information not available 01/10/2025 What Is Your Relationship Status? Other Information not available 01/10/2025 How Many Years Have You Smoked Tobacco? 30 Information not available 01/10/2025 Sex: Unknown Functional Status Question Answer Note LastModified by Organizat ion Details LastModified Time How many times per week do you consume alcohol? 5-7 times per week Information not available 01/10/2025 Do you use any illicit or recreational drugs? No Information not available 01/10/2025 Do you or have you ever used any other forms of tobacco or nicotine? No Information not available 01/10/2025 Do you or have you ever used e-cigarettes or vape? Never used electronic cigarettes Information not available 01/10/2025 Mental Status None recorded. Family History Nothing Reported. Medical History Condition Response Anxiety/Depression Y Gastrointestinal Disease Y Arthritis Y Acid Reflux (GERD) Y Thyroid Problems Y Bleeding Disorder Y Asthma Y Hypertension Y Gynecological HistoryNo gynecological history recorded. Obstetrics History GPAL:G 0 P 0 0 0 0 Past Encounters Encounter ID Performer Location Encounter Start Date Encounter Closed Date Diagnosis/Indication Diagnosis SNOMED-CT Code Diagnosis ICD10 Code Diagnosis IMO Codes Diagnosis Note [id number] YESICA Garzon [address] [facility] [place] [address] 07/05/2024 13:03:30 07/26/2024 14:03:42 Pain of left shoulder joint 9401263114 7770033 M25.512 Impingemen t syndrome of left shoulder region 9007965371 85415 M75.42 PLAN: Patient has positive impingemen t testing with subsequent limited range of motion. I discussed nature patient's diagnosis and imaging in detail with the patient. I recommend rest, ice, and activity modificati ons. I also recommend corticoste roid injection into the subacromia l space to help improve pain and symptoms so that patient is better able to participat e in physical therapy and range of motion exercises. Patient was provided with formal physical therapy prescripti on to help improve shoulder kinetics, strength and overall function. Patient was advised to make use of oral anti-infla mmatories and participat e with home range of motion exercises as well. Patient will follow up with us in as needed, or if symptoms worsen/do not improve with conservati ve care. [id number] Jennifer Son PA-C [facility] [address] [place] [address] 01/10/2025 14:59:32 01/27/2025 14:40:15 Impingement syndrome of left shoulder region 7917095886 38423 M75.42 PLAN: Patient has positive impingemen t testing with subsequent limited range of motion. I discussed nature patient's diagnosis and imaging in detail with the patient. I recommend rest, ice, and activity modificati ons. I also recommend corticoste roid injection into the subacromia l space to help improve pain and symptoms so that patient is better able to participat e in physical therapy and range of motion exercises. Patient was provided with formal physical therapy prescripti on to help improve shoulder kinetics, strength and overall function. Patient was advised to make use of oral anti-infla mmatories and participat e with home range of motion exercises as well. Patient will follow up with us in as needed, or if symptoms worsen/do not improve with conservati ve care. [id number] YESICA Garzon [address] [facility] [place] [address] 03/03/2025 12:44:08 03/20/2025 11:13:25 Pain of elbow region 72838908 M25.522 308207 Left later al elbow tendinopathy 2077962480 31765 M77.12 [id number] Reviewed patient's imaging and exam findings in detail with her. Discussed that she has findings consistent with lateral epicondyli tis. She also has some developing medial epicondyli tis. Recommende d eccentric stretching exercises. Handouts were provided for both tennis elbow and golfer's elbow. Also recommende d tennis elbow strap. Reviewed the risks and benefits of cortisone injections and discussed that these may cause degenerati ve breakdown of the extensor tendon insertion at the lateral condyle and so she elects to hold off for now. Did review that PRP may be beneficial and would be something to consider in the future if symptoms persist. Reviewed appropriat e placement of her tennis elbow strap. Prescripti on for tennis elbow strap to get at our DME department was provided. All questions and concerns were addressed and answered. Health Concerns Section Related Observation LastModified by Organization Detai ls LastModified Time None Recorded Concern Status LastModified by Organization Details LastModified Time None Recorded Advance Directives Directive None Recorded Payers Insurance Date Sequence Insurance Name Policy Number Policy Mendoza Covered Member ID Mendoza Member ID Guarantor Name 03/20/2025 1 [facility] - DOS ON OR AFTER 2023 - ONE CARE (MEDICARE REPLACEMENT/AD VANTAGE - HMO) Arcelia Pickering [id number] Arcelia Pickering Notes Date Note Type Note Provider Name and Address Organization Details Recorded Time 07/05/2024 text/html ROS as noted in the HPI I am seeing the patient under the general supervision of Dr. Patterson who was available but who did not see the patient. Patient is a 54 year old female who presents today with chief complaint of left shoulder pain. She reports pain ongoing for many years, but states that it comes and goes, but starting about 6 months ago the pain started and has not resolved. She has tried heat and some home stretching exercises with no improvement. Has not tried any therapy or cortisone injections. Pain is worse with overhead range of motion and reaching activities such as reaching behind her back. Localizes the pain to the superior shoulder radiating into the lateral brachium. DIAGNOSTIC IMAGIN view left shoulder radiographs were ordered, obtained and independently reviewed by myself during today's visit at [facility] and demonstrate well-preserved before meals and glenohumeral joint spaces. No fracture, dislocation or calcifications noted. Humeral head tracking centrally on the glenoid. Jennifer Son PA-C [address], [place], [address], [facility] 07/05/2024 13:53:30 01/10/2025 text/html ROS as noted in the HPI I am seeing the patient under the general supervision of Dr. Argueta who was available but who did not see the patient. History of Present Illness:Patient comes to the office with known history of subacromial impingement of the left shoulder(s). The patient has done well with conservative management for their shoulder pain with good clinical response to cortisone injections in the past. Reports recently increasing discomfort over the past several weeks with no new injury or trauma. Pain is generalized about the shoulder and discomfort is worst at night. Last injections were june 2024. Jennifer Son PA-C [address], [place], [address], [facility] 01/10/2025 15:40:11 03/03/2025 text/html ROS as noted in the HPI I am seeing the patient under the general supervision of Dr. Farnsworth who was available but who did not see the patient. HPI:Patient is a 54 year old female who presents today with chief complaint of left elbow pain. She reports approximately 5-month history of left elbow pain localized to the lateral aspect of the elbow which is worse with wrist extension exercises, twisting, gripping and other upper extremity activities. Denies any numbness or tingling. Does occasionally get pain to the medial aspect of the elbow. She tried icing briefly which was not helpful. Otherwise has not tried anything for this yet. DIAGNOSTIC IMAGIN view left elbow radiographs were ordered, obtained and independently reviewed by myself during today's visit at [facility] and demonstrate well-preserved joint spaces. No fracture or dislocation. No arthritic changes noted Impression:Benign left elbow films Jennifer Son PA-C [address] [facility] [address], [place], [address], [facility] 03/03/2025 14:11:00 OBGyn Episode No OBEpisode recorded.
--- OUTSIDE RECORDS SUMMARY | 2025-08-27 09:59 | XMS_ITS | Patient Health Record ---
Author Organization [facility] Address [address] [place] [address] Care Team Providers Care Licensed Occupational Therapist Name Role Phone Estefany DOTSON, [place] Mehta Primary Care Provider Un available Nimo Weber Unavailable [phone] Hilario Santos Unavailable [phone] Jerome Gilbert Unavailable [phone] Allergies Allergen (clinical drug ingredient) Drug/Non Drug [...] due to stress fx right heel . .; Duration: . 12/19/2013 Not-Taking LORazepam 2 MG 1 tablet at bedtime as needed Orally Once a day 2 a day Active AFO-fixed fixed 1 dx: stress fx righ t heel PTB AFO brace right foot and leg; Duration: as needed 12/19/2013 Not-Taking Pantoprazole Sodium 40 MG 1 tablet Orall y Once a day Active Work Note . . . .; Duration: . 12/11/2013 Not-Taking traZODone HCl 50 MG 1 tablet at bedtime as needed Orally Once a day Active Folic Acid 20 MG as directed Orally Not-Taking Parkman 3-6-9 Fatty Acids as directed Orally Not-Taking [...] due to stress fx right heel . .; Duration: . Not-Taking AFO-fixed fixed 1 dx: stress fx righ t heel PTB AFO brace right foot and leg; Duration: as needed Not-Taking Custom Orthotics as directed 07/08/2024 Active Physical Therapy . . . 2-3x/week; Duration: 3-4 weeks 07/08/2024 Active Night Splint AFO - L1930 as directed 07/08/2024 Active Vraylar 6 MG 1 capsule Orally Onc e a day Active Chlorthalidone Activ e Fiber Gummies Active LaMICtal 200 MG 1 tablet Orally Once a day; Duration: 30 day(s) Not-Taking Multivitamin Active Zestril 10 MG 1 tablet Orally Once a day; Duration: 30 day(s) Not-Taking Ativan 2 MG 1 tablet at bedtime Orally Once a day Not-Taking Ranitidine HCl 300 MG 1 capsule at bedti me Orally Once a day; Duration: 30 day(s) Not-Taking [place] Thyroid 60 MG 1 tablet Orally Onc e a day; Duration: 30 day(s) Not-Taking Social History Tobacco Use: [...] Status W/U Status Risk Notes Problem Bursitis (85710313) Bursitis (727.3) Active confirmed Problem Myositis (85846317) Myositis (729.1) Active confirmed Problem Pain in limb (62355282) Pain in Limb (729.5) Active confirmed Problem Plantar fasciitis (147211534) Plantar Fasciitis (728.71) Active confirmed Problem Plantar fascial fibromatosis (29925777) Plantar fascial fibromatosis (M72.2) Active confirmed Vital Signs Blood pressure diastolic 76 mm Hg 10/17/2024 Height 5ft8in in 10/17/2024 Blood pressure systolic 139 mm Hg 10/17/2024 Weight 295 lbs 10/17/2024 BMI 44.85 kg/m2 10/17/2024 Encounters Encounter Location Date Provider Diagnosis [facility] [address] 10/17/2024 Nimo Weber Plantar fascial fibromatosis M72.2 ; Metatarsalgia, left foot M77.42 ; Metatarsalgia, right foot M77.41 ; Tinea unguium B35.1 ; Bunionette of right foot M21.621 and Bunionette of left foot M21.622 [facility] [address] 09/09/2024 Hilario Santos Assessments Encounter Date Diagnosis (ICD Code) Assessment [...] Insured Coverage Start Date Coverage End Date [facility] [employer] Claims [address] [place] [id number] Arcelia Multani Self - patient is the insured Medical (General) History Medical History History ICD Code asthma Back,Hip,and Knee pain Depression High blood pressure Reflux Headaches Thyroid disorder chronic sinusitis Psychiatric disorder Transfusions Surgical History Surgery Date(Month/Year) eye surgery cyst removal section thyroid nodule removal 1992
== END 2025-08-27 10:24 | disposition home or self-care (01) ==
PROVIDERS: PCP Internal Medicine; Visit Provider Physician Assistant
DX: R07.81 Pleurodynia (principal)

== ENCOUNTER → 2025-08-27 09:48 | Outpatient (BNV) | payer OTHER, SELFPAY | PROVIDERS: PCP Internal Medicine; Visit Provider Radiology Diagnostic Ultrasound | DX: R07.81 Pleurodynia (principal) | CPT/HCPCS: 71101 ==

== ENCOUNTER 2025-10-14 09:03 | Outpatient (REF) | payer OTHER, SELFPAY ==
--- OUTSIDE RECORDS SUMMARY | 2024-07-31 04:30 | XMS_ITS ---
Author Organization [facility] Address [address] [place] [address] Care Team Providers Care Cemetery Vault Installer Name Role Phone Estefany DOTSON, [place] Mehta Primary Care Provider Un available Nimo Weber Unavailable [phone] Hilario Santos Unavailable [phone] REASON FOR VISIT OT's Not In Encounters Encounter Location Date Provider Diagnosis [facility] [address] [place] [address] 07/31/2024 Hilario Santos Plan Of Treatment No Information Progress Notes * Arcelia HOLT MDOB: (55 yo F)Acc No.[id number]:07/31/2024 Progress Note Patient: Elise POWELLEMILEE Arcelia Jac Provider: Chepe Currie DPM :1970 A ge:54 Y S ex:Female Date:07/31/2024 [facility] [facility] [id number] Pcp:Jac Guardado Subjective: * Chief Complaints: * 1 . OT's Not In. * HPI: H eel pain: Nature: s harp pain. Location: P roximal plantar aspect of Heel, plantar, Arch, B/L. Duration: s everal years . Onset/Cause: u nknown, denies trauma. Course: w orse. Aggravated: s tanding, walking. Treatments: p revious tx at [facility]. Severity/Quality: S tates 10 out of 10. F oot Pain: Nature: s harp. Location B ottom, B/L, Outside, Forefoot. Duration: 1 month. Course: w opale. Aggrevated: a ny pressure. Treatments: n one. Quality/Severity s evere. * Medical History: Objective: * Vitals: Assessment: Plan: * Treatment: * Images: * The named appointment provid er may or may not be the originator of this progress note, and it is not deemed complete until electronically signed by the appointment provider. Sign off status: Pending * Provider: Chepe Currie DPM Date: Generated for Sara hendrix/Charla/Gonzalo on: 12/15/2024 09:40 AM EST History and Physical Notes * HPI (History of Present Illness) Category Sub-Category Detail Notes Category Not es Heel pain Duration: several years Nature: sharp pain Severity/Quality: States 10 out of 10 Location: Proximal plantar asp ect of Heel, plantar, Arch, B/L Onset/Cause: unknown, denies francisca erazo Aggravated: standing, walking Course: worse Treatments: previous tx at [facility] Foot Pain Aggrevated: any pressure Course: worse Duration: 1 month Nature: sharp Treatments: none Quality/Severity severe Location Bottom, B/L, Outside , Forefoot
--- OUTSIDE RECORDS SUMMARY | 2024-08-15 04:30 | XMS_ITS ---
Author Organization [facility] Address [address] [place] [address] Care Team Providers Care Library Associate Name Role Phone Estefany DOTSON, [place] Mehta Primary Care Provider Un available Nimo Weber Unavailable [phone] Hilario Santos Unavailable [phone] Black Encounters Encounter Location Date Provider Diagnosis [facility] [address] [place] [address] 08/15/2024 Hilario Santos Plan Of Treatment No Information Progress Notes * Arcelia HOLT MDOB: (55 yo F)Acc No.[id number]:08/15/2024 Progress Note Patient: Andre ALARCONa Jac Provider: Chepe Currie DPM :1970 A ge:54 Y S ex:Female Date:08/15/2024 [facility] [facility] [id number] Pcp:Jac Guardado Subjective: * Chief Complaints: * [address] Black. * Medical History: Objective: * Vitals: Assessment: Plan: * Treatment: * Images: * The named appointment provid er may or may not be the originator of this progress note, and it is not deemed complete until electronically signed by the appointment provider. Sign off status: Pending * Provider: Chepe Currie DPM Date: Generated for Sara hendrix/Charla/Gonzalo on: 1 12/15/2024 09:41 AM EST
--- OUTSIDE RECORDS SUMMARY | 2024-09-17 06:00 | XMS_ITS ---
Author Organization [facility] Address [address] [place] [address] Care Team Providers Care Nerve Specialist Name Role Phone Estefany DOTSON, [place] Mehta Primary Care Provider Un available Nimo Weber Unavailable [phone] Jerome Gilbert [phone] Encounters Encounter Location Date Provider Diagnosis [address] [place] [address] 09/17/2024 Jerome Gilbert Plan Of Treatment No Information Progress Notes * Arcelia HOLT MDOB: (55 yo F)Acc No.[id number]:09/17/2024 Progress Notes Patient: Arcelia ALARCON Provider: Jac Gilbert D.P.M. :1970 A ge:54 Y S ex:Female Date:09/17/2024 Address:[address] [id number] Pcp:Jac Guardado Subjective: * Chief Complaints: * * Medical History: Objective: * Vitals: Assessment: Plan: * Treatment: * Images: * The named appointment provid er may or may not be the originator of this progress note, and it is not deemed complete until electronically signed by the appointment provider. Sign off status: Pending * Provider: Jac Gilbert D.P.M. Date: 11/17/2023 Generated for Carriei ng/Fagloriag/eTransmitting on: 1 12/15/2024 09:40 AM EST
--- OUTSIDE RECORDS SUMMARY | 2025-10-14 09:41 | XMS_ITS | Data Portability ---
Author Organization [facility] Jason Gracia [facility], [facility] Address [address] [place] [address] Care Team Providers Care Personnel Counselor Name Role Phone [place] Francisco Primary Care Provider [phone] Assessment No assessment recorded. Plan of Treatment Reminders Order Date Submit Date Provider Name Organization Details Last Modified By Last Modified Time Details Appointments None record ed. Lab None record ed. Referral physic al therap ist referr al 2023 13:32: 47 024 YESICA [facility] (Erich Trujillo) [address], [place], [address], Jennifer Son PA-C 4 15:04:01 Procedures None record ed. Surgeries None record ed. Imaging XR, elbow, 3 or more view 2024 13:12: 55 025 Jennifer Son PA-C [facility] [address], [place], [address], Jennifer Son PA-C 5 12:02:23 XR, should er, 2 or more view 2023 13:09: 33 024 Jennifer Son PA-C [facility] [address], [place], [address], Jennifer Son PA-C 15:04:01 MedicationOrder s None record ed. VaccineOrders None record ed. Patient TargetsNo targets recorded. Patient Instructions Encounter Date Encounter Id Patient Instructions Last Modified By Organization Details Last Modified Time 03/03/2025 [id number] tennis elbow: exercises Jennifer Son PA-C Not available 03/07/2025 12:02:23 golfer's elbow: exercises Jennifer Son PA-C Not available 03/07/2025 12:02:23 Reason for Referral Physical Therapist Referral for Pain of left shoulder joint ICD-10: M75.41(right) M75.42(left) 1. Rotator cuff strengthening program. 2. Scapular stabilization program including strengthening, mobilization, and proprioception. 3. End stage range stretching 4. Soft tissue modalities as indicated. 5. Home exercise program. 6. Therapeutic exercises: all exercises prn per therapist. 7. Manual therapy: all manual therapy prn per therapist. Referring Physician: Jennifer Son, Orthopedic Surgery, [id number] Encounter Date: 07/05/2024 Results Created Date Observation Date Name Description Value Unit Range Abnormal Flag Specimen Type Note LastModifiedBy Organization Detail LastModifiedTime 07/05/2024 07/05/2024 shoulder 4 view [email or web address]=jkIwVteET8aTzlGTt4e%0EAXonTewbz5jrwn%2Xu7XZj5 gdLxkB5kXqELdplVj0TzDSYiCktKWL4pExSLlqt43s9962JC3VbqxnDWYhkKzZghLgM Not Available [facility] , [address],[facility] [address] , [place] , [address], , 07/05/2024 13:16:41 07/05/2024 07/05/2024 shoulder 4 view [email or web address]=klBoStlGD3eMeuPAa7l%6FEOnfEjuxr2lukb%4Kb8MSs7 jpIixT4eIhUCiipFq7QqWSSbRlbFKD0hWmCKfjp89y2371LB2TixcqRYMpaWkMjrJyT Not Available [facility] , [address],[facility] [address] , [place] , [address], , 07/05/2024 13:16:43 03/03/2025 03/03/2025 elbow 3 view [email or web address]=tfIcHsxXE0aXoqRBv2c%5FBZtyJlkcx5crwv%6Fu5CJy7 ywLifM3hLpMFlrvOf4LvJQQoBriIGA2eFmNFpcd86l2383ZM6QemfBFLSLkKyYywFfE Not Available [facility] , [address],[place] [address] , [place] , [address], , 03/03/2025 13:19:54 03/03/2025 03/03/2025 elbow 3 view [email or web address]=yvLmDkqAN2wHkrNGt8s%3XTQlbDxgek8erxv%8Za4RYj4 yhVovI8nSjCEpqdSa6MqOJFvMyjAOJ6pYgWKzpq11b3133NQ9SqwaCNYQEtRxEgqSgD Not Available [facility] , [address],[facility] [address] , [place] , [address], , 03/03/2025 13:19:55 Result Notes Documentation Provider Name and Address Organization Details Recorded Time Xr, Shoulder, 2 Or More View : [email or web address] Encrypted=icGkAbrNT2oHfnL Uv6g%8NRAdrKqjlm4oojo%2Fg 9NBr3biLmnI3yCgRFissQd3Pa IKUoLteZNH9jKbPJtwa41h424 8LS5EsfibKYKiqFoKjhTxN Not Available [facility] 07/05/2024 13:16: 41 Xr, Shoulder, 2 Or More View : [email or web address] Encrypted=oiFaGovCV8jYekH Uv6g%6AIBoyZifdc3gcfc%2Fg 2YVj6dcLyaW0dFkXUbovRd2Me FWGuUtgMSS4eUmDEbla71r918 1BG1OfyxmNJIrtIbQlpEyQ Not Available [facility] 07/05/2024 13:16: 43 Xr, Elbow, 3 Or More View : [email or web address] Encrypted=syVfItfUU5hDcvB Uv6g%6ZOZtcIwfzf2lxkh%2Fg 5GYd0gpTggB7vXeYGmluYu5Xs HYAkYnpDAQ9rMcOBqre22i163 7NX0LnjaZCRJChWyRddFqV Not Available [facility] 03/03/2025 13:19: 54 Xr, Elbow, 3 Or More View : [email or web address] Encrypted=vfPmAkjKV0vUlvK Uv6g%0FGMqnHzxkv4easw%2Fg 8QTv2oeZjkP6qXnLUoimUj2Gs BTUaRhyOGF5jNyHOxjg58u304 5GB4GizbYCYRTwHxStzKtJ Not Available [facility] 03/03/2025 13:19: 55 Problems Name Problem SNOMED Code Status Onset Date Resolution Date Notes Provider Name and Address Organization Details Recorded Time No complaints 709945297 Active Status : 'I'; Not Available [facility] 09:21:55 Impingemen t syndrome of left shoulder region 2995936974159 04 Active 2023 Jennifer Son PA-C [address], [place], [address] , [place] - [facility] 13:53:05 Left lateral elbow tendinopat hy 7083191399627 00 Active 2024 Jennifer Son PA-C [address], [place], [address] , [place] [facility] 5 14:09:59 Problem Notes None recorded. Procedures Surgical History Date Name Laterality Status Provider Name and Address Organization Details Recorded Time 5 Sports Shoulder completed Jennifer Son PA-C [address], [place], [address], [place] [facility] 01/10/2025 15:39:39 4 Sports Shoulder completed Jennifer Son PA-C [address], [place], [address], [place] [facility] 07/05/2024 13:52:45 Hand Surgery completed Marquita glez [facility] 01/10/2025 15:13:36 Imaging Results Imaging Date Name Status LastModifiedBy Organiza tion Detail LastModifiedTime 07/05/2024 shoulder 4 view completed Not Available [facility] , [address] , [place] , [address], [place] , 07/05/2024 13:16:41 07/05/2024 shoulder 4 view completed Not Available [facility] , [address] , [place] , [address], [place] , 07/05/2024 13:16:43 03/03/2025 elbow 3 view completed Not Available [facility] , [address] , [place] , [address], [place] , 03/03/2025 13:19:54 03/03/2025 elbow 3 view completed Not Available [facility] , [address] , [place] , [address], [place] , 03/03/2025 13:19:55 Procedure Notes None recorded. Medical Equipment None Reported. Allergies Allergen ID Allergen Name Allergen Category Reaction Reaction Severity Criticality Documentation Date Start Date Code Code System Note Provider Name and Address Organization Details Recorded Time 44677 Substance with sulfonami de structure and antibacte rial mechanism of action (substanc e) medicatio n Not available Not available Not available 12/25/20232008 05398 8003 SNOMED Aller gyRea ction : 'Asth ma/Sh ort of Breat h'; Not Available [facility] 4 14:47:22 21610 Keflex medicatio n rash moderate Not available 12/25/20232008 7 RxNorm Marquita maldonado [place] - [facility] 5 15:13:34 10505 oxycodone hydrochlo ride medicatio n Not available Not available Not available 12/25/20232017 73115 RxNorm Not Available [facility] 4 14:47:22 Medications Name Authored On Sig Start Date Stop Date Status Note Indication Fill Status Repeat Number Dispense Quantity LastModified by Organization Details LastModified Time dextr oamph etami ne-am pheta mine 20 mg table t 4 13:01:12 TAKE 1/2 TABL ET BY MOUT H THRE E TIME S MARIANO Y active Not Available Not availab le 0 Not Available Not Available [facility] 07/05/2024 13:01:12 estra diol 0.01% (0.1 mg/gr am) vagin al cream 4 13:01:12 active Not Available Not availab le 0 Not Available Not Available [facility] 07/05/2024 13:01:12 loraz epam 1 mg table t 4 13:01:12 active Not Available Not availab le 0 Not Available Not Available [facility] 07/05/2024 13:01:12 nalox one 4 mg/ac tuati on nasal spray 4 13:01:12 CALL 911. SPR CONT ENTS OF ONE SPRA KEVIN (0.1 ML) INTO ONE NOST RIL. REPE AT IN 2-3 MIN IF SYMP TOMS OF OPIO ID CORTNEY GENC Y PERS IST, ALTE RNAT E NOST RILS active Not Available Not availab le 0 Not Available Not Available [facility] 07/05/2024 13:01:12 scopo chucho e 1 mg over 3 days trans derma l patch 4 13:01:12 APPL Y 1 PATC H TOPI CALL Y TO THE SKIN EVER Y 3 DAYS NEED ED FOR NAUS EA OR VOMI TING active Not Available Not availab le 0 Not Available Not Available [facility] 07/05/2024 13:01:12 trama dol 50 mg table t 4 13:01:12 TAKE 1 TABL ET BY CHANA Rowell TWIC E MARIANO Y FOR 10 DAYS NEED ED FOR PAIN active Not Available Not availab le 0 Not Available Not Available [facility] 07/05/2024 13:01:12 trazo done 100 mg table t 4 13:01:12 TAKE 1 TABL ET BY CHANA Rowell AT BEDT BABAR NEED ED active Not Available Not availab le 0 Not Available Not Available [facility] 07/05/2024 13:01:12 levot hyrox ine 75 mcg table t 5 04:09:27 TAKE 1 TABL ET BY CHANA Rowell EVER Y MORN ING active Not Available Not availab le 0 Not Available Not Available [facility] [employer] - prod 01/10/2025 04:09:27 chlor thali done 25 mg table t 5 04:09:28 TAKE 1/2 TABL ET BY CHANA Rowell ONCE MARIANO Y active Not Available Not availab le 0 Not Available Not Available [facility] [employer] - prod 01/10/2025 04:09:28 lisin opril 10 mg table t 5 04:09:28 TAKE 1 TABL ET BY CHANA Rowell MARIANO Y active Not Available Not availab le 0 Not Available Not Available [facility] - External Data Service - prod 01/10/2025 04:09:28 Zepbo und 7.5 mg/0. 5 mL subcu taneo us pen injec tor 5 04:09:29 ADMI NIST ER 7.5 MG UNDE R THE SKIN EVER Y 7 DAYS active Not Available Not availab le 0 Not Available Not Available [facility] - External Data [employer] - prod 01/10/2025 04:09:29 hydro corti sone 2.5 % topic al cream with perin eal appli cator 5 04:09:30 APPL Y RECT ALLY TO THE AFFE CTED AREA TWIC E MARIANO Y NEED ED FOR HEMO RRHO IDS active Not Available Not availab le 0 Not Available Not Available [facility] External Data [employer] - prod 01/10/2025 04:09:30 Zepbo und 5 mg/0. 5 mL subcu taneo us pen injec tor 5 04:09:30 ADMI NIST ER 5 MG UNDE R THE SKIN EVER Y 7 DAYS active Not Available Not availab le 0 Not Available Not Available [facility] External Data [employer] - prod 01/10/2025 04:09:30 dextr oamph etami ne-am pheta mine 10 mg table t 5 04:09:31 TAKE 1 TABL ET BY MOUT H THRE E TIME S MARIANO Y active Not Available Not availab le 0 Not Available Not Available [facility] [employer] - prod 01/10/2025 04:09:31 dicyc lomin e 20 mg table t 5 04:09:31 TAKE 2 TABL ETS BY MOUT H FOUR TIME S MARIANO Y active Not Available Not availab le 0 Not Available Not Available [facility] External [employer] - prod 01/10/2025 04:09:31 gabap entin 300 mg capsu le 5 04:09:32 TAKE 1 CAPS ULE BY MOUT H AT BEDT BABAR FOR PAIN active Not Available Not availab le 0 Not Available Not Available [facility] [employer] - prod 01/10/2025 04:09:32 senna 8.6 mg table t 5 04:09:32 TAKE 2 TABL ET BY MOUT H EVER Y NIGH T AT BEDT BABAR active Not Available Not availab le 0 Not Available Not Available [facility] [employer] - prod 01/10/2025 04:09:32 Zepbo und 2.5 mg/0. 5 mL subcu taneo us pen injec tor 5 04:09:32 ADMI NIST ER 2.5 MG UNDE R THE SKIN EVER Y 7 DAYS active Not Available Not availab le 0 Not Available Not Available [facility] [employer] - prod 01/10/2025 04:09:32 cipro floxa jelly 250 mg table t 5 04:09:33 TAKE 1 TABL ET BY MOUT H IN THE MORN ING AND 1 TABL ET IN THE EVEN ING active Not Available Not availab le 0 Not Available Not Available [facility] [employer] - prod 01/10/2025 04:09:33 hydro corti sone 2.5 % topic al ointm ent 5 04:09:34 active Not Available Not availab le 0 Not Available Not Available [facility] [employer] - prod 01/10/2025 04:09:34 ketoc onazo le 2 % topic al cream 5 04:09:34 APPL Y ONCE MARIANO Y TO THE AFFE CTED AREA OF THE EARS NEED ED active Not Available Not availab le 0 Not Available Not Available [facility] - External Data [employer] - prod 01/10/2025 04:09:34 Adder all XR 30 mg capsu le,ex tende d relea se 5 02:28:26 TAKE 1 CAPS ULE BY MOUT H MARIANO Y active Not Available Not availab le 0 Not Available Not Available [facility] [employer] Data [employer] - prod 03/03/2025 02:28:26 albut jean claude sulfa te HFA 90 mcg/a ctuat ion aeros ol inhal er 5 02:28:26 INHA LE 2 PUFF S BY MOUT H EVER Y 6 HOUR S NEED ED FOR WHEE ZING active Not Available Not availab le 0 Not Available Not Available [facility] - External Data [employer] - prod 03/03/2025 02:28:26 dextr oamph etami ne-am pheta mine 15 mg table t 5 02:28:26 TAKE 1 TABL ET BY MOUT H TWIC E MARIANO Y active Not Available Not availab le 0 Not Available Not Available [facility] External Data [employer] - prod 03/03/2025 02:28:26 trazo done 50 mg table t 5 02:28:26 TAKE 1 TO 2 TABL ETS BY MOUT H AT BEDT BABAR NEED ED active Not Available Not availab le 0 Not Available Not Available [facility] [employer] - prod 03/03/2025 02:28:26 Vrayl ar 6 mg capsu le 5 02:28:26 TAKE 1 CAPS ULE BY MOUT H MARINAO Y active Not Available Not availab le 0 Not Available Not Available [facility] [employer] - prod 03/03/2025 02:28:26 benzo natat e 200 mg capsu le 5 02:28:27 TAKE 1 CAPS ULE BY MOUT H THRE E TIME S MARIANO Y FOR 5 DAYS FOR COUG H active Not Available Not availab le 0 Not Available Not Available [facility] [employer] - prod 03/03/2025 02:28:27 Breo Ellip ta 200 mcg-2 5 mcg/d ose powde r for inhal ation 5 02:28:27 INHA LE 1 PUFF BY MOUT H MARIANO Y active Not Available Not availab le 0 Not Available Not Available [facility] [employer] - prod 03/03/2025 02:28:27 cetir izine 10 mg table t 5 02:28:27 TAKE 1 TABL ET BY MOUT H BY MOUT H TWIC E MARIANO Y FOR FIRS T 5 DAYS THEN TAKE 1 TABL ET BY MOUT H EVER Y DAY active Not Available Not availab le 0 Not Available Not Available [facility] [employer] Data [employer] - prod 03/03/2025 02:28:27 fluti kevin e propi jose 50 mcg/a ctuat ion nasal spray ,susp ensio n 5 02:28:27 TAKE 2 SPRA YS INTR ANAS ALLY TWIC E MARIANO Y FOR 5 DAYS THEN ONCE MARIANO Y AFTE R THAT active Not Available Not availab le 0 Not Available Not Available [facility] [employer] - prod 03/03/2025 02:28:27 iprat ropiu m 0.5 mg-al buter ol 3 mg (2.5 mg base) /3 mL nebul izati on soln 5 02:28:27 USE 3 ML VIA NEBU LIZE R FOUR TIME S MARIANO Y FOR WHEE ZING active Not Available Not availab le 0 Not Available Not Available [facility] [employer] - prod 03/03/2025 02:28:27 loraz epam 2 mg table t 5 02:28:27 TAKE 1 TABL ET BY CHANA Sánchez NEED ED active Not Available Not availab le 0 Not Available Not Available [facility] [employer] - prod 03/03/2025 02:28:27 panto prazo le 40 mg table t,del ayed relea se 5 02:28:27 TAKE 1 TABL ET BY CHANA Sánchez active Not Available Not availab le 0 Not Available Not Available [facility] [employer] - prod 03/03/2025 02:28:27 predn isone 20 mg table t 5 02:28:27 TAKE 2 TABL ETS BY CHANA Sánchez FOR 5 DAYS active Not Available Not availab le 0 Not Available Not Available [facility] [employer] - prod 03/03/2025 02:28:27 Zepbo und 10 mg/0. 5 mL subcu taneo us pen injec tor 5 02:28:27 ADMI NIST ER 10 MG UNDE R THE SKIN EVER Y 7 DAYS active Not Available Not availab le 0 Not Available Not Available [facility] [employer] - prod 03/03/2025 02:28:27 ranit idine HCl 4 19:04:24 bid 07/03 aborted Statu s: 'Curr ent'; Not Available Not availab le 0 Not Available Lorraine Ross [facility] 03/03/2025 12:45:00 Vitals Date Recorded Body height Body mass index (BMI) Body weight Provider Name and Address Organization Details Last Updated DateTime 01/10/2025 173.99 cm 41.8 kg/m2 537823.27 g Marquita glez [facility] 01/10/2025 15:13:56 Date Recorded Body height Body mass index (BMI) Body weight Provider Name and Address Organization Details Last Updated DateTime 03/03/2025 173.99 cm 42 kg/m2 003869.86 g Martha William [facility] 03/03/2025 13:12:06 Social History Question Answer Notes LastModified by Organizat ion Details LastModified Time Tobacco Smoking Status Former Smoker Marquita glez Counts include 234 beds at the [facility] 01/10/2025 15:13:36 How Many Times Per Week Do You Consume Alcohol? 5-7 Times Per Week Marquita glez Counts include 234 beds at the [facility] 01/10/2025 15:13:36 What is your relationship status? Other Marquita glez Counts include 234 beds at the [facility] 01/10/2025 15:13:36 How many years have you smoked tobacco? 30 Marquita glez Counts include 234 beds at the [facility] 01/10/2025 15:13:36 When did you quit smoking? 6-10 years since last cigarette Marquita glez Counts include 234 beds at the [facility] 01/10/2025 15:13:36 Social History Observation Description Date Observed Sex Unknown 09/18/2025 Legal Sex Female Status Not (finding) 10/14/20 25 No social history survey screeners recorded No social history SDOH screeners recorded Functional Status Question Answer Note LastModified by Organizat ion Details LastModified Time Do you or have you ever used any other forms of tobacco or nicotine? No Marquita glez Counts include 234 beds at the [facility] 01/10/2025 15:13:36 Do you or have you ever used e-cigarettes or vape? Never used electronic cigarettes Marquita glez Counts include 234 beds at the [facility] 01/10/2025 15:13:36 How many times per week do you consume alcohol? 5-7 times per week Marquita glez Counts include 234 beds at the [facility] 01/10/2025 15:13:36 Do you use any illicit or recreational drugs? No Marquita glez Counts include 234 beds at the [facility] 01/10/2025 15:13:36 No Functional Screening assessment recorded No Functional SDOH screeners recorded Mental Status None recorded. No Mental Screening assessment recorded No Mental SDOH screeners recorded Family History Nothing Reported. Medical History Condition Response Anxiety/Depression Y Bleeding Disorder Y Arthritis Y Gastrointestinal Disease Y Acid Reflux (GERD) Y Thyroid Problems Y Hypertension Y Asthma Y Gynecological HistoryNo gynecological history recorded. Obstetrics History GPAL:G 0 P 0 0 0 0 Past Encounters Encounter ID Performer Location Encounter Start Date Encounter Closed Date Diagnosis/Indication Diagnosis SNOMED-CT Code Diagnosis ICD10 Code Diagnosis IMO Codes Diagnosis Note [id number] YESICA Garzon [address] [facility] [address] [facility] [place] [address] 07/05/2024 13:03:30 07/26/2024 14:03:42 Pain of left shoulder joint 4962111288 2671394 M25.512 Impingemen t syndrome of left shoulder region 3760125136 96423 M75.42 PLAN: Patient has positive impingemen t [...] worsen/do not improve with conservati ve care. [id number] Jennifer Son PA-C [facility] [address] [place] [address] 01/10/2025 14:59:32 01/27/2025 14:40:15 Impingement syndrome of left shoulder region 0735247920 26417 M75.42 PLAN: Patient has positive impingemen t [...] worsen/do not improve with conservati ve care. [id number] YESICA Garzon [address] [place] [address] 03/03/2025 12:44:08 03/20/2025 11:13:25 Pain of elbow region 42552228 M25.522 471063 Left later al elbow tendinopathy 7986277845 64704 M77.12 8985575 Reviewed patient's imaging and exam findings in [...] by Organization Details LastModified Time None Recorded SDOH Concern Status LastModified by Organization Detai ls LastModified Time None Recorded Advance Directives Directive None Recorded Payers Insurance Date Sequence Insurance Name Policy Number Policy Mendoza Covered Member ID Mendoza Member ID Guarantor Name 03/20/2025 1 [facility] - DOS ON OR AFTER 2023 - ONE CARE (MEDICARE REPLACEMENT/AD VANTAGE - HMO) Arcelia Holt [id number] Arcelia Holt Notes Date Note Type Note Provider Name [...] reviewed by myself during today's visit at [facility] and demonstrate well-preserved before meals and glenohumeral joint spaces. No fracture, dislocation or calcifications noted. Humeral head tracking centrally on the glenoid. Jennifer Son PA-C [address], [place], [address], [facility] 07/05/2024 13:53:30 01/10/2025 text/html ROS as noted [...] were june 2024. Jennifer Son PA-C [address], [place], [address], [facility] 01/10/2025 15:40:11 03/03/2025 text/html ROS as noted [...] reviewed by myself during today's visit at [facility] and demonstrate well-preserved joint spaces. No fracture or dislocation. No arthritic changes noted Impression:Benign left elbow films Jennifer Son PA-C [address], [place], [address], [facility] 03/03/2025 14:11:00 Care Team Name Role Member ID Specialty Address Phone ALBANIA FRANCISCO MD Primary Care Provider [phone] [facility] Ector Salas [place] OBGyn Episode No OBEpisode recorded.
--- OUTSIDE RECORDS SUMMARY | 2025-10-14 09:41 | XMS_ITS | Clinical Summary ---
Author Organization [facility] Address [address] [address] Phone Care Team Providers Care Yard Jockey Name Role Phone [place] Allison MD Primary Care Provider Allergies Active Allergy Reactions Criticality Noted Date Comments Alosetron 09/24/2024 Basil Itching 08/31/2016 Cephalexin Rash Low 06/28/2016 Oxycodone Other (See Comments) High 06/28/2016 Pecan Extract Itching 08/31/2016 Cranberry Extract Itching 08/31/2016 Sulfadiazine 09/24/2024 [place] 09/24/2024 Ziprasidone Rash High 01/14/2019 Medications albuterol 90 mcg/actuation inhaler 2 puffs every 6 (six) hours as needed for wheezing. 4 Active VRAYLAR 6 mg capsule Take 1 capsule by mouth every morning. 4 Active chlorthalidone (HYGROTON) 25 MG tablet Take 0.5 tablets by mouth every morning. 4 Active ADDERALL XR 30 mg 24 hr capsule Take 1 capsule by mouth every morning. 4 Active dextroamphetamine -amphetamine (ADDERALL) 10 mg Tab tablet Take 10 mg by mouth 3 (three) times a day. 4 Active BREO ELLIPTA 200-25 mcg/dose inhaler Inhale 1 puff into the lungs daily. 4 Active levothyroxine (SYNTHROID, LEVOTHROID) 75 MCG tablet Take 75 mcg by mouth every morning. 4 Active lisinopril (PRINIVIL,ZESTRIL ) 10 MG tablet Take 1 tablet by mouth every morning. 4 Active LORazepam (ATIVAN) 2 MG tablet Take 1 tablet by mouth 2 (two) times a day. 4 Active pantoprazole (PROTONIX) 40 MG tablet Take 1 tablet by mouth 2 (two) times a day. 4 Active lidocaine HCl-hydrocortison ac 3-0.5 % Crea Place rectally. 5 10/22/20 25 Active ipratropium-albut Shayla (DUONEB) 0.5-3 mg (2.5 mg base)/3 mL nebulizer solution USE 3 ML VIA NEBULIZER FOUR TIMES DAILY FOR WHEEZING 5 Active melatonin 5 mg Tab Take by mouth nightly at bedtime. Active tirzepatide, weight loss, (ZEPBOUND) 15 mg/0.5 mL subcutaneous penIndications:Cl ass 3 severe obesity with serious comorbidity and body mass index (BMI) of 40.0 to 44.9 in adult Inject 0.5 mL (15 mg total) under the skin once a week. 2 mL 2 5 Active Active Problems Problem Noted Date Diagnosed [...] (09/24/2024): Added automatically from request for surgery [id number] Low von Willebrand factor (v WF) ristocetin cofactor activity 08/30/2016 Vesicovaginal fistula 08/23/2016 Overview (09/24/2024): S/p repair Encounters Date Type Department Care Team Description 08/20/2025 10:45 AM EDT Office Visit [facility] [address] [place] [address] Damaris Ham, BILLET HEADER Class 2 severe obesity with serious comorbidity and body mass index (BMI) of 39.0 to 39.9 in adult, unspecified obesity type (Primary Dx); Class 3 severe obesity with serious comorbidity and body mass index (BMI) of 40.0 to 44.9 in adult 07/15/2025 10:30 AM EDT Nutrition [facility] [address] [place] [address] Lorrie Barakat LDN Morbid obesity with BMI [...] Description 11/14/2025 10:45 AM EST Office Visit [facility] [address] [place] [address] Damaris Ham, BILLET HEADER [address] [facility], 2nd [place] [address] [email or web address] Maintenance Due Date Last Done Comments [...] EST) SODIUM 139 133 - 146 mmol/L [facility] POTASSIUM 3.8 3.3 - 5.1 mmol/L [facility] CHLORIDE 99 96 - 108 mmol/L [facility] CO2 27 21 - 35 mmol/L [facility] BUN 21(H) 6 - 19 mg/dL [facility] CREATININE 1.40 0.5 - 1.5 mg/dL [facility] GLUCOSE 104(H) 70 - 99 mg/dL [facility] ALBUMIN 4.0 3.9 - 4.8 g/dL [facility] TOTAL PROTEIN 8.0 6.5 - 8.0 g/dL [facility] CALCIUM 10.0 8.4 - 10.3 mg/dL [facility] ALKALINE PHOSPHATASE 72 39 - 117 U/L [facility] TOTAL BILIRUBIN 0.3 0.0 - 1.2 mg/dL [facility] AST 27 0 - 37 U/L [facility] ALT 15 0 - 40 U/L [facility] GLOBULIN 4.0 1 - 4.8 g/dL [facility] EGFR 44(L) >59 mL/min/1.7 3m2 [facility] Comment:Estimated glomerular filtration rate calculated using the CKD-EPI refit equation. ANION GAP 17 10 - 20 mmol/L [facility] Blood 12/10/2024 10:3 5 AM EST 12/10/2024 10:40 AM EST us Damaris Ham BILLET HEADER LAB BLOOD BKR ORDERABLES F inal Result [facility] [address] [place] [address] * TSH with reflex (12/10/2024 10:35 AM EST) TSH 2.47 0.27 - 4.20 uIU/mL [facility] Blood 12/10/2024 10:3 5 AM EST 12/10/2024 10:40 AM EST us Damaris Ham BILLET HEADER LAB BLOOD BKR ORDERABLES F inal Result [address] [address] from Last 3 Months or Most Recently Relevant to Health Maintenance Insurance MEDICARE PART A & B [facility] ONE CARE MEDICARE REPLACEMENT [facility] MEDICARE PART A & B [facility] ONE CARE MEDICARE REPLACEMENT [facility] MEDICARE PART A & B [facility] ONE CARE MEDICARE REPLACEMENT [facility] MEDICARE PART A & B [facility] ONE CARE MEDICARE REPLAC[facility] ONE CARE MEDICARE RE[facility]AC[facility] B [facility] ONE CARE MEDICARE REPLACEMENT Member Subscriber Plan / Payer (Ef fective 2017-Present) Name:Arcelia Pickering Relation to Subscriber:Self Name:Arcelia Pickering Payer ID:[id number] (NAIC) Group ID:[id number] Type:Medicare Address: [address] Care Teams Yard Jockey Relationship Specialty Start Date End Date Albania Allison MD [address] [place] [address] PCP - General Internal Medicine 12/29/14 Additional Source Comments The information contained in this document represents components of the legal health record. It is not the complete legal health record.[facility]
--- OUTSIDE RECORDS SUMMARY | 2025-10-14 09:41 | XMS_ITS | Clinical Summary ---
Author Organization [facility] Address [address] [place] [address] Care Team Providers Care Gem Setter Name Role Phone Albania Allison Primary Care Provider [phone] Jim Tam MD Unavailable [phone] Allergies Active Allergy Reactions Criticality Noted Date Comments Basil Itching 08/31/2016 Meperidine Unknown 06/28/2016 Ziprasidone Hcl Rash High 01/14/2019 Cephalexin Rash Low 06/28/2016 Alosetron Unknown 06/28/2016 Morphine GI Intolerance Low 06/28/2016 Oxycodone Hallucinations High 06/28/2016 Pecan Nut Itching 08/31/2016 [place] Itching 08/31/2016 Sulfa (Sulfonamide Antibiotics) Rash Low 03/2016 Tree Nut Itching 08/31/2016 Wheat Containing Prod Itching 08/31/2016 Medications LORazepam (ATIVAN) 2 MG tablet TK 3 TO 4 TS PO QHS 5 6 Active lisinopril (ZESTRIL) 10 MG tablet TK 1 T PO QD 1 6 Active dextroamphetami ne-amphetamine ER (ADDERALL XR) 20 MG 24 hr capsule TK 2 C PO QAM 0 6 Active VRAYLAR 6 mg cap Take 6 mg by mouth daily. 7 Active BREO ELLIPTA 200-25 mcg/dose DsDv diskus inhaler INL 1 PUFF PO QD 3 8 Active albuterol 2.5 mg /3 mL (0.083 %) nebulizer solution Take 2.5 mg by nebulization every 6 hours as needed for wheezing. Active PROCTOZONE-HC 2.5 % rectal cream APPLY RECTALLY AA BID PRN 10 8 Active levothyroxine (SYNTHROID, LEVOXYL) 75 MCG tablet TK 1 T PO QD IN THE MORNING OES 5 9 Active cholecalciferol , vitamin D3, 50,000 unit capsule TK 1 C PO 1 TIME A WK 2 9 Active acetaminophen (TYLENOL) 325 MG tablet Take 2 tablets (650 mg total) by mouth every 6 hours as needed for pain. 9 Active dicyclomine (BENTYL) 10 mg capsule TK 1 TO 2 CS PO PRF CRAMPING QID 3 9 Active pantoprazole (PROTONIX) 40 MG EC tablet TK 1 T PO BID 3 9 Active multivitamin capsule Take 1 capsule by mouth daily. Active Active Problems Problem Noted Date Diagnosed Date Vesicovaginal fistula with i nvolvement of urinary continence mechanism after obstetric delivery procedure 06/25/2019 Urinary, incontinence, stress female 11/29/2018 Overview (11/29/2018): Added automatically from request for surgery [id number] Intrinsic sphincter deficiency 10/04/2018 Overview (10/04/2018): Added automatically from request for surgery [id number] Incomplete bladder emptying 07/15/2018 Urinary incontinence without sensory awareness 0 07/15/2018 Nocturia 05/24/2018 OAB (overactive bladder) 04/12/2018 Urinary incontinence, urge 04/12/2018 Female stress incontinence 08/03/2017 Overview (08/03/2017): Added automatically from request for surgery [id number] Low von Willebrand factor (v WF) ristocetin cofactor activity 08/30/2016 Vesicovaginal fistula 08/23/2016 Obesity (BMI 30-39.9) Immunizations Immunization Administration Dates Next Due HPV Quadrivalent 06/23/2017 Family History Medical History Relation Comments Hypertension Father Alzheimer's disease Mother Hypertension Mother Relation Status Comments Brother Alive Father Alive Mother Alive Son Alive Social History Tobacco Use Types Packs/Day Years Used Date Smoking Tobacco: Former Cigarettes 1 34.9 1 982 - 08/30/2016 Smokeless Tobacco: Never Comments:Patient started smo juan at the age of 12. She smoked between 1/2 to 1 pack per day. She has not smoked a cigarette since 1985 Alcohol Use Standard Drinks/Week Comments Yes 21 (1 standard drink = 0.6 oz pu re alcohol) AUDIT-C Answer Date Recorded Frequency of Alcohol Consumption 4 or more times a week 06/13/2019 Average Number of Drinks 3 or 4 019 Frequency of Binge Drinking Not on file 05/24 Comments No Sex and Gender Information Value Date Recorded Sex Assigned at Female 01/14/2019 12:09 PM EDT Legal Sex Female 10:46 AM EDT Gender Identity Female 01/14/2019 12:09 PM EDT Sexual Orientation Not on file Last Filed Vital Signs Vital Sign Reading Time Taken Comments Blood Pressure 161/75 06/28/2019 7:39 AM EDT Pulse 85 06/28/2019 7:39 AM EDT Temperature 36.4 C (97.6 F) 06/28/2019 7:39 AM EDT Respiratory Rate 16 06/28/2019 7:39 AM EDT Oxygen Saturation 93% 06/28/2019 7:39 AM EDT Inhaled Oxygen Concentration - - Weight 138 kg (304 lb 14.3 oz) 06/25/2019 5:07 P M EDT Height 172.7 cm (5' 8 ) 06/25/2019 5:07 PM EDT Body Mass Index 46.36 06/25/2019 5:07 PM EDT Plan of Treatment Not on file Medical Devices Implanted Type Area Binding Folder Machine Device Identifier Shelf Expiration Date Model / Serial / Lot Stent Percuflex 4.8x26 ([id number]) - [id number] Implanted:Qty: 1 on 08/31/2016 by Tarik Silverio MD at [facility] Stent Left: Ureter [employer] 09/18/2018 [id number] / / [id number] Stent Percuflex 4.8x26 ([id number]) - [id number] Implanted:Qty: 1 on 08/31/2016 by Tarik Silverio MD at [facility] Stent Left: Ureter [employer] 04/13/2019 [id number] / / [id number] Obtryx Ii Halo Version ([id number]) - Sn/A Implanted:Qty: 1 on 09/05/2017 by Kamilla Rodriguez MD at [facility] N/A: [employer] 03/16/2020 [id number] / N/A / [id number] Description:Mid urethral sli ng Insurance [facility] Advance Directives Documents on File Type Date Recorded Patient Suction Operator Expl anation Health Care Proxy 01/14/2019 12:05 PM IN M MELISSA Health Care Proxy 08/23/2016 9:47 AM ELIER Burns [facility] Care Proxy/Advance Directive * Full Code (Latest Code Status on File) Date Activated Date Inactivated Comments 06/25/2019 11:38 AM * Full Code Date Activated Date Inactivated Comments 01/22/2019 4:41 PM 04/16/2019 6:00 AM * Full Code Date Activated Date Inactivated Comments 08/31/2016 5:28 PM 09/03/2016 4:20 PM Healthcare Agents on File Name Relationship Healthcare Agent Relationship Communication Louis Sheldontt [facility] Care Teams Gem Setter Relationship Specialty Start Date End Date Albania Allison [address] [place] [address] PCP - General 05/04/16 Jim Tam MD [address] [place] [address] Consulting Provider Hematology/Oncology 08/30/16
--- OUTSIDE RECORDS SUMMARY | 2025-10-14 09:41 | XMS_ITS | Patient Health Record ---
Author Organization [facility] Address [address] [place] [address] Care Team Providers Care Heating Element Winder Name Role Phone Estefany DOTSON, Albania Mehta Primary Care Provider Un available Nimo Weber Unavailable [phone] Allergies Allergen (clinical drug ingredient) Drug/Non Drug [...] Acid 20 MG as directed Orally Not-Taking [place] 3-6-9 Fatty Acids as directed Orally Not-Taking [...] Once a day; Duration: 30 day(s) Not-Taking [place] Thyroid 60 MG 1 tablet Orally Onc [...] Status W/U Status Risk Notes Problem Bursitis (21175749) Bursitis (727.3) Active confirmed Problem Myositis (52234163) Myositis (729.1) Active confirmed Problem Pain in limb (54522821) Pain in Limb (729.5) Active confirmed Problem Plantar fasciitis (591125212) Plantar Fasciitis (728.71) Active confirmed Problem Plantar fascial fibromatosis (64196111) Plantar fascial fibromatosis (M72.2) Active confirmed Vital Signs Blood pressure diastolic 76 mm Hg 10/17/2024 Height 5ft8in in 10/17/2024 Blood pressure systolic 139 mm Hg 10/17/2024 Weight 295 lbs 10/17/2024 BMI 44.85 kg/m2 10/17/2024 Encounters Encounter Location Date Provider Diagnosis [facility] [address] [address] 10/17/2024 Nimo Weber Plantar fascial fibromatosis M72.2 [...] Insured Coverage Start Date Coverage End Date [facility] [employer] Claims [address] [place] [id number] Arcelia Multani Self - patient is the insured Medical (General) History Medical History History ICD Code asthma Back,Hip,and Knee pain Depression High blood pressure Reflux Headaches Thyroid disorder chronic sinusitis Psychiatric disorder Transfusions Surgical History Surgery Date(Month/Year) eye surgery cyst removal section thyroid nodule removal 1992
[2025-10-14 10:45] LABS: MANUAL DIFF FLAG NO
[2025-10-14 10:50] LABS: Hematocrit 45.3 % (37.0-47.0); Hemoglobin 15.2 g/dl (12.0-16.0); Imm Gran Abs Auto 0.01 X10*3/uL (0.00-0.03); Imm Gran Pct Auto 0.2 % (0.0-0.4); Lymphocytes Absolute Auto 2.5 X10*3/uL (1.2-4.9); Mean Corpuscular HGB Conc 33.6 g/dl (31.0-35.0); Mean Corpuscular Hemoglobin 28.6 pg (27.0-33.0); Mean Corpuscular Volume 85.2 fL (80.0-98.0); NRBC Abs Auto 0.000 X10*3/uL (0.0-0.012); NRBC Pct Auto 0.0 /100WBC (0.0-0.2); Platelet Count 350 X10*3/uL (160-400); Red Blood Count 5.32 X10*6/uL (4.20-5.50); White Blood Count 6.5 X10*3/uL (4.8-10.8)
[2025-10-14 11:38] LABS: Alanine Aminotransferase 21 U/L (0-31); Anion Gap 11 (12-20); Aspartate Amino Transferase 25 U/L (5-31); Blood Urea Nitrogen 17 mg/dL (9-16); Calcium 10.0 mg/dL (8.4-10.2); Carbon Dioxide 30 mmol/L (22-29); Chloride 103 mmol/L (96-108); Cholesterol 206 mg/dL (<200); Estimated Glomerular Filt Rate 40; HDL Cholesterol 51 mg/dL (>40); Potassium 3.3 mmol/L (3.3-5.1); Sodium 141 mmol/L (135-145); Triglycerides 133 mg/dL (<150)
[2025-10-14 11:54] LABS: Free T4 (Free Thyroxine) 1.47 ng/dL (0.71-1.85); Thyroid Stimulating Hormone 0.63 uIU/mL (0.32-4.0)
== END 2025-10-14 09:04 | disposition home or self-care (01) ==
LOC: HO.HMGCLDS 09:03
PROVIDERS: PCP Internal Medicine; Visit Provider Internal Medicine
DX: I10 Essential (primary) hypertension (principal); E78.2 Mixed hyperlipidemia; E03.9 Hypothyroidism, unspecified; E66.01 Morbid (severe) obesity due to excess calories; K58.2 Mixed irritable bowel syndrome; K21.9 Gastro-esophageal reflux disease without esophagitis; D68.00 Von Willebrand disease, unspecified; R73.01 Impaired fasting glucose; R74.8 Abnormal levels of other serum enzymes; Z68.41 Body mass index [BMI] 40.0-44.9, adult
CPT/HCPCS: 36415; 80048; 80061; 82306; 83036; 84439; 84443; 84450; 84460; 85025